=== PATIENT | female | born 1940 | race Caucasian/White ===

== ENCOUNTER 2018-07-29 03:11 | Inpatient (IN) | payer MEDICARE, OTHER ==
[2018-07-29] MEDS ORDERED: ONDANSETRON 4 MG/2 ML VIAL ONE ×4 (03:28→14:56)
--- NOTE | 2018-07-29 03:38 | PDOC ---
Attending Attestation - HPI HPI: 07/29/18 06:27 The patient is a 77 year old female with a significant past medical history of DM, HTN, HLD, CKD stage III, who presents to the ED with abdominal pain, and vomiting for 2 days. Patient reports acute onset of multiple episodes of non bilious, non bloody emesis beginning at 1100 yesterday. she reportes associated diffuse, crampy, abdominal pain, with no identifiable triggers or alleviators. Last BM x 4 days ago. Normal PO intake. Patient in normal state of health before symptom onset. the patient denies any other symptoms or complaints. Documentation prepared by Flavio Pereira, acting as biomedical engineering internship for Perla Willis MD. <Flavio Pereira - Last Filed: 07/29/18 06:27> - Resident Resident Name: Macho Marvin - Physicial Exam PE: 07/29/18 07:16 GENERAL: Awake, alert, and fully oriented, in no acute distress LUNGS: No distress, speaks full sentences, clear to auscultation bilaterally HEART: Regular rate and rhythm, normal S1 and S2, no murmurs, rubs or gallops, peripheral pulses normal and equal bilaterally. ABDOMEN: + Diffuse abdominal ttp. Soft, normoactive bowel sounds. No guarding, no rebound, no rigidity. EXTREMITIES : Normal inspection, Normal range of motion, no edema. SKIN: Warm, Dry, normal turgor, no rashes or lesions noted - Medical Decision Making 07/29/18 07:17 77 yo F presenting to the ER with a complaint of abdominal pain (+) vomiting 07/29/18 07:18 Laboratory Tests 07/29/18 07/29/18 07/29/18 05:00 05:00 05:00 WBC 19.4 H Hgb 13.8 Hct 45.5 H D Plt Count 335 D BUN 33 H Creatinine 1.1 Creatine Kinase Troponin I Lipase 48770 H 07/29/18 05:00 WBC Hgb Hct Plt Count BUN Creatinine Creatine Kinase 61 Troponin I 0.02 Lipase Acute pancreatitis Will admit Pending CT <Perla Willis - Last Filed: 07/29/18 07:18>
--- NOTE | 2018-07-29 03:45 | PDOC ---
History of Present Illness - General Chief Complaint: Nausea/Vomiting Stated Complaint: NAUSEA Time Seen by Provider: 07/29/18 03:35 - History of Present Illness Initial Comments: 07/29/18 03:43 77 yo F with h/o DM, HTN, HLD, necrotizing pancreatitis, splenic and portal vein thrombosis, CKD stage III, who p/w abdominal pain, and vomiting. Patient reports acute onset of multiple episodes of non bilious, non bloody emesis beginning at 1100 (07/28/18). Associated with diffuse, crampy, abdominal pain, with no identifiable triggers or alleviators. Last BM x 4 days ago. Normal PO intake. Patient in normal state of health before symptom onset. Patient denies N/V, F,C, CP, SOB, urinary complaints, abdominal pain, diarrhea, BPR, hematuria, lightheadedness, weakness, sensory changes. PMHx: as noted above ROS: as noted Allergies: NKDA Past History - Past Medical History Allergies/Adverse Reactions: Allergies Allergy/AdvReac Type Severity Reaction Status Date / Time No Known Allergies Allergy Verified 05/26/16 18:07 Home Medications: Ambulatory Orders Enalapril Maleate [Vasotec -] 10 mg PO DAILY 03/26/12 Aspirin [Aspirin EC] 81 mg PO DAILY 07/29/18 Docusate Sodium 100 mg PO TID PRN 07/29/18 Gemfibrozil 600 mg PO BID 07/29/18 Glipizide 5 mg PO DAILY 07/29/18 Insulin Glargine,Hum.rec.anlog [Basaglar Kwikpen U-100] 25 units SQ DAILY@0700 07/29/18 Metformin HCl [Glucophage] 1,000 mg PO BID 07/29/18 Metoprolol Succinate 50 mg PO DAILY 07/29/18 Omeprazole 20 mg PO DAILY 07/29/18 Sodium Bicarbonate 454 gm MC DAILY 07/29/18 Vit C/E/Zn/Coppr/Lutein/Zeaxan [Preservision Areds 2 Softgel] 1 cap PO DAILY Anemia: No Asthma: No Cancer: No Cardiac Disorders: Yes CVA: No COPD: No CHF: No Dementia: No Diabetes: Yes (NIDDM) GI Disorders: Yes (GASTRITIS, PANCREATITIS) Disorders: No HTN: Yes Hypercholesterolemia: Yes Liver Disease: No Seizures: No Thyroid Disease: No - Surgical History Abdominal Surgery: No Appendectomy: No Cardiac Surgery: No Cholecystectomy: Yes Lung Surgery: No Neurologic Surgery: No Orthopedic Surgery: No - Immunization History Immunization Up to Date: No - Suicide/Smoking/Psychosocial Hx Smoking History: Unknown if ever smoked Have you smoked in the past 12 months: No Hx Alcohol Use: No Drug/Substance Use Hx: No Substance Use Type: None Hx Substance Use Treatment: No Review of Systems - Review of Systems Comments:: 07/29/18 03:44 GENERAL/CONSTITUTIONAL: No fever or chills. No weakness. HEAD, EYES, EARS, NOSE AND THROAT: No change in vision. No ear pain or discharge. No sore throat. CARDIOVASCULAR: No chest pain or shortness of breath RESPIRATORY: No cough, wheezing, or hemoptysis. GASTROINTESTINAL:+ abdominal pain, nausea, vomiting, constipation. No diarrhea GENITOURINARY: No dysuria, frequency, or change in urination. MUSCULOSKELETAL: No joint or muscle swelling or pain. No neck or back pain. SKIN: No rash NEUROLOGIC: No headache, vertigo, loss of consciousness, or change in strength/ sensation. ENDOCRINE: No increased thirst. No abnormal weight change HEMATOLOGIC/LYMPHATIC: No anemia, easy bleeding, or history of blood clots. ALLERGIC/IMMUNOLOGIC: No hives or skin allergy. *Physical Exam - Vital Signs Last Vital Signs Temp Pulse Resp BP Pulse Ox 98.5 F 86 19 141/86 100 07/29/18 03:13 07/29/18 03:13 07/29/18 03:13 07/29/18 03:13 07/29/18 03:13 - Physical Exam Comments: 07/29/18 03:44 GENERAL: Awake, alert, and fully oriented, in no acute distress HEAD: No signs of trauma, normocephalic, atraumatic EYES: PERRLA, EOMI, sclera anicteric, conjunctiva clear ENT: Hearing grossly normal, nares patent, oropharynx clear without exudates. Moist mucosa NECK: Normal ROM, supple, no lymphadenopathy, JVD, or masses LUNGS: No distress, speaks full sentences, clear to auscultation bilaterally HEART: Regular rate and rhythm, normal S1 and S2, no murmurs, rubs or gallops, peripheral pulses normal and equal bilaterally. ABDOMEN: + Diffuse abdominal ttp. Soft, normoactive bowel sounds. No guarding, no rebound, no rigidity. No masses. Neg CVA ttp. EXTREMITIES : Normal inspection, Normal range of motion, no edema. No clubbing or cyanosis. SKIN: Warm, Dry, normal turgor, no rashes or lesions noted ED Treatment Course - LABORATORY CBC & Chemistry Diagram: 07/29/18 05:00 07/29/18 05:00 Medical Decision Making - Medical Decision Making 07/29/18 03:58 77 yo F with h/o DM, HTN, HLD, CKD stage III, who p/w abdominal pain, and vomiting. VSS, AF. + Diffuse abdominal ttp. R/o SBO vs. ileus. Will consider biliary pathology, gastritis, colitis, appendicitis, nephrolithiasis. Low suspicion pyelonephiritis, AAA, Ao dissection, mesenteric ischemia. 07/29/18 04:04 Ed Course: CBC, CMP, Cardiac, Lipase EKG Zofran, NS CT AP 07/29/18 05:53 WBC: 19.4 07/29/18 06:14 EKG: NSR with LVH . Q wave lead III, AvF. Absent NATALI, STD. 07/29/18 06:40 Lipase: [id number] ( [id number]) 07/29/18 06:42 Trop: Neg BUN: 33 07/29/18 06:43 Patient stable and signed out to day team. Pending CT AP. *DC/Admit/Observation/Transfer Diagnosis at time of Disposition: Pancreatitis Qualifiers: Chronicity: acute Pancreatitis type: unspecified pancreatitis type Acute pancreatitis complication: unspecified Qualified Code(s): K85.90 - Acute pancreatitis without necrosis or infection, unspecified - Discharge Dispostion Disposition: HOME Condition at time of disposition: Stable Decision to Admit order: Yes - Referrals - Patient Instructions - Post Discharge Activity - Attestations Physician Attestion: 07/29/18 03:45 I attest to the information provided in this note.
[2018-07-29] MEDS ORDERED: SODIUM CHLORIDE 0.9% 500 ML INFUS.BAG IV ONE (03:52)
[2018-07-29] MEDS ORDERED: ONDANSETRON 4 MG/2 ML VIAL IVPUSH ONE ×2 (03:52→07:41)
[2018-07-29] MEDS ORDERED: MAGNESIUM CITRATE 300 ML BOTTLE PO ONE (04:06)
[2018-07-29] MEDS ORDERED: MAGNESIUM CITRATE 300 ML BOTTLE ONE (05:19)
[2018-07-29 05:25] LABS: BASO % 0.4 % (0-2.0); EOS % 1.6 % (0-4.5); HEMATOCRIT 45.5 % (32.4-45.2); HEMOGLOBIN 13.8 GM/dL (10.7-15.3); LYMPH % 8.2 % (8-40); MCH 22.8 pg (25.7-33.7); MCHC 30.3 g/dl (32.0-36.0); MEAN CELL VOLUME 75.5 fl (80-96); MEAN PLT VOLUME 9.1 fl (7.5-11.1); MONO % 3.5 % (3.8-10.2); NEUT % 86.3 % (42.8-82.8); PLATELET COUNT 335 K/MM3 (134-434); RBC 6.02 M/mm3 (3.60-5.2); RDW 14.6 % (11.6-15.6); WHITE BLOOD COUNT 19.4 K/mm3 (4.0-10.0)
[2018-07-29 06:25] LABS: LIPASE 13996 U/L (73-393)
[2018-07-29 06:36] LABS: ALBUMIN 3.1 g/dl (3.4-5.0); ALK PHOS 138 U/L (45-117); ANION GAP 8 MMOL/L (8-16); BILIRUBIN,TOTAL 0.3 mg/dL (0.2-1); BLOOD UREA NITROGEN 33 mg/dL (7-18); CALCIUM 8.8 mg/dL (8.5-10.1); CHLORIDE 112 mmol/L (98-107); CO2 17 mmol/L (21-32); CREATININE 1.1 mg/dL (0.55-1.3); POTASSIUM 5.2 mmol/L (3.5-5.1); SGOT/AST 37 U/L (15-37); SGPT/ALT 28 U/L (13-61); SODIUM 138 mmol/L (136-145); TOT PROT 6.2 g/dl (6.4-8.2)
[2018-07-29 07:19] LABS: GLUCOSE,RANDOM 315 mg/dL (74-106)
[2018-07-29] MEDS ORDERED: SODIUM CHLORIDE 0.9% 1000 ML INFUS.BAG IV ONE ×2 (07:24)
[2018-07-29] MEDS ORDERED: morphine CARPU-JECT 4 MG/1 ML DISP.SYRIN IVPUSH ONE (07:24)
[2018-07-29] MEDS ORDERED: morphine SULFATE 4 MG/ML VIAL ONE ×2 (07:30→16:10)
--- NOTE | 2018-07-29 07:36 | HP ---
Addendum entered and electronically signed by Syd Fernandez, RESIDENT 07/29/18 11: 12: called pharmacy again Patient also on insulin 25 units QAM will give 12 units while NPO Patient on aspirin 81 daily will continue aspirin 81mg po daily Original Note: CHIEF COMPLAINT:abdominal pain PCP:[facility] HISTORY OF PRESENT ILLNESS: 77F PMHx of DM2, GERD, HTN, HLD, CAD s/p stent x2, presents to the hospital with 1 day history of sever 10/10 abdominal pain which started last night. Patient states this is similar ot her pain she had 2 years ago. She also had multiple episodes of NB/NB vomiting. She states she ate a diabetic cracker last night to keep her sugar up and when she was ready to go to bed she started to have what she describes as severe abdominal pain. The pain radiates to her back and she is having trouble moving because of the pain. She denies fever chills chest pain or shortness of breath. In the ER she was noted to have a lipade of about 14,000. The patient was hospitalized 2 years ago for acute pancreatitis and upon work up was found to have been on Repaglinide and DPP-4 ingibitor sitalgiptin and pancreatitis was suspected to have come from one of these meds since she does not drink alcohol and we did not find gall stone 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 She was also transferred to ICU since she was found to be acidotic on ABG we decided to repeat the CT scan which showed a small area of necrosis at the head of the pancreas (started on imipenem) and also showed a portal vein non- occlusive thrombosis at the junction of the splenic vein and she was started on anticoagulation and transferred to [facility] where she states she did not have any procedure done and eventually was discharged a few days after transfer. She states she was anticoagulated for a short while after as an outpatient and stopped. (she believes about 2 weeks after discharge.)She never followed up with GI. Patient presents with her daughter who helped give the HPI and speak or translate for the patient at times but the patient understood Mauritian and was able to answer my questions when she wanted to. I called the patient's pharmacy and they state she was given repaglinide for a few months this year. She had it in december and february of this year but is now inactive. Patient brought in her medications and Repaglinide was not there and she states she does not take it anymore. Pharmacy also states she was given Lipitor 20mg a few months ago and was never refilled however patient states she does not take it. She has not picked up with gemfibrozil since April but still has a full bottle because the patient states she only takes it once a day and not twice. ER course was notable for: (1)Labs IVF (2)CTAP (3)Pain control antiemetics Recent Travel:Denies PAST MEDICAL HISTORY:As above CKD CAD PAST SURGICAL HISTORY: Cholecystectomy Social History: Smoking:Denies Alcohol:Denies Drugs: Denies Family History: Allergies No Known Allergies Allergy (Verified 05/26/16 18:07) HOME MEDICATIONS: Medication Instructions Recorded Enalapril Maleate [Vasotec -] 10 mg PO DAILY 03/26/12 Docusate Sodium 100 mg PO TID PRN 07/29/18 Gemfibrozil 600 mg PO BID 07/29/18 Glipizide 5 mg PO DAILY 07/29/18 Insulin Glargine,Hum.rec.anlog 25 units SQ DAILY@0700 07/29/18 [Basaglar Kwikpen U-100] Metformin HCl [Glucophage] 1,000 mg PO BID 07/29/18 Metoprolol Succinate 50 mg PO DAILY 07/29/18 Omeprazole 20 mg PO DAILY 07/29/18 Sodium Bicarbonate 454 gm MC DAILY 07/29/18 Vit C/E/Zn/Coppr/Lutein/Zeaxan 1 cap PO DAILY 07/29/18 [Preservision Areds 2 Softgel] REVIEW OF SYSTEMS CONSTITUTIONAL: Absent: fever, chills, diaphoresis, generalized weakness, malaise, weight change Present: Loss of appetite HEENT: Absent: rhinorrhea, nasal congestion, throat pain, throat swelling, difficulty swallowing, mouth swelling, ear pain, eye pain, visual changes CARDIOVASCULAR: Absent: chest pain, syncope, palpitations, irregular heart rate, lightheadedness , peripheral edema RESPIRATORY: Absent: cough, shortness of breath, dyspnea with exertion, orthopnea, wheezing, stridor, hemoptysis GASTROINTESTINAL: Absent: diarrhea, melena, hematochezia Present: abdominal pain, abdominal distension, nausea, vomiting, constipation GENITOURINARY: Absent: dysuria, frequency, urgency, hesitancy, hematuria, flank pain, genital pain MUSCULOSKELETAL: Absent: myalgia, arthralgia, joint swelling, neck pain Present: back pain SKIN: Absent: rash, itching, pallor HEMATOLOGIC/IMMUNOLOGIC: Absent: easy bleeding, easy bruising, lymphadenopathy, frequent infections ENDOCRINE: Absent: unexplained weight gain, unexplained weight loss, heat intolerance, cold intolerance NEUROLOGIC: Absent: headache, focal weakness or paresthesias, dizziness, unsteady gait, seizure, mental status changes, bladder or bowel incontinence PSYCHIATRIC: Absent: anxiety, depression, suicidal or homicidal ideation, hallucinations. PHYSICAL EXAMINATION Vital Signs - 24 hr 07/29/18 03:13 Temperature 98.5 F Pulse Rate 86 Respiratory 19 Rate Blood Pressure 141/86 O2 Sat by Pulse 100 Oximetry (%) GENERAL: Awake, alert, and fully oriented, in mild distress. HEAD: Normal with no signs of trauma. EYES: Pupils equal, round and reactive to light, extraocular movements intact, sclera anicteric, conjunctiva clear. No lid lag. EARS, NOSE, THROAT: Dry mucous membranes. NECK: Normal range of motion, supple without JVD LUNGS: Breath sounds equal, clear to auscultation bilaterally. No wheezes, and no crackles. No accessory muscle use. HEART: Regular rate and rhythm, normal S1 and S2 without murmur, rub or gallop. ABDOMEN: Soft, diffusely tender to light palpation. Moderately distended ( Patient complains of being constipated), hypoactive bowel sounds. MUSCULOSKELETAL: Normal range of motion at all joints. No bony deformities or tenderness. UPPER EXTREMITIES: warm, well-perfused. No cyanosis. No clubbing. No peripheral edema. LOWER EXTREMITIES: 1+ DP pulses, warm, well-perfused. No calf tenderness. trace peripheral edema. NEUROLOGICAL: Cranial nerves II-XII intact. Normal speech. Normal gait. global muscles strength 5/5. sensation intact. no neurological deficits noted on exam. PSYCHIATRIC: Cooperative. Good eye contact. Appropriate mood and affect. SKIN: Warm, dry Laboratory Results - last 24 hr 07/29/18 07/29/18 07/29/18 05:00 05:00 05:00 WBC 19.4 H RBC 6.02 H Hgb 13.8 Hct 45.5 H D MCV 75.5 L MCH 22.8 L MCHC 30.3 L RDW 14.6 Plt Count 335 D MPV 9.1 Absolute Neuts (auto) 16.7 H Neutrophils % 86.3 H D Lymphocytes % 8.2 D Monocytes % 3.5 L Eosinophils % 1.6 Basophils % 0.4 Nucleated RBC % 0 Sodium 138 Potassium 5.2 H Chloride 112 H Carbon Dioxide 17 L Anion Gap 8 BUN 33 H Creatinine 1.1 Creat Clearance w eGFR 48.29 Random Glucose 315 H* Calcium 8.8 Total Bilirubin 0.3 AST 37 ALT 28 Alkaline Phosphatase 138 H Creatine Kinase Troponin I Total Protein 6.2 L Albumin 3.1 L Lipase 85639 H 07/29/18 05:00 WBC RBC Hgb Hct MCV MCH MCHC RDW Plt Count MPV Absolute Neuts (auto) Neutrophils % Lymphocytes % Monocytes % Eosinophils % Basophils % Nucleated RBC % Sodium Potassium Chloride Carbon Dioxide Anion Gap BUN Creatinine Creat Clearance w eGFR Random Glucose Calcium Total Bilirubin AST ALT Alkaline Phosphatase Creatine Kinase 61 Troponin I 0.02 Total Protein Albumin Lipase CTAP: Official read still pending but 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 Also shows a 3.8cm right adnexal cyst. ASSESSMENT/PLAN: 77F with multiple medical problems presents with Nausea, vomiting, ABD pain, with a history, physical exam, radiological findings, and laboratory assessment consistent with acute 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 Meets 3 of the ransons criteria. Acute 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 Unsure as to the cause of acute 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 Her Alk-phos is slightly elevated but no other LFT abormalities. Do not suspect gallstone 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 Patient is on omeprazole which has an adverse effect listed as causing 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 went through medications. patient also taking a multivitamin and mineral capsule. I researched this medication and side effects listed are very generic such as abdominal pain, vomiting, headache, but no causes listed. Would likely hold on discharge just to rule out as process of elimination. Stop omperazole-would not give this on discharge. would replavce with H2 yancy Admit to Med/Surg NPO IVF for resuscitation LR @ 150ml/hr. already got 2 liters bolus in ER Will check a stat triglyceride level now as this could be a cause of the pancreatitis if it is very high patient will need ICU and an insulin gtt. If WNL or not extremely high will get a RUQ US to assess for possibility of retained CBD stone causing a gall stone pancreatitis although with the LFTs and Tbili normal this is unlikely Pain control with morphine and tylenol Zofran PRN Trend Leukocytosis DM-patient presented with Hyperglycemia Stop PO DM meds. start Insulin sliding scale Fingersticks q6h Consitpation: patient is distended CTAp shows impacted stool on rectum will give dulcolax suppository and enema Restart colace when able to take PO GI consult CKD stage three patient seems Dr. Melanie Moreno for renal Cr 1.1 which is better than baseline of about 1.3 HTN Resume Home enalapril and metoprolol when able to tolerate PO CAD Will talk to patient and see if she is still on aspirin if she is not will find out why not given she has 2 stents if she is on it will continue HLD patient not on statin although was prescribed lipitor 20mg po HS. was not refilled after last prescription per pharmacist. 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 - New Patient This patient is new to me today: Yes Date on this admission: 07/29/18 - Critical Care Critical Care patient: No
[2018-07-29 07:49] LABS: CHOLESTEROL 163 mg/dL (50-200); HDL CHOLESTEROL 34 mg/dL (40-60); TRIGLYCERIDES 153 mg/dL (0-150)
--- NOTE | 2018-07-29 08:53 | PN ---
Teaching Attending Note Name of Resident: Syd Fernandez ATTENDING PHYSICIAN STATEMENT I saw and evaluated the patient. I reviewed the resident's note and discussed the case with the resident. I agree with the resident's findings and plan as documented. SUBJECTIVE: This is a 77 year old woman with a history of HTN, hyperlipidemia, type 2 DM, CAD, necrotizing pancreatitis with portal vein thrombosis, stage 3 CKD who comes to the ED complaining of abdominal pain and vomiting since last night. She has not had a BM in 4 days. OBJECTIVE: Vital Signs Period Temp Pulse Resp BP Sys/Bauman Pulse Ox Last 24 Hr 98.5 F 86 19 141/86 100 HEART: S1S2, RRR LUNGS: Clear ABDOMEN: Obese, soft, (+) diffuse tenderness, non-distended, hypoactive BS EXTREMITIES: No edema Laboratory Tests 07/29/18 07/29/18 07/29/18 05:00 05:00 05:00 WBC 19.4 H RBC 6.02 H Hgb 13.8 Hct 45.5 H D MCV 75.5 L MCH 22.8 L MCHC 30.3 L RDW 14.6 Plt Count 335 D MPV 9.1 Absolute Neuts (auto) 16.7 H Neutrophils % 86.3 H D Lymphocytes % 8.2 D Monocytes % 3.5 L Eosinophils % 1.6 Basophils % 0.4 Nucleated RBC % 0 Sodium 138 Potassium 5.2 H Chloride 112 H Carbon Dioxide 17 L Anion Gap 8 BUN 33 H Creatinine 1.1 Creat Clearance w eGFR 48.29 Random Glucose 315 H* Calcium 8.8 Total Bilirubin 0.3 AST 37 ALT 28 Alkaline Phosphatase 138 H Creatine Kinase Troponin I Total Protein 6.2 L Albumin 3.1 L Triglycerides 153 H Cholesterol 163 Total LDL Cholesterol 114 H HDL Cholesterol 34 L Lipase 08986 H 07/29/18 05:00 WBC RBC Hgb Hct MCV MCH MCHC RDW Plt Count MPV Absolute Neuts (auto) Neutrophils % Lymphocytes % Monocytes % Eosinophils % Basophils % Nucleated RBC % Sodium Potassium Chloride Carbon Dioxide Anion Gap BUN Creatinine Creat Clearance w eGFR Random Glucose Calcium Total Bilirubin AST ALT Alkaline Phosphatase Creatine Kinase 61 Troponin I 0.02 Total Protein Albumin Triglycerides Cholesterol Total LDL Cholesterol HDL Cholesterol Lipase Home Medications Medication Instructions Recorded Enalapril Maleate [Vasotec -] 10 mg PO DAILY 03/26/12 Docusate Sodium 100 mg PO BID 07/29/18 Gemfibrozil 600 mg PO BID 07/29/18 Glipizide 5 mg PO DAILY 07/29/18 Metformin HCl [Glucophage] 1,000 mg PO BID 07/29/18 Metoprolol Succinate 50 mg PO DAILY 07/29/18 Omeprazole 20 mg PO DAILY 07/29/18 Sodium Bicarbonate 454 gm PO DAILY 07/29/18 Vit C/E/Zn/Coppr/Lutein/Zeaxan 1 cap PO DAILY 07/29/18 [Preservision Areds 2 Softgel] ASSESSMENT AND PLAN: This is a 77 year old woman with a history of HTN, hyperlipidemia, type 2 DM, CAD, necrotizing pancreatitis with portal vein thrombosis, stage 3 CKD who presented to the ED with abdominal pain, nausea, vomiting, and constipation. 1. Acute pancreatitis - NPO - IV fluid - Triglycerides ok - LFTs ok except slight elevation in alk phos - Follow up US - Discontinue omeprazole - GI evaluation 2. Constipation with fecal impaction - Mag citrate given in ED - Fleet enema ordered 3. Type 2 DM - Hold glipizide, metformin - Continue Basaglar - reduce dose while NPO - Fingersticks with Novolog sliding scale 4. HTN - Continue Vasotec, Toprol XL 5. Hyperlipidemia - Continue gemfibrozil 6. CAD, history of stents - Continue aspirin, Toprol XL, gemfibrozil 7. Stage 3 CKD - Stable - Monitor creatinine
[2018-07-29] MEDS ORDERED: MORPHINE SULFATE 2 MG/ML VIAL IVPUSH PRN (08:56)
[2018-07-29] MEDS ORDERED: LACTATED RINGERS SOLUTION 1,000 ML IV SCH ×4 (09:00→11:34)
[2018-07-29 09:02] LABS: LDH 230 U/L (84-246)
[2018-07-29] MEDS ORDERED: BISACODYL 10 MG SUPP.RECT RC PRN (10:00)
[2018-07-29] MEDS ORDERED: SODIUM PHOSPHATE/NA BIPHOS 133 ML ENEMA PR ONE (10:00)
--- NOTE | 2018-07-29 10:25 | EKG ---
Test Reason : Blood Pressure : / mmHG Vent. Rate : 098 BPM Atrial Rate : 098 BPM P-R Int : 122 ms QRS Dur : 090 ms QT Int : 364 ms P-R-T Axes : 027 -02 040 degrees QTc Int : 464 ms NORMAL SINUS RHYTHM MINIMAL VOLTAGE CRITERIA FOR LVH, MAY BE NORMAL VARIANT NONSPECIFIC ST ABNORMALITY ABNORMAL ECG WHEN COMPARED WITH ECG OF 08-MAY-2016 23:31, NONSPECIFIC T WAVE ABNORMALITY NOW EVIDENT IN LATERAL LEADS Confirmed by FANI CASTRO, EUN ([id number]) on 07/29/2018 10:24:37 AM Referred By: Confirmed By:EUN MOHR MD
[2018-07-29] MEDS ORDERED: ACETAMINOPHEN INJECTION 100 ML IVPB ONE ×2 (10:45→17:23)
[2018-07-29] MEDS ORDERED: FAMOTIDINE 20 MG/50 ML IVPB 20 MG/50 ML MG IVPB ONE (10:45)
[2018-07-29] MEDS: INSULIN SLIDING SCALE (NOVOLOG) 1 VIAL SQ SCH ×3 (10:45→18:01)
[2018-07-29] MEDS: INSULIN (LEVEMIR) 100 UNITS/ML UNITS SQ SCH (10:45)
[2018-07-29] MEDS: FAMOTIDINE 20 MG/50 ML IVPB 20 MG/50 ML MG IVPB SCH ×2 (10:45→22:00)
[2018-07-29] MEDS ORDERED: INSULIN (LEVEMIR) 100 UNITS/ML UNITS SQ ONE (10:46)
[2018-07-29] MEDS ORDERED: INSULIN REGULAR HUMAN 100 UNITS/ML *VIAL ONE (10:48)
[2018-07-29] MEDS ORDERED: HEPARIN NA (PORCINE) 5,000 UNITS/ML 1ML VIAL SQ SCH (11:00)
[2018-07-29] MEDS: ACETAMINOPHEN 1000 MG/100 ML VIAL (NON FORMULARY) IVPB PRN ×2 (11:05→17:22)
[2018-07-29] MEDS ORDERED: HEPARIN NA (PORCINE) 5,000 UNITS/ML 1ML VIAL ONE (11:47)
[2018-07-29] MEDS ORDERED: ONDANSETRON 4 MG/2 ML VIAL IVPUSH PRN (12:00)
[2018-07-29] MEDS ORDERED: ASPIRIN COATED 81 MG TABLET.EC ONE (14:30)
[2018-07-29] MEDS: ASPIRIN COATED 81 MG TABLET.EC PO SCH (14:33)
[2018-07-29] MEDS: HEPARIN NA (PORCINE) 5,000 UNITS/ML 1ML VIAL SQ SCH ×2 (14:34→22:00)
--- NOTE | 2018-07-29 14:59 | PN ---
Teaching Attending Note Name of Resident: Jg Urban ATTENDING PHYSICIAN STATEMENT I saw and evaluated the patient. I reviewed the resident's note and discussed the case with the resident. I agree with the resident's findings and plan as documented. SUBJECTIVE: Pt seen and examined in the ER. Briefly, 77yo female with h/o HTN, DM, hyperlipidemia, CAD s/p stents, GERD, h/o pancreatitis 2 years ago who presents with abdominal pain, nausea and vomiting. Found to have a lipase of >32075 and pancreatitis seen on CT A/P. Symptoms feel similar to prior admission for 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 History obtained from daughter. OBJECTIVE: Vital Signs Period Temp Pulse Resp BP Sys/Bauman Pulse Ox Last 24 Hr 98.1 F-98.5 F 86-107 19-20 141-150/73-86 99-100 Intake & Output 07/26/18 07/27/18 07/28/18 07/29/18 23:59 23:59 23:59 23:59 Weight 74.389 kg Gen: listless Heart: RRR Lung: decreased breath sounds at the bases Abd: diffusely tender, +guarding Ext: no edema CBC, BMP 07/29/18 05:00 07/29/18 05:00 Laboratory Tests 07/29/18 05:00 Triglycerides 153 H Lipase 46430 H Active Medications Acetaminophen (Ofirmev Injection -) 1,000 mg IVPB Q6H PRN PRN Reason: Pain 1-5 or fever Last Admin: 07/29/18 11:05 Dose: 1,000 mg Aspirin (Ecotrin -) 81 mg PO DAILY [facility] Last Admin: 07/29/18 14:33 Dose: 81 mg Bisacodyl (Dulcolax Suppository -) 10 mg RC PRN PRN PRN Reason: CONSTIPATION Heparin Sodium (Porcine) (Heparin -) 5,000 unit SQ TID [facility] Last Admin: 07/29/18 14:34 Dose: Not Given Famotidine/Sodium Chloride (Pepcid 20 Mg Premixed Ivpb -) 20 mg in 50 mls @ 100 mls/hr IVPB BID [facility] Last Admin: 07/29/18 10:45 Dose: 100 mls/hr Lactated Ringer's (Lactated Ringers Solution) 1,000 ml in 1,000 mls @ 200 mls/ hr IV ASDIR SHASHANK Lactated Ringer's (Lactated Ringers Solution) 1,000 mls @ 250 mls/hr IV ASDIR [facility] Stop: 07/29/18 15:31 Last Admin: 07/29/18 14:34 Dose: 250 mls/hr Insulin Aspart (Novolog Vial Sliding Scale -) 1 vial SQ Q6HPO [facility]; Protocol Last Admin: 07/29/18 12:57 Dose: Not Given Insulin Detemir (Levemir Vial) 12 units SQ DAILY@0700 [facility] Last Admin: 07/29/18 10:45 Dose: 12 unit Morphine Sulfate (Morphine Sulfate) 4 mg IVPUSH Q4H PRN PRN Reason: PAIN LEVEL 6-10 Ondansetron HCl (Zofran Injection) 4 mg IVPUSH Q6H PRN PRN Reason: NAUSEA ASSESSMENT AND PLAN: Acute Pancreatitis CAD HTN DM Hyperlipidemia - aggressive IVF resuscitation - trend lipase - monitor urine output, creatinine - monitor lytes - glucose control - monitor off antibiotics as pt afebrile and no abscess seen on imaging - aspiration precautions - O2 to keep Spo2 >90% - DVT prophylaxis - ICU monitoring for now critical care time spent in reviewing chart, evaluating patient and formulating plan 35 min
[2018-07-29 15:29] LABS: URINE APPEARANCE CLEAR; URINE BILIRUBIN NEGATIVE (<2.0 mg/dL); URINE COLOR LTYELLOW; URINE GLUCOSE (UA) 3+ (NEGATIVE); URINE KETONE 1+ (NEGATIVE); URINE LEUK ESTERASE NEGATIVE (NEGATIVE); URINE NITRITE NEGATIVE (NEGATIVE); URINE PROTEIN 1+ (NEGATIVE); URINE UROBILINOGEN NEGATIVE mg/dL (0.2-1.0)
[2018-07-29] MEDS ORDERED: LACTATED RINGERS SOLUTION 1,000 ML/1,000 ML INFUS.BAG IV SCH (15:31)
[2018-07-29 15:46] LABS: EPI CELLS RARE /HPF (FEW); URINE MUCUS RARE
--- NOTE | 2018-07-29 16:03 | CONSULT ---
Consultation: REQUESTING PROVIDER: CONSULT REQUEST: We have been asked to medically evaluate this patient for ICU. HISTORY OF PRESENT ILLNESS:A 77 y.o. F w/ PMHx. of DM2, HTN, HLD, CAD(2 stent placements), Cholecystectomy, splenic vein thrombosis, pancreatitis 2/2 repaglinide, presents to ICU with abdominal pain 2/2 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 Pt. endorses 10/10 abdominal pain that started yesterday and is similar to the previous time she had pancreatitis 2 years ago 2/2 repaglinide use. Pt endorses non-bloody but bilious vomiting ~ 5 times. Pt. endorses feeling nauseuous however has not vomited since. Pt. tried to eat a small cracker so that her sugars would not drop too low but that made her nauseous. Pt. endorses constipation for 4 days. Pt. denies shortness of breath, chest pain, numbness or tingling of the extremities or having an appetite at this time. Pt. does not drink alcohol. REVIEW OF SYSTEMS: CONSTITUTIONAL: Present: loss of appetite Absent: fever, chills, diaphoresis, generalized weakness, malaise, weight change HEENT: Absent: rhinorrhea, nasal congestion, throat pain, throat swelling, difficulty swallowing, mouth swelling, ear pain, eye pain, visual changes CARDIOVASCULAR: Absent: chest pain, syncope, palpitations, irregular heart rate , lightheadedness, peripheral edema RESPIRATORY: Absent: cough, shortness of breath, dyspnea with exertion, orthopnea, wheezing, stridor, hemoptysis GASTROINTESTINAL: Present: Abdominal pain, constipation Absent: abdominal distension, nausea, vomiting, diarrhea, melena, hematochezia GENITOURINARY: Absent: dysuria, frequency, urgency, hesitancy, hematuria, flank pain, genital pain MUSCULOSKELETAL: Absent: myalgia, arthralgia, joint swelling, back pain, neck pain ENDOCRINE:Absent: unexplained weight gain, unexplained weight loss, heat intolerance, cold intolerance NEUROLOGIC: Absent: headache, focal weakness or paresthesias, dizziness, unsteady gait, seizure, mental status changes, bladder or bowel incontinence PSYCHIATRIC: Absent: anxiety, depression, suicidal or homicidal ideation, hallucinations. PHYSICAL EXAMINATION Vital Signs - 24 hr 07/29/18 07/29/18 07/29/18 03:13 12:07 15:58 Temperature 98.5 F 98.1 F Pulse Rate 86 Pulse Rate [ 107 H 117 H Apical] Respiratory 19 20 18 Rate Blood Pressure 141/86 Blood Pressure 150/73 175/11 H [Right Arm] O2 Sat by Pulse 100 99 98 Oximetry (%) 07/29/18 16:01 Temperature 99.8 F H Pulse Rate Pulse Rate [ Apical] Respiratory Rate Blood Pressure Blood Pressure [Right Arm] O2 Sat by Pulse Oximetry (%) GENERAL: Awake, alert, and fully oriented, in mild distress. HEAD: Normal with no signs of gross trauma. EYES: Pupils equal, round and reactive to light, sclera anicteric, conjunctiva clear. No lid lag. EARS, NOSE, THROAT: Ears normal, nares patent, oropharynx clear without exudates. Dry mucous membranes. LUNGS: Breath sounds equal, clear to auscultation bilaterally. No wheezes, and no crackles. No accessory muscle use. HEART: Tachycardic, regular rate and rhythm, normal S1 and S2 without murmur ABDOMEN: Soft, obese, diffusely tender to palpation with zenith of tenderness in the right lumbar region, not distended, normoactive bowel sounds, no guarding , no rebound. UPPER EXTREMITIES: warm, well-perfused. No cyanosis. No clubbing. Cap refill <2 seconds. No peripheral edema. LOWER EXTREMITIES: 2+ dorsal pedal pulses, warm, well-perfused. No calf tenderness. No peripheral edema. NEUROLOGICAL: Cranial nerves II-XII intact. Normal speech. Normal gait. PSYCHIATRIC: Cooperative. Good eye contact. Appropriate mood and affect. SKIN: Warm, dry, normal turgor Laboratory Results - last 24 hr 07/29/18 07/29/18 07/29/18 05:00 05:00 05:00 WBC 19.4 H RBC 6.02 H Hgb 13.8 Hct 45.5 H D MCV 75.5 L MCH 22.8 L MCHC 30.3 L RDW 14.6 Plt Count 335 D MPV 9.1 Absolute Neuts (auto) 16.7 H Neutrophils % 86.3 H D Lymphocytes % 8.2 D Monocytes % 3.5 L Eosinophils % 1.6 Basophils % 0.4 Nucleated RBC % 0 Sodium 138 Potassium 5.2 H Chloride 112 H Carbon Dioxide 17 L Anion Gap 8 BUN 33 H Creatinine 1.1 Creat Clearance w eGFR 48.29 POC Glucometer Random Glucose 315 H* Calcium 8.8 Total Bilirubin 0.3 AST 37 ALT 28 Alkaline Phosphatase 138 H LD Total 230 Creatine Kinase Troponin I Total Protein 6.2 L Albumin 3.1 L Triglycerides 153 H Cholesterol 163 Total LDL Cholesterol 114 H HDL Cholesterol 34 L Lipase 65241 H Urine Color Urine Appearance Urine pH Ur Specific [place] Urine Protein Urine Glucose (UA) Urine Ketones Urine Blood Urine Nitrite Urine Bilirubin Urine Urobilinogen Ur Leukocyte Esterase Urine WBC (Auto) Urine RBC (Auto) Ur Epithelial Cells Urine Mucus 07/29/18 07/29/18 07/29/18 05:00 10:15 15:00 WBC RBC Hgb Hct MCV MCH MCHC RDW Plt Count MPV Absolute Neuts (auto) Neutrophils % Lymphocytes % Monocytes % Eosinophils % Basophils % Nucleated RBC % Sodium Potassium Chloride Carbon Dioxide Anion Gap BUN Creatinine Creat Clearance w eGFR POC Glucometer [phone] Random Glucose Calcium Total Bilirubin AST ALT Alkaline Phosphatase LD Total Creatine Kinase 61 Troponin I 0.02 Total Protein Albumin Triglycerides Cholesterol Total LDL Cholesterol HDL Cholesterol Lipase Urine Color Ltyellow Urine Appearance Clear Urine pH 5.0 Ur Specific [place] 1.018 Urine Protein 1+ H Urine Glucose (UA) 3+ H Urine Ketones 1+ H Urine Blood Negative Urine Nitrite Negative Urine Bilirubin Negative Urine Urobilinogen Negative Ur Leukocyte Esterase Negative Urine WBC (Auto) 7 Urine RBC (Auto) 1 Ur Epithelial Cells Rare Urine Mucus Rare Active Medications Current Medications Acetaminophen (Ofirmev Injection -) 1,000 mg IVPB Q6H PRN PRN Reason: Pain 1-5 or fever Last Admin: 07/29/18 11:05 Dose: 1,000 mg Aspirin (Ecotrin -) 81 mg PO DAILY [facility] Last Admin: 07/29/18 14:33 Dose: 81 mg Bisacodyl (Dulcolax Suppository -) 10 mg RC PRN PRN PRN Reason: CONSTIPATION Chlorhexidine Gluconate (Hibiclens For Decolonization -) 1 applic TP HS [facility] Heparin Sodium (Porcine) (Heparin -) 5,000 unit SQ TID [facility] Last Admin: 07/29/18 14:34 Dose: Not Given Famotidine/Sodium Chloride (Pepcid 20 Mg Premixed Ivpb -) 20 mg in 50 mls @ 100 mls/hr IVPB BID [facility] Last Admin: 07/29/18 10:45 Dose: 100 mls/hr Lactated Ringer's (Lactated Ringers Solution) 1,000 ml in 1,000 mls @ 200 mls/ hr IV ASDIR [facility] Last Admin: 07/29/18 15:46 Dose: 200 mls/hr Insulin Aspart (Novolog Vial Sliding Scale -) 1 vial SQ Q6HPO [facility]; Protocol Last Admin: 07/29/18 12:57 Dose: Not Given Insulin Detemir (Levemir Vial) 12 units SQ DAILY@0700 [facility] Last Admin: 07/29/18 10:45 Dose: 12 unit Morphine Sulfate (Morphine Sulfate) 4 mg IVPUSH Q4H PRN PRN Reason: PAIN LEVEL 6-10 Mupirocin (Bactroban Ointment (For Decolonization) -) 1 applic NS BID [facility] Stop: 08/03/18 21:59 Ondansetron HCl (Zofran Injection) 4 mg IVPUSH Q6H PRN PRN Reason: NAUSEA Last Admin: 07/29/18 15:00 Dose: 4 mg ASSESSMENT/PLAN: A 77 y.o. F w/ PMHx. of DM2, HTN, HLD, CAD(2 stent placements), Cholecystectomy , splenic vein thrombosis, pancreatitis 2/2 repaglinide, presents to ICU with abdominal pain 2/2 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 #Gastroenterology -Pancreatitis 2/2 Omeprazole vs. Repaglinide vs. Idiopathic NPO c/w LR @200ml/hr Given 3 L total LR in ED Pulmonary assessment for ARDS or Volume overloading Q2H D/c PPIs, will start Zantac on Discharge Abdominal US: negative for gallstones Triglycerides: 153 Pt. Does not drink alcohol CT- AP showed residual stool in sigmoid colon, right adnexal mass and thickening of gastric antrum, descending and third portions of the duodenum d/t fatty changes 2/2 pancreatitis , small amount of fluid in right upper abdomen and paracolic gutter. GI Consult (Dr. Holland) appreciated. -DM2 Hyperglycemic D/c home medications ISS FS Q6H -GERD c/w IV Pepcid 4 gm -Constipation c/w Ducolax suppository consider manual disimpaction #Cardiology -CAD c/w ASA 81 mg for stents -HLD c/w Gemfibrozil when able to tolerate PO intake. #F/E/N -LR @ 200ml/hr -replete electrolytes as needed, monitor calcium levels, monitor triglyceride levels -NPO #PPx. -DVT Hep SQ -GI IV Pepcid 4 gm Dispo: We will continue to follow the patient. Thank you for this consultative opportunity. Visit type - Emergency Visit Emergency Visit: Yes ED Registration Date: 07/29/18 Care time: The patient presented to the Emergency Department on the above date and was hospitalized for further evaluation of their emergent condition. - New Patient This patient is new to me today: Yes Date on this admission: 07/29/18 - Critical Care Critical Care patient: Yes Total Critical Care Time (in minutes): 42 Critical Care Statement: The care of this patient involved high complexity decision making to prevent further life threatening deterioration of the patient 's condition and/or to evaluate & treat vital organ system(s) failure or risk of failure.
[2018-07-29] MEDS: MORPHINE SULFATE 2 MG/ML VIAL IVPUSH PRN (16:13)
--- NOTE | 2018-07-29 20:51 | CONS ---
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 She presented to the emergency room with abdominal pain, nausea and vomiting which began one day prior to admission. She is a poor historian. However, her daughter is at the bedside and provides more history. The patient has had no fever or chills, no melena, hematochezia or hematemesis. She has not taken any herbal supplements or new medications. She is on diabetes medicines. PAST MEDICAL AND SURGICAL HISTORY: As listed in the HPI. HOME MEDICATIONS: These were reviewed. ALLERGIES: No known drug allergies. SOCIAL HISTORY: She does not drink, smoke or use any drugs. FAMILY HISTORY: Noncontributory. REVIEW OF SYSTEMS: Negative except for pertinent positives listed in the HPI. PHYSICAL EXAMINATION: Vital signs: Temperature 99, pulse 117, respiratory rate 18, blood pressure 175/73, pulse oximetry 98% on room air. General: In no acute distress. HEENT: Anicteric sclerae. Cardiovascular: S1, S2. Regular rate and rhythm. Lungs: Bilaterally clear to auscultation. Abdomen: Tender diffusely without any rebound or guarding. Normal bowel sounds are present. Extremities: No edema. LABORATORIES: White blood cell count 19. Hemoglobin 13, hematocrit 45. Platelet count 335. Neutrophils 86. Sodium 138, potassium 5.2, BUN 38.3, creatinine 1.1, glucose 315, alkaline phosphatase 138, AST 37, ALT 28, triglycerides 153, cholesterol 163, lipase 13,996. She had a CT scan of the abdomen and pelvis without contrast which revealed acute pancreatitis, mainly involving the pancreatic head at its junction with the body, with significant surrounding edema extending to the anterior pararenal space. A small amount of fluid is seen in the right upper abdomen and paracolic gutter. No gross abscess is identified. She is status post cholecystectomy, non-obstructing right and left renal stone, suggestion of thickening of the gastric antrum wall and there is thickening of the descending and third portion of the duodenum, likely secondary to her 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 She has a moderate-size fat-containing supraumbilical hernia and a 3.6-cm right adnexal ovarian lesion, likely a cyst. A pelvic ultrasound is recommended. IMPRESSION: Acute pancreatitis of unclear etiology. It may be medication induced. I doubt this is secondary to choledocholithiasis, considering her liver tests are within normal limits. RECOMMENDATIONS: 1. Magnetic resonance cholangiopancreatography to further evaluate the pancreas and biliary tree, particularly the CT scan of her abdomen was a non-contrast study. 2. The patient will be n.p.o. 3. Aggressive fluid hydration. Increase lactated Ringer's to 200 to 240 mL/hour. Monitor her in and outs, volume status and daily weights. 4. Would recommend repeating her hemoglobin, hematocrit, BUN, creatinine and liver function tests q. 12 hours. 5. Purcell-culture. Low threshold to start antibiotics in this patient. 6. If she were to clinically deteriorate, an ICU evaluation should be obtained. Would also obtain a surgery evaluation. This patient will be followed closely by the GI Service. DO MIKAELA MENDIETA/[id number]
[2018-07-29] MEDS ORDERED: MUPIROCIN 2% TOPICAL OINTMENT FOR DECOLONIZATION NS SCH (22:00)
[2018-07-29] MEDS ORDERED: CHLORHEXIDINE GLUCONATE 4% CLEANSER FOR DECOLONIZATION TP SCH (22:00)
[2018-07-30] MEDS: INSULIN SLIDING SCALE (NOVOLOG) 1 VIAL SQ SCH ×5 (00:40→23:42)
[2018-07-30 05:44] LABS: BASO % 0.1 % (0-2.0); HEMATOCRIT 40.3 % (32.4-45.2); HEMOGLOBIN 12.3 GM/dL (10.7-15.3); LYMPH % 9.6 % (8-40); MCHC 30.4 g/dl (32.0-36.0); MEAN CELL VOLUME 75.4 fl (80-96); MEAN PLT VOLUME 8.8 fl (7.5-11.1); MONO % 5.3 % (3.8-10.2); PLATELET COUNT 273 K/MM3 (134-434); RBC 5.34 M/mm3 (3.60-5.2); WHITE BLOOD COUNT 16.1 K/mm3 (4.0-10.0)
[2018-07-30] MEDS ORDERED: BISACODYL 10 MG SUPP.RECT RC ONE (06:07)
[2018-07-30] MEDS ORDERED: HEPARIN NA (PORCINE) 5,000 UNITS/ML 1ML VIAL ONE (06:07)
[2018-07-30] MEDS ORDERED: INSULIN (NOVOLOG) ASPART 100 UNITS/ML 10ML VIAL ONE ×3 (06:08→23:40)
[2018-07-30] MEDS ORDERED: INSULIN (LEVEMIR) 100 UNITS/ML UNITS SQ ONE (06:08)
[2018-07-30 06:14] LABS: ALBUMIN 2.9 g/dl (3.4-5.0); ALK PHOS 118 U/L (45-117); ANION GAP 8 MMOL/L (8-16); BILIRUBIN,TOTAL 0.4 mg/dL (0.2-1); BLOOD UREA NITROGEN 29 mg/dL (7-18); CALCIUM 8.6 mg/dL (8.5-10.1); CHLORIDE 112 mmol/L (98-107); CO2 20 mmol/L (21-32); CREATININE 1.3 mg/dL (0.55-1.3); GLUCOSE,RANDOM 281 mg/dL (74-106); MAGNESIUM 2.1 mg/dL (1.8-2.4); PHOSPHOROUS 3.2 mg/dL (2.5-4.9); POTASSIUM 4.7 mmol/L (3.5-5.1); SGOT/AST 21 U/L (15-37); SGPT/ALT 19 U/L (13-61); SODIUM 141 mmol/L (136-145); TOT PROT 5.8 g/dl (6.4-8.2)
[2018-07-30] MEDS ORDERED: morphine SULFATE 4 MG/ML VIAL ONE (06:19)
[2018-07-30] MEDS: HEPARIN NA (PORCINE) 5,000 UNITS/ML 1ML VIAL SQ SCH ×3 (06:20→21:35)
[2018-07-30] MEDS: MORPHINE SULFATE 2 MG/ML VIAL IVPUSH PRN (06:20)
[2018-07-30] MEDS: INSULIN (LEVEMIR) 100 UNITS/ML UNITS SQ SCH (06:50)
[2018-07-30] MEDS ORDERED: LACTATED RINGERS SOLUTION 1,000 ML/1,000 ML INFUS.BAG IV SCH (07:46)
[2018-07-30] MEDS: ASPIRIN COATED 81 MG TABLET.EC PO SCH (10:30)
[2018-07-30] MEDS: FAMOTIDINE 20 MG/50 ML IVPB 20 MG/50 ML MG IVPB SCH ×2 (11:56→23:06)
[2018-07-30] MEDS ORDERED: FAMOTIDINE 20 MG/50 ML IVPB 20 MG/50 ML MG IVPB ONE (11:57)
--- NOTE | 2018-07-30 12:29 | PN ---
Physical Exam: SUBJECTIVE: Patient seen and examined. No acute events over night. Pt. received 8 units of insulin for BG of 316 and then an additional 6 units for a BG of 276 in addition to the home doses. Of note, the Pt. stopped receiving IVF at 3:30pm in the afternoon. Fluids were immediately restarted at 9:30 am when I was notified. I gave the Pt.'s ED nurse my personal number and explained Dr. Rosario 's instructions in detail. Number was provided if Pt. experienced any SOB or had signs of volume overload at any point in between my assessments of the Pt. Pt. at this time endorses decreased abdominal pain, chronic difficulty breathing with laying flat. Pt. denies any CP or increased SOB at this time. OBJECTIVE: Vital Signs Period Temp Pulse Resp BP Sys/Bauman Pulse Ox Last 24 Hr 98.3 F-99.8 F 75-123 16-20 124-175/11-97 96-99 GENERAL: The patient is awake, alert, and fully oriented, in no acute distress. HEAD: Normal with no signs of trauma. EYES: PERRL, extraocular movements intact, sclera anicteric, conjunctiva clear. No ptosis. ENT: Ears normal, nares patent, oropharynx clear without exudates, moist mucous membranes. NECK: JVD+ LUNGS: Breath sounds equal, clear to auscultation bilaterally, no wheezes, no crackles, no accessory muscle use. HEART: Regular rate and rhythm, S1, S2 without murmur, rub or gallop. ABDOMEN: soft, tender to palpation, right-sided well healed abdominal scar, BS+ EXTREMITIES: 2+ dorsal pedal pulses, warm, well-perfused, no calf tenderness, no edema. NEUROLOGICAL: Normal speech, gait not observed. PSYCH: Normal mood, normal affect. SKIN: Warm, dry, normal turgor Laboratory Results - last 24 hr 07/29/18 07/30/18 07/30/18 15:00 00:39 05:12 WBC 16.1 H RBC 5.34 H Hgb 12.3 Hct 40.3 MCV 75.4 L MCH 23.0 L MCHC 30.4 L RDW 15.0 Plt Count 273 MPV 8.8 Absolute Neuts (auto) 13.7 H Neutrophils % 85.0 H Lymphocytes % 9.6 Monocytes % 5.3 Eosinophils % 0.0 D Basophils % 0.1 Nucleated RBC % 0 Sodium Potassium Chloride Carbon Dioxide Anion Gap BUN Creatinine Creat Clearance w eGFR POC Glucometer [phone] Random Glucose Hemoglobin A1c % Calcium Phosphorus Magnesium Total Bilirubin AST ALT Alkaline Phosphatase C-Reactive Protein Total Protein Albumin Lipase Urine Color Ltyellow Urine Appearance Clear Urine pH 5.0 Ur Specific [place] 1.018 Urine Protein 1+ H Urine Glucose (UA) 3+ H Urine Ketones 1+ H Urine Blood Negative Urine Nitrite Negative Urine Bilirubin Negative Urine Urobilinogen Negative Ur Leukocyte Esterase Negative Urine WBC (Auto) 7 Urine RBC (Auto) 1 Ur Epithelial Cells Rare Urine Mucus Rare 07/30/18 07/30/18 07/30/18 05:12 05:12 05:12 WBC RBC Hgb Hct MCV MCH MCHC RDW Plt Count MPV Absolute Neuts (auto) Neutrophils % Lymphocytes % Monocytes % Eosinophils % Basophils % Nucleated RBC % Sodium 141 Potassium 4.7 Chloride 112 H Carbon Dioxide 20 L Anion Gap 8 BUN 29 H Creatinine 1.3 Creat Clearance w eGFR 39.82 POC Glucometer Random Glucose 281 H Hemoglobin A1c % 8.8 H Calcium 8.6 Phosphorus 3.2 Magnesium 2.1 Total Bilirubin 0.4 AST 21 ALT 19 Alkaline Phosphatase 118 H C-Reactive Protein Total Protein 5.8 L Albumin 2.9 L Lipase 2873 H Urine Color Urine Appearance Urine pH Ur Specific [place] Urine Protein Urine Glucose (UA) Urine Ketones Urine Blood Urine Nitrite Urine Bilirubin Urine Urobilinogen Ur Leukocyte Esterase Urine WBC (Auto) Urine RBC (Auto) Ur Epithelial Cells Urine Mucus 07/30/18 07/30/18 05:12 06:14 WBC RBC Hgb Hct MCV MCH MCHC RDW Plt Count MPV Absolute Neuts (auto) Neutrophils % Lymphocytes % Monocytes % Eosinophils % Basophils % Nucleated RBC % Sodium Potassium Chloride Carbon Dioxide Anion Gap BUN Creatinine Creat Clearance w eGFR POC Glucometer [phone] Random Glucose Hemoglobin A1c % Calcium Phosphorus Magnesium Total Bilirubin AST ALT Alkaline Phosphatase C-Reactive Protein 7.6 H Total Protein Albumin Lipase Urine Color Urine Appearance Urine pH Ur Specific [place] Urine Protein Urine Glucose (UA) Urine Ketones Urine Blood Urine Nitrite Urine Bilirubin Urine Urobilinogen Ur Leukocyte Esterase Urine WBC (Auto) Urine RBC (Auto) Ur Epithelial Cells Urine Mucus Active Medications Current Medications Acetaminophen (Ofirmev Injection -) 1,000 mg IVPB Q6H PRN PRN Reason: Pain 1-5 or fever Last Admin: 07/29/18 17:22 Dose: 1,000 mg Aspirin (Ecotrin -) 81 mg PO DAILY [facility] Last Admin: 07/30/18 10:30 Dose: 81 mg Bisacodyl (Dulcolax Suppository -) 10 mg RC PRN PRN PRN Reason: CONSTIPATION Last Admin: 07/30/18 06:20 Dose: 10 mg Chlorhexidine Gluconate (Hibiclens For Decolonization -) 1 applic TP HS [facility] Heparin Sodium (Porcine) (Heparin -) 5,000 unit SQ TID [facility] Last Admin: 07/30/18 06:20 Dose: 5,000 unit Famotidine/Sodium Chloride (Pepcid 20 Mg Premixed Ivpb -) 20 mg in 50 mls @ 100 mls/hr IVPB BID [facility] Last Admin: 07/30/18 11:56 Dose: 100 mls/hr Lactated Ringer's (Lactated Ringers Solution) 1,000 ml in 1,000 mls @ 240 mls/ hr IV ASDIR [facility] Last Admin: 07/30/18 09:30 Dose: 240 mls/hr Insulin Aspart (Novolog Vial Sliding Scale -) 1 vial SQ Q6HPO [facility]; Protocol Last Admin: 07/30/18 06:20 Dose: 8 unit Insulin Detemir (Levemir Vial) 12 units SQ DAILY@0700 [facility] Last Admin: 07/30/18 06:50 Dose: 12 unit Morphine Sulfate (Morphine Sulfate) 4 mg IVPUSH Q4H PRN PRN Reason: PAIN LEVEL 6-10 Last Admin: 07/30/18 06:20 Dose: 4 mg Mupirocin (Bactroban Ointment (For Decolonization) -) 1 applic NS BID [facility] Stop: 08/03/18 21:59 Ondansetron HCl (Zofran Injection) 4 mg IVPUSH Q6H PRN PRN Reason: NAUSEA Last Admin: 07/29/18 15:00 Dose: 4 mg ASSESSMENT/PLAN: A 77 y.o. F w/ PMHx. of DM2, HTN, HLD, CAD(2 stent placements), Cholecystectomy , splenic vein thrombosis, pancreatitis 2/2 repaglinide, presents to ICU with abdominal pain 2/2 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 #Gastroenterology -Pancreatitis 2/2 Omeprazole vs. Repaglinide vs. Idiopathic NPO c/w LR @240ml/hr Given Pulmonary assessment for ARDS or Volume overloading Q2H D/c PPIs, will start Zantac on Discharge Abdominal US: negative for gallstones Triglycerides: 153 Pt. Does not drink alcohol CT- AP showed residual stool in sigmoid colon, right adnexal mass and thickening of gastric antrum, descending and third portions of the duodenum d/t fatty changes 2/2 pancreatitis , small amount of fluid in right upper abdomen and paracolic gutter. F/u MRCP w/o contrast d/t rise in Creatinine overnight. CXR: Improvedas compared to yesterday with great visualization of CDA. GI Consult (Dr. Holland) appreciated. -DM2 Hyperglycemic D/c home medications ISS FS Q6H -GERD c/w IV Pepcid 4 gm -Constipation c/w Ducolax suppository consider manual disimpaction #Cardiology -CAD c/w ASA 81 mg for stents -HLD c/w Gemfibrozil when able to tolerate PO intake. #F/E/N -LR @ 200ml/hr -replete electrolytes as needed, monitor calcium levels, monitor triglyceride levels -CBC, CMP Q12H -NPO -Strict Is & Os #PPx. -DVT Hep SQ -GI IV Pepcid 4 gm
--- NOTE | 2018-07-30 12:35 | PN ---
Teaching Attending Note Name of Resident: Jg Urban ATTENDING PHYSICIAN STATEMENT I saw and evaluated the patient. I reviewed the resident's note and discussed the case with the resident. I agree with the resident's findings and plan as documented. SUBJECTIVE: Pt seen and examined in the ER. Still some abdominal pain and nausea but much improved from yesterday. OBJECTIVE: Vital Signs Period Temp Pulse Resp BP Sys/Bauman Pulse Ox Last 24 Hr 98.3 F-99.8 F 75-123 16-20 124-175/11-97 96-99 Intake & Output 07/27/18 07/28/18 07/29/18 07/30/18 23:59 23:59 23:59 23:59 Intake Total 1000 Balance 1000 Weight 74.389 kg Gen: more comfortable Heart: RRR Lung: decreased breath sounds at the bases Abd: soft, less tender, guarding Ext: no edema CBC, BMP 07/30/18 05:12 07/30/18 05:12 Active Medications Acetaminophen (Ofirmev Injection -) 1,000 mg IVPB Q6H PRN PRN Reason: Pain 1-5 or fever Last Admin: 07/29/18 17:22 Dose: 1,000 mg Aspirin (Ecotrin -) 81 mg PO DAILY [facility] Last Admin: 07/30/18 10:30 Dose: 81 mg Bisacodyl (Dulcolax Suppository -) 10 mg RC PRN PRN PRN Reason: CONSTIPATION Last Admin: 07/30/18 06:20 Dose: 10 mg Chlorhexidine Gluconate (Hibiclens For Decolonization -) 1 applic TP HS [facility] Heparin Sodium (Porcine) (Heparin -) 5,000 unit SQ TID [facility] Last Admin: 07/30/18 06:20 Dose: 5,000 unit Famotidine/Sodium Chloride (Pepcid 20 Mg Premixed Ivpb -) 20 mg in 50 mls @ 100 mls/hr IVPB BID [facility] Last Admin: 07/30/18 11:56 Dose: 100 mls/hr Lactated Ringer's (Lactated Ringers Solution) 1,000 ml in 1,000 mls @ 240 mls/ hr IV ASDIR [facility] Last Admin: 07/30/18 09:30 Dose: 240 mls/hr Insulin Aspart (Novolog Vial Sliding Scale -) 1 vial SQ Q6HPO [facility]; Protocol Last Admin: 07/30/18 06:20 Dose: 8 unit Insulin Detemir (Levemir Vial) 12 units SQ DAILY@0700 [facility] Last Admin: 07/30/18 06:50 Dose: 12 unit Morphine Sulfate (Morphine Sulfate) 4 mg IVPUSH Q4H PRN PRN Reason: PAIN LEVEL 6-10 Last Admin: 07/30/18 06:20 Dose: 4 mg Mupirocin (Bactroban Ointment (For Decolonization) -) 1 applic NS BID [facility] Stop: 08/03/18 21:59 Ondansetron HCl (Zofran Injection) 4 mg IVPUSH Q6H PRN PRN Reason: NAUSEA Last Admin: 07/29/18 15:00 Dose: 4 mg ASSESSMENT AND PLAN: Acute Pancreatitis CAD HTN DM Hyperlipidemia - continue IVF - trend lipase - monitor urine output, creatinine - monitor lytes - glucose control - monitor off antibiotics - aspiration precautions - O2 to keep Spo2 >90% - DVT prophylaxis - can monitor on floor, please call back if any change in clinical condition
--- NOTE | 2018-07-30 13:33 | PN ---
GI Progress Note Subjective: No acute events ICU internal consultant reports that fluids off from 3am-6am last night She states pain improved somewhat ;' - Objective Vital Signs: Vital Signs Temperature 99.1 F 07/30/18 1330 Pulse Rate 126 07/30/18 1330 Respiratory Rate 16 07/30/18 1330 Blood Pressure 170/76 07/30/18 1330 O2 Sat by Pulse Oximetry (%) 97% 07/30/18 1330 Constitutional: Calm Eyes: No: Sclera Icterus Cardiovascular: Yes: Tachycardia Respiratory: Yes: CTA Bilaterally Gastrointestinal Inspection: No: Scars ...Auscultate: Yes: Normoactive Bowel Sounds ...Palpate: Yes: Soft, Tenderness (Still with significant TTP mid abdomen) ...Percussion: No: Tympanitic Edema: No (No LE edema) Neurological: Yes: Alert Labs: CBC, BMP 07/30/18 05:12 07/30/18 05:12 Hepatic Panel Total Bilirubin 0.4 mg/dL (0.2-1) 07/30/18 05:12 AST 21 U/L (15-37) 07/30/18 05:12 ALT 19 U/L (13-61) 07/30/18 05:12 Alkaline Phosphatase 118 U/L (45-117) H 07/30/18 05:12 Albumin 2.9 g/dl (3.4-5.0) L 07/30/18 05:12 Problem List - Problems (1) Acute pancreatitis Assessment/Plan: ? Medication indiced Some improvement in abdominal pain however remains tachycardic. Continue aggressive IV Hydration, stric I's and OS's, NPO Monitor cardioppulmonary status Guarded condition Code(s): K85.9 - ACUTE PANCREATITIS, UNSPECIFIED * DO NOT USE * Qualifiers: Pancreatitis type: unspecified pancreatitis type
[2018-07-30] MEDS ORDERED: ACETAMINOPHEN 1000 MG/100 ML VIAL (NON FORMULARY) IVPB PRN (15:45)
[2018-07-30] MEDS ORDERED: ONDANSETRON 4 MG/2 ML VIAL IVPUSH PRN (15:45)
[2018-07-30] MEDS: LACTATED RINGERS SOLUTION 1,000 ML/1,000 ML INFUS.BAG IV SCH ×2 (16:47→19:01)
--- NOTE | 2018-07-30 17:33 | PN ---
Physical Exam: SUBJECTIVE: Patient seen and examined this AM. She says that she is feeling better today than yesterday. She states that she has not had any vomiting or nausea since coming to the hospital. She states that she has not had any bowel movements in a few days but is not sure exactly how many. OBJECTIVE: Vital Signs Period Temp Pulse Resp BP Sys/Bauman Pulse Ox Last 24 Hr 98.3 F-99.3 F 75-123 16-20 124-182/52-97 96-99 GENERAL: A&O, obese, no acute distress HEAD: Normocephalic, atraumatic. EYES: PERRL, no scleral icterus EARS, NOSE, THROAT: oropharynx clear without exudates. Dry mucous membranes. LUNGS: CTA b/l, no crackles or wheezes HEART: Regular rate and rhythm, normal S1 and S2 without murmur ABDOMEN: Soft, tender to palpation worst in the RLQ and LLQ, normoactive bowel sounds MUSCULOSKELETAL: No bony deformities or tenderness. EXTREMITIES: 2+ pulses, warm, well-perfused. No peripheral edema. NEUROLOGICAL: Cranial nerves II-XII grossly intact. Normal speech. Laboratory Results - last 24 hr 07/30/18 07/30/18 07/30/18 00:39 05:12 05:12 WBC 16.1 H RBC 5.34 H Hgb 12.3 Hct 40.3 MCV 75.4 L MCH 23.0 L MCHC 30.4 L RDW 15.0 Plt Count 273 MPV 8.8 Absolute Neuts (auto) 13.7 H Neutrophils % 85.0 H Lymphocytes % 9.6 Monocytes % 5.3 Eosinophils % 0.0 D Basophils % 0.1 Nucleated RBC % 0 Sodium 141 Potassium 4.7 Chloride 112 H Carbon Dioxide 20 L Anion Gap 8 BUN 29 H Creatinine 1.3 Creat Clearance w eGFR 39.82 POC Glucometer [phone] Random Glucose 281 H Hemoglobin A1c % Calcium 8.6 Phosphorus 3.2 Magnesium 2.1 Total Bilirubin 0.4 AST 21 ALT 19 Alkaline Phosphatase 118 H C-Reactive Protein Total Protein 5.8 L Albumin 2.9 L Lipase 07/30/18 07/30/18 07/30/18 05:12 05:12 05:12 WBC RBC Hgb Hct MCV MCH MCHC RDW Plt Count MPV Absolute Neuts (auto) Neutrophils % Lymphocytes % Monocytes % Eosinophils % Basophils % Nucleated RBC % Sodium Potassium Chloride Carbon Dioxide Anion Gap BUN Creatinine Creat Clearance w eGFR POC Glucometer Random Glucose Hemoglobin A1c % 8.8 H Calcium Phosphorus Magnesium Total Bilirubin AST ALT Alkaline Phosphatase C-Reactive Protein 7.6 H Total Protein Albumin Lipase 2873 H 07/30/18 07/30/18 06:14 13:29 WBC RBC Hgb Hct MCV MCH MCHC RDW Plt Count MPV Absolute Neuts (auto) Neutrophils % Lymphocytes % Monocytes % Eosinophils % Basophils % Nucleated RBC % Sodium Potassium Chloride Carbon Dioxide Anion Gap BUN Creatinine Creat Clearance w eGFR POC Glucometer [phone] Random Glucose Hemoglobin A1c % Calcium Phosphorus Magnesium Total Bilirubin AST ALT Alkaline Phosphatase C-Reactive Protein Total Protein Albumin Lipase Active Medications Generic Name Dose Route Start Last Admin Trade Name Freq PRN Reason Stop Dose Admin Acetaminophen 1,000 mg 07/30/18 15:45 Ofirmev Injection - IVPB Q6H PRN Pain 1-5 or fever Aspirin 81 mg 07/31/18 10:00 Ecotrin - PO DAILY [facility] Bisacodyl 10 mg 07/30/18 15:45 Dulcolax Suppository - RC PRN PRN CONSTIPATION Heparin Sodium (Porcine) 5,000 unit 07/30/18 22:00 Heparin - SQ TID [facility] Lactated Ringer's 1,000 ml in 1,000 mls @ 240 mls/hr 07/30/18 15:45 07/30/18 16:47 Lactated Ringers Solution IV 240 mls/hr ASDIR [facility] Administration Famotidine/Sodium Chloride 20 mg in 50 mls @ 100 mls/hr 07/30/18 22:00 Pepcid 20 Mg Premixed Ivpb - IVPB BID [facility] Insulin Aspart 1 vial 07/30/18 18:00 Novolog Vial Sliding Scale - SQ Q6HPO [facility] Protocol Insulin Detemir 12 units 07/31/18 07:00 Levemir Vial SQ DAILY@0700 [facility] Morphine Sulfate 4 mg 07/30/18 15:45 Morphine Sulfate IVPUSH Q4H PRN PAIN LEVEL 6-10 Ondansetron HCl 4 mg 07/30/18 15:45 Zofran Injection IVPUSH Q6H PRN NAUSEA ASSESSMENT/PLAN: A 77 yo Femle with PMH of DM2, HTN, HLD, CAD(2 stent placements), Cholecystectomy, splenic vein thrombosis, pancreatitis likely caused by repaglinide 2 years ago, admitted with abdominal pain and pancreatitis Pancreatitis -[place] [address]. -Etiology unclear, pt reportedly no longer on repaglinide, nondrinker, s/p cholecystectomy -RUQ US noted: s/p celina, no signs of choledocholithiasis -Abdomen/Pelvis CT noted: Pancreatitis of pancreatic head as well as the junction with the pancreatic body -GI consultation appreciated -LR @ 240 cc/hr -NPO -For MRCP -Lipase now 2873 Constipation -Given Dulcolax suppository -Will reassess and adjust bowel regimen as needed IDDM -Levemir 12 units Daily as pt is NPO -BGMs Q6 -Insulin Sliding scale for glycemic control HTN -Vasotec 10 mg PO Daily -Toprol XL 50 mg PO Daily -Monitor b.p CAD with stents -ASA 81 mg PO Daily DVT Prophylaxis -Heparin 5000 units SQ TID [facility] -Fluids: LR @ 240 cc/hr -Electrolytes: BMP in AM -Nutrition: NPO Disposition Visit type - Emergency Visit Emergency Visit: Yes ED Registration Date: 07/29/18 Care time: The patient presented to the Emergency Department on the above date and was hospitalized for further evaluation of their emergent condition. - New Patient This patient is new to me today: Yes Date on this admission: 07/30/18 - Critical Care Critical Care patient: No
[2018-07-30 17:34] LABS: HEMATOCRIT 35.7 % (32.4-45.2); HEMOGLOBIN 11.2 GM/dL (10.7-15.3); MCH 23.3 pg (25.7-33.7); MCHC 31.3 g/dl (32.0-36.0); MEAN CELL VOLUME 74.5 fl (80-96); MEAN PLT VOLUME 9.3 fl (7.5-11.1); PLATELET COUNT 255 K/MM3 (134-434); RBC 4.78 M/mm3 (3.60-5.2); RDW 14.9 % (11.6-15.6)
[2018-07-30] MEDS: morphine SULFATE 4 MG/ML VIAL IVPUSH PRN (17:38)
[2018-07-30 18:00] LABS: ALBUMIN 2.6 g/dl (3.4-5.0); ALK PHOS 103 U/L (45-117); ANION GAP 7 MMOL/L (8-16); BILIRUBIN,TOTAL 0.4 mg/dL (0.2-1); BLOOD UREA NITROGEN 24 mg/dL (7-18); CALCIUM 8.6 mg/dL (8.5-10.1); CHLORIDE 113 mmol/L (98-107); CO2 23 mmol/L (21-32); GLUCOSE,RANDOM 157 mg/dL (74-106); POTASSIUM 4.2 mmol/L (3.5-5.1); SGOT/AST 26 U/L (15-37); SGPT/ALT 16 U/L (13-61); SODIUM 144 mmol/L (136-145); TOT PROT 5.5 g/dl (6.4-8.2)
[2018-07-30] MEDS ORDERED: ENALAPRIL MALEATE 10 MG TABLET (FP) PO SCH (18:00)
[2018-07-30] MEDS ORDERED: ENALAPRIL MALEATE 5 MG TABLET (FP) PO SCH (18:00)
--- NOTE | 2018-07-30 19:05 | PN ---
Teaching Attending Note Name of Resident: Je Jimenes ATTENDING PHYSICIAN STATEMENT I saw and evaluated the patient. I reviewed the resident's note and discussed the case with the resident. I agree with the resident's findings and plan as documented. SUBJECTIVE:continues to have pain but improved from yesterday. denies Cp, SOB, fever, chills, N/V/C/D OBJECTIVE: Last Vital Signs Temp Pulse Resp BP Pulse Ox 99.5 F 130 H 20 162/75 97 07/30/18 18:23 07/30/18 18:23 07/30/18 18:23 07/30/18 18:23 07/30/18 16:00 General lethargic CV S1 S2 tachy Lungs CTA B/L no wheezing/rales/rhonchi abdomen diffuse abdominal tenderness +guarding ASSESSMENT AND PLAN: 77yo F wtih PMH GERD, HTN, CAD s/p stent, DM, CKD and 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 Acute pancreatitis-unclear etiology. continues to have significant diffuse pain. Cont LR at high rate, pain and nausea control. MRCP pending. GI on board. TG normal. 2. Hyperglycemia- uncontrolled DM. now improved. cont BGm and iSS. check A1c. hold oral agents 3. SIRS- due to acute 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 tachycardia with leukocytosis. improving. 4. DVT ppx- hep sq
[2018-07-30] MEDS: BISACODYL 10 MG SUPP.RECT RC PRN (23:16)
[2018-07-31] MEDS: LACTATED RINGERS SOLUTION 1,000 ML/1,000 ML INFUS.BAG IV SCH ×3 (01:10→15:32)
[2018-07-31] MEDS: morphine SULFATE 4 MG/ML VIAL IVPUSH PRN (02:15)
[2018-07-31] MEDS: INSULIN SLIDING SCALE (NOVOLOG) 1 VIAL SQ SCH ×4 (06:42→19:24)
[2018-07-31] MEDS: HEPARIN NA (PORCINE) 5,000 UNITS/ML 1ML VIAL SQ SCH ×3 (06:43→21:49)
[2018-07-31] MEDS: INSULIN (LEVEMIR) 100 UNITS/ML UNITS SQ SCH (06:45)
[2018-07-31] MEDS ORDERED: INSULIN (NOVOLOG) ASPART 100 UNITS/ML 10ML VIAL ONE ×2 (07:07→11:54)
[2018-07-31 08:07] LABS: HEMATOCRIT 32.2 % (32.4-45.2); HEMOGLOBIN 10.1 GM/dL (10.7-15.3); MCH 23.5 pg (25.7-33.7); MCHC 31.5 g/dl (32.0-36.0); MEAN CELL VOLUME 74.8 fl (80-96); MEAN PLT VOLUME 9.2 fl (7.5-11.1); PLATELET COUNT 206 K/MM3 (134-434); RDW 14.5 % (11.6-15.6); WHITE BLOOD COUNT 15.1 K/mm3 (4.0-10.0)
--- NOTE | 2018-07-31 08:42 | PN ---
Physical Exam: SUBJECTIVE: Patient seen and examined this AM. She states that she had a small bowel movement today. She currently says she feels "fine" but that she is still having abdominal pain. OBJECTIVE: Vital Signs Period Temp Pulse Resp BP Sys/Bauman Pulse Ox Last 24 Hr 98.4 F-99.8 F 90-130 16-20 145-182/75-92 96-98 GENERAL: A&O, obese, no acute distress HEAD: Normocephalic, atraumatic. EYES: PERRL, no scleral icterus EARS, NOSE, THROAT: oropharynx clear without exudates. Dry mucous membranes. LUNGS: CTA b/l, no crackles or wheezes HEART: Regular rate and rhythm, normal S1 and S2 without murmur ABDOMEN: Soft, tender to palpation, improved from yesterday, normoactive bowel sounds MUSCULOSKELETAL: No bony deformities or tenderness. EXTREMITIES: 2+ pulses, warm, well-perfused. No peripheral edema. NEUROLOGICAL: Cranial nerves II-XII grossly intact. Normal speech. Laboratory Results - last 24 hr 07/30/18 07/30/18 07/30/18 13:29 16:45 16:45 WBC 16.0 H RBC 4.78 Hgb 11.2 Hct 35.7 MCV 74.5 L MCH 23.3 L MCHC 31.3 L RDW 14.9 Plt Count 255 MPV 9.3 Sodium 144 Potassium 4.2 Chloride 113 H Carbon Dioxide 23 Anion Gap 7 L BUN 24 H Creatinine 1.0 Creat Clearance w eGFR 53.91 POC Glucometer [phone] Random Glucose 157 H Calcium 8.6 Total Bilirubin 0.4 AST 26 ALT 16 Alkaline Phosphatase 103 Total Protein 5.5 L Albumin 2.6 L 07/30/18 07/31/18 07/31/18 17:24 06:41 06:50 WBC 15.1 H RBC 4.30 Hgb 10.1 L Hct 32.2 L MCV 74.8 L MCH 23.5 L MCHC 31.5 L RDW 14.5 Plt Count 206 MPV 9.2 Sodium Potassium Chloride Carbon Dioxide Anion Gap BUN Creatinine Creat Clearance w eGFR POC Glucometer 126 164 Random Glucose Calcium Total Bilirubin AST ALT Alkaline Phosphatase Total Protein Albumin Active Medications Generic Name Dose Route Start Last Admin Trade Name Freq PRN Reason Stop Dose Admin Acetaminophen 1,000 mg 10/18/18 15:45 Ofirmev Injection - IVPB Q6H PRN Pain 1-5 or fever Aspirin 81 mg 07/31/18 10:00 Ecotrin - PO DAILY [facility] Bisacodyl 10 mg 07/30/18 15:45 07/30/18 23:16 Dulcolax Suppository - RC 10 mg PRN PRN Administration CONSTIPATION Enalapril Maleate 20 mg 07/31/18 08:30 Vasotec - PO DAILY [facility] Heparin Sodium (Porcine) 5,000 unit 07/30/18 22:00 07/31/18 06:43 Heparin - SQ 5,000 unit TID [facility] Administration Lactated Ringer's 1,000 ml in 1,000 mls @ 240 mls/hr 07/30/18 15:45 07/31/18 05:23 Lactated Ringers Solution IV 240 mls/hr ASDIR [facility] Administration Famotidine/Sodium Chloride 20 mg in 50 mls @ 100 mls/hr 07/30/18 22:30 23:06 Pepcid 20 Mg Premixed Ivpb - IVPB 100 mls/hr BID [facility] Administration Insulin Aspart 1 vial 07/30/18 18:00 07/31/18 06:42 Novolog Vial Sliding Scale - SQ 2 units Q6HPO [facility] Administration Protocol Insulin Detemir 12 units 07/31/18 07:00 07/31/18 06:45 Levemir Vial SQ Not Given DAILY@0700 [facility] Metoprolol Succinate 50 mg 07/30/18 18:00 07/30/18 17:59 Toprol Xl - PO 50 mg DAILY [facility] Administration Morphine Sulfate 4 mg 07/30/18 15:45 07/31/18 02:15 Morphine Sulfate IVPUSH 4 mg Q4H PRN Administration PAIN LEVEL 6-10 Ondansetron HCl 4 mg 07/30/18 15:45 Zofran Injection IVPUSH Q6H PRN NAUSEA ASSESSMENT/PLAN: A 77 yo Femle with PMH of DM2, HTN, HLD, CAD(2 stent placements), Cholecystectomy, splenic vein thrombosis, pancreatitis likely caused by repaglinide 2 years ago, admitted with abdominal pain and pancreatitis Pancreatitis -[place] [address]. -Etiology unclear, pt reportedly no longer on repaglinide, nondrinker, s/p cholecystectomy -RUQ US noted: s/p celina, no signs of choledocholithiasis -Abdomen/Pelvis CT noted: Pancreatitis of pancreatic head as well as the junction with the pancreatic body -GI consultation appreciated -LR @ 240 cc/hr -NPO, advance diet as tolerated -For MRCP, refused MRI due to anxiety, willing to attempt with anxiolytic, give 1 mg ativan PO 30 minutes prior to MRI -Abdominal pain improving Constipation -Given Dulcolax suppository with relief IDDM -Levemir 12 units Daily as pt is NPO -BGMs Q6 -Insulin Sliding scale for glycemic control HTN -Vasotec 10 mg PO Daily -Toprol XL 50 mg PO Daily -Monitor b.p CAD with stents -ASA 81 mg PO Daily DVT Prophylaxis -Heparin 5000 units SQ TID [facility] -Fluids: LR @ 200 cc/hr for 2L and then down to 150 cc/hr -Electrolytes: BMP in AM -Nutrition: NPO, advance as tolerated Disposition Med/Surg Visit type - Emergency Visit Emergency Visit: Yes ED Registration Date: 07/29/18 Care time: The patient presented to the Emergency Department on the above date and was hospitalized for further evaluation of their emergent condition. - New Patient This patient is new to me today: No - Critical Care Critical Care patient: No
[2018-07-31 09:12] LABS: ALBUMIN 2.3 g/dl (3.4-5.0); ALK PHOS 93 U/L (45-117); ANION GAP 10 MMOL/L (8-16); BILIRUBIN,TOTAL 0.5 mg/dL (0.2-1); BLOOD UREA NITROGEN 16 mg/dL (7-18); CALCIUM 8.1 mg/dL (8.5-10.1); CHLORIDE 109 mmol/L (98-107); CO2 21 mmol/L (21-32); CREATININE 0.7 mg/dL (0.55-1.3); GLUCOSE,RANDOM 157 mg/dL (74-106); LIPASE 831 U/L (73-393); MAGNESIUM 2.1 mg/dL (1.8-2.4); PHOSPHOROUS 2.3 mg/dL (2.5-4.9); POTASSIUM 4.1 mmol/L (3.5-5.1); SGOT/AST 24 U/L (15-37); SGPT/ALT 15 U/L (13-61); SODIUM 140 mmol/L (136-145); TOT PROT 4.9 g/dl (6.4-8.2)
[2018-07-31] MEDS ORDERED: PT OWN MED DRAWER 7, Y5N ONE (09:42)
[2018-07-31] MEDS: ENALAPRIL MALEATE 10 MG TABLET (FP) PO SCH ×2 (10:11)
[2018-07-31] MEDS: FAMOTIDINE 20 MG/50 ML IVPB 20 MG/50 ML MG IVPB SCH ×2 (10:11→21:49)
[2018-07-31] MEDS: ASPIRIN COATED 81 MG TABLET.EC PO SCH (10:11)
[2018-07-31] MEDS ORDERED: DEXTROSE 50%-WATER - 25 GM/50 ML VIAL ONE (15:07)
--- NOTE | 2018-07-31 15:21 | PN ---
GI Progress Note Subjective: No acute events Improved abdominal pain For MRI today however patient concerned she will not be able to, tolerate due to her anxiety - Objective Vital Signs: Vital Signs Temperature 100.5 F H 07/31/18 10:00 Pulse Rate 108 H 07/31/18 10:00 Respiratory Rate 20 07/31/18 10:00 Blood Pressure 160/80 07/31/18 10:00 O2 Sat by Pulse Oximetry (%) 96 07/31/18 09:00 Constitutional: Calm Eyes: No: Sclera Icterus Cardiovascular: Yes: Tachycardia. No: Murmur Respiratory: Yes: CTA Bilaterally Gastrointestinal Inspection: No: Distention ...Auscultate: Yes: Normoactive Bowel Sounds ...Palpate: Yes: Tenderness (Improved TTP mid / upper abdomen, improved from yesterday) Edema: No (No LE edema) Neurological: Yes: Alert Labs: CBC, BMP 07/31/18 06:50 07/31/18 06:50 Problem List - Problems (1) Acute pancreatitis Assessment/Plan: Clinically improved, still with a significant amount of upper abdominal pain NPO, decreased IV fluids to 200cc/hr. can decrease further to 150cc/hr in AM if continued improvement. Changed follow-up MRI to MRI w and w/o contrast with MRCP to eval pancreatic parenchymas as well as peripancreatic vessels and biliary tract. Will need anxiolytic prior to MRI. If she still cannot tolerate exam then she should undergo CT scan of the abdomen with and without IV contrast, triple phase. Code(s): K85.9 - ACUTE PANCREATITIS, UNSPECIFIED * DO NOT USE * Qualifiers: Pancreatitis type: other
[2018-07-31] MEDS ORDERED: LACTATED RINGERS SOLUTION 1,000 ML/1,000 ML INFUS.BAG IV SCH (15:22)
[2018-07-31] MEDS ORDERED: LORazepam 1 MG TABLET PO ONE (16:05)
--- NOTE | 2018-07-31 16:27 | PN ---
Teaching Attending Note Name of Resident: Je Jimenes ATTENDING PHYSICIAN STATEMENT I saw and evaluated the patient. I reviewed the resident's note and discussed the case with the resident. I agree with the resident's findings and plan as documented. SUBJECTIVE: states pain is improved. wants something to drink. 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 Acute pancreatitis-unclear etiology. pain resolved. will advance diet to clears. if tolerates will lower IVF. MRCP pending. pain and nausea control. GI on board. 2. Hyperglycemia- improved. A1c 8.8. cont BGm and iSS. check A1c. hold oral agents 3. HTN- elevated. pain appears to be controlled. will increase enalapril. 4. SIRS- due to acute 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 tachycardia with leukocytosis. improving. 5. DVT ppx- hep sq
[2018-07-31 23:32] VITALS: BMI 32.0
[2018-08-01] MEDS: INSULIN SLIDING SCALE (NOVOLOG) 1 VIAL SQ SCH ×4 (00:46→17:40)
[2018-08-01] MEDS: LACTATED RINGERS SOLUTION 1,000 ML/1,000 ML INFUS.BAG IV SCH ×2 (02:59→12:21)
[2018-08-01] MEDS: morphine SULFATE 4 MG/ML VIAL IVPUSH PRN ×3 (03:06→21:29)
[2018-08-01] MEDS: HEPARIN NA (PORCINE) 5,000 UNITS/ML 1ML VIAL SQ SCH ×3 (05:45→21:15)
[2018-08-01] MEDS: BISACODYL 10 MG SUPP.RECT RC PRN (05:46)
[2018-08-01] MEDS: INSULIN (LEVEMIR) 100 UNITS/ML UNITS SQ SCH (06:35)
[2018-08-01] MEDS ORDERED: INSULIN (NOVOLOG) ASPART 100 UNITS/ML 10ML VIAL ONE (06:42)
[2018-08-01 08:21] LABS: BASO % 0.3 % (0-2.0); EOS % 1.4 % (0-4.5); HEMATOCRIT 33.4 % (32.4-45.2); HEMOGLOBIN 10.5 GM/dL (10.7-15.3); LYMPH % 16.1 % (8-40); MCH 23.3 pg (25.7-33.7); MCHC 31.4 g/dl (32.0-36.0); MEAN CELL VOLUME 74.3 fl (80-96); MEAN PLT VOLUME 9.2 fl (7.5-11.1); MONO % 4.6 % (3.8-10.2); NEUT % 77.6 % (42.8-82.8); PLATELET COUNT 226 K/MM3 (134-434); RBC 4.49 M/mm3 (3.60-5.2); RDW 14.9 % (11.6-15.6); WHITE BLOOD COUNT 15.6 K/mm3 (4.0-10.0)
[2018-08-01 08:26] LABS: ALBUMIN 2.4 g/dl (3.4-5.0); ALK PHOS 110 U/L (45-117); ANION GAP 10 MMOL/L (8-16); BILIRUBIN,TOTAL 0.8 mg/dL (0.2-1); BLOOD UREA NITROGEN 10 mg/dL (7-18); CALCIUM 8.3 mg/dL (8.5-10.1); CHLORIDE 104 mmol/L (98-107); CO2 24 mmol/L (21-32); CREATININE 0.7 mg/dL (0.55-1.3); GLUCOSE,RANDOM 172 mg/dL (74-106); POTASSIUM 3.5 mmol/L (3.5-5.1); SGOT/AST 21 U/L (15-37); SGPT/ALT 15 U/L (13-61); SODIUM 138 mmol/L (136-145); TOT PROT 5.6 g/dl (6.4-8.2)
[2018-08-01] MEDS ORDERED: PT OWN MED DRAWER 7, Y5N ONE (09:53)
--- NOTE | 2018-08-01 09:53 | PN ---
GI Progress Note Subjective: No acute events Patient states abdominal pain improved S/P MRI. Awaiting results Complains of constipation. Admission CT scan revealed fecal impaction. Given dulcolax suppository without relief - Objective Vital Signs: Vital Signs Temperature 99.0 F 08/01/18 09:00 Pulse Rate 99 H 08/01/18 09:00 Respiratory Rate 18 08/01/18 09:00 Blood Pressure 147/78 08/01/18 09:00 O2 Sat by Pulse Oximetry (%) 97 07/31/18 21:00 Constitutional: Calm Eyes: No: Sclera Icterus Cardiovascular: Yes: Tachycardia Respiratory: Yes: CTA Bilaterally Gastrointestinal Inspection: No: Distention ...Auscultate: Yes: Normoactive Bowel Sounds ...Palpate: Yes: Tenderness (Improved TTP mid abdomen) ...Percussion: No: Tympanitic Edema: No (No LE edema) Neurological: Yes: Alert Labs: CBC, BMP 08/01/18 07:30 08/01/18 07:30 Problem List - Problems (1) Acute pancreatitis Assessment/Plan: Clinically improved Await MRI/MRCP result Clear liquids Fluids titrated down this morning Daily labs w/ CRP Code(s): K85.9 - ACUTE PANCREATITIS, UNSPECIFIED * DO NOT USE * Qualifiers: Pancreatitis type: other (2) Constipation Assessment/Plan: MiraLAX 17g once daily Will likely need assessment for fecal impaction. Advised medical coder physical integration practitioner Code(s): K59.00 - CONSTIPATION, UNSPECIFIED
--- NOTE | 2018-08-01 10:24 | PN ---
Progress Note (short form) - Note Progress Note: c/o abdominal distention. states no BM in several days. tolerating liquid diet. denies CP, SOB, fever, chills Current Medications Generic Name Dose Route Start Last Admin Trade Name Freq PRN Reason Stop Dose Admin Acetaminophen 1,000 mg 07/30/18 15:45 Ofirmev Injection - IVPB Q6H PRN Pain 1-5 or fever Aspirin 81 mg 07/31/18 10:00 07/31/18 10:11 Ecotrin - PO 81 mg DAILY [facility] Administration Enalapril Maleate 20 mg 07/31/18 08:30 07/31/18 10:11 Vasotec - PO 20 mg DAILY [facility] Administration Heparin Sodium (Porcine) 5,000 unit 07/30/18 22:00 08/01/18 05:45 Heparin - SQ 5,000 unit TID [facility] Administration Lactated Ringer's 1,000 ml in 1,000 mls @ 200 mls/hr 07/31/18 15:27 07/31/18 15:32 Lactated Ringers Solution IV 08/01/18 20:21 200 mls/hr ASDIR [facility] Administration Lactated Ringer's 1,000 ml in 1,000 mls @ 150 mls/hr 08/01/18 02:00 08/01/18 02:59 Lactated Ringers Solution IV 150 mls/hr ASDIR [facility] Administration Insulin Aspart 1 vial 07/30/18 18:00 08/01/18 06:35 Novolog Vial Sliding Scale - SQ 2 units Q6HPO [facility] Administration Protocol Insulin Detemir 12 units 07/31/18 07:00 08/01/18 06:35 Levemir Vial SQ 12 units DAILY@0700 [facility] Administration Metoprolol Succinate 50 mg 07/30/18 18:00 07/31/18 10:11 Toprol Xl - PO 50 mg DAILY [facility] Administration Morphine Sulfate 4 mg 07/30/18 15:45 08/01/18 03:06 Morphine Sulfate IVPUSH 4 mg Q4H PRN Administration PAIN LEVEL 6-10 Ondansetron HCl 4 mg 07/30/18 15:45 Zofran Injection IVPUSH Q6H PRN NAUSEA Polyethylene Glycol 17 gm 08/01/18 10:00 Miralax (For Daily Use) - PO DAILY [facility] Ranitidine HCl 150 mg 08/01/18 10:00 Zantac - PO DAILY [facility] Last Vital Signs Temp Pulse Resp BP Pulse Ox 99.0 F 99 H 18 147/78 97 08/01/18 09:00 08/01/18 09:00 08/01/18 09:00 08/01/18 09:00 07/31/18 21:00 General NAD CV S1 S2 RRR no murmur/rub/gallop Lungs CTA B/L no wheezing/rales/rhonchi abdomen soft tender RLQ/LLQ not distended CBCD WBC 15.6 K/mm3 (4.0-10.0) H 08/01/18 07:30 RBC 4.49 M/mm3 (3.60-5.2) 08/01/18 07:30 Hgb 10.5 GM/dL (10.7-15.3) L 08/01/18 07:30 Hct 33.4 % (32.4-45.2) 08/01/18 07:30 MCV 74.3 fl (80-96) L 08/01/18 07:30 MCHC 31.4 g/dl (32.0-36.0) L 08/01/18 07:30 RDW 14.9 % (11.6-15.6) 08/01/18 07:30 Plt Count 226 K/MM3 (134-434) 08/01/18 07:30 MPV 9.2 fl (7.5-11.1) 08/01/18 07:30 CMP Sodium 138 mmol/L (136-145) 08/01/18 07:30 Potassium 3.5 mmol/L (3.5-5.1) 08/01/18 07:30 Chloride 104 mmol/L (98-107) 08/01/18 07:30 Carbon Dioxide 24 mmol/L (21-32) 08/01/18 07:30 Anion Gap 10 MMOL/L (8-16) 08/01/18 07:30 BUN 10 mg/dL (7-18) 08/01/18 07:30 Creatinine 0.7 mg/dL (0.55-1.3) 08/01/18 07:30 Creat Clearance w eGFR > 60 (>60) 08/01/18 07:30 Calcium 8.3 mg/dL (8.5-10.1) L 08/01/18 07:30 Total Bilirubin 0.8 mg/dL (0.2-1) 08/01/18 07:30 AST 21 U/L (15-37) 08/01/18 07:30 ALT 15 U/L (13-61) 08/01/18 07:30 Alkaline Phosphatase 110 U/L (45-117) 08/01/18 07:30 Total Protein 5.6 g/dl (6.4-8.2) L 08/01/18 07:30 Albumin 2.4 g/dl (3.4-5.0) L 08/01/18 07:30 ASSESSMENT AND PLAN: 77yo F wtih PMH GERD, HTN, CAD s/p stent, DM, CKD and 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 Acute pancreatitis-unclear etiology. pain resolved. tolerating liquid diet. IVF reduced. MRCP performed in the evening. awaiting Read. pain and nausea control. GI on board. 2. constipation- refused manual disempaction in the ER. agreeable to it at this time. will call the resident. on miralax 3. Hyperglycemia- improved. A1c 8.8. cont BGm and iSS. hold oral agents 4. HTN- improved. titrate medications to optimize control 5. SIRS- due to acute 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 tachycardia with leukocytosis. improving. 6. DVT ppx- hep sq Visit type - Emergency Visit Emergency Visit: Yes ED Registration Date: 07/29/18 Care time: The patient presented to the Emergency Department on the above date and was hospitalized for further evaluation of their emergent condition. - New Patient This patient is new to me today: No - Critical Care Critical Care patient: No - Discharge Referral Referred to [facility] Med P.C.: No
[2018-08-01] MEDS: ASPIRIN COATED 81 MG TABLET.EC PO SCH (10:26)
[2018-08-01] MEDS: ENALAPRIL MALEATE 10 MG TABLET (FP) PO SCH (10:27)
[2018-08-01] MEDS: RANITIDINE HCL 150 MG TABLET (FP) PO SCH (10:36)
[2018-08-01] MEDS: POLYETHYLENE GLYCOL 3350 119 GM BTL PO SCH (10:36)
--- NOTE | 2018-08-01 11:29 | PN ---
Progress Note (short form) - Note Progress Note: Was asked by Dr. Yarbrough to evaluate patient for manual fecal disimpaction. Patient seen with senior resident Dr. 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 Subjective: Patient states she has not had solid bowel movement for past 4 days. Endorsed small volume liquid bowel movement this morning. She was agreeable for manual fecal disimpaction today. Physical Exam: General: Patient resting comfortably in bed, no acute distress. Pulmonary: Lungs clear to auscultation b/l. No wheezing or rhonchi auscultated. Cardiovascular: S1, and S2 auscultated. No murmurs, rubs, gallops. No S3, no S4. Abdominal: Obese. Soft, non distended. Mild epigastric tenderness to palpation. No rebound tenderness. Normoactive bowel sounds auscultated X4 quadrants. No hepatomegaly palpated or percussed. Extremities: 2+ radial and dorsalis pedis pulses b/l. No lower extremity edema appreciated. Rectal exam, manual fecal disimpaction: Patient was oriented in left lateral recumbent position, with knees flexed. With gloved, lubricated finger numerous external hemorrhoids circumferentially oriented, perianally. Firm, exquisitely tender to palpation. Good anal sphincter tone. No internal hemorrhoids appreciated. No hard stool palpated within rectal vault. Streak of liquid light-brown stool noted upon gloved finger. No sal blood. After exam, noted 5cc liquid, light brown stool passing spontaneously. Patient experienced pain during this procedure, and given 4mg morphine IV push afterwards.
[2018-08-02] MEDS: INSULIN SLIDING SCALE (NOVOLOG) 1 VIAL SQ SCH ×5 (00:31→23:47)
[2018-08-02] MEDS: LACTATED RINGERS SOLUTION 1,000 ML/1,000 ML INFUS.BAG IV SCH ×3 (02:40→21:21)
[2018-08-02] MEDS: HEPARIN NA (PORCINE) 5,000 UNITS/ML 1ML VIAL SQ SCH ×3 (06:19→21:21)
[2018-08-02] MEDS: INSULIN (LEVEMIR) 100 UNITS/ML UNITS SQ SCH (06:20)
[2018-08-02 07:15] LABS: BASO % 0.3 % (0-2.0); EOS % 0.1 % (0-4.5); HEMATOCRIT 28.6 % (32.4-45.2); HEMOGLOBIN 8.8 GM/dL (10.7-15.3); LYMPH % 4.7 % (8-40); MCHC 30.9 g/dl (32.0-36.0); MEAN CELL VOLUME 74.6 fl (80-96); MEAN PLT VOLUME 8.3 fl (7.5-11.1); MONO % 5.1 % (3.8-10.2); NEUT % 89.8 % (42.8-82.8); PLATELET COUNT 165 K/MM3 (134-434); RBC 3.84 M/mm3 (3.60-5.2); RDW 14.5 % (11.6-15.6); WHITE BLOOD COUNT 11.5 K/mm3 (4.0-10.0)
[2018-08-02 08:07] LABS: ALBUMIN 1.9 g/dl (3.4-5.0); ALK PHOS 108 U/L (45-117); ANION GAP 9 MMOL/L (8-16); BILIRUBIN,TOTAL 0.6 mg/dL (0.2-1); BLOOD UREA NITROGEN 10 mg/dL (7-18); CALCIUM 7.7 mg/dL (8.5-10.1); CHLORIDE 104 mmol/L (98-107); CO2 29 mmol/L (21-32); CREATININE 0.8 mg/dL (0.55-1.3); GLUCOSE,RANDOM 164 mg/dL (74-106); POTASSIUM 3.7 mmol/L (3.5-5.1); SGOT/AST 19 U/L (15-37); SGPT/ALT 13 U/L (13-61); SODIUM 142 mmol/L (136-145); TOT PROT 4.6 g/dl (6.4-8.2)
--- NOTE | 2018-08-02 09:34 | PN ---
Teaching Attending Note Name of Resident: Braeden Landry ATTENDING PHYSICIAN STATEMENT I saw and evaluated the patient. I reviewed the resident's note and discussed the case with the resident. I agree with the resident's findings and plan as documented. SUBJECTIVE:states she feels better today. very minimal pain eating clears. denies CP, SOB, fever, chills, N/V. very small BM with manual disempaction OBJECTIVE: Last Vital Signs Temp Pulse Resp BP Pulse Ox 100.5 F H 110 H 18 139/54 L 96 08/02/18 06:00 08/02/18 06:00 08/02/18 06:00 08/02/18 06:00 08/01/18 21:00 general NAD Abdomen soft NT/ND obese ASSESSMENT AND PLAN: 77yo F wtih PMH GERD, HTN, CAD s/p stent, DM, CKD and 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 Acute pancreatitis-unclear etiology. Tm100.5. however leukocytosis is improving. no signs of necrosis or cyst on MRI. pain resolved. tolerating liquid diet. IVF reduced. MRCP negative for any blockages. pain and nausea control. GI on board. 2. constipation- attempted manual disempaction by the internet sales manager yesterday with very small liquid stool return. started on stool softeners. if no BM by tomorrow will try suppository. unable to evaluate on MRI if pt remains impacted. 3. Microcytic anemia- may be dilutional component. no reports of bleeding. will check iron studies. no indication for transfusion. 4. Hyperglycemia- A1c 8.8. on reduced levemir due to liquid diet. requiring minimal coverage. will titrate as needed cont BGm and iSS. hold oral agents 5. HTN- controlled. cont current management 6. SIRS- due to acute 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 tachycardia with leukocytosis. improving. 7. DVT ppx- hep sq
--- NOTE | 2018-08-02 09:49 | PN ---
GI Progress Note Subjective: No acute events Had temp 100.5 this morning. given IV tylenol MRI revealed prominent head of pancreas with changes c/w pancreatitis, otherwise unrevealing - Objective Vital Signs: Vital Signs Temperature 98.6 08/02/18 09:45 Pulse Rate 90 08/02/18 09:45 Respiratory Rate 18 08/02/18 09:45 Blood Pressure 131/58 L 08/02/18 09:45 O2 Sat by Pulse Oximetry (%) 96 08/01/18 09:45 Constitutional: Calm Eyes: No: Sclera Icterus Cardiovascular: Yes: Regular Rate and Rhythm Respiratory: Yes: CTA Bilaterally Gastrointestinal Inspection: No: Distention ...Auscultate: Yes: Normoactive Bowel Sounds ...Palpate: Yes: Soft, Tenderness (Minmal TTP in upper abdomen). No: Guarding, Tenderness, Rebound ...Percussion: No: Tympanitic Edema: No (No LE edema) Neurological: Yes: Alert, Oriented Labs: CBC, BMP 08/02/18 06:00 08/02/18 06:00 Laboratory Tests 07/30/18 08/02/18 05:12 06:00 C-Reactive Protein 7.6 H 17.2 H Problem List - Problems (1) Acute pancreatitis Assessment/Plan: Clinically improved with improved leukocytosis despite rise in CRP Continue clears for now then fulls in AM Decreased IV fluids AM Labs. Hgb dropped however without evidence of hemorrhagic pancreatitis conversion on MRI and without overt bleeding. Suspect dilutional. She will need outpatient evaluation of her microcytic anemia when acute issues are resolved Code(s): K85.9 - ACUTE PANCREATITIS, UNSPECIFIED * DO NOT USE * Qualifiers: Pancreatitis type: other (2) Constipation Assessment/Plan: MiraLAX 17g daily Code(s): K59.00 - CONSTIPATION, UNSPECIFIED
[2018-08-02] MEDS ORDERED: PT OWN MED DRAWER 7, Y5N ONE (09:50)
[2018-08-02] MEDS: ASPIRIN COATED 81 MG TABLET.EC PO SCH (09:53)
[2018-08-02] MEDS: POLYETHYLENE GLYCOL 3350 119 GM BTL PO SCH (09:53)
[2018-08-02] MEDS: ENALAPRIL MALEATE 10 MG TABLET (FP) PO SCH (09:54)
[2018-08-02] MEDS: RANITIDINE HCL 150 MG TABLET (FP) PO SCH (09:54)
--- NOTE | 2018-08-02 14:39 | PN ---
Physical Exam: SUBJECTIVE: No acute events overnight. Pt has been tolerating clear liquid diet without any nausea or abdominal pain. Pt reports pain being well controlled at this point. No complaints voiced at this time. OBJECTIVE: Vital Signs Period Temp Pulse Resp BP Sys/Bauman Pulse Ox Last 24 Hr 98.6 F-100.5 F 88-110 18-20 131-158/54-94 95-96 GENERAL: The patient is awake, alert, and fully oriented, in no acute distress. HEENT: BRIANNA, sclera anicteric, MMM NECK: No JVD LUNGS: CTA bilaterally, no wheezes, no crackles, no accessory muscle use. HEART: Tachycardic with regular rhythm, S1, S2 without murmur ABDOMEN: Soft, nondistended, slight epigastric discomfort with palpation, no guarding, no hepatomegaly via percussion. EXTREMITIES: 2+ DP pulses, warm, no edema. PSYCH: Normal mood, normal affect. SKIN: Warm, dry, no rashes or lesions noted Laboratory Results - last 24 hr 08/01/18 08/02/18 08/02/18 17:34 00:23 05:55 WBC RBC Hgb Hct MCV MCH MCHC RDW Plt Count MPV Absolute Neuts (auto) Neutrophils % Lymphocytes % Monocytes % Eosinophils % Basophils % Nucleated RBC % Sodium Potassium Chloride Carbon Dioxide Anion Gap BUN Creatinine Creat Clearance w eGFR POC Glucometer 151 107 156 Random Glucose Calcium Total Bilirubin AST ALT Alkaline Phosphatase C-Reactive Protein Total Protein Albumin 08/02/18 08/02/18 08/02/18 06:00 06:00 10:56 WBC 11.5 H RBC 3.84 Hgb 8.8 L Hct 28.6 L MCV 74.6 L MCH 23.0 L MCHC 30.9 L RDW 14.5 Plt Count 165 D MPV 8.3 Absolute Neuts (auto) 10.3 H Neutrophils % 89.8 H Lymphocytes % 4.7 L D Monocytes % 5.1 Eosinophils % 0.1 D Basophils % 0.3 Nucleated RBC % 0 Sodium 142 Potassium 3.7 Chloride 104 Carbon Dioxide 29 Anion Gap 9 BUN 10 Creatinine 0.8 Creat Clearance w eGFR > 60 POC Glucometer 213 Random Glucose 164 H Calcium 7.7 L Total Bilirubin 0.6 AST 19 ALT 13 Alkaline Phosphatase 108 C-Reactive Protein 17.2 H Total Protein 4.6 L Albumin 1.9 L Active Medications Generic Name Dose Route Start Last Admin Trade Name Freq PRN Reason Stop Dose Admin Acetaminophen 1,000 mg 07/30/18 15:45 08/02/18 07:05 Ofirmev Injection - IVPB 1,000 mg Q6H PRN Administration Pain 1-5 or fever Aspirin 81 mg 07/31/18 10:00 08/02/18 09:53 Ecotrin - PO 81 mg DAILY SHASHANK Administration Enalapril Maleate 20 mg 07/31/18 08:30 08/02/18 09:54 Vasotec - PO 20 mg DAILY SHASHANK Administration Heparin Sodium (Porcine) 5,000 unit 07/30/18 22:00 08/02/18 13:39 Heparin - SQ 5,000 unit TID [facility] Administration Lactated Ringer's 1,000 ml in 1,000 mls @ 100 mls/hr 08/02/18 10:19 Lactated Ringers Solution IV ASDIR [facility] Insulin Aspart 1 vial 07/30/18 18:00 08/02/18 11:21 Novolog Vial Sliding Scale - SQ 4 units Q6HPO [facility] Administration Protocol Insulin Detemir 12 units 07/31/18 07:00 08/02/18 06:20 Levemir Vial SQ 12 units DAILY@0700 [facility] Administration Metoprolol Succinate 50 mg 07/30/18 18:00 08/02/18 09:54 Toprol Xl - PO 50 mg DAILY [facility] Administration Morphine Sulfate 4 mg 07/30/18 15:45 08/01/18 21:29 Morphine Sulfate IVPUSH 4 mg Q4H PRN Administration PAIN LEVEL 6-10 Ondansetron HCl 4 mg 07/30/18 15:45 Zofran Injection IVPUSH Q6H PRN NAUSEA Polyethylene Glycol 17 gm 08/01/18 10:00 08/02/18 09:53 Miralax (For Daily Use) - PO 17 gm DAILY [facility] Administration Ranitidine HCl 150 mg 08/01/18 10:00 08/02/18 09:54 Zantac - PO 150 mg DAILY SHASHANK Administration ASSESSMENT/PLAN: 1) Acute pancreatitis --Unsure about etiology at this time; MRCP without any obstructions, denies alcohol use, no hx trauma, triglycerides WNL, no hx of scorpion bites --Tmax 100.5 over 24hrs --WBC improving to 11.5, however ? some dilutional effect and despite CRP elevations --GI on board and recommendations appreciated --Keep on clears for today and can advance to fulls tomorrow AM --LR@150cc/hr; possibility of decreasing fluids due to dilutional effect on labs and tolerating clear liquids --Morphine 4mg q4h for pain control --Zofran PRN for nausea 2) Constipation --Manual disempaction yesterday --> no rectal vault stool, minimal liquid stool return spontaneously thereafter --Miralax 17gm daily; avoid motility agents for now due to ? impaction --Trial suppository if necessary 3) HTN --Currently mildly elevated likley due to pain vs. increased fluid intake via IV --Continue Toprol XL 50mg qDaily --Continue Vasotec 20mg qdaily 4) Microcytic anemia --Slight dilutional anemia at play as well --Iron studies ordered with AM labs --no active signs of bleeding at this point 5) DM --A1c 8.8% --Levemir 12U Hs --ISS --BGM closely due to being on clear liquid diet FEN: Fluids: LR@125cc/hr currently; would decrease Electrolyte abnormalities: None currently Nutrition: Clear liquids; can advance to full liquid tomorrow AM PPX: DVT - Heparin SQ TID GI - Zantac BId Dispo: Continue M/S monitoring Case discussed with Dr. Compa Landry, DO - IM PGY-2 Visit type - Emergency Visit Emergency Visit: Yes ED Registration Date: 07/29/18 Care time: The patient presented to the Emergency Department on the above date and was hospitalized for further evaluation of their emergent condition. - New Patient This patient is new to me today: Yes Date on this admission: 08/02/18 - Critical Care Critical Care patient: No
[2018-08-02] MEDS: morphine SULFATE 4 MG/ML VIAL IVPUSH PRN (23:49)
[2018-08-03] MEDS: HEPARIN NA (PORCINE) 5,000 UNITS/ML 1ML VIAL SQ SCH ×3 (05:26→21:22)
[2018-08-03] MEDS: LACTATED RINGERS SOLUTION 1,000 ML/1,000 ML INFUS.BAG IV SCH (05:59)
[2018-08-03] MEDS: INSULIN SLIDING SCALE (NOVOLOG) 1 VIAL SQ SCH ×3 (06:11→16:51)
[2018-08-03] MEDS: INSULIN (LEVEMIR) 100 UNITS/ML UNITS SQ SCH (06:34)
[2018-08-03 08:00] LABS: BASO % 0.5 % (0-2.0); EOS % 3.7 % (0-4.5); HEMATOCRIT 27.6 % (32.4-45.2); LYMPH % 10.1 % (8-40); MCH 24.2 pg (25.7-33.7); MCHC 32.7 g/dl (32.0-36.0); MEAN CELL VOLUME 74.2 fl (80-96); MONO % 6.9 % (3.8-10.2); NEUT % 78.8 % (42.8-82.8); PLATELET COUNT 181 K/MM3 (134-434); RBC 3.72 M/mm3 (3.60-5.2); RDW 15.1 % (11.6-15.6); WHITE BLOOD COUNT 7.7 K/mm3 (4.0-10.0)
[2018-08-03 08:26] LABS: ANION GAP 7 MMOL/L (8-16); BLOOD UREA NITROGEN 10 mg/dL (7-18); CALCIUM 7.9 mg/dL (8.5-10.1); CHLORIDE 103 mmol/L (98-107); CO2 30 mmol/L (21-32); CREATININE 0.8 mg/dL (0.55-1.3); GLUCOSE,RANDOM 170 mg/dL (74-106); POTASSIUM 3.2 mmol/L (3.5-5.1); SODIUM 140 mmol/L (136-145)
[2018-08-03] MEDS ORDERED: PT OWN MED DRAWER 7, Y5N ONE (09:31)
[2018-08-03] MEDS: ENALAPRIL MALEATE 10 MG TABLET (FP) PO SCH (09:32)
[2018-08-03] MEDS: RANITIDINE HCL 150 MG TABLET (FP) PO SCH (09:33)
[2018-08-03] MEDS: ASPIRIN COATED 81 MG TABLET.EC PO SCH (09:33)
[2018-08-03] MEDS: POLYETHYLENE GLYCOL 3350 119 GM BTL PO SCH (09:33)
--- NOTE | 2018-08-03 09:55 | PN ---
Physical Exam: SUBJECTIVE: Patient seen and examined at bedside. No acute events overnight- patient states she is feeling much better. She has minimal pain and is able to tolerate clear liquids. She has been afebrile overnight. She feels better after the stool disimpaction, however, she still has not had any bowel movements. She denies any CP, SOB, N/V OBJECTIVE: Vital Signs Period Temp Pulse Resp BP Sys/Bauman Pulse Ox Last 24 Hr 98.3 F-99.3 F 83-92 18-18 136-154/61-63 96 GENERAL: The patient is awake, alert, and fully oriented, in no acute distress. HEENT: no scleral icterus NECK: no JVD appreciated. LUNGS: CTA B/l, no rales, rhonchi or wheezing. HEART: Regular rate and rhythm, S1, S2 without murmur, rub or gallop. ABDOMEN: Soft, nontender, nondistended, normoactive bowel sounds, no guarding, no rebound, no hepatosplenomegaly, no masses. EXTREMITIES: 2+ pulses, warm, well-perfused, no edema. PSYCH: Normal mood, normal affect. SKIN: Warm, dry, normal turgor, no rashes or lesions noted Laboratory Results - last 24 hr 08/02/18 08/02/18 08/02/18 10:56 16:15 23:18 WBC RBC Hgb Hct MCV MCH MCHC RDW Plt Count MPV Absolute Neuts (auto) Neutrophils % Lymphocytes % Monocytes % Eosinophils % Basophils % Nucleated RBC % Sodium Potassium Chloride Carbon Dioxide Anion Gap BUN Creatinine Creat Clearance w eGFR POC Glucometer 213 75 84 Random Glucose Calcium Ferritin C-Reactive Protein 08/03/18 08/03/18 08/03/18 05:08 07:15 07:15 WBC 7.7 RBC 3.72 Hgb 9.0 L Hct 27.6 L MCV 74.2 L MCH 24.2 L MCHC 32.7 RDW 15.1 Plt Count 181 MPV 9.0 Absolute Neuts (auto) 6.1 Neutrophils % 78.8 Lymphocytes % 10.1 D Monocytes % 6.9 Eosinophils % 3.7 D Basophils % 0.5 Nucleated RBC % 0 Sodium 140 Potassium 3.2 L Chloride 103 Carbon Dioxide 30 Anion Gap 7 L BUN 10 Creatinine 0.8 Creat Clearance w eGFR > 60 POC Glucometer 110 Random Glucose 170 H Calcium 7.9 L Ferritin 411.4 H C-Reactive Protein 24.2 H Active Medications Generic Name Dose Route Start Last Admin Trade Name Freq PRN Reason Stop Dose Admin Acetaminophen 1,000 mg 07/30/18 15:45 08/02/18 07:05 Ofirmev Injection - IVPB 1,000 mg Q6H PRN Administration Pain 1-5 or fever Aspirin 81 mg 07/31/18 10:00 08/03/18 09:33 Ecotrin - PO 81 mg DAILY SHASHANK Administration Enalapril Maleate 20 mg 07/31/18 08:30 08/03/18 09:32 Vasotec - PO 20 mg DAILY [facility] Administration Heparin Sodium (Porcine) 5,000 unit 07/30/18 22:00 08/03/18 05:26 Heparin - SQ 5,000 unit TID [facility] Administration Lactated Ringer's 1,000 ml in 1,000 mls @ 100 mls/hr 08/02/18 10:19 08/03/18 05:59 Lactated Ringers Solution IV 100 mls/hr ASDIR [facility] Administration Insulin Aspart 1 vial 07/30/18 18:00 08/03/18 06:11 Novolog Vial Sliding Scale - SQ Not Given Q6HPO [facility] Protocol Insulin Detemir 12 units 07/31/18 07:00 08/03/18 06:34 Levemir Vial SQ 12 units DAILY@0700 [facility] Administration Metoprolol Succinate 50 mg 07/30/18 18:00 08/03/18 09:32 Toprol Xl - PO 50 mg DAILY SHASHANK Administration Morphine Sulfate 4 mg 07/30/18 15:45 08/02/18 23:49 Morphine Sulfate IVPUSH 4 mg Q4H PRN Administration PAIN LEVEL 6-10 Ondansetron HCl 4 mg 07/30/18 15:45 Zofran Injection IVPUSH Q6H PRN NAUSEA Polyethylene Glycol 17 gm 08/01/18 10:00 08/03/18 09:33 Miralax (For Daily Use) - PO 17 gm DAILY [facility] Administration Ranitidine HCl 150 mg 08/01/18 10:00 08/03/18 09:33 Zantac - PO 150 mg DAILY SHASHANK Administration ASSESSMENT/PLAN: Acute pancreatitis --etiology unclear --WBC improving to 7.7, --GI on board and recommendations appreciated- advance to full liquiq diet in AM --LR@100cc/hr --Morphine 4mg q4h for pain control --Zofran PRN for nausea 2) Constipation --Manual disempaction on friday- however, patient has still not had any bowel movements thus far --Miralax 17gm daily --Trial suppository if necessary 3) HTN --Continue Toprol XL 50mg qDaily --Continue Vasotec 20mg qdaily 4) Microcytic anemia --iron studies done this am --no active signs of bleeding --will continue to monitor 5) DM --Levemir 12U Hs --ISS --BGM FEN: Fluids: LR@100cc/hr Electrolyte abnormalities: None currently Nutrition: Clear liquids; can advance to full liquid tomorrow AM PPX: DVT - Heparin SQ TID GI - Zantac BId Problem List - Problems (1) Pancreatitis Code(s): K85.90 - ACUTE PANCREATITIS WITHOUT NECROSIS OR INFECTION, UNSP Qualifiers: Chronicity: acute Pancreatitis type: unspecified pancreatitis type Acute pancreatitis complication: unspecified Qualified Code(s): K85.90 - Acute pancreatitis without necrosis or infection, unspecified (2) Constipation Code(s): K59.00 - CONSTIPATION, UNSPECIFIED Qualifiers: Constipation type: unspecified constipation type Qualified Code(s): K59.00 - Constipation, unspecified Visit type - Emergency Visit Emergency Visit: Yes ED Registration Date: 07/29/18 Care time: The patient presented to the Emergency Department on the above date and was hospitalized for further evaluation of their emergent condition. - New Patient This patient is new to me today: Yes Date on this admission: 08/03/18 - Critical Care Critical Care patient: No
--- NOTE | 2018-08-03 10:18 | PN ---
GI Progress Note Subjective: No acute events Describes slight abdominal pain last night. None now No BM Overall states feeling better - Objective Vital Signs: Vital Signs Temperature 99.3 F 08/03/18 06:00 Pulse Rate 92 H 08/03/18 06:00 Respiratory Rate 18 08/02/18 18:30 Blood Pressure 138/62 08/03/18 06:00 O2 Sat by Pulse Oximetry (%) 96 08/02/18 20:11 Constitutional: Calm Eyes: No: Sclera Icterus Cardiovascular: Yes: Regular Rate and Rhythm Respiratory: Yes: CTA Bilaterally Gastrointestinal Inspection: No: Distention ...Auscultate: Yes: Normoactive Bowel Sounds ...Palpate: No: Hepatomegaly, Splenomegaly, Tenderness Edema: No (No LE edema) Neurological: Yes: Alert Labs: CBC, BMP 08/03/18 07:15 08/03/18 07:15 Hepatic Panel Total Bilirubin 0.6 mg/dL (0.2-1) 08/02/18 06:00 AST 19 U/L (15-37) 08/02/18 06:00 ALT 13 U/L (13-61) 08/02/18 06:00 Alkaline Phosphatase 108 U/L (45-117) 08/02/18 06:00 Albumin 1.9 g/dl (3.4-5.0) L 08/02/18 06:00 Problem List - Problems (1) Acute pancreatitis Assessment/Plan: Overall Looks clinically improved CRP has risen howeve fevers/tachycardia and leukocytosis improved as has abdominal pain: If continued to rise, Should have contrast CT scan Abd/Pelvis this week to evaluate for any post pancreatitis collections distal to the pancreas. Advance to full liquids AM labs If continued clinical improvement D/C fluids in AM and advance diet Code(s): K85.9 - ACUTE PANCREATITIS, UNSPECIFIED * DO NOT USE * Qualifiers: Pancreatitis type: other (2) Constipation Assessment/Plan: Likely secondary to ileus from acute pancreatitis On MiraLAX Ordered FUA Code(s): K59.00 - CONSTIPATION, UNSPECIFIED
--- NOTE | 2018-08-03 17:24 | PN ---
Teaching Attending Note Name of Resident: Alida Torres ATTENDING PHYSICIAN STATEMENT I saw and evaluated the patient. I reviewed the resident's note and discussed the case with the resident. I agree with the resident's findings and plan as documented. SUBJECTIVE:some discomfort when drinking heavier liquids but no pain. denies CP , SOB, fever, chills, N/V/D. no BM since Friday OBJECTIVE: Last Vital Signs Temp Pulse Resp BP Pulse Ox 98.8 F 86 16 115/79 96 08/03/18 13:05 08/03/18 13:05 08/03/18 13:05 08/03/18 13:05 08/02/18 20:11 general NAD Abdomen soft NT/ND obese ASSESSMENT AND PLAN: 77yo F wtih PMH GERD, HTN, CAD s/p stent, DM, CKD and 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 Acute pancreatitis-unclear etiology. afebrile. leukocytosis resolved. clinically looks improved howevere CRP is continuing to trend up. no signs of necrosis or cyst on MRI 2 days ago. will cont to monitor. diet advanced to fulls. if CRP continues to trend up will need CT with contrast to further assess. GI on board. 2. constipation- no BM. looked impacted on presentation and now improved. AXR ordered to evaluate for impaction. encouraged OOB and ambulating to stimluate bowels. suppository today. cont stool softeners. 3. Microcytic anemia- may be dilutional component. no reports of bleeding.Hgb improved. iron studies pending. no indication for transfusion. 4. Hyperglycemia- A1c 8.8. on reduced levemir due to liquid diet. requiring minimal coverage. will titrate as needed cont BGm and iSS. hold oral agents 5. HTN- controlled. cont current management 6. SIRS- due to acute 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 tachycardia with leukocytosis. improving. 7. DVT ppx- hep sq 8. spoke with family present at bedside. all questions answered.
[2018-08-03] MEDS ORDERED: MAGNESIUM SULF 50% (8.12 MEQ/2 ML-1 GM VIAL) IVPB ONE ×2 (18:36→22:30)
[2018-08-03 21:49] LABS: MAGNESIUM 1.7 mg/dL (1.8-2.4)
[2018-08-04] MEDS: INSULIN SLIDING SCALE (NOVOLOG) 1 VIAL SQ SCH ×4 (00:30→16:42)
[2018-08-04 06:09] LABS: SERUM IRON SATURATION 7 % (15-55); TOTAL IRON BINDING CAPACITY 164 ug/dL (250-450); UIBC 153 ug/dL (118-369)
[2018-08-04] MEDS: INSULIN (LEVEMIR) 100 UNITS/ML UNITS SQ SCH (06:24)
[2018-08-04] MEDS: HEPARIN NA (PORCINE) 5,000 UNITS/ML 1ML VIAL SQ SCH ×3 (06:25→21:33)
[2018-08-04 08:18] LABS: BASO % 0.6 % (0-2.0); EOS % 3.4 % (0-4.5); HEMATOCRIT 28.1 % (32.4-45.2); HEMOGLOBIN 8.8 GM/dL (10.7-15.3); LYMPH % 15.5 % (8-40); MCH 23.1 pg (25.7-33.7); MCHC 31.2 g/dl (32.0-36.0); MEAN CELL VOLUME 73.8 fl (80-96); MEAN PLT VOLUME 8.6 fl (7.5-11.1); MONO % 8.9 % (3.8-10.2); NEUT % 71.6 % (42.8-82.8); PLATELET COUNT 178 K/MM3 (134-434); RBC 3.81 M/mm3 (3.60-5.2); RDW 14.7 % (11.6-15.6); WHITE BLOOD COUNT 5.8 K/mm3 (4.0-10.0)
[2018-08-04 09:16] LABS: ANION GAP 8 MMOL/L (8-16); BLOOD UREA NITROGEN 8 mg/dL (7-18); CALCIUM 7.9 mg/dL (8.5-10.1); CHLORIDE 103 mmol/L (98-107); CO2 29 mmol/L (21-32); CREATININE 0.7 mg/dL (0.55-1.3); GLUCOSE,RANDOM 193 mg/dL (74-106); POTASSIUM 3.5 mmol/L (3.5-5.1); SODIUM 140 mmol/L (136-145)
[2018-08-04] MEDS ORDERED: PT OWN MED DRAWER 7, Y5N ONE (09:45)
[2018-08-04] MEDS: RANITIDINE HCL 150 MG TABLET (FP) PO SCH (09:49)
[2018-08-04] MEDS: ENALAPRIL MALEATE 10 MG TABLET (FP) PO SCH (09:49)
[2018-08-04] MEDS: LACTATED RINGERS SOLUTION 1,000 ML/1,000 ML INFUS.BAG IV SCH (09:49)
[2018-08-04] MEDS: ASPIRIN COATED 81 MG TABLET.EC PO SCH (09:49)
[2018-08-04] MEDS: POLYETHYLENE GLYCOL 3350 119 GM BTL PO SCH (09:50)
[2018-08-04] MEDS: IRON SUCROSE INJECTION 200 MG in SODIUM CHLORIDE 90 ML IVPB SCH (10:51)
[2018-08-04] MEDS ORDERED: INSULIN (NOVOLOG) ASPART 100 UNITS/ML 10ML VIAL ONE ×2 (11:38→21:28)
--- NOTE | 2018-08-04 12:08 | PN ---
Physical Exam: SUBJECTIVE: Patient seen and examined at bedside. No acute events overnight- patient states she is feeling much better and is no longer having any abdominal pain. She had a bowel movement last night. She denies any CP/SObB/N/V fevers or chills. CRP is downtrending. OBJECTIVE: Vital Signs Period Temp Pulse Resp BP Sys/Bauman Pulse Ox Last 24 Hr 98.2 F-98.8 F 86-91 16-19 115-182/74-79 96 GENERAL: The patient is awake, alert, and fully oriented, in no acute distress. EYES: no scleral icterus . NECK: no JVD appreciated. LUNGS: CTA B/L; no rales, rhonchi or wheezing HEART: Regular rate and rhythm, S1, S2 without murmur, rub or gallop. ABDOMEN: Soft, nontender, nondistended, normoactive bowel sounds, no guarding, no rebound, no hepatosplenomegaly, no masses. EXTREMITIES: 2+ pulses, warm, well-perfused, no edema. . PSYCH: Normal mood, normal affect. SKIN: Warm, dry, normal turgor, no rashes or lesions noted Laboratory Results - last 24 hr 08/03/18 08/03/18 08/03/18 07:15 07:15 16:48 WBC RBC Hgb Hct MCV MCH MCHC RDW Plt Count MPV Absolute Neuts (auto) Neutrophils % Lymphocytes % Monocytes % Eosinophils % Basophils % Nucleated RBC % Sodium 140 Potassium 3.2 L Chloride 103 Carbon Dioxide 30 Anion Gap 7 L BUN 10 Creatinine 0.8 Creat Clearance w eGFR > 60 POC Glucometer 140 Random Glucose 170 H Calcium 7.9 L Magnesium 1.7 L Iron 11 L TIBC 164 L Iron Saturation 7 L Ferritin 411.4 H C-Reactive Protein 24.2 H 08/04/18 08/04/18 08/04/18 02:38 05:32 06:30 WBC 5.8 RBC 3.81 Hgb 8.8 L Hct 28.1 L MCV 73.8 L MCH 23.1 L MCHC 31.2 L RDW 14.7 Plt Count 178 MPV 8.6 Absolute Neuts (auto) 4.2 Neutrophils % 71.6 Lymphocytes % 15.5 D Monocytes % 8.9 Eosinophils % 3.4 Basophils % 0.6 Nucleated RBC % 0 Sodium Potassium Chloride Carbon Dioxide Anion Gap BUN Creatinine Creat Clearance w eGFR POC Glucometer 184 203 Random Glucose Calcium Magnesium Iron TIBC Iron Saturation Ferritin C-Reactive Protein 08/04/18 08/04/18 07:00 11:25 WBC RBC Hgb Hct MCV MCH MCHC RDW Plt Count MPV Absolute Neuts (auto) Neutrophils % Lymphocytes % Monocytes % Eosinophils % Basophils % Nucleated RBC % Sodium 140 Potassium 3.5 Chloride 103 Carbon Dioxide 29 Anion Gap 8 BUN 8 Creatinine 0.7 Creat Clearance w eGFR > 60 POC Glucometer 193 Random Glucose 193 H Calcium 7.9 L Magnesium Iron TIBC Iron Saturation Ferritin C-Reactive Protein 16.3 H Active Medications Generic Name Dose Route Start Last Admin Trade Name Freq PRN Reason Stop Dose Admin Acetaminophen 1,000 mg 07/30/18 15:45 08/02/18 07:05 Ofirmev Injection - IVPB 1,000 mg Q6H PRN Administration Pain 1-5 or fever Aspirin 81 mg 07/31/18 10:00 08/04/18 09:49 Ecotrin - PO 81 mg DAILY SHASHANK Administration Enalapril Maleate 20 mg 07/31/18 08:30 08/04/18 09:49 Vasotec - PO 20 mg DAILY SHASHANK Administration Heparin Sodium (Porcine) 5,000 unit 07/30/18 22:00 08/04/18 06:25 Heparin - SQ 5,000 unit TID SHASHANK Administration Lactated Ringer's 1,000 ml in 1,000 mls @ 100 mls/hr 08/02/18 10:19 08/04/18 09:49 Lactated Ringers Solution IV 100 mls/hr ASDIR SHASHANK Administration Iron Sucrose 200 mg/ Sodium 100 mls @ 100 mls/hr 08/04/18 09:00 08/04/18 10: 51 Chloride IVPB 08/09/18 08:59 100 mls/hr DAILY@0800 SHASHANK Administration Insulin Aspart 1 vial 07/30/18 18:00 08/04/18 11:44 Novolog Vial Sliding Scale - SQ 2 units Q6HPO SHASHANK Administration Protocol Insulin Detemir 12 units 07/31/18 07:00 08/04/18 06:24 Levemir Vial SQ 12 units DAILY@0700 SHASHANK Administration Metoprolol Succinate 50 mg 07/30/18 18:00 08/04/18 09:49 Toprol Xl - PO 50 mg DAILY SHASHANK Administration Ondansetron HCl 4 mg 07/30/18 15:45 Zofran Injection IVPUSH Q6H PRN NAUSEA Polyethylene Glycol 17 gm 08/01/18 10:00 08/04/18 09:50 Miralax (For Daily Use) - PO 17 gm DAILY SHASHANK Administration Ranitidine HCl 150 mg 08/01/18 10:00 08/04/18 09:49 Zantac - PO 150 mg DAILY SHASHANK Administration ASSESSMENT/PLAN: 77 y/o female with PMH of HTN, DM, presents to the ED with severe abdominal pain with radiation to the back accompanied by multiple episodes of vomiting found to have acute 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 Acute pancreatitis leukocytosis improving CRP downtrending GI on board and recommendations appreciated- LR@100cc/hr Morphine 4mg q4h for pain control Zofran PRN for nausea HTN Continue Toprol XL 50mg qDaily Continue Vasotec 20mg qdaily Microcytic anemia iron studies done this am no active signs of bleeding will continue to monitor started patient on IV iron DM Levemir 12U Hs ISS BGM FEN: Fluids: LR@100cc/hr Electrolyte abnormalities: None currently Nutrition: diabetic/sodium controlled diet PPX: DVT - Heparin SQ TID GI - Zantac BId Problem List - Problems (1) Pancreatitis Code(s): K85.90 - ACUTE PANCREATITIS WITHOUT NECROSIS OR INFECTION, UNSP Qualifiers: Chronicity: acute Pancreatitis type: unspecified pancreatitis type Acute pancreatitis complication: unspecified Qualified Code(s): K85.90 - Acute pancreatitis without necrosis or infection, unspecified (2) Constipation Code(s): K59.00 - CONSTIPATION, UNSPECIFIED Qualifiers: Constipation type: unspecified constipation type Qualified Code(s): K59.00 - Constipation, unspecified Visit type - Emergency Visit Emergency Visit: Yes ED Registration Date: 07/29/18 Care time: The patient presented to the Emergency Department on the above date and was hospitalized for further evaluation of their emergent condition. - New Patient This patient is new to me today: No - Critical Care Critical Care patient: No
--- NOTE | 2018-08-04 12:46 | PN ---
Teaching Attending Note Name of Resident: Alida Torres ATTENDING PHYSICIAN STATEMENT I saw and evaluated the patient. I reviewed the resident's note and discussed the case with the resident. I agree with the resident's findings and plan as documented. SUBJECTIVE:asymptomatic. states no pain eating regular food. +1BM yesterday. denies CP, SOB, fever, chills, N/V/C/D OBJECTIVE: Last Vital Signs Temp Pulse Resp BP Pulse Ox 98.4 F 91 H 18 153/74 96 08/04/18 05:51 08/04/18 05:51 08/04/18 05:51 08/04/18 05:51 08/03/18 20:23 general NAD Abdomen soft NT/ND obese ASSESSMENT AND PLAN: 77yo F wtih PMH GERD, HTN, CAD s/p stent, DM, CKD and 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 Acute pancreatitis-unclear etiology. afebrile. leukocytosis resolved. CRP slowly trending down. tolerating regular diet. d/c IVF. will cont to trend CRP. will hold CT at this time. GI on board. 2. constipation- + BM. AXR not showing fecal impaction. will cont with stool softners. 3. Iron def anemia- may be dilutional component. Hgb stable. will start IV iron while hospitalized as to not worsen constipation that patient was having. will d /c on oral iron with stool softeners. Educated on risks of constipation and black stools. will need iron studies repeated in 3 months. 4. Hyperglycemia- A1c 8.8. on reduced levemir. requiring minimal coverage. will titrate as needed cont BGm and iSS. hold oral agents 5. HTN- controlled. cont current management 6. SIRS- due to acute 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 tachycardia with leukocytosis. improving. 7. DVT ppx- hep sq 8. Anticipate discharge in next 24-48H
--- NOTE | 2018-08-04 14:17 | PN ---
GI Progress Note Subjective: No acute events Found sitting up in chair and states feeling well Tolerating PO - Objective Vital Signs: Vital Signs Temperature 98.4 F 08/04/18 05:51 Pulse Rate 91 H 08/04/18 05:51 Respiratory Rate 18 08/04/18 05:51 Blood Pressure 153/74 08/04/18 05:51 O2 Sat by Pulse Oximetry (%) 96 08/03/18 20:23 Constitutional: Calm Eyes: No: Sclera Icterus Cardiovascular: Yes: Regular Rate and Rhythm Respiratory: Yes: CTA Bilaterally Gastrointestinal Inspection: No: Distention ...Auscultate: Yes: Normoactive Bowel Sounds ...Palpate: No: Tenderness Extremities: Yes: Other (erythema at previous IV site on left forearm with peripheral traching of erythema and some purulence at the IV puncture site. Tender to palpation) Edema: No (No LE edema) Neurological: Yes: Alert Labs: CBC, BMP 08/04/18 06:30 08/04/18 07:00 Laboratory Tests 08/04/18 07:00 C-Reactive Protein 16.3 H - ....Imaging X-ray: Report Reviewed (Some air deistended loops of small bowel) Problem List - Problems (1) Acute pancreatitis Assessment/Plan: Much improved clinically, CRP trending down. ? if left forearm IV site infection contributing to elevated CRP D/C IV fluids On diabetic / sodium controlled diet Continue to monitor Code(s): K85.9 - ACUTE PANCREATITIS, UNSPECIFIED * DO NOT USE * Qualifiers: Pancreatitis type: other (2) Constipation Assessment/Plan: MiraLAX, encourage ambulation Code(s): K59.00 - CONSTIPATION, UNSPECIFIED (3) Arm wound Assessment/Plan: Erythema and induration at previous IV site on left forearm. Advised registered medical assistant and Ms. Cody's nurse rolando that this will need follow-up. Code(s): S41.109A - UNSPECIFIED OPEN WOUND OF UNSPECIFIED UPPER ARM, INIT ENCNTR
[2018-08-04] MEDS ORDERED: ACETAMINOPHEN 325 MG TABLET (FP) PO PRN (14:57)
[2018-08-05] MEDS: INSULIN SLIDING SCALE (NOVOLOG) 1 VIAL SQ SCH ×3 (00:05→12:10)
[2018-08-05] MEDS: HEPARIN NA (PORCINE) 5,000 UNITS/ML 1ML VIAL SQ SCH (06:47)
[2018-08-05] MEDS: INSULIN (LEVEMIR) 100 UNITS/ML UNITS SQ SCH (06:47)
[2018-08-05 07:36] LABS: HEMATOCRIT 27.2 % (32.4-45.2); HEMOGLOBIN 8.5 GM/dL (10.7-15.3); MCH 23.2 pg (25.7-33.7); MCHC 31.2 g/dl (32.0-36.0); MEAN CELL VOLUME 74.4 fl (80-96); MEAN PLT VOLUME 8.5 fl (7.5-11.1); PLATELET COUNT 225 K/MM3 (134-434); RBC 3.65 M/mm3 (3.60-5.2); RDW 14.8 % (11.6-15.6); WHITE BLOOD COUNT 6.3 K/mm3 (4.0-10.0)
[2018-08-05 07:57] LABS: ANION GAP 4 MMOL/L (8-16); BLOOD UREA NITROGEN 10 mg/dL (7-18); CALCIUM 8.1 mg/dL (8.5-10.1); CHLORIDE 104 mmol/L (98-107); CO2 34 mmol/L (21-32); CREATININE 0.8 mg/dL (0.55-1.3); GLUCOSE,RANDOM 220 mg/dL (74-106); POTASSIUM 3.8 mmol/L (3.5-5.1); SODIUM 142 mmol/L (136-145)
[2018-08-05 09:32] VITALS: BP 164/78; PULSE 97; TEMP 98.8
[2018-08-05] MEDS ORDERED: PT OWN MED DRAWER 7, Y5N ONE (09:51)
[2018-08-05] MEDS: IRON SUCROSE INJECTION 200 MG in SODIUM CHLORIDE 90 ML IVPB SCH (10:30)
[2018-08-05] MEDS: ASPIRIN COATED 81 MG TABLET.EC PO SCH (10:31)
[2018-08-05] MEDS: ENALAPRIL MALEATE 10 MG TABLET (FP) PO SCH (10:32)
[2018-08-05] MEDS: RANITIDINE HCL 150 MG TABLET (FP) PO SCH (10:32)
[2018-08-05] MEDS: POLYETHYLENE GLYCOL 3350 119 GM BTL PO SCH (10:33)
--- NOTE | 2018-08-05 14:28 | PN ---
Teaching Attending Note Name of Resident: Alida Trores ATTENDING PHYSICIAN STATEMENT I saw and evaluated the patient. I reviewed the resident's note and discussed the case with the resident. I agree with the resident's findings and plan as documented. SUBJECTIVE:asymptomatic. tolerating regular diet. +BM today. denies CP, SOB, fever, chills, N/V/C/D OBJECTIVE: Last Vital Signs Temp Pulse Resp BP Pulse Ox 98.8 F 97 H 16 164/78 96 08/05/18 09:32 08/05/18 09:32 08/05/18 09:32 08/05/18 09:32 08/03/18 20:23 general NAD Abdomen soft NT/ND obese ASSESSMENT AND PLAN: 77yo F wtih PMH GERD, HTN, CAD s/p stent, DM, CKD and 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 Acute pancreatitis-unclear etiology. afebrile. leukocytosis resolved. CRP trending down. tolerating regular diet.GI on board. 2. constipation- + BM. AXR not showing fecal impaction. will cont with stool softners. 3. Iron def anemia- may be dilutional component. Hgb stable. venofer dose #2. will d/c on iron supplements. told to start once having regular BM to prevent consitpation. will need iron studies repeated in 3 months. 4. Hyperglycemia- A1c 8.8. incrase levemir to 20 units. instructed to monitor sugars and can increase to 24 units (home dose) in 2 days once pt is monitored for signs of hypoglycemia. re-start oral meds on discharge 5. HTN- controlled. cont current management 6. SIRS- due to acute 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 tachycardia with leukocytosis. improving. 7. DVT ppx- hep sq 8. discussed in detail about insulin dosing and further follow up. d/c home
--- NOTE | 2018-08-05 14:44 | DS ---
Physical Exam: SUBJECTIVE: Patient seen and examined at bedside. States that she is feeling much better- she had 1 bowel movement overnight. She is so longer experiencing any abdominal pain/nausea or vomiting. She denies any CP/SOB/V/V fevers or chills OBJECTIVE: Vital Signs Period Temp Pulse Resp BP Sys/Bauman Pulse Ox Last 24 Hr 98.4 F-99.1 F 87-97 16-18 158-166/65-78 PHYSICAL EXAM GENERAL: The patient is awake, alert, and fully oriented, in no acute distress. EYES: no scleral icterus. NECK: no JVD appreciated LUNGS: CTA B/L; no rales, rhonchi or wheezing HEART: Regular rate and rhythm, S1, S2 without murmur, rub or gallop. ABDOMEN: Soft, nontender, nondistended, normoactive bowel sounds, no guarding, no rebound, no hepatosplenomegaly, no masses. EXTREMITIES: 2+ pulses, warm, well-perfused, no edema. PSYCH: Normal mood, normal affect. SKIN: Warm, dry, normal turgor, no rashes or lesions noted. LABS Laboratory Results - last 24 hr 08/04/18 08/04/18 08/05/18 16:38 23:08 06:45 WBC RBC Hgb Hct MCV MCH MCHC RDW Plt Count MPV Sodium Potassium Chloride Carbon Dioxide Anion Gap BUN Creatinine Creat Clearance w eGFR POC Glucometer 258 222 218 Random Glucose Calcium C-Reactive Protein 08/05/18 08/05/18 08/05/18 07:00 07:00 11:59 WBC 6.3 RBC 3.65 Hgb 8.5 L Hct 27.2 L MCV 74.4 L MCH 23.2 L MCHC 31.2 L RDW 14.8 Plt Count 225 D MPV 8.5 Sodium 142 Potassium 3.8 Chloride 104 Carbon Dioxide 34 H Anion Gap 4 L BUN 10 Creatinine 0.8 Creat Clearance w eGFR > 60 POC Glucometer 238 Random Glucose 220 H Calcium 8.1 L C-Reactive Protein 10.9 H HOSPITAL COURSE: Patient came to the hospital on 07/29 with complaints of nausea/vomiting/ abdominal pain that radiated to the back. She was exeperiencing this pain for about 4 days before coming to the hospital. Of note, she has a history of pancreatitis in the past and was hospitalized because of this two years ago. On admission, she was found to have an elevated lipase and leukocytosis. She was started on IV fluids and medication for pain control. On imaging, there was shown to be an enlarged head of the pancreas, with slight concern for necrosis, combined with her past history and patient also had elevated CRP. If her CRP hhad began to trend down there would've been additional imaging done to further rule out nectrotizing pancreatitis, pseudocysts etc. She was monitored, given strict fluids and pain meds and her CRP was trended. She clinically improved in a week with her leukocytosis normalized, her abdominal pain cleared, and her CRP trending down. The etiology of her pancreatitis was unclear. Date of Admission:07/29/18 Date of Discharge: 08/05/18 Minutes to complete discharge: 30 Discharge Summary Reason For Visit: ACUTE PANCREATITIS Current Active Problems Arm wound (Acute) Constipation (Acute) Pancreatitis (Acute) Condition: Stable - Instructions Diet, Activity, Other Instructions: You came to the hospital with complaints of severe abdominal pain which radiated to the back in addition to multiple episodes of vomiting. You were found to have pancreatitis which was shown on MRI. We treated you with IV fluids and medication to control your pain. You were seen daily by a distribution coordinator who monitored your symptoms very closely. You were also found to be iron deficient. . We want you to continue with the iron supplements at home and have these levels checked again by your primary care physician in 3 months. The following changes should be made to your medications: Your insulin levemir, please take 20 units at home instead of your normal 24. Check your sugars as usual, if they remain stable and you do not experience any low sugars or symptoms of low sugars You can increase your insulin to 24 units at bedtime. You should likely be able to do this in the next 2 days. Follow with your primary care physician within 1 week. Please resume the rest of your home medications as prescribed Referrals: -we advise that you follow up with your primary care physician within one week -we advise that you follow up with Dr. Yarbrough, the distribution coordinator in two- three weeks * if you begin to experience any nausea, vomiting, abdominal, diarrhea, chest pain or shortness of breath please return to the emergency department immediately Referrals: Ha Yarbrough DO [Staff Physician] - Disposition: HOME - Home Medications Comprehensive Discharge Medication List: Ambulatory Orders Enalapril Maleate [Vasotec -] 10 mg PO DAILY 03/26/12 Aspirin [Aspirin EC] 81 mg PO DAILY 07/29/18 Docusate Sodium 100 mg PO TID PRN 07/29/18 Gemfibrozil 600 mg PO BID 07/29/18 Glipizide 5 mg PO DAILY 07/29/18 Insulin Glargine,Hum.rec.anlog [Basaglar Kwikpen U-100] 25 units SQ DAILY@0700 07/29/18 Metformin HCl [Glucophage] 1,000 mg PO BID 07/29/18 Metoprolol Succinate 50 mg PO DAILY 07/29/18 Omeprazole 20 mg PO DAILY 07/29/18 Sodium Bicarbonate 454 gm MC DAILY 07/29/18 Vit C/E/Zn/Coppr/Lutein/Zeaxan [Preservision Areds 2 Softgel] 1 cap PO DAILY Atorvastatin Calcium 40 mg PO DAILY 07/30/18 Canagliflozin [Invokana] 100 mg PO DAILY 07/30/18 Insulin (Levemir) [Levemir Vial] 20 units SQ DAILY@0700 30 Days #6 vial Problem List - Problems (1) Pancreatitis Code(s): K85.90 - ACUTE PANCREATITIS WITHOUT NECROSIS OR INFECTION, UNSP Qualifiers: Chronicity: acute Pancreatitis type: unspecified pancreatitis type Acute pancreatitis complication: unspecified Qualified Code(s): K85.90 - Acute pancreatitis without necrosis or infection, unspecified (2) Constipation Code(s): K59.00 - CONSTIPATION, UNSPECIFIED Qualifiers: Constipation type: unspecified constipation type Qualified Code(s): K59.00 - Constipation, unspecified This patient is new to me today: No Emergency Visit: Yes ED Registration Date: 07/29/18 Care time: The patient presented to the Emergency Department on the above date and was hospitalized for further evaluation of their emergent condition. Critical Care patient: No - Discharge Referral Referred to [facility] Med [facility] No
== END 2018-08-05 17:50 | disposition home or self-care (01) | DRG 439 ==
LOC: JER 03:11 → JERBED 07:02 → J6S 07-30 15:10
PROVIDERS: ADMIT Internal Medicine; ATTEND Internal Medicine
DX: K85.90 Acute pancreatitis without necrosis or infection, unspecified (principal); K56.7 Ileus, unspecified; R65.10 Systemic inflammatory response syndrome (SIRS) of non-infectious origin without acute organ dysfunction; E11.65 Type 2 diabetes mellitus with hyperglycemia; N18.3 Chronic kidney disease, stage 3 (moderate); I12.9 Hypertensive chronic kidney disease with stage 1 through stage 4 chronic kidney disease, or unspecified chronic kidney disease; K56.41 Fecal impaction; I25.10 Atherosclerotic heart disease of native coronary artery without angina pectoris; Z98.61 Coronary angioplasty status; R00.0 Tachycardia, unspecified; D72.829 Elevated white blood cell count, unspecified; D50.9 Iron deficiency anemia, unspecified; E78.5 Hyperlipidemia, unspecified; K21.9 Gastro-esophageal reflux disease without esophagitis
CPT/HCPCS: 36415; 71045-TC-FY; 74019-TC-FY; 74176-TC; 74183-TC; 76705-TC; 80048; 80053; 80061; 81003; 81015; 82550; 82728; 82962; 83036; 83540; 83550; 83615; 83690; 83721; 83735; 84100; 84484; 85025; 85027; 86140; 87040; 87086; 93005; 93010; 97116-GP; 97161-GP; 99285-25; J0131; J1644; J1756; J7030

== ENCOUNTER 2019-01-04 18:51 | Inpatient (IN) | payer MEDICARE, OTHER ==
--- NOTE | 2019-01-04 20:02 | PDOC ---
History of Present Illness - General Chief Complaint: Revisit, Lab Variance Stated Complaint: DOCTOR CALLED HER IN Time Seen by Provider: 01/04/19 20:02 History Source: Patient - History of Present Illness Initial Comments: 01/04/19 20:58 78-year-old female sent in by PCP for elevated potassium during routine lab work 1 week ago. Patient reports that she has slight chest discomfort midsternal area for 1 day. Denies palpitations, dizziness, nausea, vomiting, abdominal pain, headache, denies fevers/chills. Past medical history of hypertension, cardiac stents, diabetes. Patient reports that she is currently not taking any water pills. 01/04/19 22:38 PCP 2 marsha turner. previous cardiology : . Past History - Past Medical History Allergies/Adverse Reactions: Allergies Allergy/AdvReac Type Severity Reaction Status Date / Time No Known Allergies Allergy Verified 01/04/19 19:05 Home Medications: Ambulatory Orders Enalapril Maleate [Vasotec -] 10 mg PO DAILY 03/26/12 Aspirin [Aspirin EC] 81 mg PO DAILY 07/29/18 Docusate Sodium 100 mg PO TID PRN 07/29/18 Gemfibrozil 600 mg PO BID 07/29/18 Glipizide 5 mg PO BID 07/29/18 Metformin HCl [Glucophage] 1,000 mg PO BID 07/29/18 Metoprolol Succinate 50 mg PO DAILY 07/29/18 Insulin (Levemir) [Levemir Vial] 20 units SQ DAILY@0700 30 Days #6 vial Acetaminophen [8Hr Arthritis Pain Relief] 650 mg PO QID PRN 01/04/19 Atorvastatin Ca [Lipitor] 40 mg PO HS 01/04/19 Cholecalciferol (Vitamin D3) [Vitamin D3] 1,000 unit PO DAILY 01/04/19 Cyanocobalamin (Vitamin B-12) [Vitamin B-12] 1,000 mcg PO DAILY 01/04/19 Diclofenac Sodium [Diclo Gel] 1 each TP TID 01/04/19 Ranitidine [Zantac -] 150 mg PO DAILY 01/04/19 Anemia: No Asthma: No Cancer: No Cardiac Disorders: Yes CVA: No COPD: No CHF: No Dementia: No Diabetes: Yes (NIDDM) GI Disorders: Yes (GASTRITIS, PANCREATITIS) Disorders: Yes (CKD stg 3) HTN: Yes Hypercholesterolemia: Yes Liver Disease: No Seizures: No Thyroid Disease: No - Surgical History Abdominal Surgery: No Appendectomy: No Cardiac Surgery: No Cholecystectomy: Yes Lung Surgery: No Neurologic Surgery: No Orthopedic Surgery: No - Immunization History Immunization Up to Date: No - Suicide/Smoking/Psychosocial Hx Smoking History: Never smoked Have you smoked in the past 12 months: No Hx Alcohol Use: No Drug/Substance Use Hx: No Substance Use Type: None Hx Substance Use Treatment: No Review of Systems - Review of Systems Able to Perform ROS?: Yes Is the patient limited Lao proficient: No Constitutional: No: Symptoms Reported, See HPI, Chills, Diaphoresis, Fever, Loss of Appetite, Malaise, Night Sweats, Weakness, Weight Stable, Unintentional Wgt. Loss, Unexplained wgt Loss, Other Respiratory: No: Symptoms reported, See HPI, Cough, Orthopnea, Shortness of Breath, SOB with Exertion, SOB at Rest, Stridor, Wheezing, Productive cough, Hemoptysis, Other Cardiac (ROS): Yes: Chest Pain. No: Symptoms Reported, See HPI, Edema, Irregular Heart Rate, Lightheadedness, Palpitations, Syncope, Chest Tightness, Other ABD/GI: No: Symptoms Reported, See HPI, Abdominal Distended, Abd. Pain w/ defecation, Blood Streaked Bowels, Constipated, Diarrhea, Difficulty Swallowing , Nausea, Poor Appetite, Poor Fluid Intake, Rectal Bleeding, Vomiting, Indigestion, Abdominal cramping, Tarry Stools, Other : No: Symptoms Reported, See HPI, Burning, Dysuria, Discharge, Frequency, Flank Pain, Hematuria, Incontinence, Pain, Urgency, Testicular Mass, Testicular Swelling, Lesions, Testicular Pain, Other *Physical Exam - Vital Signs Last Vital Signs Temp Pulse Resp BP Pulse Ox 97.8 F 97 H 16 163/68 97 01/04/19 19:02 01/04/19 19:02 01/04/19 19:02 01/04/19 19:02 01/04/19 19:02 - Physical Exam General Appearance: Yes: Appropriately Dressed Respiratory/Chest: positive: Lungs Clear, Normal Breath Sounds. negative: Chest Tender Cardiovascular: positive: Regular Rate, Tachycardia Gastrointestinal/Abdominal: positive: Normal Bowel Sounds, Soft Extremity: positive: Normal Capillary Refill, Normal Inspection, Normal Range of Motion Integumentary: positive: Normal Color, Dry, Warm Neurologic: positive: Fully Oriented, Alert, Normal Mood/Affect Heart Score/ECG Review - ECG Intrepretation Rhythm: Regular Rhythm Comment:: 01/04/19 21:06 NSR: nonsp[ecific ST and Twave abnormality: 95 bpm ED Treatment Course - LABORATORY CBC & Chemistry Diagram: 01/05/19 05:30 01/05/19 05:30 Medical Decision Making - Medical Decision Making 01/04/19 21:02 A: elevated potassium; chest pain ; elevated troponin P: labs EKG: Chest xray 01/05/19 06:50 2nd troponin grossly elevated. patient is without chest pain at this time. slight EKG changes notes. admitting team made aware *DC/Admit/Observation/Transfer Diagnosis at time of Disposition: Serum potassium elevated, Elevated troponin I level Chest pain Qualifiers: Chest pain type: unspecified Qualified Code(s): R07.9 - Chest pain, unspecified - Referrals - Patient Instructions - Post Discharge Activity
--- NOTE | 2019-01-04 21:06 | PDOC ---
*Physical Exam - Vital Signs Last Vital Signs Temp Pulse Resp BP Pulse Ox 97.8 F 97 H 16 163/68 97 01/04/19 19:02 01/04/19 19:02 01/04/19 19:02 01/04/19 19:02 01/04/19 19:02 ED Treatment Course - LABORATORY CBC & Chemistry Diagram: 01/04/19 20:04 01/04/19 20:04 Medical Decision Making - Medical Decision Making 01/04/19 21:06 Patient seen by the advanced practice provider under my direct supervision. Ancillary testing reviewed as necessary. I agree with plan as outlined by the advanced practice provider. *DC/Admit/Observation/Transfer Diagnosis at time of Disposition: Serum potassium elevated Chest pain Qualifiers: Chest pain type: unspecified Qualified Code(s): R07.9 - Chest pain, unspecified - Referrals Referrals: Ha Holland DO [Primary Care Provider] - - Patient Instructions - Post Discharge Activity
[2019-01-04 21:18] LABS: BASO % 1.3 % (0-2.0); EOS % 6.8 % (0-4.5); HEMATOCRIT 35.5 % (32.4-45.2); HEMOGLOBIN 11.9 GM/dL (10.7-15.3); LYMPH % 31.3 % (8-40); MCH 25.7 pg (25.7-33.7); MCHC 33.4 g/dl (32.0-36.0); MEAN CELL VOLUME 76.9 fl (80-96); MONO % 5.4 % (3.8-10.2); NEUT % 55.2 % (42.8-82.8); RBC 4.62 M/mm3 (3.60-5.2); RDW 13.7 % (11.6-15.6); WHITE BLOOD COUNT 8.7 K/mm3 (4.0-10.0)
[2019-01-04 21:37] LABS: EPI CELLS 0.4 /HPF (0-5); HYALINE CASTS 1 /hpf (0-8); PH,URINE 6.5 (5.0-8.0); URINE APPEARANCE CLEAR; URINE BACTERIA 8.964 /hpf (NEGATIVE); URINE BILIRUBIN NEGATIVE (NEGATIVE); URINE COLOR YELLOW; URINE GLUCOSE (UA) 1+ (NEGATIVE); URINE KETONE NEGATIVE (NEGATIVE); URINE LEUK ESTERASE 1+ (NEGATIVE); URINE NITRITE NEGATIVE (NEGATIVE); URINE PROTEIN NEGATIVE (NEGATIVE); URINE RBC 2 /hpf (0-4); URINE UROBILINOGEN 0.2 mg/dL (0.2-1.0); URINE WBC 7 /hpf (0-5)
[2019-01-04 21:52] LABS: ALBUMIN 3.7 g/dl (3.4-5.0); ALK PHOS 104 U/L (45-117); ANION GAP 8 MMOL/L (8-16); BILIRUBIN,TOTAL 0.1 mg/dL (0.2-1); BLOOD UREA NITROGEN 34 mg/dL (7-18); CALCIUM 8.6 mg/dL (8.5-10.1); CHLORIDE 109 mmol/L (98-107); CO2 25 mmol/L (21-32); CREATININE 1.4 mg/dL (0.55-1.3); GLUCOSE,RANDOM 236 mg/dL (74-106); LIPASE 271 U/L (73-393); N-TERMINAL BNP 371.8 pg/ml (5-450); POTASSIUM 5.2 mmol/L (3.5-5.1); SGOT/AST 21 U/L (15-37); SGPT/ALT 20 U/L (13-61); SODIUM 142 mmol/L (136-145); TOT PROT 6.8 g/dl (6.4-8.2)
[2019-01-04 21:56] LABS: PLATELET ESTIMATE ADEQUATE
--- NOTE | 2019-01-04 22:47 | HP ---
<Noe Arreola - Last Filed: 01/05/19 06:14> CHIEF COMPLAINT:sent by her PCP due to elevated K PCP: [facility] HISTORY OF PRESENT ILLNESS: 78 an[place] old female with pmhx of HTN , DM , HLD, CAD S/P stent 2008 , h.o pancreatitis , GERD , send to ED by her PCP due to K elevation on lab that was done \last week was found to have elevated trop and admitted to tele for monitoring . pt mentioned some pressure dicomfort after climbing 3 flight, but denies any cough, phlegm , any fever any chills, denies any orthopnea or swelling in her legs. denies any abdominal pain N/V/D but reports acid reflux and constipation. denies any burining sensation with urine or change in urine color. 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 ER course was notable for: (1)cxr no acute pathology (2)trop 0.13 (3)K: 5.2 Recent Travel:denies PAST MEDICAL HISTORY: HTN , DM , HLD, CAD S/P stent 2008 , h.o pancreatitis , GERD , PAST SURGICAL HISTORY: Cholecystectomy, Tubal ligation , B/L Cataract Social History: Smoking:denies Alcohol:denies Drugs: denies Family History:Liver disease , heart attach Allergies No Known Allergies Allergy (Verified 01/04/19 19:05) HOME MEDICATIONS: Home Medications Medication Instructions Recorded Enalapril Maleate [Vasotec -] 10 mg PO DAILY 03/26/12 Aspirin [Aspirin EC] 81 mg PO DAILY 07/29/18 Docusate Sodium 100 mg PO TID PRN 07/29/18 Gemfibrozil 600 mg PO BID 07/29/18 Glipizide 5 mg PO BID 07/29/18 Metformin HCl [Glucophage] 1,000 mg PO BID 07/29/18 Metoprolol Succinate 50 mg PO DAILY 07/29/18 Insulin (Levemir) [Levemir Vial] 20 units SQ DAILY@0700 30 Days #6 08/05/18 vial Acetaminophen [8Hr Arthritis Pain 650 mg PO QID PRN 01/04/19 Relief] Atorvastatin Ca [Lipitor] 40 mg PO HS 01/04/19 Cholecalciferol (Vitamin D3) 1,000 unit PO DAILY 01/04/19 [Vitamin D3] Cyanocobalamin (Vitamin B-12) 1,000 mcg PO DAILY 01/04/19 [Vitamin B-12] Diclofenac Sodium [Diclo Gel] 1 each TP TID 01/04/19 Ranitidine [Zantac -] 150 mg PO DAILY 01/04/19 REVIEW OF SYSTEMS CONSTITUTIONAL: Absent: fever, chills, diaphoresis, generalized weakness, malaise, loss of appetite, weight change HEENT: Absent: rhinorrhea, nasal congestion, throat pain, throat swelling, difficulty swallowing, mouth swelling, ear pain, eye pain, visual changes CARDIOVASCULAR: Absent: chest pain, syncope, palpitations, irregular heart rate, lightheadedness , peripheral edema RESPIRATORY: Absent: cough, shortness of breath, dyspnea with exertion, orthopnea, wheezing, stridor, hemoptysis GASTROINTESTINAL: Absent: abdominal pain, abdominal distension, nausea, vomiting, diarrhea, constipation, melena, hematochezia GENITOURINARY: Absent: dysuria, frequency, urgency, hesitancy, hematuria, flank pain, genital pain MUSCULOSKELETAL: Absent: myalgia, arthralgia, joint swelling, back pain, neck pain SKIN: Absent: rash, itching, pallor HEMATOLOGIC/IMMUNOLOGIC: Absent: easy bleeding, easy bruising, lymphadenopathy, frequent infections ENDOCRINE: Absent: unexplained weight gain, unexplained weight loss, heat intolerance, cold intolerance NEUROLOGIC: Absent: headache, focal weakness or paresthesias, dizziness, unsteady gait, seizure, mental status changes, bladder or bowel incontinence PSYCHIATRIC: Absent: anxiety, depression, suicidal or homicidal ideation, hallucinations. PHYSICAL EXAMINATION Vital Signs - 24 hr 01/04/19 19:02 Temperature 97.8 F Pulse Rate 97 H Respiratory 16 Rate Blood Pressure 163/68 O2 Sat by Pulse 97 Oximetry (%) GENERAL: AAO3 in AND HEAD: NC/AT EYES: Lexis, EOMI , conjunctive clear ENT: dry mucous membranes. NECK:supple LUNGS: CTA B/L . No wheezes, and no crackles. No accessory muscle use. HEART: Sinus tachy , normal S1 and S2 without murmur, rub or gallop. ABDOMEN: Soft, nontender, not distended, normoactive bowel sounds, no guarding, surgical scar longitudinal 25 cm MUSCULOSKELETAL: Normal range of motion at all joints. No bony deformities or tenderness. No CVA tenderness. UPPER EXTREMITIES: 2+ pulses, warm, well-perfused. No cyanosis. No clubbing. No peripheral edema. LOWER EXTREMITIES: 2+ pulses, warm, well-perfused. No calf tenderness. No peripheral edema. NEUROLOGICAL: Cranial nerves II-XII intact. Normal speech. PSYCHIATRIC: Cooperative. Good eye contact. SKIN: Warm, dry, normal turgor, Laboratory Results - last 24 hr 01/04/19 01/04/19 01/04/19 20:04 20:04 20:04 WBC 8.7 RBC 4.62 Hgb 11.9 Hct 35.5 MCV 76.9 L MCH 25.7 MCHC 33.4 RDW 13.7 Plt Count No Result Required. MPV 10.0 Absolute Neuts (auto) 4.8 Neutrophils % 55.2 D Lymphocytes % 31.3 D Monocytes % 5.4 Eosinophils % 6.8 H Basophils % 1.3 Nucleated RBC % 0 Platelet Estimate Adequate Platelet Comment Slt plt clumping Sodium 142 Potassium 5.2 H Chloride 109 H Carbon Dioxide 25 Anion Gap 8 BUN 34 H Creatinine 1.4 H Creat Clearance w eGFR 36.46 Random Glucose 236 H Calcium 8.6 Total Bilirubin 0.1 L AST 21 ALT 20 Alkaline Phosphatase 104 Troponin I 0.13 H B-Natriuretic Peptide 371.8 Total Protein 6.8 Albumin 3.7 Lipase 271 Urine Color Yellow Urine Appearance Clear Urine pH 6.5 D Ur Specific [place] 1.013 Urine Protein Negative Urine Glucose (UA) 1+ H Urine Ketones Negative Urine Blood Negative Urine Nitrite Negative Urine Bilirubin Negative Urine Urobilinogen 0.2 Ur Leukocyte Esterase 1+ H Urine WBC (Auto) 7 Urine RBC (Auto) 2 Urine Casts (Auto) 1 U Epithel Cells (Auto) 0.4 Urine Bacteria (Auto) 8.964 CBC, BMP 01/04/19 20:04 01/04/19 20:04 ASSESSMENT/PLAN: 78 year old female with pmhx of HTN , DM , HLD, CAD S/P stent 2008 , h.o pancreatitis , GERD , send to ED by her PCP due to K elevation on lab that was done last week was found to have elevated trop and admitted to tele for monitoring and to r.o acs # Elevated trop r.o ACS * trend trop 0.13,,,,,0.7 * No EKG changes , repeat with trop * Cardiac , BP monitor * ASA 162 once then 81 daily * consider stress test out pt * TSH , lipid panel * echo in AM # Hyperkalemia mild * K 5.2 , no EKG changes * treat medically insulin , kayexyalate * repeat lab * repeat EKG # UA with +1 LE , 7 wbc , no symptoms , monitor off abx #DM-patient presented with Hyperglycemia * Stop PO DM meds. * start Insulin sliding scale * Levemir 20 SQ daily * BGM ACHS # Constipation * cont colace * kayexalat 15 mg once #MERLIN on CKD * patient sees Dr. 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 - New Patient This patient is new to me today: Yes Date on this admission: 01/05/19 - Critical Care Critical Care patient: No <Lei Mcfadden - Last Filed: 02/01/19 22:01> Seen and examined; agree with above aside from what is supplemented in my own documentation. Repeated all welch parts of exam, supervised all vital parts of patient care.
[2019-01-04] MEDS ORDERED: DOCUSATE SODIUM 100 MG CAPSULE (FP) PO PRN (23:42)
[2019-01-04] MEDS ORDERED: amLODIPine BESYLATE 2.5 MG TABLET (FP) PO ONE (23:44)
[2019-01-04] MEDS ORDERED: SODIUM POLYSTYRENE SULFONATE 15 GM/60 ML BOTTLE PO ONE (23:53)
--- NOTE | 2019-01-04 23:53 | PN ---
Teaching Attending Note Name of Resident: Noe Arreola ATTENDING PHYSICIAN STATEMENT I saw and evaluated the patient. I reviewed the resident's note and discussed the case with the resident. I agree with the resident's findings and plan as documented. SUBJECTIVE: Seen and examined; please refer to resident note for further historical information. Briefly, patient was phoned by her PCP today that her potassium was elevated (was drawn 1 week ago) and found to have slightly elevated troponin to 0.13 on presentation to ER. This is the first time this has happened to her. She has no complaints. She is from [place]. She was last here 07/2018. PMH of T2DM, CAD w/ history of stenting, necrotizing pancreatitis with portal vein thrombosis, CKD-III, HTN. Documented as being on ASA, toprol xl, gemfibrozil, atorva 40, and vasotec. No prior echo/stress/cath reports in our system. 10 sys ROS done and negative aside from HPI PMH (CAD s/p PCI 2008, HTN, HLD, DM, Pancreatitis, GERD), PSH, Family hx, Social hx reviewed Medication list reviewed; pending reconciliation Home Medications Medication Instructions Recorded Enalapril Maleate [Vasotec -] 10 mg PO DAILY 03/26/12 Aspirin [Aspirin EC] 81 mg PO DAILY 07/29/18 Docusate Sodium 100 mg PO TID PRN 07/29/18 Gemfibrozil 600 mg PO BID 07/29/18 Glipizide 5 mg PO BID 07/29/18 Metformin HCl [Glucophage] 1,000 mg PO BID 07/29/18 Metoprolol Succinate 50 mg PO DAILY 07/29/18 Insulin (Levemir) [Levemir Vial] 20 units SQ DAILY@0700 30 Days #6 08/05/18 vial Acetaminophen [8Hr Arthritis Pain 650 mg PO QID PRN 01/04/19 Relief] Atorvastatin Ca [Lipitor] 40 mg PO HS 01/04/19 Cholecalciferol (Vitamin D3) 1,000 unit PO DAILY 01/04/19 [Vitamin D3] Cyanocobalamin (Vitamin B-12) 1,000 mcg PO DAILY 01/04/19 [Vitamin B-12] Diclofenac Sodium [Diclo Gel] 1 each TP TID 01/04/19 Ranitidine [Zantac -] 150 mg PO DAILY 01/04/19 OBJECTIVE: VS, labs, imaging reviewed NAD, AAO, resting comfortably in bed NC AT EOMI PERRLA RRR s1/2 no mgr Lungs CTAB, w/ sym exp CN2-12 wnl, no fnd Normal mood, appropriate behavior EKG reviewed ASSESSMENT AND PLAN: Patient presents with hyperkalemia and found to have elevated troponins in the absence of symptoms. 1) Elevated troponin -Unsure of significance in absence of chest pain or any symptoms with no sal EKG changes. Will monitor on telemetry, trend them, and consider repeating EKG. Check echo for wma's. 2) HyperK -Giving 1x dose kayaxalate. Very mild and no EKG changes. Followup repeat. Was hydrated. 3) Hx CAD -Continue ASA, Statin, BB, gemfibrozil 4) Hx CKD-III -No issues; Cr slightly elevated could play roll in retaining troponin/K. -Monitor UOP and BMP 5) Hx HTN -Continue home meds aside from holding AM dose of enalapril to not precipitate any further K derangements. 6) DM -SSI when inpatient; A1c 8.8 last stay. Continue her home basal. 7) Iron Deficiency Anemia -Got venofer her last stay; I do not see iron on her home med list. Should confirm with her pharmacy and restart with bowel regimine if needed (she does have documented hx constipation) Full Code
[2019-01-04] MEDS ORDERED: amLODIPine BESYLATE 5 MG TABLET (FP) ONE (23:59)
[2019-01-05] MEDS ORDERED: SODIUM POLYSTYRENE SULFONATE 15 GM/60 ML BOTTLE ONE (00:10)
[2019-01-05] MEDS: SODIUM CHLORIDE 1,000 ML IV SCH ×2 (00:22→21:00)
[2019-01-05] MEDS ORDERED: HEPARIN NA (PORCINE) 5,000 UNITS/ML 1ML VIAL ONE ×2 (04:55→07:50)
[2019-01-05] MEDS ORDERED: HEPARIN NA (PORCINE) 5,000 UNITS/ML 1ML VIAL SQ SCH (06:00)
[2019-01-05] MEDS: INSULIN (LEVEMIR) 100 UNITS/ML UNITS SQ SCH (06:35)
[2019-01-05] MEDS ORDERED: INSULIN (LEVEMIR) 100 UNITS/ML UNITS SQ ONE (06:36)
[2019-01-05 06:39] LABS: INR 0.97 (0.83-1.09); PROTHROMBIN TIME (PATIENT) 11.5 SEC (9.7-13.0)
[2019-01-05] MEDS: INSULIN SLIDING SCALE (NOVOLOG) 1 VIAL SQ SCH ×4 (06:39→22:22)
[2019-01-05 06:42] LABS: ACTIVATED PTT 33.7 SECONDS (25.2-36.5)
[2019-01-05] MEDS ORDERED: HEPARIN NA (PORCINE) 5,000 UNITS/ML 1ML VIAL IVPUSH PRN ×2 (06:46)
[2019-01-05 06:51] LABS: BASO % 1.3 % (0-2.0); HEMATOCRIT 32.9 % (32.4-45.2); HEMOGLOBIN 10.7 GM/dL (10.7-15.3); LYMPH % 39.7 % (8-40); MCH 24.9 pg (25.7-33.7); MCHC 32.5 g/dl (32.0-36.0); MEAN CELL VOLUME 76.9 fl (80-96); MEAN PLT VOLUME 9.2 fl (7.5-11.1); MONO % 6.1 % (3.8-10.2); NEUT % 46.9 % (42.8-82.8); PLATELET COUNT 253 K/MM3 (134-434); RBC 4.27 M/mm3 (3.60-5.2); RDW 13.8 % (11.6-15.6); WHITE BLOOD COUNT 6.4 K/mm3 (4.0-10.0)
[2019-01-05] MEDS ORDERED: HEPARIN SOD,PORK IN 0.45% NACL 25,000 UNIT/500 ML INFUS.BAG IVPB SCH (07:00)
[2019-01-05 07:02] LABS: ALBUMIN 3.3 g/dl (3.4-5.0); ALK PHOS 83 U/L (45-117); ANION GAP 4 MMOL/L (8-16); BILIRUBIN,TOTAL 0.2 mg/dL (0.2-1); BLOOD UREA NITROGEN 32 mg/dL (7-18); CALCIUM 8.4 mg/dL (8.5-10.1); CHLORIDE 114 mmol/L (98-107); CHOLESTEROL 184 mg/dL (50-200); CO2 25 mmol/L (21-32); CREATININE 1.1 mg/dL (0.55-1.3); GLUCOSE,RANDOM 90 mg/dL (74-106); HDL CHOLESTEROL 38 mg/dL (40-60); MAGNESIUM 2.1 mg/dL (1.8-2.4); N-TERMINAL BNP 1088.3 pg/ml (5-450); PHOSPHOROUS 3.5 mg/dL (2.5-4.9); POTASSIUM 4.5 mmol/L (3.5-5.1); SGOT/AST 19 U/L (15-37); SGPT/ALT 16 U/L (13-61); SODIUM 142 mmol/L (136-145); TOT PROT 6.2 g/dl (6.4-8.2); TRIGLYCERIDES 181 mg/dL (0-150)
--- NOTE | 2019-01-05 09:20 | EKG ---
Test Reason : Blood Pressure : / mmHG Vent. Rate : 095 BPM Atrial Rate : 095 BPM P-R Int : 122 ms QRS Dur : 074 ms QT Int : 346 ms P-R-T Axes : 038 042 092 degrees QTc Int : 434 ms NORMAL SINUS RHYTHM NONSPECIFIC ST AND T WAVE ABNORMALITY ABNORMAL ECG WHEN COMPARED WITH ECG OF 29-JUL-2018 06:02, T WAVE VARIATION Confirmed by CARO CRESPO MD ([id number]) on 01/05/2019 9:19:55 AM Referred By: Confirmed By:CARO CRESPO MD
[2019-01-05] MEDS ORDERED: ASPIRIN COATED 81 MG TABLET.EC PO SCH (10:00)
[2019-01-05] MEDS ORDERED: ENALAPRIL MALEATE 10 MG TABLET (FP) PO SCH (10:00)
[2019-01-05] MEDS ORDERED: RANITIDINE HCL 150 MG TABLET (FP) PO SCH (10:00)
--- NOTE | 2019-01-05 10:30 | CON.CARD ---
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 She denies chest pain, SOB or palpitations. She denies paroxysmal nocturnal dyspnea or orthopnea. She denies fever or chills. She denies nausea, vomiting, diarrhea or abdominal pain. She denies headache or lightheadedness. Troponin was elevated at 0.13 and then increased to 0.7 and cardiology consultation was called. - History Source History Provided By: Patient, Medical Record Limitations to Obtaining History: No Limitations - Past Medical History Cardio/Vascular: Yes: CAD, HTN, Hyperlipdemia Gastrointestinal: Yes: GERD Endocrine: Yes: Diabetes Mellitus - Past Surgical History Past Surgical History: Yes: Cholecystectomy, Stent, Tubal Ligation - Alcohol/Substance Use Hx Alcohol Use: No - Smoking History Smoking history: Never smoked Have you smoked in the past 12 months: No Home Medications - Allergies Allergies/Adverse Reactions: Allergies Allergy/AdvReac Type Severity Reaction Status Date / Time No Known Allergies Allergy Verified 01/04/19 19:05 - Home Medications Home Medications: Ambulatory Orders Enalapril Maleate [Vasotec -] 10 mg PO DAILY 03/26/12 Aspirin [Aspirin EC] 81 mg PO DAILY 07/29/18 Docusate Sodium 100 mg PO TID PRN 07/29/18 Gemfibrozil 600 mg PO BID 07/29/18 Glipizide 5 mg PO BID 07/29/18 Metformin HCl [Glucophage] 1,000 mg PO BID 07/29/18 Metoprolol Succinate 50 mg PO DAILY 07/29/18 Insulin (Levemir) [Levemir Vial] 20 units SQ DAILY@0700 30 Days #6 vial Acetaminophen [8Hr Arthritis Pain Relief] 650 mg PO QID PRN 01/04/19 Atorvastatin Ca [Lipitor] 40 mg PO HS 01/04/19 Cholecalciferol (Vitamin D3) [Vitamin D3] 1,000 unit PO DAILY 01/04/19 Cyanocobalamin (Vitamin B-12) [Vitamin B-12] 1,000 mcg PO DAILY 01/04/19 Diclofenac Sodium [Diclo Gel] 1 each TP TID 01/04/19 Ranitidine [Zantac -] 150 mg PO DAILY 01/04/19 Family Disease History - Family Disease History Other Family History: Heart disease (CAD) Review of Systems - Review of Systems Constitutional: denies: Chills, Fever Cardiovascular: denies: Chest Pain, Palpitations, Shortness of Breath Respiratory: denies: Cough, Hemoptysis, Orthopnea, PND, SOB, SOB on Exertion Gastrointestinal: denies: Abdominal Pain, Constipation, Diarrhea, Melena, Nausea , Rectal Bleeding, Vomiting Musculoskeletal: denies: Joint Pain Neurological: denies: Dizziness, Headache, Seizure, Syncope Vital Signs: Vital Signs Temperature 98.9 F 01/05/19 06:00 Pulse Rate 88 01/05/19 06:00 Respiratory Rate 18 01/05/19 06:00 Blood Pressure 146/70 01/05/19 06:00 O2 Sat by Pulse Oximetry (%) 97 01/05/19 06:00 Eyes: Yes: PERRL HENT: Yes: Atraumatic Neck: Yes: Supple Respiratory: Yes: CTA Bilaterally Gastrointestinal: Yes: Normal Bowel Sounds, Soft. No: Tenderness Cardiovascular: Yes: Regular Rate and Rhythm JVD: No PMI: Non-Displaced Heart Sounds: Yes: S1, S2. No: Gallop Edema: No - Other Data Labs, Other Data: CBC, BMP 01/05/19 05:30 01/05/19 05:30 INR, PTT INR 0.97 (0.83-1.09) 01/05/19 05:30 Troponin, BNP 01/04/19 01/05/19 01/05/19 20:04 04:55 05:30 Troponin I 0.13 H 0.70 H* B-Natriuretic Peptide 371.8 1088.3 H Troponin, BNP Laboratory Results - last 24 hr 01/04/19 01/04/19 01/04/19 20:04 20:04 20:04 WBC 8.7 RBC 4.62 Hgb 11.9 Hct 35.5 MCV 76.9 L MCH 25.7 MCHC 33.4 RDW 13.7 Plt Count No Result Required. MPV 10.0 Absolute Neuts (auto) 4.8 Neutrophils % 55.2 D Lymphocytes % 31.3 D Monocytes % 5.4 Eosinophils % 6.8 H Basophils % 1.3 Nucleated RBC % 0 Platelet Estimate Adequate Platelet Comment Slt plt clumping PT with INR INR PTT (Actin FS) Sodium 142 Potassium 5.2 H Chloride 109 H Carbon Dioxide 25 Anion Gap 8 BUN 34 H Creatinine 1.4 H Creat Clearance w eGFR 36.46 POC Glucometer Random Glucose 236 H Hemoglobin A1c % Calcium 8.6 Phosphorus Magnesium Total Bilirubin 0.1 L AST 21 ALT 20 Alkaline Phosphatase 104 Creatine Kinase 131 Troponin I 0.13 H B-Natriuretic Peptide 371.8 Total Protein 6.8 Albumin 3.7 Triglycerides Cholesterol Total LDL Cholesterol HDL Cholesterol Lipase 271 TSH Urine Color Yellow Urine Appearance Clear Urine pH 6.5 D Ur Specific [place] 1.013 Urine Protein Negative Urine Glucose (UA) 1+ H Urine Ketones Negative Urine Blood Negative Urine Nitrite Negative Urine Bilirubin Negative Urine Urobilinogen 0.2 Ur Leukocyte Esterase 1+ H Urine WBC (Auto) 7 Urine RBC (Auto) 2 Urine Casts (Auto) 1 U Epithel Cells (Auto) 0.4 Urine Bacteria (Auto) 8.964 01/05/19 01/05/19 01/05/19 00:13 04:55 05:30 WBC 6.4 RBC 4.27 Hgb 10.7 Hct 32.9 MCV 76.9 L MCH 24.9 L MCHC 32.5 RDW 13.8 Plt Count 253 MPV 9.2 Absolute Neuts (auto) 3.0 Neutrophils % 46.9 Lymphocytes % 39.7 D Monocytes % 6.1 Eosinophils % 6.0 H Basophils % 1.3 Nucleated RBC % 0 Platelet Estimate Platelet Comment PT with INR INR PTT (Actin FS) Sodium Potassium Chloride Carbon Dioxide Anion Gap BUN Creatinine Creat Clearance w eGFR POC Glucometer 251 Random Glucose Hemoglobin A1c % Calcium Phosphorus Magnesium Total Bilirubin AST ALT Alkaline Phosphatase Creatine Kinase 100 Troponin I 0.70 H* B-Natriuretic Peptide Total Protein Albumin Triglycerides Cholesterol Total LDL Cholesterol HDL Cholesterol Lipase TSH Urine Color Urine Appearance Urine pH Ur Specific [place] Urine Protein Urine Glucose (UA) Urine Ketones Urine Blood Urine Nitrite Urine Bilirubin Urine Urobilinogen Ur Leukocyte Esterase Urine WBC (Auto) Urine RBC (Auto) Urine Casts (Auto) U Epithel Cells (Auto) Urine Bacteria (Auto) 01/05/19 01/05/19 01/05/19 05:30 05:30 05:30 WBC RBC Hgb Hct MCV MCH MCHC RDW Plt Count MPV Absolute Neuts (auto) Neutrophils % Lymphocytes % Monocytes % Eosinophils % Basophils % Nucleated RBC % Platelet Estimate Platelet Comment PT with INR 11.50 INR 0.97 PTT (Actin FS) 33.7 Sodium 142 Potassium 4.5 Chloride 114 H Carbon Dioxide 25 Anion Gap 4 L BUN 32 H Creatinine 1.1 Creat Clearance w eGFR 48.16 POC Glucometer Random Glucose 90 Hemoglobin A1c % 8.8 H Calcium 8.4 L Phosphorus 3.5 Magnesium 2.1 Total Bilirubin 0.2 AST 19 ALT 16 Alkaline Phosphatase 83 Creatine Kinase Troponin I B-Natriuretic Peptide 1088.3 H Total Protein 6.2 L Albumin 3.3 L Triglycerides 181 H Cholesterol 184 Total LDL Cholesterol 122 H HDL Cholesterol 38 L Lipase TSH Urine Color Urine Appearance Urine pH Ur Specific [place] Urine Protein Urine Glucose (UA) Urine Ketones Urine Blood Urine Nitrite Urine Bilirubin Urine Urobilinogen Ur Leukocyte Esterase Urine WBC (Auto) Urine RBC (Auto) Urine Casts (Auto) U Epithel Cells (Auto) Urine Bacteria (Auto) Sinus rhythm with nonspecific ST-T abnormality Echo: Pending Imaging - Results Chest X-ray: Report Reviewed (Unremarkable) EKG: Report Reviewed Problem List - Problems (1) Diabetes mellitus Code(s): E11.9 - TYPE 2 DIABETES MELLITUS WITHOUT COMPLICATIONS (2) Hypercholesterolemia Code(s): E78.00 - PURE HYPERCHOLESTEROLEMIA, UNSPECIFIED (3) CAD (coronary artery disease) Code(s): I25.10 - ATHSCL HEART DISEASE OF [place] CORONARY ARTERY W/O ANG PCTRS Qualifiers: Coronary Disease-Associated Artery/Lesion type: [place] artery [place] vs. transplanted heart: [place] heart Associated angina: without angina Qualified Code(s): I25.10 - Atherosclerotic heart disease of [place] coronary artery without angina pectoris (4) History of percutaneous coronary intervention Code(s): Z98.61 - CORONARY ANGIOPLASTY STATUS (5) NSTEMI (non-ST elevated myocardial infarction) Code(s): I21.4 - NON-ST ELEVATION (NSTEMI) MYOCARDIAL INFARCTION (6) GERD (gastroesophageal reflux disease) Code(s): K21.9 - GASTRO-ESOPHAGEAL REFLUX DISEASE WITHOUT ESOPHAGITIS (7) Elevated troponin I level Code(s): R74.8 - ABNORMAL LEVELS OF OTHER SERUM ENZYMES (8) Serum potassium elevated Code(s): E87.5 - HYPERKALEMIA (9) HTN (hypertension) Code(s): I10 - ESSENTIAL (PRIMARY) HYPERTENSION Qualifiers: Hypertension type: essential hypertension Qualified Code(s): I10 - Essential (primary) hypertension Assessment/Plan 1. CAD post PCI/stent, NSTEMI with elevated troponin 2. HTN 3. DM 4. Hypercholesterolemia 5. GERD 6. Hyperkalemia PLAN: 1. Continue Metoprolol ER 50 mg QD. Add ACEI or ARB 2. Increase Atorvastatin to 80 mg QD 3. ASA +/- Plavix 4. Continue Heparin drip and trend troponin to document peak 5. Echocardiography to assess LV/RV and valvular function 6. Consider early cardiac catheterization/coronary angiography 7. Follow Hgb A1C and continue DM management Further plans are to follow Erick Banks MD
[2019-01-05] MEDS ORDERED: CLOPIDOGREL BISULFATE 75 MG TABLET (FP) PO SCH (10:45)
[2019-01-05] MEDS ORDERED: CLOPIDOGREL BISULFATE 75 MG TABLET (FP) ONE (12:52)
--- NOTE | 2019-01-05 13:33 | PN ---
Teaching Attending Note Name of Resident: Kenneth Curiel ATTENDING PHYSICIAN STATEMENT I saw and evaluated the patient. I reviewed the resident's note and discussed the case with the resident. I agree with the resident's findings and plan as documented. SUBJECTIVE: seen at 9 am This morning she had Chest pressure. she reports chest pressure yesterday in retrosternal area, which came at rest and lasted whole day, it was different than her GERD sx. she reports having pancreatitis with thrombosis and was placed on coumadin. this is no longer a currnt medication. she reports taking asa and plavix daily. at time of evaluation she was cp free OBJECTIVE: NAD CV: RRR. No MRG , mild bulge in neck veins Lungs: CTAB Ext : no edema or erythema. Abd: soft, NT, ND, NL BS . ASSESSMENT AND PLAN: 78 y/o lady with h/o CAD s/p stenting, acute narcotizing pancreatitis with portal vein thrombosis now off coumadin , HTN, GERD, HLP, DM , CKD 3 and other medical problems who was sent here for hyperkalemia on out pt blood work. She as found to have elevated troponin level 1- NSTEMI: with CP yesterday, and this am . now CP free. EKg with sinus rhythm, TWI in AVL, and qtc of 430 . last trop 0.7, last one pending now - cont heparin gtt - trend trop and will decide on next step after - per her, she is still on ASa and plavix , but somewhat poor historian. will confirm her out pt meds - cont asa and plavix for now for possible cath - cont BB and statin - although her BNP is elevated, and her jugular veins are slightly prominent, she does not look in acute heart failure - echo pending 2- hyperkalemia: still not able to confirm her home meds, but she might have been on benicar. - K level improved. No BM after Kayaksaylate though 3- DM:levemir and SSI 4- HLP: LDL above goal. will confirm her home dose, and cont 80 mg for now 5- CKD Dispo : HLOC . ? cath
--- NOTE | 2019-01-05 14:25 | PN ---
Physical Exam: SUBJECTIVE: Patient seen and examined at bedside in ED. Denies chest pain or shortness of breath. OBJECTIVE: Vital Signs Period Temp Pulse Resp BP Sys/Bauman Pulse Ox Last 24 Hr 97.8 F-98.9 F 88-97 16-18 138-163/68-79 97-97 GENERAL: Sinhala speaking. NAD HEAD: Atraumatic/Normocephalic EYES: EOMI Sclera Clear ENT: MMM NECK: Trachea midline, full range of motion, supple. LUNGS: CTAB HEART: RRR nl S1S2. Nontender to palpation chest ABDOMEN: Soft NDNT EXTREMITIES: 2+ pulses, warm, well-perfused, no edema. NEUROLOGICAL: Cranial nerves II through XII grossly intact. SKIN: Warm, dry, normal turgor, no rashes or lesions noted Laboratory Results - last 24 hr 01/04/19 01/04/19 01/04/19 20:04 20:04 20:04 WBC 8.7 RBC 4.62 Hgb 11.9 Hct 35.5 MCV 76.9 L MCH 25.7 MCHC 33.4 RDW 13.7 Plt Count No Result Required. MPV 10.0 Absolute Neuts (auto) 4.8 Neutrophils % 55.2 D Lymphocytes % 31.3 D Monocytes % 5.4 Eosinophils % 6.8 H Basophils % 1.3 Nucleated RBC % 0 Platelet Estimate Adequate Platelet Comment Slt plt clumping PT with INR INR PTT (Actin FS) Sodium 142 Potassium 5.2 H Chloride 109 H Carbon Dioxide 25 Anion Gap 8 BUN 34 H Creatinine 1.4 H Creat Clearance w eGFR 36.46 POC Glucometer Random Glucose 236 H Hemoglobin A1c % Calcium 8.6 Phosphorus Magnesium Total Bilirubin 0.1 L AST 21 ALT 20 Alkaline Phosphatase 104 Creatine Kinase 131 Troponin I 0.13 H B-Natriuretic Peptide 371.8 Total Protein 6.8 Albumin 3.7 Triglycerides Cholesterol Total LDL Cholesterol HDL Cholesterol Lipase 271 TSH Urine Color Yellow Urine Appearance Clear Urine pH 6.5 D Ur Specific [place] 1.013 Urine Protein Negative Urine Glucose (UA) 1+ H Urine Ketones Negative Urine Blood Negative Urine Nitrite Negative Urine Bilirubin Negative Urine Urobilinogen 0.2 Ur Leukocyte Esterase 1+ H Urine WBC (Auto) 7 Urine RBC (Auto) 2 Urine Casts (Auto) 1 U Epithel Cells (Auto) 0.4 Urine Bacteria (Auto) 8.964 01/05/19 01/05/19 01/05/19 00:13 04:55 05:30 WBC 6.4 RBC 4.27 Hgb 10.7 Hct 32.9 MCV 76.9 L MCH 24.9 L MCHC 32.5 RDW 13.8 Plt Count 253 MPV 9.2 Absolute Neuts (auto) 3.0 Neutrophils % 46.9 Lymphocytes % 39.7 D Monocytes % 6.1 Eosinophils % 6.0 H Basophils % 1.3 Nucleated RBC % 0 Platelet Estimate Platelet Comment PT with INR INR PTT (Actin FS) Sodium Potassium Chloride Carbon Dioxide Anion Gap BUN Creatinine Creat Clearance w eGFR POC Glucometer 251 Random Glucose Hemoglobin A1c % Calcium Phosphorus Magnesium Total Bilirubin AST ALT Alkaline Phosphatase Creatine Kinase 100 Troponin I 0.70 H* B-Natriuretic Peptide Total Protein Albumin Triglycerides Cholesterol Total LDL Cholesterol HDL Cholesterol Lipase TSH Urine Color Urine Appearance Urine pH Ur Specific [place] Urine Protein Urine Glucose (UA) Urine Ketones Urine Blood Urine Nitrite Urine Bilirubin Urine Urobilinogen Ur Leukocyte Esterase Urine WBC (Auto) Urine RBC (Auto) Urine Casts (Auto) U Epithel Cells (Auto) Urine Bacteria (Auto) 01/05/19 01/05/19 01/05/19 05:30 05:30 05:30 WBC RBC Hgb Hct MCV MCH MCHC RDW Plt Count MPV Absolute Neuts (auto) Neutrophils % Lymphocytes % Monocytes % Eosinophils % Basophils % Nucleated RBC % Platelet Estimate Platelet Comment PT with INR 11.50 INR 0.97 PTT (Actin FS) 33.7 Sodium 142 Potassium 4.5 Chloride 114 H Carbon Dioxide 25 Anion Gap 4 L BUN 32 H Creatinine 1.1 Creat Clearance w eGFR 48.16 POC Glucometer Random Glucose 90 Hemoglobin A1c % 8.8 H Calcium 8.4 L Phosphorus 3.5 Magnesium 2.1 Total Bilirubin 0.2 AST 19 ALT 16 Alkaline Phosphatase 83 Creatine Kinase Troponin I B-Natriuretic Peptide 1088.3 H Total Protein 6.2 L Albumin 3.3 L Triglycerides 181 H Cholesterol 184 Total LDL Cholesterol 122 H HDL Cholesterol 38 L Lipase TSH Urine Color Urine Appearance Urine pH Ur Specific [place] Urine Protein Urine Glucose (UA) Urine Ketones Urine Blood Urine Nitrite Urine Bilirubin Urine Urobilinogen Ur Leukocyte Esterase Urine WBC (Auto) Urine RBC (Auto) Urine Casts (Auto) U Epithel Cells (Auto) Urine Bacteria (Auto) 01/05/19 01/05/19 01/05/19 06:33 07:58 08:24 WBC RBC Hgb Hct MCV MCH MCHC RDW Plt Count MPV Absolute Neuts (auto) Neutrophils % Lymphocytes % Monocytes % Eosinophils % Basophils % Nucleated RBC % Platelet Estimate Platelet Comment PT with INR INR PTT (Actin FS) Sodium Potassium Chloride Carbon Dioxide Anion Gap BUN Creatinine Creat Clearance w eGFR POC Glucometer 90 75 Random Glucose Hemoglobin A1c % Calcium Phosphorus Magnesium Total Bilirubin AST ALT Alkaline Phosphatase Creatine Kinase Troponin I B-Natriuretic Peptide Total Protein Albumin Triglycerides Cholesterol Total LDL Cholesterol HDL Cholesterol Lipase TSH 3.44 Urine Color Urine Appearance Urine pH Ur Specific [place] Urine Protein Urine Glucose (UA) Urine Ketones Urine Blood Urine Nitrite Urine Bilirubin Urine Urobilinogen Ur Leukocyte Esterase Urine WBC (Auto) Urine RBC (Auto) Urine Casts (Auto) U Epithel Cells (Auto) Urine Bacteria (Auto) 01/05/19 01/05/19 12:10 12:44 WBC RBC Hgb Hct MCV MCH MCHC RDW Plt Count MPV Absolute Neuts (auto) Neutrophils % Lymphocytes % Monocytes % Eosinophils % Basophils % Nucleated RBC % Platelet Estimate Platelet Comment PT with INR INR PTT (Actin FS) Sodium Potassium Chloride Carbon Dioxide Anion Gap BUN Creatinine Creat Clearance w eGFR POC Glucometer 118 Random Glucose Hemoglobin A1c % Calcium Phosphorus Magnesium Total Bilirubin AST ALT Alkaline Phosphatase Creatine Kinase 118 Troponin I 1.43 H* B-Natriuretic Peptide Total Protein Albumin Triglycerides Cholesterol Total LDL Cholesterol HDL Cholesterol Lipase TSH Urine Color Urine Appearance Urine pH Ur Specific [place] Urine Protein Urine Glucose (UA) Urine Ketones Urine Blood Urine Nitrite Urine Bilirubin Urine Urobilinogen Ur Leukocyte Esterase Urine WBC (Auto) Urine RBC (Auto) Urine Casts (Auto) U Epithel Cells (Auto) Urine Bacteria (Auto) Active Medications Generic Name Dose Route Start Last Admin Trade Name Freq PRN Reason Stop Dose Admin Aspirin 81 mg 01/05/19 10:00 01/05/19 11:00 Ecotrin - PO 81 mg DAILY [facility] Administration Atorvastatin Calcium 80 mg 01/05/19 22:00 Lipitor - PO [facility] Clopidogrel Bisulfate 75 mg 01/05/19 10:45 01/05/19 12:52 Plavix - PO 75 mg DAILY [facility] Administration Docusate Sodium 100 mg 01/04/19 23:42 Colace - PO TID PRN CONSTIPATION Heparin Sodium (Porcine) 1,000 unit 01/05/19 06:46 Heparin - IVPUSH PRN PRN Heparin Heparin Sodium (Porcine) 5,000 unit 01/05/19 06:46 Heparin - IVPUSH PRN PRN Heparin Sodium Chloride 1,000 mls @ 75 mls/hr 01/04/19 23:45 01/05/19 00:22 Normal Saline - IV 75 mls/hr ASDIR SHASHANK Administration HEPARIN SOD,PORK IN 0.45% NACL 25,000 unit in 500 mls @ 16 mls/hr 01/05/19 07: 00 01/05/19 08:00 Heparin-1/2ns 25,000 Units/500 IVPB 800 units/hr TITR SHASHANK 16 mls/hr Administration Protocol 800 UNITS/HR Insulin Aspart 1 vial 01/05/19 07:00 01/05/19 12:49 Novolog Vial Sliding Scale - SQ Not Given ACHS [facility] Protocol Insulin Detemir 20 units 01/05/19 07:00 01/05/19 06:35 Levemir Vial SQ 20 unit DAILY@0700 [facility] Administration Metoprolol Succinate 50 mg 01/05/19 10:00 01/05/19 11:00 Toprol Xl - PO 50 mg DAILY [facility] Administration Ranitidine HCl 150 mg 01/05/19 10:00 01/05/19 11:00 Zantac - PO 150 mg DAILY [facility] Administration ASSESSMENT/PLAN: 78 year old lady with pmhx of HTN , DM , HLD, CAD S/P stent 2008 , pancreatitis , GERD , who was sent to ED by her PCP due to hyperkalemia on lab work that was done last week. # Elevated troponin * Denies chest pain or shortness of breath * Initial troponin .13--> 0.70---> 1.43. 4th trop at 6 PM tonight. * Dr Banks on board. Will discuss with Dr Saldivar and possible transfer to cath performing facility. #HyperK * Given 1x dose kayaxalate in ED * Continue to monitor # Hx CAD * Continue ASA * Statin increased to 80 Daily * BB #Hx CKD-III -No issues; Cr slightly elevated could play roll in retaining troponin/K. -Monitor UOP and BMP # HTN * Continue Metoprolol ER 50 mg QD. Add ACEI or ARB #DM -SSI when inpatient; A1c 8.8 . Continue Levemir 20 U SQ Daily #Iron Deficiency Anemia * Monitor H/H #FEN * NS@75cc/hr * Monitor Electrolytes * Sodium Controlled Diet DVT ppx * Heparin SQTID Dispo: * Tele Visit type - Emergency Visit Emergency Visit: Yes ED Registration Date: 01/04/19 Care time: The patient presented to the Emergency Department on the above date and was hospitalized for further evaluation of their emergent condition. - New Patient This patient is new to me today: Yes Date on this admission: 01/05/19 - Critical Care Critical Care patient: No - Discharge Referral Referred to [facility] Med P.C.: No
--- NOTE | 2019-01-05 14:56 | ECHO ---
Version: 1 Name: EDGAR COATS Exam: Adult Echocardiogram Study Date: 01/05/2019, 9:16 AM Age: 78 Years MMode/2D Measurements & Calculations IVSd: 0.75 cm LVIDs: 2.8 cm LVIDd: 4.2 cm LVPWd: 0.82 cm LVOT diam: 1.99 cm Ao root diam: 2.6 cm LA dimension: 3.9 cm Doppler Measurements & Calculations MV E max yunior: 75.3 cm/sec Med E/e': 15.8 MV A max yunior: 87.9 cm/sec Med Peak E' Yunior: 4.8 cm/sec MV E/A: 0.86 Lat E/e': 16.1 Lat Peak E' Yunior: 4.7 cm/sec Ao max P.2 mmHg MODESTA(I,D): 2.27 cm Ao mean P.0 mmHg LV V1 mean: 72.2 cm/sec Ao V2 max: 133.8 cm/sec LV V1 mean P.33 mmHg TR max yunior: 245.4 cm/sec TR max P.1 mmHg Procedure A complete two-dimensional transthoracic echocardiogram was performed (2D, M-mode, Doppler and color flow Doppler). Left Ventricle The left ventricular size, thickness and function are normal. Ejection Fraction = 65%. The transmitr al spectral Doppler flow pattern is suggestive of impaired LV relaxation. The left ventricular wall mot ion is normal. Right Ventricle The right ventricle is normal in size and function. Atria Normal left and right atrial size and function. Mitral Valve There is mild mitral annular calcification. There is trace to mild mitral regurgitation. Tricuspid Valve The tricuspid valve is normal. There is trace tricuspid regurgitation. Right ventricular systolic pr essure is 30 mmhg. Aortic Valve There is mild aortic valve thickening. Pulmonic Valve The pulmonic valve is not well visualized. Great Vessels The aortic root is normal size. Pericardium/Pleura There is no pericardial effusion. There is no pleural effusion. Summary Statements The left ventricular size, thickness and function are normal Ejection Fraction = 65%. The right ventricle is normal in size and function. There is mild mitral annular calcification. There is trace to mild mitral regurgitation. There is trace tricuspid regurgitation. Right ventricular systolic pressure is 30 mmhg. There is mild aortic valve thickening. MD Woo Mcclain 01/05/2019, 1:56 PM Ordering Physician: Noe Arreola Referring Physician: CANDE CHAVEZ Performed By: Randa Hurtado
[2019-01-05] MEDS ORDERED: INSULIN (NOVOLOG) ASPART 100 UNITS/ML 10ML VIAL ONE ×2 (18:05→21:21)
[2019-01-05] MEDS ORDERED: ATORVASTATIN CA 80 MG TABLET (FP) PO SCH (22:00)
[2019-01-05] MEDS ORDERED: ATORVASTATIN CA 40 MG TABLET (FP) PO SCH (22:00)
--- NOTE | 2019-01-05 22:02 | EKG ---
Test Reason : Blood Pressure : / mmHG Vent. Rate : 084 BPM Atrial Rate : 084 BPM P-R Int : 138 ms QRS Dur : 086 ms QT Int : 364 ms P-R-T Axes : 032 026 092 degrees QTc Int : 430 ms NORMAL SINUS RHYTHM ABNORMAL QRS-T ANGLE, CONSIDER PRIMARY T WAVE ABNORMALITY ABNORMAL ECG WHEN COMPARED WITH ECG OF 29-JUL-2018 06:02, NO SIGNIFICANT CHANGE WAS FOUND Confirmed by MD KEESHA, PABLO ([id number]) on 01/05/2019 10:02:21 PM Referred By: Confirmed By:PABLO THAO MD
[2019-01-06 01:17] VITALS: BMI 20.7
[2019-01-06 06:18] VITALS: BP 126/51; PULSE 76; TEMP 98.6
[2019-01-06] MEDS: INSULIN (LEVEMIR) 100 UNITS/ML UNITS SQ SCH (06:40)
[2019-01-06] MEDS: INSULIN SLIDING SCALE (NOVOLOG) 1 VIAL SQ SCH (06:40)
[2019-01-06 06:56] LABS: HEMATOCRIT 32.2 % (32.4-45.2); HEMOGLOBIN 10.7 GM/dL (10.7-15.3); MCH 25.5 pg (25.7-33.7); MCHC 33.1 g/dl (32.0-36.0); MEAN CELL VOLUME 76.9 fl (80-96); MEAN PLT VOLUME 9.5 fl (7.5-11.1); PLATELET COUNT 237 K/MM3 (134-434); RBC 4.19 M/mm3 (3.60-5.2); RDW 13.9 % (11.6-15.6); WHITE BLOOD COUNT 6.7 K/mm3 (4.0-10.0)
[2019-01-06 07:14] LABS: ANION GAP 5 MMOL/L (8-16); BLOOD UREA NITROGEN 30 mg/dL (7-18); CALCIUM 8.9 mg/dL (8.5-10.1); CHLORIDE 111 mmol/L (98-107); CO2 25 mmol/L (21-32); CREATININE 1.1 mg/dL (0.55-1.3); GLUCOSE,RANDOM 126 mg/dL (74-106); MAGNESIUM 2.4 mg/dL (1.8-2.4); POTASSIUM 4.3 mmol/L (3.5-5.1); SODIUM 141 mmol/L (136-145)
--- NOTE | 2019-01-06 07:55 | PN ---
Teaching Attending Note Name of Resident: Kenneth Curiel ATTENDING PHYSICIAN STATEMENT I saw and evaluated the patient. I reviewed the resident's note and discussed the case with the resident. I agree with the resident's findings and plan as documented. SUBJECTIVE: Patient was transferred to [facility] for Cath. 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 was transferred before I have seen the patient. OBJECTIVE: Vital Signs Temperature 98.6 F 01/06/19 05:00 Pulse Rate 76 01/06/19 05:00 Respiratory Rate 20 01/06/19 05:00 Blood Pressure 126/51 L 01/06/19 05:00 O2 Sat by Pulse Oximetry (%) 98 01/06/19 01:00 CBCD WBC 6.7 K/mm3 (4.0-10.0) 01/06/19 05:30 RBC 4.19 M/mm3 (3.60-5.2) 01/06/19 05:30 Hgb 10.7 GM/dL (10.7-15.3) 01/06/19 05:30 Hct 32.2 % (32.4-45.2) L 01/06/19 05:30 MCV 76.9 fl (80-96) L 01/06/19 05:30 MCHC 33.1 g/dl (32.0-36.0) 01/06/19 05:30 RDW 13.9 % (11.6-15.6) 01/06/19 05:30 Plt Count 237 K/MM3 (134-434) 01/06/19 05:30 MPV 9.5 fl (7.5-11.1) 01/06/19 05:30 CMP Sodium 141 mmol/L (136-145) 01/06/19 05:30 Potassium 4.3 mmol/L (3.5-5.1) 01/06/19 05:30 Chloride 111 mmol/L (98-107) H 01/06/19 05:30 Carbon Dioxide 25 mmol/L (21-32) 01/06/19 05:30 Anion Gap 5 MMOL/L (8-16) L 01/06/19 05:30 BUN 30 mg/dL (7-18) H 01/06/19 05:30 Creatinine 1.1 mg/dL (0.55-1.3) 01/06/19 05:30 Creat Clearance w eGFR 48.16 (>60) 01/06/19 05:30 Random Glucose 126 mg/dL (74-106) H 01/06/19 05:30 Calcium 8.9 mg/dL (8.5-10.1) 01/06/19 05:30 Total Bilirubin 0.2 mg/dL (0.2-1) 01/05/19 05:30 AST 19 U/L (15-37) 01/05/19 05:30 ALT 16 U/L (13-61) 01/05/19 05:30 Alkaline Phosphatase 83 U/L (45-117) 01/05/19 05:30 Total Protein 6.2 g/dl (6.4-8.2) L 01/05/19 05:30 Albumin 3.3 g/dl (3.4-5.0) L 01/05/19 05:30 CARDIAC ENZYMES Creatine Kinase 131 U/L (26-192) 01/05/19 17:00 Troponin I 1.59 ng/ml (0.00-0.05) H* 01/06/19 05:30 Current Medications Generic Name Dose Route Start Last Admin Trade Name Freq PRN Reason Stop Dose Admin Aspirin 81 mg 01/05/19 10:00 01/05/19 11:00 Ecotrin - PO 81 mg DAILY [facility] Administration Atorvastatin Calcium 80 mg 01/05/19 22:00 01/05/19 22:22 Lipitor - PO 80 mg HS [facility] Administration Clopidogrel Bisulfate 75 mg 01/05/19 10:45 01/05/19 12:52 Plavix - PO 75 mg DAILY [facility] Administration Docusate Sodium 100 mg 01/04/19 23:42 Colace - PO TID PRN CONSTIPATION Heparin Sodium (Porcine) 1,000 unit 01/05/19 06:46 Heparin - IVPUSH PRN PRN Heparin Heparin Sodium (Porcine) 5,000 unit 01/05/19 06:46 Heparin - IVPUSH PRN PRN Heparin Sodium Chloride 1,000 mls @ 75 mls/hr 01/04/19 23:45 01/05/19 21:00 Normal Saline - IV 75 mls/hr ASDIR SHASHANK Administration HEPARIN SOD,PORK IN 0.45% NACL 25,000 unit in 500 mls @ 16 mls/hr 01/05/19 07: 00 03/26/19 08:00 Heparin-1/2ns 25,000 Units/500 IVPB 800 units/hr TITR SHASH[facility] 16 mls/hr Administration Protocol 800 UNITS/HR Insulin Aspart 1 vial 01/05/19 07:00 01/06/19 06:40 Novolog Vial Sliding Scale - SQ Not Given ACHS [facility] Protocol Insulin Detemir 20 units 01/05/19 07:00 01/06/19 06:40 Levemir Vial SQ Not Given DAILY@0700 COUNTS INCLUDE 234 BEDS AT THE [facility] Metoprolol Succinate 50 mg 01/05/19 10:00 01/05/19 11:00 Toprol Xl - PO 50 mg DAILY COUNTS INCLUDE 234 BEDS AT THE [facility] Administration Ranitidine HCl 150 mg 01/05/19 10:00 01/05/19 11:00 Zantac - PO 150 mg DAILY COUNTS INCLUDE 234 BEDS AT THE [facility] Administration Home Medications Medication Instructions Recorded Enalapril Maleate [Vasotec -] 10 mg PO DAILY 03/26/12 Aspirin [Aspirin EC] 81 mg PO DAILY 07/29/18 Docusate Sodium 100 mg PO TID PRN 07/29/18 Gemfibrozil 600 mg PO BID 07/29/18 Glipizide 5 mg PO BID 07/29/18 Metformin HCl [Glucophage] 1,000 mg PO BID 07/29/18 Metoprolol Succinate 50 mg PO DAILY 07/29/18 Insulin (Levemir) [Levemir Vial] 20 units SQ DAILY@0700 30 Days #6 08/05/18 vial Acetaminophen [8Hr Arthritis Pain 650 mg PO QID PRN 01/04/19 Relief] Atorvastatin Ca [Lipitor] 40 mg PO HS 01/04/19 Cholecalciferol (Vitamin D3) 1,000 unit PO DAILY 01/04/19 [Vitamin D3] Cyanocobalamin (Vitamin B-12) 1,000 mcg PO DAILY 01/04/19 [Vitamin B-12] Diclofenac Sodium [Diclo Gel] 1 each TP TID 01/04/19 Ranitidine [Zantac -] 150 mg PO DAILY 01/04/19 A
--- NOTE | 2019-01-06 09:37 | DS ---
Physical Exam: SUBJECTIVE: Patient seen and examined at bedside. Denies chest pain or shortness of breath. OBJECTIVE: Vital Signs Period Temp Pulse Resp BP Sys/Bauman Pulse Ox Last 24 Hr 96.7 F-98.6 F 76-96 18-20 126-157/51-79 93-98 PHYSICAL EXAM GENERAL: Zambian speaking. NAD HEAD: NC/AT EYES: EOMI Sclera Clear ENT: MMM NECK: Trachea midline, full range of motion, supple. LUNGS: CTAB HEART: RRR nl S1S2. Nontender to palpation chest ABDOMEN: Soft NDNT EXTREMITIES: No CCE NEUROLOGICAL: Cranial nerves II through XII grossly intact. SKIN: Warm, dry, normal turgor, no rashes or lesions noted LABS Laboratory Results - last 24 hr 01/05/19 01/05/19 01/05/19 12:10 12:44 13:25 WBC RBC Hgb Hct MCV MCH MCHC RDW Plt Count MPV PTT (Actin FS) Sodium Potassium Chloride Carbon Dioxide Anion Gap BUN Creatinine Creat Clearance w eGFR POC Glucometer 118 Random Glucose Calcium Magnesium Creatine Kinase 118 Troponin I 1.43 H* Ur Random Sodium 100 Ur Random Potassium 37.6 Ur Random Chloride 124 Urine Creatinine 01/05/19 01/05/19 01/05/19 13:25 14:00 17:00 WBC RBC Hgb Hct MCV MCH MCHC RDW Plt Count MPV PTT (Actin FS) 196.5 H 75.3 H Sodium Potassium Chloride Carbon Dioxide Anion Gap BUN Creatinine Creat Clearance w eGFR POC Glucometer Random Glucose Calcium Magnesium Creatine Kinase Troponin I Ur Random Sodium Ur Random Potassium Ur Random Chloride Urine Creatinine 41.0 01/05/19 01/05/19 01/05/19 17:00 17:52 21:04 WBC RBC Hgb Hct MCV MCH MCHC RDW Plt Count MPV PTT (Actin FS) Sodium Potassium Chloride Carbon Dioxide Anion Gap BUN Creatinine Creat Clearance w eGFR POC Glucometer 155 193 Random Glucose Calcium Magnesium Creatine Kinase 131 Troponin I 1.92 H* Ur Random Sodium Ur Random Potassium Ur Random Chloride Urine Creatinine 01/05/19 01/06/19 01/06/19 22:25 01:35 05:30 WBC 6.7 RBC 4.19 Hgb 10.7 Hct 32.2 L MCV 76.9 L MCH 25.5 L MCHC 33.1 RDW 13.9 Plt Count 237 MPV 9.5 PTT (Actin FS) Sodium Potassium Chloride Carbon Dioxide Anion Gap BUN Creatinine Creat Clearance w eGFR POC Glucometer Random Glucose Calcium Magnesium Creatine Kinase Troponin I 1.89 H* 1.78 H* Ur Random Sodium Ur Random Potassium Ur Random Chloride Urine Creatinine 01/06/19 01/06/19 01/06/19 05:30 05:30 06:29 WBC RBC Hgb Hct MCV MCH MCHC RDW Plt Count MPV PTT (Actin FS) Sodium 141 Potassium 4.3 Chloride 111 H Carbon Dioxide 25 Anion Gap 5 L BUN 30 H Creatinine 1.1 Creat Clearance w eGFR 48.16 POC Glucometer 142 Random Glucose 126 H Calcium 8.9 Magnesium 2.4 Creatine Kinase Troponin I 1.59 H* Ur Random Sodium Ur Random Potassium Ur Random Chloride Urine Creatinine HOSPITAL COURSE: Date of Admission:01/04/19 78 year old lady with pmhx of HTN , DM , HLD, CAD S/P stent 2009 , pancreatitis , GERD , who was sent to ED by her PCP due to hyperkalemia on lab work that was done last week. Pt's initial troponin was 0.13 and peak to 1.92. EKG with sinus rhythm, TWI in AVL, and qtc of 430. Pt was started on a heparin gtt while in ED. Cardiology, Dr Erick Banks, was consulted who recommended pt be transferred to [facility] for catheterization. Date of Discharge: 01/06/19 Minutes to complete discharge: 35 Discharge Summary Reason For Visit: ELEVATED TROPONIN I LEVEL,CHEST PAIN,HYPERKLAEMIA Condition: Improved - Instructions Diet, Activity, Other Instructions: Pt transferred to [facility] for cardiac cath with Dr Elijah Saldivar. Transfer papers signed and completed. Disposition: TRANSFER ACUTE CARE/OTHER HOSP - Home Medications Comprehensive Discharge Medication List: Ambulatory Orders Enalapril Maleate [Vasotec -] 10 mg PO DAILY 03/26/12 Aspirin [Aspirin EC] 81 mg PO DAILY 07/29/18 Docusate Sodium 100 mg PO TID PRN 07/29/18 Gemfibrozil 600 mg PO BID 07/29/18 Glipizide 5 mg PO BID 07/29/18 Metformin HCl [Glucophage] 1,000 mg PO BID 07/29/18 Metoprolol Succinate 50 mg PO DAILY 07/29/18 Insulin (Levemir) [Levemir Vial] 20 units SQ DAILY@0700 30 Days #6 vial 10/24/ 18 Acetaminophen [8Hr Arthritis Pain Relief] 650 mg PO QID PRN 01/04/19 Atorvastatin Ca [Lipitor] 40 mg PO HS 01/04/19 Cholecalciferol (Vitamin D3) [Vitamin D3] 1,000 unit PO DAILY 01/04/19 Cyanocobalamin (Vitamin B-12) [Vitamin B-12] 1,000 mcg PO DAILY 01/04/19 Diclofenac Sodium [Diclo Gel] 1 each TP TID 01/04/19 Ranitidine [Zantac -] 150 mg PO DAILY 01/04/19 This patient is new to me today: No Emergency Visit: Yes ED Registration Date: 01/04/19 Care time: The patient presented to the Emergency Department on the above date and was hospitalized for further evaluation of their emergent condition. Critical Care patient: No - Discharge Referral Referred to [facility] Med P.C.: No
--- NOTE | 2019-01-07 17:26 | PN ---
Progress Note (short form) - Note Progress Note: P p
--- NOTE | 2019-01-11 17:07 | PN ---
Progress Note (short form) - Note Progress Note: On 01/06/2019 patient underwent LHC via right radial approach demonstrating patent mid LAD stent, 100% ISR LAD-D1 distal vessel fills via right->left collaterals, 90% LCx OM lesion and 80% ostial LCx lesion. She underwent implant Xience 3.5x12 mm ELI post-dilated with NC 4.0x8 at 12 NARESH to ostial LCx lesion, implant Xience 2.5 x 15 mm ELI to OM lesion @ 14 NARESH, preserved LV fxn LVEF 55% with mild anterolateral HK, TR band applied to right radial access site, no complications. Stable for routine post-PCI care and cardiac rehab referral.
== END 2019-01-06 08:53 | disposition short-term general hospital (02) | DRG 281 ==
LOC: JER 18:51 → JERBED 22:49 → J4W 01-06 00:32
PROVIDERS: ADMIT Internal Medicine; ATTEND Internal Medicine
DX: I21.4 Non-ST elevation (NSTEMI) myocardial infarction (principal); N17.9 Acute kidney failure, unspecified; Z79.84 Long term (current) use of oral hypoglycemic drugs; I25.10 Atherosclerotic heart disease of native coronary artery without angina pectoris; Z95.5 Presence of coronary angioplasty implant and graft; K21.9 Gastro-esophageal reflux disease without esophagitis; E87.5 Hyperkalemia; K59.00 Constipation, unspecified; E11.65 Type 2 diabetes mellitus with hyperglycemia; E11.22 Type 2 diabetes mellitus with diabetic chronic kidney disease; I12.9 Hypertensive chronic kidney disease with stage 1 through stage 4 chronic kidney disease, or unspecified chronic kidney disease; N18.9 Chronic kidney disease, unspecified; N18.3 Chronic kidney disease, stage 3 (moderate); D50.9 Iron deficiency anemia, unspecified
CPT/HCPCS: 36415; 71046-TC-FY; 80048; 80053; 80061; 81003; 82436; 82550; 82570; 82962; 83036; 83690; 83721; 83735; 83880; 84100; 84133; 84300; 84443; 84484; 85025; 85027; 85610; 85730; 93005; 93010; 93306-TC; 99285-25; J1644; J7030

== ENCOUNTER 2020-07-07 20:36 | Emergency (ER) | payer MEDICARE, OTHER ==
[2020-07-07 20:46] VITALS: TEMP 97.9; BMI 20.6
--- OUTSIDE RECORDS SUMMARY | 2020-07-07 21:08 | XMS ---
:1940 Author Organization [facility] Care Team Providers Name Role Phone [facility] MHAW9 Unavailable Unavailable ED STAFF PHYSICIANMARY Unavailable Unavailable Digiorno, Braeden Unavailable Unavailable Digiorno, Braeden Unavailable Unavailable Digiorno, Braeden Unavailable Unavailable ED STAFF PHYSICIAN, STAFF Unavailable Unavailable DiGiorno, Christopher Unavailable [phone] DiGiorno, Christopher Unavailable [phone] DiGiorno, Christopher Unavailable [phone] Re-disclosure Warning The records that you are about to access may contain information from federally- assisted alcohol or drug abuse programs. If such information is present, then the following federally mandated warning applies: This information has been disclosed to you from records protected by federal confidentiality rules (42 CFR part 2). The federal rules prohibit you from making any further disclosure of this information unless further disclosure is expressly permitted by the written consent of the person to whom it pertains or as otherwise permitted by 42 CFR part 2. A general authorization for the release of medical or other information is NOT sufficient for this purpose. The Federal rules restrict any use of the information to criminally investigate or prosecute any alcohol or drug abuse patient.The records that you are about to access may contain highly sensitive health information, the redisclosure of which is protected by Article 27-F of the [facility] Public Health law. If you continue you may haveaccess to information: Regarding HIV / AIDS; Provided by facilities licensed or operated by the [facility] Office of Mental Health; or Provided by the [facility] Office for People With Developmental Disabilities. If such information is present, then the following [facility] mandated warning applies: This information has been disclosed to you from confidential records which are protected by state law. State law prohibits you from making any further disclosure of this information without the specific written consent of the person to whom it pertains, or as otherwise permitted by law. Any unauthorized further disclosure in violation of state law may result in a fine or fpc sentence or both. A general authorization for the release of medical or other information is NOT sufficient authorization for further disclosure. Allergies and Adverse Reactions Type Description Substance Reaction Status Data Source(s ) Drug allergy Januvia sitagliptin Pancreatitis Active eCW3 ([facility]) No Information No Information No Information eC W2 ([facility]) Encounters Encounter Providers Location Date Indications Data Source(s ) Attender: Rob 06/28/2020 MED GEN ([facility] 12:[facility] AM Medical, ) EDT Office Attender: Rob 06/28/2020 12:00:00 AM ED T MEDGEN ([facility]) Office Attender: Braeden Yarbrough 05/23/2020 12:00:00 AM EDT MEDGEN ([facility]) Office Attender: Braeden Yarbrough 05/23/2020 12:00:00 AM EDT MEDGEN ([facility]) Office Attender: Braeden Yarbrough 05/23/2020 12:00:00 AM EDT MEDGEN ([facility]) Office Attender: Braeden Yarbrough 05/23/2020 12:00:00 AM EDT MEDGEN ([facility]) Office Emergency Attender: MARY ED STAFF H 01/11/2020 10:39:00 AM [facility] PHYSICIANAttender: STAFF ED EDT - [facility] STAFF PHYSICIANAdmitter: 04:57:00 PM EDT MARY ED STAFF PHYSICIAN Patient discharged. Outpatient Attender: [id number] [facility] 11/30/2019 12:16:19 PM [facility] ([facility]) Patient admitted. Outpatient [facility] 08/12/2019 12:00:00 eCW3 ([facility] AM EDT - [facility] 12[facility]00 AM EDT Care) Outpatient [facility] 05/10/2019 12:00:00 eCW3 ([facility] A28 AM EDT - 05/10/2019 [facility] 12:00:00 AM EDT Care) Outpatient [facility] Care 03/11/2019 12:00:00 eCW3 ([facility] A28 AM EDT - 03/11/2019 [facility] 12:00:00 AM EDT Care) Outpatient [facility] 02/11/2019 12:00:00 eCW3 ([facility] A28 AM EDT - 02/11/2019 [facility] 12:00:00 AM EDT Care) Outpatient [facility] Care 02/08/2019 12:00:00 eCW3 ([facility] A28 AM EDT - 02/08/2019 [facility] 12:00:00 AM EDT Care) Outpatient [facility] 2018 12:00:00 eCW3 ([facility] A28 AM EDT - 2018 [facility] 12:00:00 AM EDT Care) [facility] 12:00: 00 eCW2 ([facility] AM EDT [facility]) [facility] 12/01/2018 12:00: 00 eCW2 ([facility] AM EST [facility]) Outpatient [facility] 12/01/2018 12:00:00 eCW3 ([facility] A28 AM EST - 12/01/2018 [facility] 12:00:00 AM EST Care) [facility] 10/08/2018 12:00:0 0 eCW2 ([facility] AM EST [facility]) [facility] 09/[facility]2018 12:00: 00 eCW2 ([facility] AM EST [facility]) [facility] 08/31/2018 12:00: 00 eCW2 ([facility] AM EST [facility]) [facility] 08/19/2018 12:00: 00 eCW2 ([facility] AM EST [facility]) [facility] Sandyefrain Chambers 08/14/2018 12:00: 00 eCW2 ([facility] AM EDT [facility]) [facility] 07/10/2018 12:00: 00 eCW2 ([facility] AM EDT [facility]) [facility] Deans[facility]rell Chambers 07/09/2018 12:00: 00 eCW2 ([facility] AM EDT [facility]) [facility] Deans[facility]rell Chambers 07/04/2018 12:00: 00 eCW2 ([facility] AM EDT [facility]) [facility] Deans[facility]rell Chambers 07/02/2018 12:00: 00 eCW2 ([facility] AM EDT [facility]) In[facility] Deansherrell Chambers 06/23/2018 12:00: 00 eCW2 ([facility] AM EDT [facility]) [facility] Deansherrell Chambers 04/30/2018 12:00: 00 eCW2 ([facility] AM EDT [facility]) [facility] Deansherrell Chambers 03/24/2018 12:00: 00 eCW2 ([facility] AM EDT [facility]) [facility] Deansherrell Chambers 03/19/2018 12:00: 00 eCW2 ([facility] AM EDT [facility]) Ines Donaldnmartha Deansherrell Caleroabajuliette 12/23/2017 12:00: 00 eCW2 ([facility] AM EDT [facility]) [facility] Donaldnkers Maryann Caleroabajuliette 12/18/2017 12:00: 00 eCW2 ([facility] AM EST [facility]) [facility] Donaldnkers Maryann Chambers 12/15/2017 12:00: 00 eCW2 ([facility] AM EST [facility]) [facility] Chambers 12/12/2017 12:00: 00 eCW2 ([facility] AM EST [facility]) [facility] Sandyefrain Chambers 11/18/2017 12:00: 00 eCW2 ([facility] AM EST [facility]) [facility] Deansherrell Chambers 11/07/2017 12:00: 00 eCW2 ([facility] AM EST [facility]) [facility] Deansherrell Chambers 08/19/2017 12:00: 00 eCW2 ([facility] AM EST [facility]) [facility] Deansherrell Chambers 08/15/2017 12:00: 00 eCW2 ([facility] AM EDT [facility]) In[facility] Deansherrell Chambers 08/14/2017 12:00: 00 eCW2 ([facility] AM EDT [facility]) [place] Jennifer Deansherrell Chambers 07/22/2017 12:00: 00 eCW2 ([facility] AM EDT [facility]) [facility] Deansherrell Chambers 04/21/2017 12:00: 00 eCW2 ([facility] AM EDT [facility]) [facility] Deansherrell Chambers 04/04/2017 12:00: 00 eCW2 ([facility] AM EDT [facility]) [facility] Deansherrell Chambers 02/07/2017 12:00: 00 eCW2 ([facility] AM EDT [facility]) [facility] Donaldnkers Maryann Chambers 01/29/2017 12:00: 00 eCW2 ([facility] AM EDT [facility]) [facility] Donaldnkers Maryann Chambers 12/31/2016 12:00: 00 eCW2 ([facility] AM EDT [facility]) [place] Jennifer Donaldnkers Maryann Chambers 11/28/2016 12:00: 00 eCW2 ([facility] AM EST [facility]) [facility] Sandyefrain Chambers 11/28/2016 12:00: 00 eCW2 ([facility] AM EST [facility]) [facility] Chambers 11/20/2016 12:00: 00 eCW2 ([facility] AM EST [facility]) In[facility] Deansherrell Chambers 11/15/2016 12:00: 00 eCW2 ([facility] AM EST [facility]) [place] Jennifer Deansherrell Chambers 11/13/2016 12:00: 00 eCW2 ([facility] AM EST [facility]) [place] Jennifer Deansherrell Chambers 11/07/2016 12:00: 00 eCW2 ([facility] AM EST [facility]) [place] Jennifer Deansherrell Chambers 10/31/2016 12:00: 00 eCW2 ([facility] AM EST [facility]) [place] Jennifer Deansherrell Chambers 10/30/2016 12:00: 00 eCW2 ([facility] AM EST [facility]) [place] Jennifer Sandyefrain Chambers 10/18/2016 12:00: 00 eCW2 ([facility] AM EST [facility]) [place] Jennifer Deansherrell Chambers 10/10/2016 12:00: 00 eCW2 ([facility] AM EST [facility]) [place] Jennifer Deansherrell Chambers 10/10/2016 12:00: 00 eCW2 ([facility] AM EST [facility]) [place] Jennifer Deansherrell Chambers 10/04/2016 12:00: 00 eCW2 ([facility] AM EST [facility]) [place] Jennifer Deansherrell Chambers 10/01/2016 12:00: 00 eCW2 ([facility] AM EST [facility]) [place] Jennifer Deansherrell Chambers 10/01/2016 12:00: 00 eCW2 ([facility] AM EST [facility]) Ines Sandyn Ramirezjuliette 09/30/2016 12:00: 00 eCW2 ([facility] AM EST [facility]) In[facility] Sandyn Ramirezjuliette 09/26/2016 12:00: 00 eCW2 ([facility] AM EST [facility]) Ines Sandyn Ramirezjuliette 09/19/2016 12:00: 00 eCW2 ([facility] AM EST [facility]) Ines Sandyn Ramirezjuliette 09/18/2016 12:00: 00 eCW2 ([facility] AM EST [facility]) [facility] Sandyefrain Chambers 09/18/2016 12:00: 00 eCW2 ([facility] AM EST [facility]) [place] Jennifer Sandyefrain Chambers 09/16/2016 12:00: 00 eCW2 ([facility] AM EST [facility]) [place] Jennifer Sandyn Raimrezjuliette 09/11/2016 12:00: 00 eCW2 ([facility] AM EST [facility]) Ines Sandyn Ramirezjuliette 09/04/2016 12:00: 00 eCW2 ([facility] AM EST [facility]) [place] Jennifer Deansherrell Calerowesjuliette 08/29/2016 12:00: 00 eCW2 ([facility] AM EST [facility]) [place] Jennifer Sandyn Ramirezjuliette 08/29/2016 12:00: 00 eCW2 ([facility] AM EST [facility]) [place] Jennifer Deansherrell Calerowesjuliette 08/28/2016 12:00: 00 eCW2 ([facility] AM EST [facility]) [place] Jennifer Deansherrell Chambers 08/28/2016 12:00: 00 eCW2 ([facility] AM EST [facility]) Ines Sandyn Ramirezjuliette 08/21/2016 12:00: 00 eCW2 ([facility] AM EST [facility]) Ines Sandyn Ramirezjuliette 08/20/2016 12:00: 00 eCW2 ([facility] AM EST [facility]) Ines Sandyn Ramirezjuliette 08/20/2016 12:00: 00 eCW2 ([facility] AM EST [facility]) Ines Sandyn Ramirezjuliette 08/19/2016 12:00: 00 eCW2 ([facility] AM EST [facility]) Ines Sandyefrain Calerowesjuliette 08/16/2016 12:00: 00 eCW2 ([facility] AM EDT [facility]) Ines Sandyefrain Calerowesjuliette 08/14/2016 12:00: 00 eCW2 ([facility] AM EDT [facility]) Ines Sandyn Ramirezjuliette 08/12/2016 12:00: 00 eCW2 ([facility] AM EDT [facility]) Ines Sandyefrain Calerowesjuliette 08/08/2016 12:00: 00 eCW2 ([facility] AM EDT [facility]) Ines Sandyn Ramirezjuliette 08/07/2016 12:00: 00 eCW2 ([facility] AM EDT [facility]) Ines Sandyn Ramirezjuliette 08/01/2016 12:00: 00 eCW2 ([facility] AM EDT [facility]) [place] Jennifer Deansherrell Calerowesjuliette 07/31/2016 12:00: 00 eCW2 ([facility] AM EDT [facility]) Ines Deansherrell Calerowesjuliette 07/29/2016 12:00: 00 eCW2 ([facility] AM EDT [facility]) [place] Jennifer Deansherrell Chambers 07/23/2016 12:00: 00 eCW2 ([facility] AM EDT [facility]) Ines Sandyefrain Caleroabarcale 07/17/2016 12:00: 00 eCW2 ([facility] AM EDT [facility]) Ines Deansherrell Caleroabajuliette 07/16/2016 12:00: 00 eCW2 ([facility] AM EDT [facility]) Ines Deansherrell Chambers 07/15/2016 12:00: 00 eCW2 ([facility] AM EDT [facility]) Ines Deansherrell Caleroabajuliette 07/01/2016 12:00: 00 eCW2 ([facility] AM EDT [facility]) [place] Jennifer Deansherrell Caleroabajuliette 06/28/2016 12:00: 00 eCW2 ([facility] AM EDT [facility]) Ines Deansherrell Chambers 06/24/2016 12:00: 00 eCW2 ([facility] AM EDT [facility]) [place] Jennifer Sandyefrain Caleroabajuliette 06/16/2016 12:00: 00 eCW2 ([facility] AM EDT [facility]) [place] Jennifer Deansherrell Caleroabajuliette 06/14/2016 12:00: 00 eCW2 ([facility] AM EDT [facility]) [place] Jennifer Deansherrell Chambers 06/13/2016 12:00: 00 eCW2 ([facility] AM EDT [facility]) [place] Jennifer Deansherrell Caleroabajuliette 06/06/2016 12:00: 00 eCW2 ([facility] AM EDT [facility]) [place] Jennifer Denasherrell Caleroabajuliette 06/06/2016 12:00: 00 eCW2 ([facility] AM EDT [facility]) [place] Jennifer Deansherrell Caleroabajuliette 05/30/2016 12:00: 00 eCW2 ([facility] AM EDT [facility]) [place] Jennifer Verma Maryann Chambers 05/27/2016 12:00: 00 eCW2 ([facility] AM EDT [facility]) Ines Sandyn Galileaabajuliette 05/24/2016 12:00: 00 eCW2 ([facility] AM EDT [facility]) Ines Sandyefrain Caleroabajuliette 05/23/2016 12:00: 00 eCW2 ([facility] AM EDT [facility]) [place] Jennifer Sandyefrain Caleroabajuliette 05/22/2016 12:00: 00 eCW2 ([facility] AM EDT [facility]) [place] Jennifer Sandyefrain Caleroabajuliette 05/22/2016 12:00: 00 eCW2 ([facility] AM EDT [facility]) [place] Jennifer Deansherrell Caleroabajuliette 05/17/2016 12:00: 00 eCW2 ([facility] AM EDT [facility]) [place] Jennifer Deansherrell Caleroabajuliette 05/16/2016 12:00: 00 eCW2 ([facility] AM EDT [facility]) [place] Jennifer Sandyefrain Caleroabajuliette 05/16/2016 12:00: 00 eCW2 ([facility] AM EDT [facility]) [place] Jennifer Sandyefrain Caleroabajuliette 05/15/2016 12:00: 00 eCW2 ([facility] AM EDT [facility]) [facility] Maryann Shellabajuliette 05/13/2016 12:00:00 eCW2 ([facility] AM EDT [facility]) [place] Jennifer Deansherrell Caleroabajuliette 04/08/2016 12:00: 00 eCW2 ([facility] AM EDT [facility]) [place] Jennifer Deansherrell Caleroabarcale 04/05/2016 12:00: 00 eCW2 ([facility] AM EDT [facility]) [place] Jennifer Donaldnmartha Deansherrell Caleroabajuliette 03/14/2016 12:00: 00 eCW2 ([facility] AM EDT [facility]) Ines Deansherrell Caleroabajuliette 02/29/2016 12:00: 00 eCW2 ([facility] AM EDT [facility]) Ines Deansherrell Chambers 02/26/2016 12:00: 00 eCW2 ([facility] AM EDT [facility]) Ines Deansherrell Chambers 02/22/2016 12:00: 00 eCW2 ([facility] AM EDT [facility]) Ines Deansherrell Chambers 12/28/2015 12:00: 00 eCW2 ([facility] AM EDT [facility]) Ines Deansherrell Chambers 12/18/2015 12:00: 00 eCW2 ([facility] AM EST [facility]) Ines Deansherrell Chambers 11/29/2015 12:00: 00 eCW2 ([facility] AM EST [facility]) [place] Jennifer Deansherrell Chambers 08/29/2015 12:00: 00 eCW2 ([facility] AM EST [facility]) [place] Jennifer Deansherrell Chambers 08/22/2015 12:00: 00 eCW2 ([facility] AM EST [facility]) [place] Jennifer Deansherrell Chambers 08/07/2015 12:00: 00 eCW2 ([facility] AM EDT [facility]) [place] Jennifer Deansherrell Caleroabajuliette 08/02/2015 12:00: 00 eCW2 ([facility] AM EDT [facility]) Ines Deansherrell Caleroabajuliette 07/04/2015 12:00: 00 eCW2 ([facility] AM EDT [facility]) Ines Deansherrell Caleroabajuliette 05/31/2015 12:00: 00 eCW2 ([facility] AM EDT [facility]) Ines Deansherrell Chambers 05/26/2015 12:00: 00 eCW2 ([facility] AM EDT [facility]) Ines Deansherrell Chambers 05/16/2015 12:00: 00 eCW2 ([facility] AM EDT [facility]) Ines Deansherrell Chambers 05/08/2015 12:00: 00 eCW2 ([facility] AM EDT [facility]) Ines Deansherrell Chambers 03/28/2015 12:00: 00 eCW2 ([facility] AM EDT [facility]) Ines Deansherrell Chambers 02/27/2015 12:00: 00 eCW2 ([facility] AM EDT [facility]) [place] Jennifer Deansherrell Chambers 02/16/2015 12:00: 00 eCW2 ([facility] AM EDT [facility]) [place] Jennifer Deansherrell Chambers 01/23/2015 12:00: 00 eCW2 ([facility] AM EDT [facility]) [place] Jennifer Deansherrell Chambers 12/08/2014 12:00: 00 eCW2 ([facility] AM EST [facility]) [place] Jennifer Deansherrell Chambers 12/07/2014 12:00: 00 eCW2 ([facility] AM EST [facility]) [place] Jennifer Deansherrell Chambers 12/05/2014 12:00: 00 eCW2 ([facility] AM EST [facility]) [place] Jennifer Donaldnmartha Deansherrell Chambers 11/18/2014 12:00: 00 eCW2 ([facility] AM EST [facility]) [place] Jennifer Donaldnkers Maryann Chambers 10/24/2014 12:00: 00 eCW2 ([facility] AM EST [facility]) [place] Jennifer Donaldnkers Maryann Chambers 10/21/2014 12:00: 00 eCW2 ([facility] AM EST [facility]) Ines Sandyefrain Chambers 09/20/2014 12:00: 00 eCW2 ([facility] AM EST [facility]) Ines Sandyefrain Chambers 08/11/2014 12:00: 00 eCW2 ([facility] AM EDT [facility]) Ines Deansherrell Chambers 07/14/2014 12:00: 00 eCW2 ([facility] AM EDT [facility]) Ines Deansherrell Chambers 05/31/2014 12:00: 00 eCW2 ([facility] AM EDT [facility]) Ines Deansherrell Chambers 04/21/2014 12:00: 00 eCW2 ([facility] AM EDT [facility]) Ines Deansherrell Chambers 04/21/2014 12:00: 00 eCW2 ([facility] AM EDT [facility]) [place] Jennifer Deansherrell Chambers 04/08/2014 12:00: 00 eCW2 ([facility] AM EDT [facility]) [place] Jennifer Deansherrell Chambers 02/08/2014 12:00: 00 eCW2 ([facility] AM EDT [facility]) Ines Deansherrell Chambers 02/08/2014 12:00: 00 eCW2 ([facility] AM EDT [facility]) Ines Deansherrell Chambers 01/26/2014 12:00: 00 eCW2 ([facility] AM EDT [facility]) Ines Verma Maryann Chambers 01/26/2014 12:00: 00 eCW2 ([facility] AM EDT [facility]) Ines Verma Maryann Chambers 01/25/2014 12:00: 00 eCW2 ([facility] AM EDT [facility]) [place] Jennifer Verma Maryann Chambers 01/25/2014 12:00: 00 eCW2 ([facility] AM EDT [facility]) Ines Sandyefrain Calerowesjuliette 01/03/2014 12:00: 00 eCW2 ([facility] AM EDT [facility]) Ines Sandyefrain Calerowesjuliette 12/21/2013 12:00: 00 eCW2 ([facility] AM EDT [facility]) Ines Sandyefrain Calerowesjuliette 10/14/2013 12:00: 00 eCW2 ([facility] AM EST [facility]) Ines Deansherrell Chambers 09/01/2013 12:00: 00 eCW2 ([facility] AM EST [facility]) Ines Deansherrell Chambers 08/10/2013 12:00: 00 eCW2 ([facility] AM EDT [facility]) [place] Jennifer Deansherrell Chambers 08/10/2013 12:00: 00 eCW2 ([facility] AM EDT [facility]) [place] Jennifer Deansherrell Chambers 08/10/2013 12:00: 00 eCW2 ([facility] AM EDT [facility]) [place] Jennifer Deansherrell Chambers 08/04/2013 12:00: 00 eCW2 ([facility] AM EDT [facility]) [place] Jennifer Deansherrell Chambers 07/20/2013 12:00: 00 eCW2 ([facility] AM EDT [facility]) Ines Deansherrell Chambers 07/20/2013 12:00: 00 eCW2 ([facility] AM EDT [facility]) Ines Verma Maryann Chambers 06/29/2013 12:00: 00 eCW2 ([facility] AM EDT [facility]) [place] Jennifer Verma Maryann Chambers 06/12/2013 12:00: 00 eCW2 ([facility] AM EDT [facility]) Ines Guzmánjuliette 06/10/2013 12:00: 00 eCW2 ([facility] AM EDT [facility]) Ines Guzmánmariacale 05/25/2013 12:00: 00 eCW2 ([facility] AM EDT [facility]) Ines Guzmánjuliette 05/12/2013 12:00: 00 eCW2 ([facility] AM EDT [facility]) Ines Guzmánjuliette 04/06/2013 12:00: 00 eCW2 ([facility] AM EDT [facility]) Ines Guzmánjuliette 04/06/2013 12:00: 00 eCW2 ([facility] AM EDT [facility]) [place] Jennifer Guzmánjuliette 03/10/2013 12:00: 00 eCW2 ([facility] AM EDT [facility]) [place] Jennifer Guzmánjuliette 03/10/2013 12:00: 00 eCW2 ([facility] AM EDT [facility]) [place] Jennifer Guzmánjuliette 03/10/2013 12:00: 00 eCW2 ([facility] AM EDT [facility]) [place] Jennifer Sandyn Ramirezjuliette 03/09/2013 12:00: 00 eCW2 ([facility] AM EDT [facility]) [place] Jennifer Sandyn Ramirezjuliette 03/09/2013 12:00: 00 eCW2 ([facility] AM EDT [facility]) [place] Jennifer Sandyn Ramirezjuliette 02/09/2013 12:00: 00 eCW2 ([facility] AM EDT [facility]) [place] Jennifer Sandyn Ramirezjuliette 02/09/2013 12:00: 00 eCW2 ([facility] AM EDT [facility]) [place] Jennifer Sandyn Ramirezjuliette 02/04/2013 12:00: 00 eCW2 ([facility] AM EDT [facility]) Ines Guzmánjuliette 01/25/2013 12:00: 00 eCW2 ([facility] AM EDT [facility]) Ines Sandyn Ramirezjuliette 01/05/2013 12:00: 00 eCW2 ([facility] AM EDT [facility]) Ines Sandyn Ramirezjuliette 01/05/2013 12:00: 00 eCW2 ([facility] AM EDT [facility]) [place] Jennifer Sandyefrain Calerowesjuliette 12/08/2012 12:00: 00 eCW2 ([facility] AM EST [facility]) [place] Jennifer Sandyefrain Calerowesjuliette 12/08/2012 12:00: 00 eCW2 ([facility] AM EST [facility]) [place] Jennifer Deansherrell Calerowesjuliette 12/08/2012 12:00: 00 eCW2 ([facility] AM EST [facility]) [place] Jennifer Sandyefrain Calerowesjuliette 12/03/2012 12:00: 00 eCW2 ([facility] AM EST [facility]) [place] Jennifer Sandyefrain Calerowesjuliette 11/10/2012 12:00: 00 eCW2 ([facility] AM EST [facility]) Ines Deansherrell Calerowesjuliette 11/10/2012 12:00: 00 eCW2 ([facility] AM EST [facility]) [place] Jennifer Deansherrell Chambers 09/08/2012 12:00: 00 eCW2 ([facility] AM EST [facility]) [place] Jennifer Deansherrell Chambers 08/26/2012 12:00: 00 eCW2 ([facility] AM EST [facility]) [place] Jennifer Deansherrell Chambers 08/25/2012 12:00: 00 eCW2 ([facility] AM EST [facility]) [place] Jennifer Deansherrell Chambers 07/07/2012 12:00: 00 eCW2 ([facility] AM EDT [facility]) Ines Deansherrell Chambers 07/07/2012 12:00: 00 eCW2 ([facility] AM EDT [facility]) Ines Sandyefrain Chambers 05/30/2012 12:00: 00 eCW2 ([facility] AM EDT [facility]) Ines Deansherrell Chambers 05/29/2012 12:00: 00 eCW2 ([facility] AM EDT [facility]) Ines Sandyefrain Chambers 05/29/2012 12:00: 00 eCW2 ([facility] AM EDT [facility]) Ines Deansherrell Chambers 04/29/2012 12:00: 00 eCW2 ([facility] AM EDT [facility]) Ines Deansherrell Chambers 03/24/2012 12:00: 00 eCW2 ([facility] AM EDT [facility]) Ines Deansherrell Chambers 02/04/2012 12:00: 00 eCW2 ([facility] AM EDT [facility]) Ines Deansherrell Chambers 01/16/2012 12:00: 00 eCW2 ([facility] AM EDT [facility]) Ines Deansherrell Chambers 01/07/2012 12:00: 00 eCW2 ([facility] AM EDT [facility]) Ines Deansherrell Caleroabajuliette 01/07/2012 12:00: 00 eCW2 ([facility] AM EDT [facility]) Ines Verma Maryann Caleroabajuliette 12/19/2011 12:00: 00 eCW2 ([facility] AM EST [facility]) Ines Donaldnkers Maryann Chambers 12/19/2011 12:00: 00 eCW2 ([facility] AM EST [facility]) Ines Sandyefrain Calerowesjuliette 12/16/2011 12:00: 00 eCW2 ([facility] AM EST [facility]) Ines Sandyefrain Calerowesjuliette 12/10/2011 12:00: 00 eCW2 ([facility] AM EST [facility]) Ines Deansherrell Chambers 12/10/2011 12:00: 00 eCW2 ([facility] AM EST [facility]) [place] Jennifer Deansherrell Chambers 11/27/2011 12:00: 00 eCW2 ([facility] AM EST [facility]) [place] Jennifer eDansherrell Chambers 11/21/2011 12:00: 00 eCW2 ([facility] AM EST [facility]) [place] Jennifer Deansherrell Chambers 11/15/2011 12:00: 00 eCW2 ([facility] AM EST [facility]) [place] Jennifer Deansherrell Chambers 11/08/2011 12:00: 00 eCW2 ([facility] AM EST [facility]) [place] Jennifer Deansherrell Chambers 10/22/2011 12:00: 00 eCW2 ([facility] AM EST [facility]) [place] Jennifer Deansherrell Chambers 09/17/2011 12:00: 00 eCW2 ([facility] AM EST [facility]) [place] Jennifer Deansherrell Chambers 09/17/2011 12:00: 00 eCW2 ([facility] AM EST [facility]) [place] Jennifer Donaldnkers Maryann Chambers 08/30/2011 12:00: 00 eCW2 ([facility] AM EST [facility]) [place] Jennifer Donaldnkers Maryann Caleroabajuliette 08/06/2011 12:00: 00 eCW2 ([facility] AM EDT [facility]) [place] Jennifer Donaldnkers Maryann Chambers 08/06/2011 12:00: 00 eCW2 ([facility] AM EDT [facility]) Ines Deansherrell Chambers 06/11/2011 12:00: 00 eCW2 ([facility] AM EDT [facility]) Ines Deansherrell Chambers 06/11/2011 12:00: 00 eCW2 ([facility] AM EDT [facility]) Ines Deansherrell Chambers 06/06/2011 12:00: 00 eCW2 ([facility] AM EDT [facility]) [place] Jennifer Deansherrell Chambers 06/06/2011 12:00: 00 eCW2 ([facility] AM EDT [facility]) [place] Jennifer Deansherrell Chambers 05/23/2011 12:00: 00 eCW2 ([facility] AM EDT [facility]) [place] Jennifer Verma Maryann Chambers 01/23/2011 12:00: 00 eCW2 ([facility] AM EDT [facility]) [place] Jennifer Deansherrell Chambers 01/01/2011 12:00: 00 eCW2 ([facility] AM EDT [facility]) [place] Jennifer Verma Maryann Chambers 11/22/2010 12:00: 00 eCW2 ([facility] AM EST [facility]) [place] Jennifer Verma Maryann Chambers 11/13/2010 12:00: 00 eCW2 ([facility] AM EST [facility]) [place] Jennifer Verma Maryann Chambers 10/24/2010 12:00: 00 eCW2 ([facility] AM EST [facility]) [place] Jennifer Donaldnkers Maryann Chambers 10/22/2010 12:00: 00 eCW2 ([facility] AM EST [facility]) [place] Jennifer Delphos Maryann Chambers 10/02/2010 12:00: 00 eCW2 ([facility] AM EST [facility]) [place] Jennifer Verma Maryann Hollingsworthger 08/16/2010 12:00: 00 eCW2 ([facility] AM EDT [facility]) Ines Sandyefrain Chambers 08/08/2010 12:00: 00 eCW2 ([facility] AM EDT [facility]) Ines Sandyefrain Chambers 08/02/2010 12:00: 00 eCW2 ([facility] AM EDT [facility]) Ines Sandyefrain Chambers 06/12/2010 12:00: 00 eCW2 ([facility] AM EDT [facility]) Ines Sandyefrain Chambers 06/12/2010 12:00: 00 eCW2 ([facility] AM EDT [facility]) Ines Deansherrell Chambers 05/08/2010 12:00: 00 eCW2 ([facility] AM EDT [facility]) Ines Deansherrell Chambers 05/04/2010 12:00: 00 eCW2 ([facility] AM EDT [facility]) Ines Deansherrell Chambers 05/03/2010 12:00: 00 eCW2 ([facility] AM EDT [facility]) Ines Sandyefrain Chambers 04/06/2010 12:00: 00 eCW2 ([facility] AM EDT [facility]) Ines Deansherrell Chambers 03/05/2010 12:00: 00 eCW2 ([facility] AM EDT [facility]) Ines Deansherrell Chambers 01/30/2010 12:00: 00 eCW2 ([facility] AM EDT [facility]) Ines Deansherrell Caleroabajuliette 01/26/2010 12:00: 00 eCW2 ([facility] AM EDT [facility]) [place] Jennifer Verma Maryann Chambers 01/25/2010 12:00: 00 eCW2 ([facility] AM EDT [facility]) Ines Deansherrell Chambers 12/26/2009 12:00: 00 eCW2 ([facility] AM EDT [facility]) Ines Deansherrell Chambers 12/18/2009 12:00: 00 eCW2 ([facility] AM EST [facility]) Ines Donaldnmartha Deansherrell Chambers 11/07/2009 12:00: 00 eCW2 ([facility] AM EST [facility]) [place] Jennifer Deansherrell Chambers 11/07/2009 12:00: 00 eCW2 ([facility] AM EST [facility]) [place] Jennifer Deansherrell Chambers 11/01/2009 12:00: 00 eCW2 ([facility] AM EST [facility]) [place] Jennifer Donaldnkers Maryann Chambers 08/01/2009 12:00: 00 eCW2 ([facility] AM EDT [facility]) [place] Jennifer Verma Maryann Chambers 07/25/2009 12:00: 00 eCW2 ([facility] AM EDT [facility]) [place] Jennifer Verma Maryann Chambers 07/25/2009 12:00: 00 eCW2 ([facility] AM EDT [facility]) [place] Jennifer Donaldnkers Maryann Chambers 07/18/2009 12:00: 00 eCW2 ([facility] AM EDT [facility]) [place] Jennifer Verma Maryann Chambers 06/30/2009 12:00: 00 eCW2 ([facility] AM EDT [facility]) [place] Jennifer Donaldnkers Maryann Chambers 06/27/2009 12:00: 00 eCW2 ([facility] AM EDT [facility]) [place] Jennifer Donaldnkers Maryann Caleroabajuliette 05/30/2009 12:00: 00 eCW2 ([facility] AM EDT [facility]) [place] Jennifer Donaldnkers Maryann Chambers 05/29/2009 12:00: 00 eCW2 ([facility] AM EDT [facility]) [place] Jennifer Caleroabarcale 05/02/2009 12:00: 00 eCW2 ([facility] AM EDT [facility]) Ines Caleroabarcale 04/13/2009 12:00: 00 eCW2 ([facility] AM EDT [facility]) [place] Jennifer Caleroabarcale 04/11/2009 12:00: 00 eCW2 ([facility] AM EDT [facility]) [facility] Luci Caleroabarcale 03/23/2009 12:00: 00 eCW2 ([facility] AM EDT [facility]) [place] Jennifer Caleroabarcale 03/14/2009 12:00: 00 eCW2 ([facility] AM EDT [facility]) [place] Jennifer Caleroabarcale 02/28/2009 12:00: 00 eCW2 ([facility] AM EDT [facility]) [facility] Luci Caleroabarcale 02/13/2009 12:00: 00 eCW2 ([facility] AM EDT [facility]) [facility] Luci Caleroabarger 01/30/2009 12:00: 00 eCW2 ([facility] AM EDT [facility]) Immunizations Vaccine Date Status Description Data Source(s) New in 2011. IIV4 06/23/2018 completed eCW3 ([place] 02:16:00 PM [facility]) As of June 1999, a 01/29/2017 completed eCW3 ([place] 2-dose hepatitis B 01:28:00 PM [facility]) schedule for adolescents (11-15 year olds) was FDA approved for Merck's Recombivax HB adult formulation. Use code 43 for the 2-dose. This code should be used for any use of standard adult formulation of hepatitis B vaccine. As of June 1999, a 08/12/2016 completed eCW3 ([place] 2-dose hepatitis B 09:06:00 AM [facility]) schedule for adolescents (11-15 year olds) was FDA approved for Merck's Recombivax HB adult formulation. Use code 43 for the 2-dose. This code should be used for any use of standard adult formulation of hepatitis B vaccine. IIV3. This vaccine code is 08/12/2016 completed e CW3 ([place] one of two which replace 09:06:00 AM [facility]) CVX 15, influenza, split virus. As of June 1999, a 02/29/2016 completed eCW3 ([place] 2-dose hepatitis B 02:29:00 PM [facility]) schedule for adolescents (11-15 year olds) was FDA approved for Merck's Recombivax HB adult formulation. Use code 43 for the 2-dose. This code should be used for any use of standard adult formulation of hepatitis B vaccine. Pneumococcal conjugate PCV 11/29/2015 completed e CW3 ([place] 13 01:50:00 PM [facility]) New in 2011. IIV4 08/22/2015 completed eCW3 ([place] 10:22:00 AM [facility]) zoster 07/14/2014 completed eCW3 ([place] maximo 08:12:00 AM [facility]) New in 2011. IIV4 07/14/2014 completed eCW3 ([facility] [place] 08:10:00 AM [facility]) Tdap 04/21/2014 completed eCW3 ([place] maxim[place] 09:47:00 AM [facility]) IIV3. This is one of two 07/20/2013 completed eCW 3 ([place] codes replacing CVX 15, 10:21:10 AM EDT [facility]) which is being retired. pneumococcal 07/07/2012 completed eCW3 ([place] polysaccharide PPV23 09:15:11 AM EDT [facility]) IIV3. This vaccine code is 07/07/2012 completed e CW3 ([place] one of two which replace 09:15:05 AM [facility]) CVX 15, influenza, split virus. IIV3. This is one of two completed eCW 3 ([place] codes replacing CVX 15, [facility]) which is being retired. No Known Immunizations completed eCW2 ([facility]) Medications Medication Brand Start Product Dose Route Administrative Pharmacy [facility] Indications Reaction Description Data Name Date Form Instructions Instructions Source(s) Famotidine Famoti 1.0 active Famotidi ne eCW3 40 MG Oral dine 2019 {tabl 40 MG ([place] Tablet 40 MG 12:00: et_as [place] 00 AM _[facility] Health EDT ed} Care) empaglifloz JARDIA 11/16/ TABLET 30 complet JARD IANCE MEDGEN (St in 25 MG NCE:2019 ed [facility] Oral Tablet 14485 12:00: Medic al, [Jardiance] 00 AM PC) JARDIANCE:1 EST [id number] empaglifloz JARDIA 11/16/ TABLET 30 complet JARD IANCE MEDGEN (St in 25 MG NCE:2019 ed [facility] Oral Tablet 76943 12:00: Medic al, [Jardiance] 00 AM PC) JARDIANCE:1 EST [id number] empaglifloz JARDIA 11/16/ TABLET 30 complet JARD IANCE MEDGEN (St in 25 MG NCE:2019 ed [facility] Oral Tablet 22532 12:00: Medic al, [Jardiance] 00 AM PC) JARDIANCE:1 EST [id number] empaglifloz JARDIA 11/16/ TABLET 30 complet JARD IANCE MEDGEN (St in 25 MG NCE:2019 ed [facility] Oral Tablet 60516 12:00: Medic al, [Jardiance] 00 AM PC) JARDIANCE:1 EST [id number] repaglinide PRANDI 11/05/ TABLET 30 complet PRAN DIN MEDGEN (St 1 MG Oral N:2131 2019 ed [place] Tablet 19 12:00: Medical, [Prandin] 00 AM PC) PRANDIN:213 EST 219 BASAGLAR 11/05/ SOLUTION 30 complet BASAGLA R MEDGEN (St KWIKPEN:173 2019 ed KWIKPEN [facility] 6863 12:00: Medical, 00 AM PC) EST repaglinide PRANDI 11/05/ TABLET 30 complet PRAN DIN MEDGEN (St 1 MG Oral N:2131 2019 ed [place] Tablet 19 12:00: Medical, [Prandin] 00 AM PC) PRANDIN:213 EST 219 BASAGLAR 11/05/ SOLUTION 30 complet BASAGLA R MEDGEN (St KWIKPEN:173 2019 ed KWIKPEN [facility] 6863 12:00: Medical, 00 AM PC) EST repaglinide PRANDI 11/05/ TABLET 30 complet PRAN DIN MEDGEN (St 1 MG Oral N:2131 2019 ed [place] Tablet 19 12:00: Medical, [Prandin] 00 AM PC) PRANDIN:213 EST 219 BASAGLAR 11/05/ SOLUTION 30 complet BASAGLA R MEDGEN (St KWIKPEN:173 2019 ed KWIKPEN [facility] 6863 12:00: Medical, 00 AM PC) EST BASAGLAR 11/05/ SOLUTION 30 complet BASAGLA R MEDGEN (St KWIKPEN:173 2019 ed KWPEN [facility] 6863 12:00: Medical, 00 AM PC) EST repaglinide PRANDI 11/05/ TABLET 30 complet PRAN DIN MEDGEN (St 1 MG Oral N:2131 2019 ed [place] Tablet 19 12:00: Medical, [Prandin] 00 AM PC) PRANDIN:213 EST 219 pantoprazol PANTOP 07/19/ DELAYED 60 complet CARNEY TOPRAZOLE MEDGEN (St e 20 MG RAZOLE 2018 RELEASE ed [facility] Delayed :[id number] 12:00: TABLET Medica l, Release 2 00 AM PC) Oral Tablet EDT PANTOPRAZOL [id number] pantoprazol PANTOP 07/19/ DELAYED 60 complet CARNEY TOPRAZOLE MEDGEN (St e 20 MG RAZOLE 2018 RELEASE ed [facility] Delayed :47934 12:00: TABLET Medica l, Release 2 00 AM PC) Oral Tablet EDT PANTOPRAZOL E:[id number] pantoprazol PANTOP 07/19/ DELAYED 60 complet CARNEY TOPRAZOLE MEDGEN (St e 20 MG RAZOLE 2018 RELEASE ed [facility] Delayed :46927 12:00: TABLET Medica l, Release 2 00 AM PC) Oral Tablet EDT PANTOPRAZOL E:[id number] pantoprazol PANTOP 07/19/ DELAYED 60 complet CARNEY TOPRAZOLE MEDGEN (St e 20 MG RAZOLE 2019 RELEASE ed [facility] Delayed :[id number] 12:00: TABLET Medica l, Release 2 00 AM PC) Oral Tablet EDT PANTOPRAZOL E:[id number] Betamethaso Lotris 07/15/ 1.0 active Lotriso ne eCW3 ne 0.5 one 2018 {appl 1-0.05 % ([place] MG/ML / 1-0.05 12:00: [place] Clotrimazol % 00 AM on_to Health e 10 MG/ML EDT _[facility]) Topical cted_ Cream area} [Lotrisone] Lotrisone 1-0.05 % repaglinide Prandi 04/26/ active Prandin 1 mg eCW3 1 MG Oral n 1 mg 2018 ([place] Tablet 12:00: [place] [Prandin] 00 AM Health Prandin 1 EDT Care) mg Betamethaso Lotris 04/26/ 1.0 active Lotriso ne eCW3 ne 0.5 one 2018 {appl 1-0.05 % ([place] MG/ML / 1-0.05 12:00: [place] Clotrimazol % 00 AM on_to Health e 10 MG/ML EDT _[facility]) Topical cted_ Cream area} [Lotrisone] Lotrisone 1-0.05 % repaglinide Prandi 04/26/ active Prandin 1 mg eCW3 1 MG Oral n 1 mg 2018 ([place] Tablet 12:00: [place] [Prandin] 00 AM Health Prandin 1 EDT Care) mg repaglinide Prandi 15/ active Prandin 1 mg eCW3 1 MG Oral n 1 mg 2018 ([place] Tablet 12:00: [place] [Prandin] 00 AM Health Prandin 1 EDT Care) mg Betamethaso Lotris 04/26/ 1.0 active Lotriso ne eCW3 ne 0.5 one 2018 {appl 1-0.05 % ([place] MG/ML / 1-0.05 12:00: [place] Clotrimazol % 00 AM on_to Health e 10 MG/ML EDT _[facility]) Topical cted_ Cream area} [Lotrisone] Lotrisone 1-0.05 % repaglinide Prandi 15/ active Prandin 1 mg eCW3 1 MG Oral n 1 mg 2018 ([place] Tablet 12:00: [place] [Prandin] 00 AM Health Prandin 1 EDT Care) mg Betamethaso Lotris 15/ 1.0 active Lotriso ne eCW3 ne 0.5 one 2018 {appl 1-0.05 % ([place] MG/ML / 1-0.05 12:00: [place] Clotrimazol % 00 AM on_to Health e 10 MG/ML EDT _[facility]) Topical cted_ Cream area} [Lotrisone] Lotrisone 1-0.05 % repaglinide Prandi 15/ active Prandin 1 mg eCW3 1 MG Oral n 1 mg 2018 ([place] Tablet 12:00: [place] [Prandin] 00 AM Health Prandin 1 EDT Care) mg Betamethaso Lotris 15/ 1.0 active Lotriso ne eCW3 ne 0.5 one 2018 {appl 1-0.05 % ([place] MG/ML / 1-0.05 12:00: [place] Clotrimazol % 00 AM on_to Health e 10 MG/ML EDT _[facility]) Topical cted_ Cream area} [Lotrisone] Lotrisone 1-0.05 % repaglinide Prandi 15/ active Prandin 1 mg eCW3 1 MG Oral n 1 mg 2018 ([place] Tablet 12:00: [place] [Prandin] 00 AM Health Prandin 1 EDT Care) mg pantoprazol PANTOP 04/07/ DELAYED 30 complet CARNEY TOPRAZOLE MEDGEN (St e 20 MG RAZOLE 2018 RELEASE ed [facility] Delayed :[id number] 12:00: TABLET Medica l, Release 2 00 AM PC) Oral Tablet EDT PANTOPRAZOL E:[id number] pantoprazol PANTOP 04/07/ DELAYED 30 complet CARNEY TOPRAZOLE MEDGEN (St e 20 MG RAZOLE 2018 RELEASE ed [facility] Delayed :[id number] 12:00: TABLET Medica l, Release 2 00 AM PC) Oral Tablet EDT PANTOPRAZOL E:[id number] pantoprazol PANTOP 04/07/ DELAYED 30 complet CARNEY TOPRAZOLE MEDGEN (St e 20 MG RAZOLE 2018 RELEASE ed [facility] Delayed :37995 12:00: TABLET Medica l, Release 2 00 AM PC) Oral Tablet EDT PANTOPRAZOL E:[id number] pantoprazol PANTOP 04/07/ DELAYED 30 complet CARNEY TOPRAZOLE MEDGEN (St e 20 MG RAZOLE 2019 RELEASE ed [facility] Delayed :56337 12:00: TABLET Medica l, Release 2 00 AM PC) Oral Tablet EDT PANTOPRAZOL E:[id number] Amylases Creon 05/30/ active Creon 58026 eCW3 723957 UNT 95109 2019 UNIT ([place] / UNIT 12:00: [place] [facility] 00 AM [facility] [id number] EDT Care) UNT / Lipase 65748 UNT Delayed Release Oral Capsule [Creon] Creon 94587 UNIT Amylases Creon 05/30/ active Creon 36067 eCW3 405004 UNT 94327 2019 UNIT ([place] / UNIT 12:00: [place] [facility] 00 AM [facility] [id number] EDT Care) UNT / Lipase 87091 UNT Delayed Release Oral Capsule [Creon] Creon 20959 UNIT Amylases Creon 05/30/ active Creon 35844 eCW3 979420 UNT 56974 2019 UNIT ([place] / UNIT 12:00: [place] [facility] 00 AM [facility] 855257 EDT Care) UNT / Lipase 70527 UNT Delayed Release Oral Capsule [Creon] Creon 67519 UNIT Amylases Creon 05/30/ active Creon 27962 eCW3 693991 UNT 99979 2019 UNIT ([place] / UNIT 12:00: [place] [facility] 00 AM [facility] 537474 EDT Care) UNT / Lipase 35896 UNT Delayed Release Oral Capsule [Creon] Creon 09731 UNIT Amylases Creon 05/30/ active Creon 96173 eCW3 615279 UNT 21459 2019 UNIT ([place] / UNIT 12:00: [place] [facility] 00 AM [facility] 608321 EDT Care) UNT / Lipase 52375 UNT Delayed Release Oral Capsule [Creon] Creon 45363 UNIT Amylases Creon 05/30/ active Creon 76308 eCW3 570765 UNT 28936 2019 UNIT ([place] / UNIT 12:00: [place] [facility] 00 AM [facility] 274649 EDT Care) UNT / Lipase 36529 UNT Delayed Release Oral Capsule [Creon] Creon 12480 UNIT Amylases CREON: 03/10/ DELAYED 180 complet CREON MEDGEN (St 944932 UNT 194086 4270 RELEASE ed [facility] / 7 12:00: CAPSULE Medical, Endopeptida 00 AM PC) ses 709395 EDT UNT / Lipase 47933 UNT Delayed Release Oral Capsule [Creon] CREON:68426 27 clopidogrel CLOPID 29/ TABLET 30 complet CLOP IDOGREL MEDGEN (St 75 MG Oral OGREL: 2018 ed [facility] Tablet 770373 12:00: Medical, CLOPIDOGREL 00 AM PC) :101170 EDT clopidogrel CLOPID 29/ TABLET 30 complet CLOP IDOGREL MEDGEN (St 75 MG Oral OGREL: 2018 ed [facility] Tablet [id number] 12:00: Medical, CLOPIDOGREL 00 AM PC) :[id number] EDT Amylases CREON: 03/10/ DELAYED 180 complet CREON MEDGEN (St 719387 UNT [id number] 4493 RELEASE ed s 12:00: CAPSULE Medical, Endopeptida 00 AM PC) ses 492321 EDT UNT / Lipase 17910 UNT Delayed Release Oral Capsule [Creon] CREON:43175 27 clopidogrel CLOPID 29/ TABLET 30 complet CLOP IDOGREL MEDGEN (St 75 MG Oral OGREL: 2018 ed [facility] Tablet [id number] 12:00: Medical, CLOPIDOGREL 00 AM PC) :[id number] EDT clopidogrel CLOPID 29/ TABLET 30 complet CLOP IDOGREL MEDGEN (St 75 MG Oral OGREL: 2018 ed [facility] Tablet [id number] 12:00: Medical, CLOPIDOGREL 00 AM PC) :[id number] EDT Amylases CREON: 03/10/ DELAYED 180 complet CREON MEDGEN (St 891139 UNT [id number] 9049 RELEASE ed 12:00: CAPSULE Medical, Endopeptida 00 AM PC) ses 211859 EDT UNT / Lipase 41843 UNT Delayed Release Oral Capsule [Creon] CREON:66185 27 Amylases CREON: 03/10/ DELAYED 180 complet CREON MEDGEN (St 270594 UNT [id number] 0397 RELEASE ed 12:00: CAPSULE Medical, Endopeptida 00 AM PC) ses 224189 EDT UNT / Lipase 64911 UNT Delayed Release Oral Capsule [Creon] CREON:54291 27 Diazepam 2 Diazep 02/01/ active Diazepam 2 eCW3 MG Oral am 2 2019 MG ([place] Tablet MG 12:00: [place] 00 AM [facility] EDT Care) DICLOFENAC complet DICLOFENA C MEDGEN (St SODIUM 2019 ed SODIUM [facility] EXTERNAL 12:00: EXTERNAL Medic al, CREAM PRISON: 00 AM CREAM PRISON PC) EDT Acetaminoph ACETAM /20/ complet ACETAM INOPHE MEDGEN (St en 325 MG INOPHE 2019 ed N [facility] Oral Tablet N:3137 12:00: [facility] soledad, ACETAMINOPH 82 00 AM PC) EN:[id number] EDT Docusate DOCUSA 03/20/ TABLET 30 complet DOCUSAT E MEDGEN (St Sodium 100 TE 2019 ed SODIUM [facility] MG Oral SODIUM 12:00: Medical, Tablet :03530 00 AM PC) DOCUSATE 79 EDT SODIUM:1099 279 Gemfibrozil GEMFIB 03/20/ TABLET 30 complet GEMF IBROZIL MEDGEN (St 600 MG Oral ROZIL: 2019 ed [facility] Tablet [id number] 12:00: Medical, GEMFIBROZIL 00 AM PC) :[id number] EDT Enalapril ENALAP 03/20/ TABLET 30 complet ENALAP RIL MEDGEN (St Maleate 10 RIL 2018 ed MALEATE [facility] MG Oral MALEAT 12:00: Medical, Tablet E:8588 00 AM PC) ENALAPRIL 17 EDT MALEATE:858 817 3 ML LEVEMI 03/20/ SOLUTION 30 complet LEVEMIR Nat FERRER (St insulin R 2019 ed FLEXTOUCH [facility] detemir 100 FLEXTO 12:00: [facility] soledad, UNT/ML Pen UCH:84 00 AM PC) Injector 7241 EDT [Levemir] LEVEMIR FLEXTOUCH:8 01842 Gemfibrozil GEMFIB /20/ TABLET 30 complet GEMF IBROZIL MEDGEN (St 600 MG Oral ROZIL: 2019 ed [facility] Tablet 994483 12:00: Medical, GEMFIBROZIL 00 AM PC) :[id number] EDT DICLOFENAC /20/ 30 complet DICLOFENA C MEDGEN (St SODIUM 2019 ed SODIUM [facility] EXTERNAL 12:00: EXTERNAL Medic al, CREAM PRISON: 00 AM CREAM PRISON PC) EDT Enalapril ENALAP 03/20/ TABLET 30 complet ENALAP RIL MEDGEN (St Maleate 10 RIL 2018 ed MALEATE [facility] MG Oral MALEAT 12:00: Medical, Tablet E:8588 00 AM PC) ENALAPRIL 17 EDT MALEATE:858 817 Docusate DOCUSA /20/ TABLET 30 complet DOCUSAT E MEDGEN (St Sodium 100 TE 2019 ed SODIUM [facility] MG Oral SODIUM 12:00: Medical, Tablet :37331 00 AM PC) DOCUSATE 79 EDT SODIUM:1099 279 POLYETHYLEN // POWDER 1 complet POLYET HYLENE MEDGEN (St E GLYCOL 2019 FOR ed GLYCOL 3350 [facility] 3350:920988 12:00: RECONSTI Me dical, 00 AM TUTION PC) EDT Vitamin B VITAMI /20/ TABLET 30 complet VITAMI N B12 MEDGEN (St 12 1 MG N 2019 ed [facility] Oral Tablet B12:30 12:00: Medi soledad, VITAMIN 9593 00 AM PC) B12:654235 EDT atorvastati LIPITO /20/ TABLET 30 complet LIPI TOR MEDGEN (St n 40 MG R:6173 2018 ed [facility] Oral Tablet 20 12:00: Medica l, [Lipitor] 00 AM PC) LIPITOR:617 EDT 320 Metformin METFOR /20/ TABLET 30 complet METFOR MIN MEDGEN (St hydrochlori MIN 2019 ed HYDROCHLORID [facility] de 1000 MG HYDROC 12:00: E Medic al, Oral Tablet HLORID 00 AM PC) METFORMIN E:8610 EDT HYDROCHLORI 04 DE:[id number] 24 HR METOPR /20/ TABLET, 30 complet METOPROLO L MEDGEN (St metoprolol OLOL 2019 EXTENDED ed SUCCINATE ER [facility] succinate SUCCIN 12:00: RELEASE Med ical, 50 MG ATE 00 AM PC) Extended ER:866 EDT Release 436 Oral Tablet METOPROLOL SUCCINATE ER:[id number] atorvastati LIPITO /20/ TABLET 30 complet LIPI TOR MEDGEN (St n 40 MG R:6173 2019 ed [facility] Oral Tablet 20 12:00: Medica l, [Lipitor] 00 AM PC) LIPITOR:617 EDT 320 3 ML LEVEMI 12/30/ SOLUTION 30 complet LEVEMIR Nat FERRER (St insulin R 2019 ed FLEXTOUCH [facility] detemir 100 FLEXTO 12:00: Medi soledad, UNT/ML Pen UCH:84 00 AM PC) Injector 7241 EDT [Levemir] LEVEMIR FLEXTOUCH:8 [id number] 24 HR METOPR 03/20/ TABLET, 30 complet METOPROLO L MEDGEN ( metoprolol OLOL 2019 EXTENDED ed SUCCINATE ER [facility] succinate SUCCIN 12:00: RELEASE Med ical, 50 MG ATE 00 AM PC) Extended ER:866 EDT Release 436 Oral Tablet METOPROLOL SUCCINATE ER:[id number] Metformin METFOR 03/20/ TABLET 30 complet METFOR MIN MEDGEN ( hydrochlori MIN 2019 ed HYDROCHLORID [facility] de 1000 MG HYDROC 12:00: E Medic al, Oral Tablet HLORID 00 AM PC) METFORMIN E:8610 EDT HYDROCHLORI 04 DE:[id number] Vitamin B VITAMI /20/ TABLET 30 complet VITAMI N B12 MEDGEN (St 12 1 MG N 2019 ed [facility] Oral Tablet B12:30 12:00: Medi soledad, VITAMIN 9593 00 AM PC) B12:305144 EDT Cholecalcif VITAMI 03/20/ CAPSULE 30 complet VIT ZUNIGA D3 MEDGEN ( reymundo 81651 N 2018 ed [facility] UNT Oral D3:685 12:00: Medical , Capsule 054 00 AM PC) VITAMIN EDT D3:643409 POLYETHYLEN 12/30/ POWDER 1 complet POLYET HYLENE MEDGEN ( E GLYCOL 2019 FOR ed GLYCOL 3350 [facility] [id number] 12:00: RECONSTI dical, 00 AM TUTION PC) EDT Cholecalcif VITAMI /20/ CAPSULE 30 complet VIT ZUNIGA D3 MEDGEN (St reymundo 82773 N 2019 ed [facility] UNT Oral D3:685 12:00: Medical , Capsule 054 00 AM PC) VITAMIN EDT D3:123787 Acetaminoph ACETAM 12/30/ complet ACETAM INOPHE MEDGEN ( en 325 MG INOPHE 2019 ed N [facility] Oral Tablet N:3137 12:00: Medi soledad, ACETAMINOPH 82 00 AM PC) EN:[id number] EDT 3 ML LEVEMI 12/30/ SOLUTION 30 complet LEVEMIR Nat FERRER ( insulin R 2019 ed FLEXTOUCH [facility] detemir 100 FLEXTO 12:00: Medi soledad, UNT/ML Pen UCH:84 00 AM PC) Injector 7241 EDT [Levemir] LEVEMIR FLEXTOUCH:8 [id number] atorvastati LIPITO 03/20/ TABLET 30 complet LIPI TOR MEDGEN (St n 40 MG R:6173 2018 ed [facility] Oral Tablet 20 12:00: Medica l, [Lipitor] 00 AM PC) LIPITOR:617 EDT 320 Metformin METFOR 03/20/ TABLET 30 complet METFOR MIN MEDGEN (St hydrochlori MIN 2019 ed HYDROCHLORID Johns de 1000 MG HYDROC 12:00: E Medic al, Oral Tablet HLORID 00 AM PC) METFORMIN E:8610 EDT HYDROCHLORI 04 DE:[id number] 24 HR METOPR 03/20/ TABLET, 30 complet METOPROLO L MEDGEN (St metoprolol OLOL 2019 EXTENDED ed SUCCINATE ER [facility] succinate SUCCIN 12:00: RELEASE Med ical, 50 MG ATE 00 AM PC) Extended ER:866 EDT Release 436 Oral Tablet METOPROLOL SUCCINATE ER:[id number] Gemfibrozil GEMFIB 03/20/ TABLET 30 complet GEMF IBROZIL MEDGEN (St 600 MG Oral ROZIL: 2019 ed [facility] Tablet [id number] 12:00: Medical, GEMFIBROZIL 00 AM PC) :[id number] EDT Cholecalcif VITAMI 03/20/ CAPSULE 30 complet VIT ZUNIGA D3 MEDGEN (St reymundo 27790 N 2019 ed [facility] UNT Oral D3:685 12:00: Medical , Capsule 054 00 AM PC) VITAMIN EDT D3:712258 Vitamin B VITAMI 03/20/ TABLET 30 complet VITAMI N B12 MEDGEN (St 12 1 MG N 2019 ed [facility] Oral Tablet B12:30 12:00: Medi soledad, VITAMIN 9593 00 AM PC) B12:870682 EDT POLYETHYLEN 03/20/ POWDER 1 complet POLYET HYLENE MEDGEN (St E GLYCOL 2019 FOR ed GLYCOL 3350 [facility] [id number] 12:00: RECONSTI Me dical, 00 AM TUTION PC) EDT Vitamin B VITAMI 03/20/ TABLET 30 complet VITAMI N B12 MEDGEN (St 12 1 MG N 2019 ed [facility] Oral Tablet B12:30 12:00: Medi soledad, VITAMIN 9593 00 AM PC) B12:855436 EDT Cholecalcif VITAMI 03/20/ CAPSULE 30 complet VIT ZUNIGA D3 MEDGEN (St reymundo 81804 N 2019 ed [facility] UNT Oral D3:685 12:00: Medical , Capsule 054 00 AM PC) VITAMIN EDT D3:304009 24 HR METOPR 03/20/ TABLET, 30 complet METOPROLO L MEDGEN (St metoprolol OLOL 2019 EXTENDED ed SUCCINATE ER [facility] succinate SUCCIN 12:00: RELEASE Med ical, 50 MG ATE 00 AM PC) Extended ER:866 EDT Release 436 Oral Tablet METOPROLOL SUCCINATE ER:000811 POLYETHYLEN 03/20/ POWDER 1 complet POLYET HYLENE MEDGEN (St E GLYCOL 2019 FOR ed GLYCOL 3350 [facility] [id number] 12:00: RECONSTI Me dical, 00 AM TUTION PC) EDT Metformin METFOR 03/20/ TABLET 30 complet METFOR MIN MEDGEN (St hydrochlori MIN 2019 ed HYDROCHLORID [facility] de 1000 MG HYDROC 12:00: E Medic al, Oral Tablet HLORID 00 AM PC) METFORMIN E:8610 EDT HYDROCHLORI 04 DE:[id number] atorvastati LIPITO /20/ TABLET 30 complet LIPI TOR MEDGEN (St n 40 MG R:6173 2019 ed [facility] Oral Tablet 20 12:00: Medica l, [Lipitor] 00 AM PC) LIPITOR:617 EDT 320 3 ML LEVEMI 03/20/ SOLUTION 30 complet LEVEMIR M NABIL (St insulin R 2019 ed FLEXTOUCH [facility] detemir 100 FLEXTO 12:00: Medi soledad, UNT/ML Pen UCH:84 00 AM PC) Injector 7241 EDT [Levemir] LEVEMIR FLEXTOUCH:8 [id number] Gemfibrozil GEMFIB 03/20/ TABLET 30 complet GEMF IBROZIL MEDGEN (St 600 MG Oral ROZIL: 2019 ed [facility] Tablet [id number] 12:00: Medical, GEMFIBROZIL 00 AM PC) :[id number] EDT Enalapril ENALAP 03/20/ TABLET 30 complet ENALAP RIL MEDGEN (St Maleate 10 RIL 2019 ed MALEATE [facility] MG Oral MALEAT 12:00: Medical, Tablet E:8588 00 AM PC) ENALAPRIL 17 EDT MALEATE:858 817 Docusate DOCUSA 03/20/ TABLET 30 complet DOCUSAT E MEDGEN (St Sodium 100 TE 2019 ed SODIUM [facility] MG Oral SODIUM 12:00: Medical, Tablet :10684 00 AM PC) DOCUSATE 79 EDT SODIUM:1099 279 Acetaminoph ACETAM 12/30/ complet ACETAM INOPHE MEDGEN (St en 325 MG INOPHE 2018 ed N [facility] Oral Tablet N:3137 12:00: Medi soledad, ACETAMINOPH 82 00 AM PC) EN:760644 EDT Enalapril ENALAP 12/30/ TABLET 30 complet ENALAP RIL MEDGEN (St Maleate 10 RIL 2018 ed MALEATE [facility] MG Oral MALEAT 12:00: Medical, Tablet E:8588 00 AM PC) ENALAPRIL 17 EDT MALEATE:858 817 Docusate DOCUSA 12/30/ TABLET 30 complet DOCUSAT E MEDGEN (St Sodium 100 TE 2018 ed SODIUM [facility] MG Oral SODIUM 12:00: Medical, Tablet :44511 00 AM PC) DOCUSATE 79 EDT SODIUM:1099 279 DICLOFENAC complet DICLOFENA C MEDGEN (St SODIUM 2019 ed SODIUM [facility] EXTERNAL 12:00: EXTERNAL Medic al, CREAM PRISON: 00 AM CREAM PRISON PC) EDT Acetaminoph ACETAM 12/30/ complet ACETAM INOPHE MEDGEN (St en 325 MG INOPHE 2018 ed N [facility] Oral Tablet N:3137 12:00: Medi soledad, ACETAMINOPH 82 00 AM PC) EN:543661 EDT DICLOFENAC complet DICLOFENA C MEDGEN (St SODIUM 2019 ed SODIUM [facility] EXTERNAL 12:00: EXTERNAL Medic al, CREAM PRISON: 00 AM CREAM PRISON PC) EDT Clotrimazol Clotri 12/24/ 1.0 active Clotrim azole eCW3 e 10 MG/ML mazole 2018 {appl 1 % ([facility] Topical 1 % 12:00: icati [facility] Cream 00 AM on_to Health Clotrimazol EDT _affe Care) e 1 % cted_ area} Diclofenac Diclof 08/14/ active Diclofen ac eCW3 Sodium 0.01 2017 Sodium 1 % ([facility] MG/MG Sodium 12:00: [facility] Topical Gel 1 % 00 AM Health Diclofenac EDT Care) Sodium 1 % Diclofenac Diclof 08/14/ active Diclofen ac eCW3 Sodium 0.01 2017 Sodium 1 % ([facility] MG/MG Sodium 12:00: [facility] Topical Gel 1 % 00 AM Health Diclofenac EDT Care) Sodium 1 % Ranitidine Raniti 1.0 active Ranitidi ne eCW3 150 MG Oral dine 2018 {tabl HCl 150 MG ( [facility] Tablet HCl 12:00: et_at [facility] Ranitidine 150 MG 00 AM _bedt Healt h HCl 150 MG EDT [place]} Care) Ranitidine Raniti .0 active Ranitidi ne eCW3 150 MG Oral dine 2018 {tabl HCl 150 MG ( [facility] Tablet HCl 12:00: et_at [facility] Ranitidine 150 MG 00 AM _bedt Healt h HCl 150 MG EDT [place]} Care) Diclofenac Diclof 08/14/ active Diclofen ac eCW3 Sodium 0.01 2017 Sodium 1 % ([facility] MG/MG Sodium 12:00: [facility] Topical Gel 1 % 00 AM Health Diclofenac EDT Care) Sodium 1 % Diclofenac Diclof 08/14/ active Diclofen ac eCW3 Sodium 0.01 2017 Sodium 1 % ([facility] MG/MG Sodium 12:00: [facility] Topical Gel 1 % 00 AM Health Diclofenac EDT Care) Sodium 1 % Ranitidine Raniti .0 active Ranitidi ne eCW3 150 MG Oral dine 2018 {tabl HCl 150 MG ( [facility] Tablet HCl 12:00: et_at [facility] Ranitidine 150 MG 00 AM _bedt Healt h HCl 150 MG EDT [place]} Care) Ranitidine Raniti .0 active Ranitidi ne eCW3 150 MG Oral dine 2017 {tabl HCl 150 MG ( [facility] Tablet HCl 12:00: et_at [facility] Ranitidine 150 MG 00 AM _bedt Healt h HCl 150 MG EDT [place]} Care) Diclofenac Diclof 08/14/ active Diclofen ac eCW3 Sodium 0.01 2017 Sodium 1 % ([facility] MG/MG Sodium 12:00: [facility] Topical Gel 1 % 00 AM Health Diclofenac EDT Care) Sodium 1 % Ranitidine Raniti .0 active Ranitidi ne eCW3 150 MG Oral dine 2017 {tabl HCl 150 MG ( [facility] Tablet HCl 12:00: et_at [facility] Ranitidine 150 MG 00 AM _bedt Healt h HCl 150 MG EDT [place]} Care) Diclofenac Diclof 08/14/ active Diclofen ac eCW3 Sodium 0.01 2017 Sodium 1 % ([facility] MG/MG Sodium 12:00: [facility] Topical Gel 1 % 00 AM Health Diclofenac EDT Care) Sodium 1 % Diclofenac Diclof 08/14/ active Diclofen ac eCW3 Sodium 0.01 2017 Sodium 1 % ([facility] MG/MG Sodium 12:00: [facility] Topical Gel 1 % 00 AM Health Diclofenac EDT Care) Sodium 1 % Ranitidine Raniti 1.0 active Ranitidi ne eCW3 150 MG Oral dine 2018 {tabl HCl 150 MG ( [facility] Tablet HCl 12:00: et_at [facility] Ranitidine 150 MG 00 AM _bedt Healt h HCl 150 MG EDT [place]} Care) 24 HR Metopr 1.0 active Metoprolol eC W3 metoprolol olol 2017 {tabl Succinate ER ([facility] succinate Succin 12:00: et} 50 mg [facility] 50 MG ate ER 00 AM Health Extended 50 mg EDT Care) Release Oral Tablet Metoprolol Succinate ER 50 mg 24 HR Metopr 1.0 active Metoprolol eC W3 metoprolol olol 2018 {tabl Succinate ER ([facility] succinate Succin 12:00: et} 50 mg [facility] 50 MG ate ER 00 AM Health Extended 50 mg EDT Care) Release Oral Tablet Metoprolol Succinate ER 50 mg 24 HR Metopr 1.0 active Metoprolol eC W3 metoprolol olol 2017 {tabl Succinate ER ([facility] succinate Succin 12:00: et} 50 mg [facility] 50 MG ate ER 00 AM Health Extended 50 mg EDT Care) Release Oral Tablet Metoprolol Succinate ER 50 mg 24 HR Metopr 1.0 active Metoprolol eC W3 metoprolol olol 2018 {tabl Succinate ER ([facility] succinate Succin 12:00: et} 50 mg [facility] 50 MG ate ER 00 AM Health Extended 50 mg EDT Care) Release Oral Tablet Metoprolol Succinate ER 50 mg 24 HR Metopr 1.0 active Metoprolol eC W3 metoprolol olol 2017 {tabl Succinate ER ([facility] succinate Succin 12:00: et} 50 mg [facility] 50 MG ate ER 00 AM Health Extended 50 mg EDT Care) Release Oral Tablet Metoprolol Succinate ER 50 mg 24 HR Metopr 04/30/ active 1 tablet eCW2 metoprolol olol 2018 ([facility] succinate Succin 12:00: [facility] 50 MG ate ER 00 AM Health Extended 50 mg EDT Care) Release Oral Tablet Metoprolol Succinate ER 50 mg 24 HR Metopr 04/30/ 1.0 active Metoprolol eC W3 metoprolol olol 2018 {tabl Succinate ER ([facility] succinate Succin 12:00: et} 50 mg [facility] 50 MG ate ER 00 AM Health Extended 50 mg EDT Care) Release Oral Tablet Metoprolol Succinate ER 50 mg 24 HR Metopr .0 active Metoprolol eC W3 metoprolol olol 2018 {tabl Succinate ER ([facility] succinate Succin 12:00: et} 50 mg [facility] 50 MG ate ER 00 AM Health Extended 50 mg EDT Care) Release Oral Tablet Metoprolol Succinate ER 50 mg Alcohol Alcoho 12/23/ active as directed eCW2 Pads 70 % l Pads 2017 ([facility] 70 % 12:00: [facility] 00 AM Health EDT Care) Pen [place] Pen 12/23/ active Pen Needl es eCW3 16" 31G X Needle 12/26" 31G X ([facility] 5 MM s 12:00: 5 MM [facility] 12/26" 00 AM Health 31G X EDT Care) 5 MM Alcohol Alcoho 12/23/ active Alcohol Pad s eCW3 Pads 70 % l Pads 2018 70 % ([facility] 70 % 12:00: [facility] 00 AM Health EDT Care) Pen [place] Pen 12/23/ active Pen Needl es eCW3 16" 31G X Needle 12/26" 31G X ([facility] 5 MM s 12:00: 5 MM [facility] 12/26" 00 AM Health 31G X EDT Care) 5 MM BASAGLAR BASAGL 12/23/ active BASAGLAR e CW3 KWIKPEN 100 2017 KWIKPEN 100 ( [facility] unit/ml KWIKPE 12:00: unit/ml [facility] N 100 00 AM Health unit/m EDT Care) l BASAGLAR BASAGL 12/23/ active BASAGLAR e CW3 KWIKPEN 100 2017 KWIKPEN 100 ( [facility] unit/ml KWIKPE 12:00: unit/ml [facility] N 100 00 AM Health unit/m EDT Care) l Pen [place] Pen 12/23/ active Pen Needl es eCW3 316" 31G X Needle 2018 12/26" 31G X ([facility] 5 MM s 12:00: 5 MM [facility] 12/26" 00 AM Health 31G X EDT Care) 5 MM Alcohol Alcoho 12/23/ active Alcohol Pad s eCW3 Pads 70 % l Pads 2017 70 % ([facility] 70 % 12:00: [facility] 00 AM Health EDT Care) LIU HERNANDEZAGL 12/23/ active BASAGLAR e CW3 KWIKPEN 100 AR 2017 KWIKPEN 100 ( [facility] unit/ml KWIKPE 12:00: unit/ml [facility] N 100 00 AM Health unit/m EDT Care) l Pen [place] Pen 12/23/ active Pen Needl es eCW3 316" 31G X Needle 2018 12/26" 31G X ([facility] 5 MM s 12:00: 5 MM [facility] 12/26" 00 AM Health 31G X EDT Care) 5 MM Alcohol Alcoho 12/23/ active Alcohol Pad s eCW3 Pads 70 % l Pads 2017 70 % ([facility] 70 % 12:00: [facility] 00 AM Health EDT Care) liu hernandezagl 12/23/ active 25 units A s eCW2 kwikpen 100 ar 2018 directed ([facility] unit/ml kwikpe 12:00: [facility] n 100 00 AM Health unit/m EDT Care) l Alcohol Alcoho 12/23/ active Alcohol Pad s eCW3 Pads 70 % l Pads 2017 70 % ([facility] 70 % 12:00: [facility] 00 AM Health EDT Care) Alcohol Alcoho 12/23/ active Alcohol Pad s eCW3 Pads 70 % l Pads 2017 70 % ([facility] 70 % 12:00: [facility] 00 AM Health EDT Care) LIU HERNANDEZAGL 12/23/ active BASAGLAR e CW3 KWIKPEN 100 AR 2017 KWIKPEN 100 ( [facility] unit/ml KWIKPE 12:00: unit/ml [facility] N 100 00 AM Health unit/m EDT Care) l Alcohol Alcoho 12/23/ active Alcohol Pad s eCW3 Pads 70 % l Pads 2017 70 % ([facility] 70 % 12:00: [facility] 00 AM Health EDT Care) Pen [place] Pen 12/23/ active as direct ed eCW2 12/26" 31G X Needle 2017 ([facility] 5 MM s 12:00: [facility] 16" 00 AM Health 31G X EDT Care) 5 MM Pen [place] Pen 12/23/ active Pen Needl es eCW3 12/26" 31G X Needle 2018 12/26" 31G X ([facility] 5 MM s 12:00: 5 MM [facility] 12/26" 00 AM Health 31G X EDT Care) 5 MM Pen [place] Pen 12/23/ active Pen Needl es eCW3 12/26" 31G X Needle 2018 12/26" 31G X ([facility] 5 MM s 12:00: 5 MM [facility] 12/26" 00 AM Health 31G X EDT Care) 5 MM BASAGLAR BASAGL 12/23/ active BASAGLAR e CW3 KWIKPEN 100 AR 2017 KWIKPEN 100 ( [facility] unit/ml KWIKPE 12:00: unit/ml [facility] N 100 00 AM Health unit/m EDT Care) l BASAGLAR BASAGL 12/23/ suspend BASAGLAR eCW3 KWIKPEN 100 AR 2018 ed KWIKPEN 100 ( [facility] unit/ml KWIKPE 12:00: unit/ml [facility] N 100 00 AM Health unit/m EDT Care) l BASAGLAR BASAGL 12/23/ active BASAGLAR e CW3 KWIKPEN 100 AR 2017 KWIKPEN 100 ( [facility] unit/ml KWIKPE 12:00: unit/ml [facility] N 100 00 AM Health unit/m EDT Care) l Pen [place] Pen 12/23/ active Pen Needl es eCW3 12/26" 31G X Needle 12/26" 31G X ([facility] 5 MM s 12:00: 5 MM [facility] 16" 00 AM Health 31G X EDT Care) 5 MM Alcohol Alcoho 12/23/ active Alcohol Pad s eCW3 Pads 70 % l Pads 2017 70 % ([facility] 70 % 12:00: [facility] 00 AM Health EDT Care) Lancet Lancet 12/15/ active Lancet eCW3 Device - Device 2018 Device - ([facility] - 12:00: [facility] 00 AM Health EST Care) Lancet Lancet 12/15/ active Lancet eCW3 Device - Device 2018 Device - ([facility] - 12:00: [facility] 00 AM Health EST Care) Lancet Lancet 03/05/ active Lancet eCW3 Device - Device 2018 Device - ([facility] - 12:00: [facility] 00 AM Health EST Care) Lancet Lancet 03/05/ active as directed eCW2 Device - Device 2018 ([facility] - 12:00: [facility] 00 AM Health EST Care) Lancet Lancet 03/05/ active Lancet eCW3 Device - Device 2018 Device - ([facility] - 12:00: [facility] 00 AM Health EST Care) Lancet Lancet 03/05/ active Lancet eCW3 Device - Device 2018 Device - ([facility] - 12:00: [facility] 00 AM Health EST Care) Lancet Lancet 03/05/ active Lancet eCW3 Device - Device 2018 Device - ([facility] - 12:00: [facility] 00 AM Health EST Care) Lancet Lancet 03/05/ active Lancet eCW3 Device - Device 2018 Device - ([facility] - 12:00: [facility] 00 AM Health EST Care) FreeStyle FreeSt 11/18/ active FreeStyle eCW3 Lite Test - yle 2018 Lite Test - ( [place] Lite 12:00: [facility] Test - 00 AM Health EST Care) FreeStyle FreeSt 11/18/ active FreeStyle eCW3 Lite Test - yle 2018 Lite Test - ( [place] Lite 12:00: [facility] Test - 00 AM Health EST Care) FreeStyle FreeSt 11/18/ active FreeStyle eCW3 Lite Test - yle 2018 Lite Test - ( [place] Lite 12:00: [facility] Test - 00 AM Health EST Care) FreeStyle FreeSt 11/18/ active FreeStyle eCW3 Lite Test - yle 2018 Lite Test - ( [place] Lite 12:00: [facility] Test - 00 AM Health EST Care) FreeStyle FreeSt 11/18/ active FreeStyle eCW3 Lite Test - yle 2018 Lite Test - ( [facility] Lite 12:00: [facility] Test - 00 AM Health EST Care) FreeStyle FreeSt 11/18/ active FreeStyle eCW3 Lite Test - yle 2018 Lite Test - ( [place] Lite 12:00: [facility] Test - 00 AM Health EST Care) FreeStyle FreeSt 02/06/ active FreeStyle eCW3 Lite Test - yle 2018 Lite Test - ( [place] Lite 12:00: [facility] Test - 00 AM Health EST Care) FreeStyle FreeSt 11/18/ active as direct ed eCW2 Lite Test - yle 2017 ([facility] Lite 12:00: [facility] Test - 00 AM Health EST Care) Gemfibrozil Gemfib .0 active Gemfibr ozil eCW3 600 MG Oral rozil 2017 {tabl 600 MG ([facility] Tablet 600 MG 12:00: et} [facility] 00 AM Health EDT Care) Gemfibrozil Gemfib 04/21/ active 1 table t eCW2 600 MG Oral rozil 2016 ([facility] Tablet 600 MG 12:00: [facility] 00 AM Health EDT Care) Gemfibrozil Gemfib .0 active Gemfibr ozil eCW3 600 MG Oral rozil 2017 {tabl 600 MG ([facility] Tablet 600 MG 12:00: et} [facility] 00 AM Health EDT Care) Gemfibrozil Gemfib .0 active Gemfibr ozil eCW3 600 MG Oral rozil 2017 {tabl 600 MG ([facility] Tablet 600 MG 12:00: et} [facility] 00 AM Health EDT Care) Gemfibrozil Gemfib .0 active Gemfibr ozil eCW3 600 MG Oral rozil 2017 {tabl 600 MG ([facility] Tablet 600 MG 12:00: et} [facility] 00 AM Health EDT Care) Gemfibrozil Gemfib .0 active Gemfibr ozil eCW3 600 MG Oral rozil 2017 {tabl 600 MG ([facility] Tablet 600 MG 12:00: et} [facility] 00 AM Health EDT Care) Gemfibrozil Gemfib .0 active Gemfibr ozil eCW3 600 MG Oral rozil 2017 {tabl 600 MG ([facility] Tablet 600 MG 12:00: et} [facility] 00 AM Health EDT Care) Acetaminoph Acetam 10/30/ active 2 table ts as eCW2 en 325 MG inophe 2017 needed ([facility] Oral Tablet n 325 12:00: [facility] MG 00 AM Health EST Care) Acetaminoph Acetam 10/30/ 2.0 active Acetami nophe eCW3 en 325 MG inophe 2016 {tabl n 325 MG ([facility] d[facility] Oral Tablet n 325 12:00: ets_a [facility] r MG 00 AM s_nee Health EST ded} Care) 24 HR GlipiZ 05/31/ active 2 pills eCW2 Glipizide 5 LEVAR ER 2015 ([facility] MG Extended 5 MG 12:00: [facility] Release 00 AM Health Oral Tablet EDT Care) GlipiZIDE ER 5 MG 24 HR GlipiZ 1.0 active GlipiZIDE ER eCW3 Glipizide 5 LEVAR ER 2015 {tabl 5 MG ([facility] MG Extended 5 MG 12:00: et} [facility] Release 00 AM Health Oral Tablet EDT Care) GlipiZIDE ER 5 MG FreeStyle UNK 12/17/ active as directed eCW2 Lite 2015 ([facility] compatible 12:00: [facility] with 00 AM Health patient EST Care) insurance FreeStyle UNK 12/17/ active FreeStyle e CW3 Lite 2016 Lite ([facility] compatible 12:00: compatible R iver with 00 AM with patient Health patient EST insurance Care) insurance FreeStyle UNK 12/17/ active FreeStyle e CW3 Lite 2015 Lite ([facility] compatible 12:00: compatible R iver with 00 AM with patient Health patient EST insurance Care) insurance Alcohol Alcoho 12/17/ active Alcohol Pad s eCW3 Pads 70 % l Pads 2015 70 % ([facility] 70 % 12:00: [facility] 00 AM Health EST Care) Alcohol Alcoho 12/17/ active Alcohol Pad s eCW3 Pads 70 % l Pads 2015 70 % ([place] 70 % 12:00: [facility] 00 AM Health EST Care) FreeStyle UNK 12/17/ active FreeStyle e CW3 Lite 2015 Lite ([facility] compatible 12:00: compatible R iver with 00 AM with patient Health patient EST insurance Care) insurance Alcohol Alcoho 12/17/ active as directed eCW2 Pads 70 % l Pads 2015 ([place] 70 % 12:00: [facility] 00 AM Health EST Care) FreeStyle UNK 12/17/ active FreeStyle e CW3 Lite 2015 Lite ([facility] compatible 12:00: compatible R iver with 00 AM with patient Health patient EST insurance Care) insurance FreeStyle UNK 12/17/ active FreeStyle e CW3 Lite 2016 Lite ([place] compatible 12:00: compatible R iver with 00 AM with patient Health patient EST insurance Care) insurance FreeStyle UNK 12/17/ active FreeStyle e CW3 Lite 2016 Lite ([facility] compatible 12:00: compatible R iver with 00 AM with patient Health patient EST insurance Care) insurance Alcohol Alcoho 12/17/ active Alcohol Pad s eCW3 Pads 70 % l Pads 2016 70 % ([place] 70 % 12:00: [facility] 00 AM Health EST Care) Alcohol Alcoho 12/17/ active Alcohol Pad s eCW3 Pads 70 % l Pads 2015 70 % ([place] 70 % 12:00: [facility] 00 AM Health EST Care) Alcohol Alcoho 12/17/ active Alcohol Pad s eCW3 Pads 70 % l Pads 2015 70 % ([place] 70 % 12:00: [facility] 00 AM Health EST Care) Alcohol Alcoho 12/17/ active Alcohol Pad s eCW3 Pads 70 % l Pads 2016 70 % ([place] 70 % 12:00: [facility] 00 AM Health EST Care) FreeStyle UNK 12/17/ active FreeStyle e CW3 Lite 2016 Lite ([facility] compatible 12:00: compatible R iver with 00 AM with patient Health patient EST insurance Care) insurance Alcohol Alcoho 12/17/ active Alcohol Pad s eCW3 Pads 70 % l Pads 2016 70 % ([place] 70 % 12:00: [facility] 00 AM Health EST Care) Lancets 1 UNK 1117/ active Lancets 1 e CW3 Pack 2014 Pack ([facility] 12:00: [facility] 00 AM Health EST Care) Lancets 1 UNK 17/ active Lancets 1 e CW3 Pack 2014 Pack ([place] 12:00: [facility] 00 AM Health EST Care) Lancets 1 UNK 17/ active Lancets 1 e CW3 Pack 2014 Pack ([place] 12:00: [facility] 00 AM Health EST Care) Lancets 1 UNK 17/ active Lancets 1 e CW3 Pack 2014 Pack ([place] 12:00: [facility] 00 AM Health EST Care) Lancets 1 UNK 08/29/ active as directed eCW2 Pack 2014 ([facility] 12:00: [facility] 00 AM Health EST Care) Lancets 1 UNK 08/29/ active Lancets 1 e CW3 Pack 2015 Pack ([place] 12:00: [facility] 00 AM Health EST Care) Lancets 1 UNK 08/29/ active Lancets 1 e CW3 Pack 2015 Pack ([place] 12:00: [facility] 00 AM Health EST Care) Lancets 1 UNK 08/29/ active Lancets 1 e CW3 Pack 2015 Pack ([place] 12:00: [facility] 00 AM Health EST Care) atorvastati Lipito .0 active Lipitor 40 eCW3 n 40 MG r 40 2013 {tabl mg ([facility] Oral Tablet mg 12:00: et} [facility] [Lipitor] 00 AM Health Lipitor 40 EDT Care) mg atorvastati Lipito .0 active Lipitor 40 eCW3 n 40 MG r 40 2013 {tabl mg ([facility] Oral Tablet mg 12:00: et} [facility] [Lipitor] 00 AM Health Lipitor 40 EDT Care) mg atorvastati Lipito .0 active Lipitor 40 eCW3 n 40 MG r 40 2013 {tabl mg ([facility] Oral Tablet mg 12:00: et} [facility] [Lipitor] 00 AM Health Lipitor 40 EDT Care) mg atorvastati Lipito .0 active Lipitor 40 eCW3 n 40 MG r 40 2013 {tabl mg ([place] Oral Tablet mg 12:00: et} [facility] [Lipitor] 00 AM Health Lipitor 40 EDT Care) mg atorvastati Lipito 12/21/ active 1 table t eCW2 n 40 MG r 40 2013 ([facility] Oral Tablet mg 12:00: [facility] [Lipitor] 00 AM Health Lipitor 40 EDT Care) mg atorvastati Lipito .0 active Lipitor 40 eCW3 n 40 MG r 40 2013 {tabl mg ([place] Oral Tablet mg 12:00: et} [facility] [Lipitor] 00 AM Health Lipitor 40 EDT Care) mg atorvastati Lipito .0 active Lipitor 40 eCW3 n 40 MG r 40 2013 {tabl mg ([facility] Oral Tablet mg 12:00: et} [facility] [Lipitor] 00 AM Health Lipitor 40 EDT Care) mg atorvastati Lipito 12/21/ 1.0 active Lipitor 40 eCW3 n 40 MG r 40 2013 {tabl mg ([facility] Oral Tablet mg 12:00: et} [facility] [Lipitor] 00 AM Health Lipitor 40 EDT Care) mg Vitamin B Vitami 1.0 active Vitamin B-1 2 eCW3 12 1 MG n B-12 {tabl 1000 MCG ([facility] Oral Tablet 1000 et} [place] Vitamin [facility]12 1000 Care) MCG Shingrix UNK active Shingrix eCW3 ([facility]) Docusate Docusa 1.0 active Docusate eCW 3 Sodium 100 te {caps Sodium 100 ([facility] MG Oral Sodium ule_a mg [facility] Capsule [facility]} Care) Sodium 100 mg Blood Blood active SAME BRAND eCW2 Glucose Glucos PREVIOUS ([facility] Monitor e [facility] w/Device r Care) System w/Ro ce Enalapril Enalap 1.0 active Enalapril e CW3 Maleate 10 ril {tabl Maleate 10 ([facility] MG Oral Maleat et} mg [facility] Tablet e 10 Health Enalapril mg Care) Maleate 10 mg Vitamin B Vitami 1.0 active Vitamin B-1 2 eCW3 12 1 MG n B-12 {tabl 1000 MCG ([facility] Oral Tablet 1000 et} [place] Vitamin [facility]12 1000 Care) MCG clopidogrel Clopid active Clopidogr el eCW3 75 MG Oral ogrel Bisulfate 75 ([facility] Tablet Bisulf MG River Clopidogrel ate 75 Health Bisulfate MG Care) 75 MG Blood Blood active Blood eCW3 Glucose Glucos Glucose ([place] Monitor e Monitor [facility] System [facility] System Health w/Device r w/Device Care) System w/Ro ce Metformin Metfor 1.0 active Metformin e CW3 hydrochlori min {tabl HCl 1000 MG ([place] de 1000 MG HCl et_wi [place] Oral Tablet 1000 th_me Health Metformin MG als} Care) HCl 1000 MG Shingrix UNK active Shingrix eCW3 ([facility]) Enalapril Enalap active 1 tablet eC W2 Maleate 10 ril ([place] MG Oral Maleat [place] Tablet e 10 Health Enalapril mg Care) Maleate 10 mg Vitamin B Vitami 1.0 active Vitamin B-1 2 eCW3 12 1 MG n B-12 {tabl 1000 MCG ([place] on Oral Tablet 1000 et} [place] [id number] 1000 Care) MCG Shingrix UNK active Shingrix eCW3 ([facility]) Blood Blood active Blood eCW3 Glucose Glucos Glucose ([place] Monitor e Monitor [facility] System [facility] System Health w/Device r w/Device Care) System w/Ro ce Vitamin B Vitami 1.0 active Vitamin B-1 2 eCW3 12 1 MG n B-12 {tabl 1000 MCG ([place] Oral Tablet 1000 et} [place] [id number] 1000 Care) MCG Vitamin B Vitami 1.0 active Vitamin B-1 2 eCW3 12 1 MG n B-12 {tabl 1000 MCG ([place] Oral Tablet 1000 et} [place] [id number] 1000 Care) MCG Blood Blood active Blood eCW3 Glucose Glucos Glucose ([place] Monitor e Monitor [place] System [employer] System Health w/Device r w/Device Care) System w/Ro ce D3-1000 D3-100 active 1 capsule eCW 2 1000 UNIT 0 1000 ([facility]) Vitamin B Vitami 1.0 active Vitamin B-1 2 eCW3 12 1 MG n B-12 {tabl 1000 MCG ([place] Oral Tablet 1000 et} [place] [id number] 1000 Care) MCG Docusate Docusa 1.0 active Docusate eCW 3 Sodium 100 te {caps Sodium 100 (H udson MG Oral Sodium ule_a mg River Capsule 100 mg s_nee Health Docusate ded} Care) Sodium 100 mg Enalapril Enalap 1.0 active Enalapril e CW3 Maleate 10 ril {tabl Maleate 10 (H udson MG Oral Maleat et} mg [facility] Tablet e 10 Health Enalapril mg Care) Maleate 10 mg Enalapril Enalap 1.0 active Enalapril e CW3 Maleate 10 ril {tabl Maleate 10 (H udson MG Oral Maleat et} mg [facility] Tablet e 10 Health Enalapril mg Care) Maleate 10 mg Vitamin B Vitami active 1 tablet eC W2 12 1 MG n B-12 ([place] Oral Tablet 1000 River Vitamin MCG Health B-12 1000 Care) MCG D3-1000 UNK 1.0 active D3-1000 1000 eC W3 1000 UNIT {caps UNIT ([facility]) clopidogrel Clopid active Clopidogr el eCW3 75 MG Oral ogrel Bisulfate 75 ([place] Tablet Bisulf MG [place] Clopidogrel ate 75 Health Bisulfate MG Care) 75 MG Vitamin B Vitami 1.0 active Vitamin B-1 2 eCW3 12 1 MG n B-12 {tabl 1000 MCG ([place] on Oral Tablet 1000 et} [place] Vitamin MCG Health B-12 1000 Care) MCG Metformin Metfor 1.0 active Metformin e CW3 hydrochlori min {tabl HCl 1000 MG ([place] de 1000 MG HCl et_wi [place] Oral Tablet 1000 th_me Health Metformin MG als} Care) HCl 1000 MG Metformin Metfor active 1 tablet eC W2 hydrochlori min with meals (H udson de 1000 MG HCl [place] Oral Tablet 1000 Health Metformin MG Care) HCl 1000 MG D3-1000 D3-100 1.0 active D3-1000 1000 eCW3 1000 UNIT 0 1000 {caps UNIT ([place] UNIT [facility]) empaglifloz Jardia 1.0 active Jardiance 25 eCW3 in 25 MG nce 25 {tabl MG ([place] Oral Tablet MG et} [place] [Jardiance[facility] 25 MG D3-1000 UNK 1.0 active D3-1000 1000 eC W3 1000 UNIT {caps UNIT ([facility]) Blood Blood active Blood eCW3 Glucose Glucos Glucose ([place] Monitor e Monitor [place] System [place] System Health w/Device r w/Device Care) System w/Ro ce D3-1000 UNK 1.0 active D3-1000 1000 eC W3 1000 UNIT {caps UNIT ([facility]) Enalapril Enalap 1.0 active Enalapril e CW3 Maleate 10 ril {tabl Maleate 10 (H udson MG Oral Maleat et} mg [place] Tablet e 10 Health Enalapril mg Care) Maleate 10 mg empaglifloz Jardia 1.0 active Jardiance 25 eCW3 in 25 MG nce 25 {tabl MG ([place] Oral Tablet MG et} [place] [Jardiance] [facility] Jardiance [facility]) 25 MG Enalapril Enalap 1.0 active Enalapril e CW3 Maleate 10 ril {tabl Maleate 10 (H udson MG Oral Maleat et} mg [place] Tablet e 10 Health Enalapril mg Care) Maleate 10 mg D3-1000 UNK 1.0 active D3-1000 1000 eC W3 1000 UNIT {caps UNIT ([facility]) Docusate Docusa 1.0 active Docusate eCW 3 Sodium 100 te {caps Sodium 100 (H udson MG Oral Sodium ule_a mg [place] Capsule 100 mg s_ne Health Docusate ded} Care) Sodium 100 mg 3 ML Levemi active Levemir eCW3 insulin r FlexTouch ([place] detemir 100 FlexTo 100 UNIT/ML [facility] UNT/ML [facility] Health Injector 100 Care) [Levemir] UNIT/M Levemir L FlexTouch 100 UNIT/ML empaglifloz Jardia 1.0 active Jardiance 25 eCW3 in 25 MG nce 25 {tabl MG ([place] Oral Tablet MG et} [place] [Jardiance] Health Jardiance Care) 25 MG Metformin Metfor 1.0 active Metformin e CW3 hydrochlori min {tabl HCl 1000 MG ([place] de 1000 MG HCl et_wi [place] Oral Tablet 1000 th_me Health Metformin MG als} Care) HCl 1000 MG clopidogrel Clopid active Clopidogr el eCW3 75 MG Oral ogrel Bisulfate 75 ([place] Tablet Bisulf MG [place] Clopidogrel ate 75 Health Bisulfate MG Care) 75 MG Metformin Metfor 1.0 active Metformin e CW3 hydrochlori min {tabl HCl 1000 MG ([place] de 1000 MG HCl et_wi [place] Oral Tablet 1000 th_me Health Metformin MG als} Care) HCl 1000 MG D3-1000 UNK 1.0 active D3-1000 1000 eC W3 1000 UNIT {caps UNIT ([place]) Docusate Docusa 1.0 active Docusate eCW 3 Sodium 100 te {caps Sodium 100 (H udson MG Oral Sodium ule_a mg [facility] Capsule [facility] ded} Care) Sodium 100 mg empaglifloz Jardia 1.0 active Jardiance 25 eCW3 in 25 MG nce 25 {tabl MG ([place] Oral Tablet MG et} [place] [Jardiance] Health Jardiance Care) 25 MG empaglifloz Jardia 1.0 active Jardiance 25 eCW3 in 25 MG nce 25 {tabl MG ([place] Oral Tablet MG et} [facility] [Jardiance] Health Jardiance Care) 25 MG Shingrix UNK active Shingrix eCW3 ([facility]) Docusate Docusa 1.0 active Docusate eCW 3 Sodium 100 te {caps Sodium 100 (H udson MG Oral Sodium ule_a mg [place] Capsule 100 mg s_ne Health Docusate ded} Care) Sodium 100 mg Blood Blood active Blood eCW3 Glucose Glucos Glucose ([place] Monitor e Monitor [facility] System [facility] System Health w/Device r w/Device Care) System w/Ro ce Enalapril Enalap 1.0 active Enalapril e CW3 Maleate 10 ril {tabl Maleate 10 (H udson MG Oral Maleat et} mg [facility] Tablet e 10 Health Enalapril mg Care) Maleate 10 mg clopidogrel Clopid active Clopidogr el eCW3 75 MG Oral ogrel Bisulfate 75 ([place] Tablet Bisulf MG [facility] Clopidogrel ate 75 Health Bisulfate MG Care) 75 MG Blood Blood active Blood eCW3 Glucose Glucos Glucose ([place] Monitor e Monitor [facility] System [facility] System Health w/Device r w/Device Care) System w/Ro ce Enalapril Enalap 1.0 active Enalapril e CW3 Maleate 10 ril {tabl Maleate 10 (H ud[place] MG Oral Maleat et} mg [place] Tablet e 10 Health Enalapril mg Care) Maleate 10 mg D3-1000 UNK 1.0 active D3-1000 1000 eC W3 1000 UNIT {caps UNIT ([place] [facility]) clopidogrel Clopid active Clopidogr el eCW3 75 MG Oral ogrel Bisulfate 75 ([place] Tablet Bisulf MG [place] Clopidogrel ate 75 Health Bisulfate MG Care) 75 MG clopidogrel Clopid active Clopidogr el eCW3 75 MG Oral ogrel Bisulfate 75 ([place] Tablet Bisulf MG [place] Clopidogrel ate 75 Health Bisulfate MG Care) 75 MG Docusate Docusa 1.0 active Docusate eCW 3 Sodium 100 te {caps Sodium 100 (H udson MG Oral Sodium ule_a mg [place] Capsule 100 mg s_ne Health Docusate ded} Care) Sodium 100 mg Shingrix UNK active Shingrix eCW3 ([facility]) Docusate Docusa 1.0 active Docusate eCW 3 Sodium 100 te {caps Sodium 100 ([facility] ud[place] MG Oral Sodium ule_a mg [facility] Capsule 100 mg s_nee Health Docusate ded} Care) Sodium 100 mg Omeprazole Omepra active 1 capsule eCW2 20 MG zole ([place] Delayed 20 mg River Release Health Oral Care) Capsule Omeprazole 20 mg Shingrix UNK active Shingrix eCW3 ([facility]) Metformin Metfor 1.0 active Metformin e CW3 hydrochlori min {tabl HCl 1000 MG ([place] de 1000 MG HCl et_wi [place] Oral Tablet 1000 th_me Health Metformin MG als} Care) HCl 1000 MG empaglifloz Jardia 1.0 active Jardiance 25 eCW3 in 25 MG nce 25 {tabl MG ([place] Oral Tablet MG et} [facility] [Jardiance] Health Jardiance Care) 25 MG Metformin Metfor 1.0 active Metformin e CW3 hydrochlori min {tabl HCl 1000 MG ([place] de 1000 MG HCl et_wi [place] Oral Tablet 1000 th_me Health Metformin MG als} Care) HCl 1000 MG Blood Blood active Blood eCW3 Glucose Glucos Glucose ([place] Monitor e Monitor [facility] System [facility] System Health w/Device r w/Device Care) System w/Ro ce Metformin Metfor 1.0 active Metformin e CW3 hydrochlori min {tabl HCl 1000 MG ([place] de 1000 MG HCl et_wi [place] Oral Tablet 1000 th_me Health Metformin MG als} Care) HCl 1000 MG Docusate Docusa active 1 capsule as eCW2 Sodium 100 te needed ([place] MG Oral Sodium River Capsule 100 mg Health Docusate Care) Sodium 100 mg Insurance Providers Payer name Policy type Policy ID Covered Covered democrat's Policy P karlie / Coverage democrat ID relationship to [employer] ormation type [employer] MEDICAID [id number] SP [id number] [facility] [id number] SP [id number] MEDICARE ADV PLAN EMILY [id number] 1 [id number] MEDICARE ADVANTAGE W [id number] [id number] [id number] MEDICARE OP [facility] O [id number] [place] [id number] IME MEDICARE [id number] Problems, Conditions, and Diagnoses Code Display Name Description Problem Type Effective Data Dates Source(s) Z80.0 Family history of FAMILY HISTORY OF Problem 06/28/2020 MEDGEN (St malignant neoplasm of MALIGNANT NEOPLASM OF 12: 00:00 AM [facility] digestive organs DIGESTIVE ORGANS EDT [facility], ) K86.2 Cyst of pancreas CYST OF PANCREAS Problem 06/28/2020 [place] DGEN (St 12:00:00 AM [facility] EDT Medical, ) Z12.31 Other screening Other screening Problem 03/24/2020 eCW3 mammogram mammogram 12:00:00 AM ([facility]) K85.00 Idiopathic acute IDIOPATHIC ACUTE Problem 10/25/2019 [place] DGEN (St pancreatitis without PANCREATITIS WITHOUT 12:00 :00 AM [facility] necrosis or infection NECROSIS OR INFECTION EST Medical, ) K85.00 Idiopathic acute IDIOPATHIC ACUTE Problem 10/25/2019 [place] DGEN (St pancreatitis without PANCREATITIS WITHOUT 12:00 :00 AM [facility] necrosis or infection NECROSIS OR INFECTION EST Medical, ) K85.00 Idiopathic acute IDIOPATHIC ACUTE Problem 10/25/2019 [place] DGEN (St pancreatitis without PANCREATITIS WITHOUT 12:00 :00 AM [facility] necrosis or infection NECROSIS OR INFECTION EST Medical, ) K85.00 Idiopathic acute IDIOPATHIC ACUTE Problem 10/25/2019 [place] DGEN (St pancreatitis without PANCREATITIS WITHOUT 12:00 :00 AM [facility] necrosis or infection NECROSIS OR INFECTION EST Medical, ) I25.10 Coronary artery Coronary artery Problem 08/12/2019 eCW3 disease, angina disease, angina 12:00:00 AM ([facility] presence unspecified, presence unspecified, EDT [place] unspecified vessel or unspecified vessel or Health lesion type, lesion type, Care) unspecified whether unspecified whether saxman or transplanted saxman or heart transplanted heart I25.10 Coronary artery Coronary artery Problem 08/12/2019 eCW3 disease, angina disease, angina 12:00:00 AM ([facility] presence unspecified, presence unspecified, EDT [place] unspecified vessel or unspecified vessel or Health lesion type, lesion type, Care) unspecified whether unspecified whether saxman or transplanted saxman or heart transplanted heart E87.2 Acidosis ACIDOSIS Problem 07/16/2019 MEDGEN (St 12:00:00 AM [facility], ) E55.9 Vitamin D deficiency, VITAMIN D DEFICIENCY, Problem 01/2019 MEDGEN (St unspecified UNSPECIFIED 12:00:00 AM [facility], ) E11.22 Type 2 diabetes TYPE 2 DIABETES Problem 07/16/2019 MEDG EN (St mellitus with diabetic MELLITUS WITH 12:00:00 A M [facility] chronic kidney disease DIABETIC [facility], KIDNEY DISEASE ) E87.2 Acidosis ACIDOSIS Problem 07/16/2019 MEDGEN (St 12:00:00 AM [facility], ) E55.9 Vitamin D deficiency, VITAMIN D DEFICIENCY, Problem 01/2019 MEDGEN (St unspecified UNSPECIFIED 12:00:00 AM [facility], ) E11.22 Type 2 diabetes TYPE 2 DIABETES Problem 07/16/2019 MEDG EN (St mellitus with diabetic MELLITUS WITH 12:00:00 A M [facility] chronic kidney disease DIABETIC [facility], KIDNEY DISEASE ) E87.2 Acidosis ACIDOSIS Problem 07/16/2019 MEDGEN (St 12:00:00 AM [facility], ) E55.9 Vitamin D deficiency, VITAMIN D DEFICIENCY, Problem 01/2019 MEDGEN (St unspecified UNSPECIFIED 12:00:00 AM [facility], ) E11.22 Type 2 diabetes TYPE 2 DIABETES Problem 07/16/2019 MEDG EN (St mellitus with diabetic MELLITUS WITH 12:00:00 A M [facility] chronic kidney disease DIABETIC [facility], KIDNEY DISEASE ) E87.2 Acidosis ACIDOSIS Problem 07/16/2019 MEDGEN (St 12:00:00 AM [facility], ) E55.9 Vitamin D deficiency, VITAMIN D DEFICIENCY, Problem 01/2019 MEDGEN (St unspecified UNSPECIFIED 12:00:00 AM [facility], ) E11.22 Type 2 diabetes TYPE 2 DIABETES Problem 07/16/2019 MEDG EN (St mellitus with diabetic MELLITUS WITH 12:00:00 A M [facility] chronic kidney disease DIABETIC [facility], KIDNEY DISEASE ) N18.9 Chronic kidney disease, CHRONIC KIDNEY Problem 05/11/20 19 MEDGEN (St unspecified DISEASE, UNSPECIFIED 12:00:00 AM [facility], ) N18.9 Chronic kidney disease, CHRONIC KIDNEY Problem 05/11/20 19 MEDGEN (St unspecified DISEASE, UNSPECIFIED 12:00:00 AM [facility], ) N18.9 Chronic kidney disease, CHRONIC KIDNEY Problem 05/11/20 19 MEDGEN (St unspecified DISEASE, UNSPECIFIED 12:00:00 AM [facility], ) N18.9 Chronic kidney disease, CHRONIC KIDNEY Problem 05/11/20 19 MEDGEN (St unspecified DISEASE, UNSPECIFIED 12:00:00 AM [facility], ) H91.93 Decreased hearing of Decreased hearing of Problem 05/10 eCW3 both ears both ears 12:00:00 AM ([facility]) N18.3 Chronic kidney disease, Chronic kidney Problem 05/10/20 19 eCW3 stage III (moderate) disease, stage III 12:00:0 0 AM ([place] (moderate) [facility]) E11.22 Type 2 diabetes Type 2 diabetes Problem 05/10/2019 eCW3 mellitus with diabetic mellitus with 12:00:00 A M ([place] chronic kidney disease diabetic chronic [facility] kidney disease [facility]) H91.93 Decreased hearing of Decreased hearing of Problem 05/10 eCW3 both ears both ears 12:00:00 AM ([facility]) N18.3 Chronic kidney disease, Chronic kidney Problem 05/10/20 19 eCW3 stage III (moderate) disease, stage III 12:00:0 0 AM ([place] (moderate) [facility]) E11.22 Type 2 diabetes Type 2 diabetes Problem 05/10/2019 eCW3 mellitus with diabetic mellitus with 12:00:00 A M ([place] chronic kidney disease diabetic chronic [facility] kidney disease [facility]) Z12.11 Encounter for screening ENCOUNTER FOR Problem 9 MEDGEN (St for malignant neoplasm SCREENING FOR 12:00:00 A M [facility] of colon MALIGNANT NEOPLASM OF EDT Med ical, COLON PC) Z12.11 Encounter for screening ENCOUNTER FOR Problem 9 MEDGEN (St for malignant neoplasm SCREENING FOR 12:00:00 A M [facility] of colon MALIGNANT NEOPLASM OF EDT Med ical, COLON PC) Z12.11 Encounter for screening ENCOUNTER FOR Problem 9 MEDGEN (St for malignant neoplasm SCREENING FOR 12:00:00 A M [facility] of colon MALIGNANT NEOPLASM OF EDT Med ical, COLON PC) Z12.11 Encounter for screening ENCOUNTER FOR Problem 9 MEDGEN (St for malignant neoplasm SCREENING FOR 12:00:00 A M [facility] of colon MALIGNANT NEOPLASM OF EDT Med ical, COLON PC) N83.201 Unspecified ovarian UNSPECIFIED OVARIAN Problem 019 MEDGEN (St cyst, right side CYST, RIGHT SIDE 12:00:00 AM [facility], ) K21.9 Gastro-esophageal GASTRO-ESOPHAGEAL Problem 04/07/2019 MEDGEN (St reflux disease without REFLUX DISEASE 12:00:00 AM [facility] esophagitis WITHOUT ESOPHAGITIS [facility]) R10.9 Unspecified abdominal UNSPECIFIED ABDOMINAL Problem MEDGEN (St pain PAIN 12:00:00 AM [facility], ) N83.201 Unspecified ovarian UNSPECIFIED OVARIAN Problem 019 MEDGEN (St cyst, right side CYST, RIGHT SIDE 12:00:00 AM [facility]'s [facility]) K21.9 Gastro-esophageal GASTRO-ESOPHAGEAL Problem 04/07/2019 MEDGEN (St reflux disease without REFLUX DISEASE 12:00:00 AM [facility] esophagitis WITHOUT ESOPHAGITIS [facility]) R10.9 Unspecified abdominal UNSPECIFIED ABDOMINAL Problem MEDGEN (St pain PAIN 12:00:00 AM [facility]) N83.201 Unspecified ovarian UNSPECIFIED OVARIAN Problem 019 MEDGEN (St cyst, right side CYST, RIGHT SIDE 12:00:00 AM [facility], ) K21.9 Gastro-esophageal GASTRO-ESOPHAGEAL Problem 04/07/2019 MEDGEN (St reflux disease without REFLUX DISEASE 12:00:00 AM [facility] esophagitis WITHOUT ESOPHAGITIS [facility]) R10.9 Unspecified abdominal UNSPECIFIED ABDOMINAL Problem MEDGEN (St pain PAIN 12:00:00 AM [facility], ) N83.201 Unspecified ovarian UNSPECIFIED OVARIAN Problem 019 MEDGEN (St cyst, right side CYST, RIGHT SIDE 12:00:00 AM [facility], ) K21.9 Gastro-esophageal GASTRO-ESOPHAGEAL Problem 04/07/2019 MEDGEN (St reflux disease without REFLUX DISEASE 12:00:00 AM [facility] R10.9 Unspecified abdominal UNSPECIFIED ABDOMINAL Problem MEDGEN (St pain PAIN 12:00:00 AM [facility], ) K86.1 Chronic pancreatitis, Chronic pancreatitis, Problem eCW3 unspecified unspecified 12:00:00 AM ([place] pancreatitis type pancreatitis type [facility]) N83.291 Other ovarian cyst, OTHER OVARIAN CYST, Problem 019 MEDGEN (St right side RIGHT SIDE 12:00:00 AM [facility], ) K85.90 Acute pancreatitis ACUTE PANCREATITIS Problem 9 MEDGEN (St without necrosis or WITHOUT NECROSIS OR 12:00:0 0 AM [facility] infection, unspecified INFECTION, EDT Me dical, UNSPECIFIED PC) K22.8 Other specified OTHER SPECIFIED Problem 03/10/2019 MEDG EN (St diseases of esophagus DISEASES OF ESOPHAGUS 12: 00:00 AM [facility], ) N83.291 Other ovarian cyst, OTHER OVARIAN CYST, Problem 019 MEDGEN (St right side RIGHT SIDE 12:00:00 AM [facility], ) K85.90 Acute pancreatitis ACUTE PANCREATITIS Problem 9 MEDGEN (St without necrosis or WITHOUT NECROSIS OR 12:00:0 0 AM [facility] infection, unspecified INFECTION, EDT Me dical, UNSPECIFIED PC) K22.8 Other specified OTHER SPECIFIED Problem 03/10/2019 MEDG EN (St diseases of esophagus DISEASES OF ESOPHAGUS 12: 00:00 AM [facility], ) N83.291 Other ovarian cyst, OTHER OVARIAN CYST, Problem 019 MEDGEN (St right side RIGHT SIDE 12:00:00 AM [facility], ) K85.90 Acute pancreatitis ACUTE PANCREATITIS Problem 9 MEDGEN (St without necrosis or WITHOUT NECROSIS OR 12:00:0 0 AM [facility] infection, unspecified INFECTION, EDT Me dical, UNSPECIFIED PC) K22.8 Other specified OTHER SPECIFIED Problem 03/10/2019 MEDG EN (St diseases of esophagus DISEASES OF ESOPHAGUS 12: 00:00 AM [facility], ) N83.291 Other ovarian cyst, OTHER OVARIAN CYST, Problem 019 MEDGEN (St right side RIGHT SIDE 12:00:00 AM [facility], ) K85.90 Acute pancreatitis ACUTE PANCREATITIS Problem 9 MEDGEN (St without necrosis or WITHOUT NECROSIS OR 12:00:0 0 AM [facility] infection, unspecified INFECTION, EDT Me dical, UNSPECIFIED PC) K22.8 Other specified OTHER SPECIFIED Problem 03/10/2019 MEDG EN (St diseases of esophagus DISEASES OF ESOPHAGUS 12: 00:00 AM [facility], ) I21.4 NSTEMI (non-ST elevated NSTEMI (non-ST Problem 02/09/20 19 eCW3 myocardial infarction) elevated myocardial 12:0 0:00 AM ([place] infarction) [facility]) I21.4 NSTEMI (non-ST elevated NSTEMI (non-ST Problem 02/09/20 19 eCW3 myocardial infarction) elevated myocardial 12:0 0:00 AM ([place] infarction) [facility]) K85.80 Other acute OTHER ACUTE Problem 12/30/2018 MEDGEN (St pancreatitis without PANCREATITIS WITHOUT 12:00 :00 AM [facility] necrosis or infection NECROSIS OR INFECTION [facility] Medical, ) K59.00 Constipation, CONSTIPATION, Problem 12/30/2018 MEDGEN ( St unspecified UNSPECIFIED 12:00:00 AM [facility], ) 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 9 MEDGEN (St colon, unspecified COLON, UNSPECIFIED 12:00:00 AM [facility], ) K85.80 Other acute OTHER ACUTE Problem 12/30/2018 MEDGEN (St pancreatitis without PANCREATITIS WITHOUT 12:00 :00 AM [facility] necrosis or infection NECROSIS OR INFECTION ED Medical, ) K59.00 Constipation, CONSTIPATION, Problem 12/30/2018 MEDGEN ( St unspecified UNSPECIFIED 12:00:00 AM [facility], ) 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 9 MEDGEN (St colon, unspecified COLON, UNSPECIFIED 12:00:00 AM [facility], ) K85.80 Other acute OTHER ACUTE Problem 12/30/2018 MEDGEN (St pancreatitis without PANCREATITIS WITHOUT 12:00 :00 AM [facility] necrosis or infection NECROSIS OR INFECTION [facility], ) K59.00 Constipation, CONSTIPATION, Problem 12/30/2018 MEDGEN ( St unspecified UNSPECIFIED 12:00:00 AM [facility], ) 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 9 MEDGEN (St colon, unspecified COLON, UNSPECIFIED 12:00:00 AM [facility], ) K85.80 Other acute OTHER ACUTE Problem 12/30/2018 MEDGEN (St pancreatitis without PANCREATITIS WITHOUT 12:00 :00 AM [facility] necrosis or infection NECROSIS OR INFECTION [facility], ) K59.00 Constipation, CONSTIPATION, Problem 12/30/2018 MEDGEN ( St unspecified UNSPECIFIED 12:00:00 AM [facility], ) 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 9 MEDGEN (St colon, unspecified COLON, UNSPECIFIED 12:00:00 AM [facility], ) K21.9 Gastroesophageal reflux Gastroesophageal Problem 2018 eCW3 disease without reflux disease 12:00:00 AM ([facility] esophagitis without esophagitis [facility]) K21.9 Gastroesophageal reflux Gastroesophageal Problem 2018 eCW3 disease without reflux disease 12:00:00 AM ([facility] esophagitis without esophagitis [facility]) K21.9 Gastroesophageal reflux Gastroesophageal Problem 2018 eCW3 disease without reflux disease 12:00:00 AM ([facility] esophagitis without esophagitis [facility]) D50.9 Iron deficiency anemia, Iron deficiency Problem 018 eCW3 unspecified iron anemia, unspecified 12:00:00 A M ([place] deficiency anemia type iron deficiency [facility]) D50.9 Iron deficiency anemia, Iron deficiency Problem 018 eCW3 unspecified iron anemia, unspecified 12:00:00 A M ([place] deficiency anemia type iron deficiency [facility] anemia type Health Care) D50.9 Iron deficiency anemia, Iron deficiency Problem 018 eCW2 unspecified iron anemia, unspecified 12:00:00 A M ([place] deficiency anemia type iron deficiency [facility] anemia type Health Care) D50.9 Iron deficiency anemia, Iron deficiency Problem 018 eCW3 unspecified iron anemia, unspecified 12:00:00 A M ([place] deficiency anemia type iron deficiency [facility] anemia type Health Care) E11.65 Type II diabetes Diabetes type 2, Problem 06/23/2018 eC W3 mellitus uncontrolled uncontrolled 12:00:00 AM ([facility]) E11.65 Type II diabetes Diabetes type 2, Problem 06/23/2018 eC W3 mellitus uncontrolled uncontrolled 12:00:00 AM ([facility]) E11.65 Type II diabetes Diabetes type 2, Problem 06/23/2018 eC W2 mellitus uncontrolled uncontrolled 12:00:00 AM ([facility]) E11.65 Type II diabetes Diabetes type 2, Problem 06/23/2018 eC W3 mellitus uncontrolled uncontrolled 12:00:00 AM ([facility]) E78.5 Hyperlipidemia, Hyperlipidemia, Problem 12/15/2017 eCW3 unspecified unspecified 12:00:00 AM ([place] hyperlipidemia type hyperlipidemia [facility]) E78.5 Hyperlipidemia, Hyperlipidemia, Problem 12/15/2017 eCW3 unspecified unspecified 12:00:00 AM ([place] hyperlipidemia type hyperlipidemia [facility]) E78.5 Hyperlipidemia, Hyperlipidemia, Problem 12/15/2017 eCW2 unspecified unspecified 12:00:00 AM ([place] hyperlipidemia type hyperlipidemia [facility]) E11.65 Diabetes mellitus type Diabetes mellitus Problem 2017 eCW3 2 type 2, uncontrolled 12:00:00 AM ([facility]) E11.65 Diabetes mellitus type Diabetes mellitus Problem 2017 eCW3 2 type 2, uncontrolled 12:00:00 AM ([facility]) E11.65 Diabetes mellitus type Diabetes mellitus Problem 2017 eCW2 2 type 2, uncontrolled 12:00:00 AM ([facility]) E11.65 Diabetes mellitus type Diabetes mellitus Problem 2017 eCW3 2 type 2, uncontrolled 12:00:00 AM ([facility]) K59.00 Constipation Constipation Problem 04/04/2017 eCW3 12:00:00 AM ([facility]) K59.00 Constipation Constipation Problem 04/04/2017 eCW3 12:00:00 AM ([facility]) K59.00 Constipation Constipation Problem 04/04/2017 eCW2 12:00:00 AM ([facility]) K59.00 Constipation Constipation Problem 04/04/2017 eCW3 12:00:00 AM ([facility]) 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 12:00:00 AM ([facility]) K21.9 Gastroesophageal reflux Gastroesophageal Problem 2016 eCW3 disease, esophagitis reflux disease, 12:00:00 A M ([place] presence not specified esophagitis presence [facility] not specified Health Care) E55.9 Vitamin D deficiency Vitamin D deficiency Problem 01/29 eCW3 12:00:00 AM ([facility]) K21.9 Gastroesophageal reflux Gastroesophageal Problem 2016 eCW3 disease, esophagitis reflux disease, 12:00:00 A M ([place] presence not specified esophagitis presence [facility] not specified Health Care) E55.9 Vitamin D deficiency Vitamin D deficiency Problem 01/29 eCW3 12:00:00 AM ([facility]) 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 12:00:00 AM ([facility]) K21.9 Gastroesophageal reflux Gastroesophageal Problem 2016 eCW2 disease, esophagitis reflux disease, 12:00:00 A M ([place] presence not specified esophagitis presence [facility] not specified Health Care) E55.9 Vitamin D deficiency Vitamin D deficiency Problem 01/29 eCW2 12:00:00 AM ([facility]) 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/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 12:00:00 AM ([facility]) K21.9 Gastroesophageal reflux Gastroesophageal Problem 2016 eCW3 disease, esophagitis reflux disease, 12:00:00 A M ([place] presence not specified esophagitis presence [facility] not specified Health Care) E55.9 Vitamin D deficiency Vitamin D deficiency Problem 01/29 eCW3 12:00:00 AM ([facility]) K59.00 Constipation Constipation Problem 08/28/2016 eCW3 12:00:00 AM ([facility]) K59.00 Constipation Constipation Problem 08/28/2016 eCW3 12:00:00 AM ([facility]) K59.00 Constipation Constipation Problem 08/28/2016 eCW2 12:00:00 AM ([facility]) K59.00 Constipation Constipation Problem 08/28/2016 eCW3 12:00:00 AM ([facility]) E78.0 Pure Hypercholesteremia Problem 08/29/2015 eCW3 hypercholesterolemia 12:00:00 AM ([facility]) E66.3 Overweight Overweight Problem 08/29/2015 eCW3 12:00:00 AM ([facility]) I10 Hypertension Hypertension Problem 08/29/2015 eCW3 12:00:00 AM ([facility]) E11.9 Type II diabetes Type 2 diabetes Problem 08/29/2015 eCW 3 mellitus without mellitus without 12:00:00 AM ( [facility]) E66.3 Overweight Overweight Problem 08/29/2015 eCW3 12:00:00 AM ([facility]) E11.9 Type II diabetes Type 2 diabetes Problem 08/29/2015 eCW 3 mellitus without mellitus without 12:00:00 AM ( [facility] complications [facility]) E78.0 Pure Hypercholesteremia Problem 08/29/2015 eCW3 hypercholesterolemia 12:00:00 AM ([facility]) I10 Hypertension Hypertension Problem 08/29/2015 eCW3 12:00:00 AM ([facility]) E11.9 Type II diabetes Type 2 diabetes Problem 08/29/2015 eCW 2 mellitus without mellitus without 12:00:00 AM ( [facility] complications [facility]) I10 Hypertension Hypertension Problem 08/29/2015 eCW2 12:00:00 AM ([facility]) E78.0 Pure Hypercholesteremia Problem 08/29/2015 eCW2 hypercholesterolemia 12:00:00 AM ([facility]) E66.3 Overweight Overweight Problem 08/29/2015 eCW2 12:00:00 AM ([facility]) E11.9 Type II diabetes Type 2 diabetes Problem 08/29/2015 eCW 3 mellitus without mellitus without 12:00:00 AM ( [place] complication complications [facility]) E78.0 Pure Hypercholesteremia Problem 08/29/2015 eCW3 hypercholesterolemia 12:00:00 AM ([facility]) E66.3 Overweight Overweight Problem 08/29/2015 eCW3 12:00:00 AM ([facility]) I10 Essential (primary) ESSENTIAL (PRIMARY) Diagnosis 020 [place] hypertension HYPERTENSION 10:39:00 AM [facility] E11.9 Type 2 diabetes TYPE 2 DIABETES Diagnosis 01/11/2020 [place] t mellitus without MELLITUS WITHOUT 10:39:00 AM J [facility]seph[facility] complications COMPLICATIONS [facility] I25.10 Atherosclerotic heart ATHSCL HEART DISEASE Diagnosis 12/13 disease of [place] CORONARY 10:39:00 A Nat Mcfarland coronary artery without ARTERY W/O ANG PCTRS ED T Medical angina pectoris Center Z20.828 Contact with and CONTACT W AND Diagnosis 01/11/2020 (suspected) exposure to EXPOSURE TO OTH VIRAL 1 0:39:00 AM [place] other viral COMMUNICABLE DISEASES EDT [facility] dical communicable diseases Heidi ter R50.9 Fever, unspecified FEVER, UNSPECIFIED Diagnosis 0 [facility] 10:39:00 AM [facility] R05 Cough COUGH Diagnosis 01/11/2020 [facility] 10:39:00 AM [facility] J06.9 Acute upper respiratory ACUTE UPPER Diagnosis 01/11/2020 [facility] infection, unspecified RESPIRATORY 10:39:00 AM [facility] INFECTION, EDT Medical UNSPECIFIED Center Z04.89 ENCOUNTER FOR ENCOUNTER FOR Diagnosis 01/11/2020 EXAMINATION AND EXAMINATION AND 10:39:00 AM Nathaniel shafer OBSERVATION FOR OTH OBSERVATION FOR OTH EDT Medical REASONS REASONS Center Surgeries/Procedures Procedure Description Date Indications Data Source(s) OFFICE OUTPATIENT VISIT 06/28/2020 MEDG EN [facility]LECTION VENOUS BLOOD 06/28/2020 MEDG EN ([facility] VENIPUNCTURE 12:00:00 AM [facility], ) Documentation of current 05/23/2020 MED GEN [facility]PATIENT VISIT 05/23/2020 MEDG EN ([facility] 15 MINUTES 12:00:00 AM [facility], ) COLLECTION VENOUS BLOOD 05/23/2020 MEDG EN ([facility] VENIPUNCTURE 12:00:00 AM [facility], ) Documentation of current 05/23/2020 MED GEN ([facility] medications (procedure) 12:00:00 AM [facility], ) OFFICE OUTPATIENT VISIT 05/23/2020 MEDG EN ([facility] 15 MINUTES 12:00:00 AM [facility], ) COLLECTION VENOUS BLOOD 05/23/2020 MEDG EN ([facility] VENIPUNCTURE 12:00:00 AM [facility], ) Documentation of current 05/23/2020 MED GEN ([facility] medications (procedure) 12:00:00 AM [facility], ) OFFICE OUTPATIENT VISIT 05/23/2020 MEDG EN ([facility] 15 MINUTES 12:00:00 AM [facility], ) Documentation of current 05/23/2020 MED GEN ([facility] medications (procedure) 12:00:00 AM [facility], ) OFFICE OUTPATIENT VISIT 05/23/2020 MEDG EN ([facility] 15 MINUTES 12:00:00 AM [facility], ) Documentation of current 11/16/2019 MED GEN ([facility] medications (procedure) 12:00:00 AM EST [facility], ) Documentation of current 11/16/2019 MED GEN ([facility] medications (procedure) 12:00:00 AM EST [facility], ) Documentation of current 11/16/2019 MED GEN ([facility] medications (procedure) 12:00:00 AM EST [facility], ) OFFICE OUTPATIENT VISIT 11/16/2019 MEDG EN ([facility] 15 MINUTES 12:00:00 AM EST Medical, PC) Documentation of current 11/16/2019 MED GEN ([facility] medications (procedure) 12:00:00 AM EST Nat [facility], PC) Documentation of current 11/16/2019 MED GEN ([facility] medications (procedure) 12:00:00 AM EST Nat nicholeical, ) Documentation of current 11/16/2019 MED GEN ([facility] medications (procedure) 12:00:00 AM EST [facility]ole[facility], PC) OFFICE OUTPATIENT VISIT 11/16/2019 MEDG EN ([facility] 15 MINUTES 12:00:00 AM EST Medical, PC) Documentation of current 11/16/2019 MED GEN ([facility] medications (procedure) 12:00:00 AM EST [facility] n[facility]oleical, PC) Documentation of current 11/16/2019 MED GEN ([facility] (procedure) 12:00:00 AM EST Nat [facility]oleical, PC) Documentation of current 11/16/2019 MED GEN ([facility] (procedure) 12:00:00 AM EST Nat [facility], ) OFFICE OUTPATIENT VISIT 11/16/2019 MEDG EN ([facility] 15 MINUTES 12:00:00 AM EST Medical, PC) Documentation of current 11/16/2019 MED GEN ([facility] medications (procedure) 12:00:00 AM EST dionisioical, PC) Documentation of current 11/16/2019 MED GEN ([facility] (procedure) 12:00:00 AM EST dion[facility]ioical, PC) Documentation of current 11/16/2019 MED GEN ([facility] (procedure) 12:00:00 AM EST Nat nicholeical, ) OFFICE OUTPATIENT VISIT 11/16/2019 MEDG EN ([facility] 15 MINUTES 12:00:00 AM EST Medical, PC) OFFICE OUTPATIENT VISIT 10/25/2019 MEDG EN ([facility] 15 MINUTES 12:00:00 AM EST Medical, PC) OFFICE OUTPATIENT VISIT 10/25/2019 MEDG EN ([facility] 15 MINUTES 12:00:00 AM EST Medical, PC) OFFICE OUTPATIENT VISIT 10/25/2019 MEDG EN ([facility] 15 MINUTES 12:00:00 AM EST Medical, PC) OFFICE OUTPATIENT VISIT 10/25/2019 MEDG EN ([facility] 15 MINUTES 12:00:00 AM EST Medical, PC) OFFICE OUTPATIENT VISIT 07/19/2019 MEDG EN ([facility] 15 MINUTES 12:00:00 AM EDT Medical, PC) OFFICE OUTPATIENT VISIT 07/19/2019 MEDG EN ([facility] 15 MINUTES 12:00:00 AM EDT Medical, PC) OFFICE OUTPATIENT VISIT 07/19/2019 MEDG EN ([facility] 15 MINUTES 12:00:00 AM EDT Medical, PC) OFFICE OUTPATIENT VISIT 07/19/2019 MEDG EN ([facility] 15 MINUTES 12:00:00 AM EDT Medical, ) Documentation of current 07/16/2019 MED GEN ([facility] medications (procedure) 12:00:00 AM EDT dionisioical, ) Documentation of current 07/16/2019 MED GEN ([facility] (procedure) [facility] Documentation of current 07/16/2019 MED GEN ([facility] medications (procedure) 12:00:00 AM EDT edical, ) Documentation of current 07/16/2019 MED GEN ([facility] (procedure) 12:00:00 [facility] Documentation of current 07/16/2019 MED GEN ([facility] medications (procedure) 12:00:00 AM EDT edical, ) Documentation of current 07/16/2019 MED GEN ([facility] (procedure) 12:00:00 [facility] Documentation of current 07/16/2019 MED GEN ([facility] medications (procedure) 12:00:00 AM EDT edical, ) Documentation of current 07/16/2019 MED GEN ([facility] medications (procedure) 12:00:00 AM EDT dionisioical, PC) Documentation of current 07/16/2019 MED GEN ([facility] medications (procedure) 12:00:00 AM EDT edical, ) OFFICE OUTPATIENT VISIT 07/16/2019 MEDG EN ([facility] 15 MINUTES 12:00:00 AM EDT Medical, ) Documentation of current 07/16/2019 MED GEN ([facility] medications (procedure) 12:00:00 AM EDT d[facility]ioical, PC) Documentation of current 07/16/2019 MED GEN ([facility] medications (procedure) 12:00:00 AM EDT [facility], PC) Documentation of current 07/16/2019 MED GEN ([facility] (procedure) 12:00:00 AM EDT edical, PC) Documentation of current 07/16/2019 MED GEN ([facility] (procedure) 12:00:00 AM EDT edical, PC) Documentation of current 07/16/2019 MED GEN ([facility] (procedure) 12:00:00 AM EDT dionisioical, PC) Documentation of current 07/16/2019 MED GEN ([facility] (procedure) 12:00:00 AM EDT dionisioical, PC) Documentation of current 07/16/2019 MED GEN ([facility] (procedure) 12:00:00 AM EDT dionisioical, PC) Documentation of current 07/16/2019 MED GEN ([facility] (procedure) 12:00:00 AM EDT dionisioical, PC) Documentation of current 07/16/2019 MED GEN ([facility] (procedure) 12:00:00 AM EDT [facility], [facility]) OFFICE OUTPATIENT VISIT 07/16/2019 MEDG EN ([facility] 15 MINUTES 12:00:00 AM [facility], PC) Documentation of current 07/16/2019 MED GEN ([facility] medications (procedure) 12:00:00 AM EDT [facility], PC) Documentation of current 07/16/2019 MED GEN ([facility] (procedure) 12:00:00 AM EDT [facility], PC) Documentation of current 07/16/2019 MED GEN ([facility] (procedure) 12:00:00 AM EDT [facility], PC) Documentation of current 07/16/2019 MED GEN ([facility] (procedure) 12:00:00 AM EDT dionisioical, PC) Documentation of current 07/16/2019 MED GEN ([facility] (procedure) 12:00:00 AM EDT edical, PC) Documentation of current 07/16/2019 MED GEN ([facility] (procedure) 12:00:00 AM EDT dionisioical, PC) Documentation of current 07/16/2019 MED GEN ([facility] (procedure) 12:00:00 AM EDT edical, PC) Documentation of current 07/16/2019 MED GEN ([facility] (procedure) 12:00:00 AM EDT edical, PC) Documentation of current 07/16/2019 MED GEN ([facility] (procedure) 12:00:00 AM EDT edical, PC) OFFICE OUTPATIENT VISIT 07/16/2019 MEDG EN ([facility] 15 MINUTES 12:00:00 AM EDT Medical, PC) Documentation of current 07/16/2019 MED GEN ([facility] (procedure) 12:00:00 AM EDT edical, PC) Documentation of current 07/16/2019 MED GEN ([facility] (procedure) 12:00:00 AM EDT edical, PC) Documentation of current 07/16/2019 MED GEN ([facility] (procedure) 12:00:00 AM EDT edical, PC) Documentation of current 07/16/2019 MED GEN ([facility] (procedure) 12:00:00 AM EDT edical, PC) Documentation of current 07/16/2019 MED GEN ([facility] (procedure) 12:00:00 AM EDT edical, PC) Documentation of current 07/16/2019 MED GEN ([facility] (procedure) 12:00:00 AM EDT edical, PC) Documentation of current 07/16/2019 MED GEN ([facility] (procedure) 12:00:00 AM EDT edical, PC) Documentation of current 07/16/2019 MED GEN ([facility] (procedure) 12:00:00 AM EDT dionisioical, PC) Documentation of current 07/16/2019 MED GEN ([facility] (procedure) 12:00:00 AM EDT edical, PC) OFFICE OUTPATIENT VISIT 07/16/2019 MEDG EN ([facility] 15 MINUTES 12:00:00 AM EDT Medical, PC) Documentation of current 05/11/2019 MED GEN ([facility] medications (procedure) 12:00:00 AM EDT edical, PC) Documentation of current 05/11/2019 MED GEN ([facility] (procedure) 12:00:00 AM EDT dionisioical, PC) Documentation of current 05/11/2019 MED GEN ([facility] (procedure) 12:00:00 AM EDT [facility], [facility]) Documentation of current 05/11/2019 MED GEN ([facility] (procedure) 12:00:00 AM EDT M [facility], PC) Documentation of current 05/11/2019 MED GEN ([facility] (procedure) 12:00:00 AM EDT [facility], PC) Documentation of current 05/11/2019 MED GEN ([facility] (procedure) 12:00:00 AM EDT [facility], PC) Documentation of current 05/11/2019 MED GEN ([facility] (procedure) 12:00:00 AM EDT [facility], PC) Documentation of current 05/11/2019 MED GEN ([facility] (procedure) 12:00:00 AM EDT [facility], PC) Documentation of current 05/11/2019 MED GEN ([facility] (procedure) 12:00:00 AM EDT [facility], PC) Documentation of current 05/11/2019 MED GEN ([facility] (procedure) 12:00:00 AM EDT [facility], PC) Documentation of current 05/11/2019 MED GEN ([facility] (procedure) 12:00:00 AM EDT [facility], PC) Documentation of current 05/11/2019 MED GEN ([facility] (procedure) 12:00:00 AM EDT [facility], PC) Documentation of current 05/11/2019 MED GEN ([facility] (procedure) 12:00:00 AM EDT [facility], PC) Documentation of current 05/11/2019 MED GEN ([facility] (procedure) 12:00:00 AM EDT [facility], [facility]) Documentation of current 05/11/2019 MED GEN ([facility] (procedure) 12:00:00 AM EDT M [facility], PC) Documentation of current 05/11/2019 MED GEN ([facility] (procedure) 12:00:00 AM EDT M [facility], PC) Documentation of current 05/11/2019 MED GEN ([facility] (procedure) 12:00:00 AM EDT [facility], PC) Documentation of current 05/11/2019 MED GEN ([facility] (procedure) 12:00:00 AM EDT [facility], PC) Documentation of current 05/11/2019 MED GEN ([facility] (procedure) 12:00:00 AM EDT [facility], PC) Documentation of current 05/11/2019 MED GEN ([facility] medications (procedure) 12:00:00 AM EDT [facility], PC) Documentation of current 05/11/2019 MED GEN ([facility] (procedure) 12:00:00 AM EDT [facility], [facility]) Documentation of current 05/11/2019 MED GEN ([facility] (procedure) 12:00:00 AM EDT [facility], [facility]) Documentation of current 05/11/2019 MED GEN ([facility] (procedure) 12:00:00 AM EDT [facility], PC) Documentation of current 05/11/2019 MED GEN ([facility] (procedure) 12:00:00 AM EDT [facility], [facility]) Documentation of current 05/11/2019 MED GEN ([facility] (procedure) 12:00:00 AM EDT [facility], [facility]) Documentation of current 05/11/2019 MED GEN ([facility] (procedure) 12:00:00 AM EDT [facility], [facility]) Documentation of current 05/11/2019 MED GEN ([facility] (procedure) 12:00:00 AM EDT [facility], [facility]) Documentation of current 05/11/2019 MED GEN ([facility] (procedure) 12:00:00 AM EDT [facility], [facility]) Documentation of current 05/11/2019 MED GEN ([facility] (procedure) 12:00:00 AM EDT [facility], [facility]) Documentation of current 05/11/2019 MED GEN ([facility] (procedure) 12:00:00 AM EDT [facility], [facility]) Documentation of current 05/11/2019 MED GEN ([facility] (procedure) 12:00:00 AM EDT [facility], [facility]) Documentation of current 05/11/2019 MED GEN ([facility] (procedure) 12:00:00 AM EDT [facility], [facility]) Documentation of current 05/11/2019 MED GEN ([facility] (procedure) 12:00:00 AM EDT [facility], ) Documentation of current 05/11/2019 MED GEN ([facility] medications (procedure) 12:00:00 AM EDT [facility], ) Documentation of current 05/11/2019 MED GEN ([facility] medications (procedure) 12:00:00 AM EDT [facility], ) Documentation of current 05/11/2019 MED GEN ([facility] medications (procedure) 12:00:00 AM EDT [facility], ) OFFICE OUTPATIENT VISIT 04/21/2019 MEDG EN ([facility] 15 MINUTES 12:00:00 AM EDT Medical, ) OFFICE OUTPATIENT VISIT 04/21/2019 MEDG EN ([facility] 15 MINUTES 12:00:00 AM EDT Medical, ) OFFICE OUTPATIENT VISIT 04/21/2019 MEDG EN ([facility] 15 MINUTES 12:00:00 AM EDT Medical, ) OFFICE OUTPATIENT VISIT 04/21/2019 MEDG EN ([facility] 15 MINUTES 12:00:00 AM EDT Medical, ) OFFICE OUTPATIENT VISIT 04/07/2019 MEDG EN ([facility] 15 MINUTES 12:00:00 AM EDT Medical, ) COLLECTION VENOUS BLOOD 04/07/2019 MEDG EN ([facility] VENIPUNCTURE 12:00:00 AM EDT Medical, ) OFFICE OUTPATIENT VISIT 04/07/2019 MEDG EN ([facility] 15 MINUTES 12:00:00 AM EDT Medical, ) COLLECTION VENOUS BLOOD 04/07/2019 MEDG EN ([facility] VENIPUNCTURE 12:00:00 AM EDT Medical, ) OFFICE OUTPATIENT VISIT 04/07/2019 MEDG EN ([facility] 15 MINUTES 12:00:00 AM EDT Medical, ) COLLECTION VENOUS BLOOD 04/07/2019 MEDG EN ([facility] VENIPUNCTURE 12:00:00 AM EDT Medical, ) OFFICE OUTPATIENT VISIT 04/07/2019 MEDG EN ([facility] 15 MINUTES 12:00:00 AM EDT Medical, ) COLLECTION VENOUS BLOOD 04/07/2019 MEDG EN ([facility] VENIPUN[facility]URE 12:00:00 AM EDT Medical, ) OFFICE OUTPATIENT VISIT 03/10/2019 MEDG EN ([facility] 15 MINUTES 12:00:00 AM EDT Medical, PC) OFFICE OUTPATIENT VISIT 03/10/2019 MEDG EN ([facility] 15 MINUTES 12:00:00 AM EDT Medical, PC) OFFICE OUTPATIENT VISIT 03/10/2019 MEDG EN ([facility] 15 MINUTES 12:00:00 AM EDT Medical, PC) OFFICE OUTPATIENT VISIT 03/10/2019 MEDG EN ([facility] 15 MINUTES 12:00:00 AM EDT Medical, PC) Documentation of current 12/30/2018 MED GEN ([facility] (procedure) 12:00:00 AM EDT d[facility], PC) Documentation of current 12/30/2018 MED GEN ([facility] (procedure) 12:00:00 AM EDT [facility], PC) Documentation of current 12/30/2018 MED GEN ([facility] (procedure) 12:00:00 AM EDT [facility]ioical, PC) Documentation of current 12/30/2018 MED GEN ([facility] (procedure) 12:00:00 AM EDT [facility], [facility]) Documentation of current 12/30/2018 MED GEN ([facility] (procedure) 12:00:00 AM EDT [facility], [facility]) Documentation of current 12/30/2018 MED GEN ([facility] (procedure) 12:00:00 AM EDT [facility], PC) Documentation of current 12/30/2018 MED GEN ([facility] (procedure) 12:00:00 AM EDT [facility], [facility]) Documentation of current 12/30/2018 MED GEN ([facility] (procedure) 12:00:00 AM EDT [facility], PC) Documentation of current 12/30/2018 MED GEN ([facility] (procedure) 12:00:00 AM EDT [facility], PC) Documentation of current 12/30/2018 MED GEN ([facility] (procedure) 12:00:00 AM EDT [facility], PC) Documentation of current 12/30/2018 MED GEN ([facility] (procedure) 12:00:00 AM EDT [facility], PC) Documentation of current 12/30/2018 MED GEN ([facility] (procedure) 12:00:00 AM EDT [facility], PC) Documentation of current 12/30/2018 MED GEN ([facility] (procedure) 12:00:00 AM EDT edical, PC) Documentation of current 12/30/2018 MED GEN ([facility] (procedure) 12:00:00 AM EDT edical, PC) Documentation of current 12/30/2018 MED GEN ([facility] medications (procedure) 12:00:00 AM EDT edical, PC) Documentation of current 12/30/2018 MED GEN ([facility] (procedure) 12:00:00 AM EDT edical, PC) Documentation of current 12/30/2018 MED GEN ([facility] medications (procedure) 12:00:00 AM EDT edical, PC) Documentation of current 12/30/2018 MED GEN ([facility] (procedure) 12:00:00 AM EDT d[facility], PC) Documentation of current 12/30/2018 MED GEN ([facility] (procedure) 12:00:00 AM EDT dion[facility]ioical, PC) Documentation of current 12/30/2018 MED GEN ([facility] (procedure) 12:00:00 AM EDT dionisioical, PC) Documentation of current 12/30/2018 MED GEN ([facility] (procedure) 12:00:00 AM EDT dionisioical, PC) COLLECTION VENOUS BLOOD 12/30/2018 MEDG EN ([facility] VENIPUNCTURE 12:00:00 AM EDT Medical, PC) Documentation of current 12/30/2018 MED GEN ([facility] medications (procedure) 12:00:00 AM EDT dion[facility]ioical, PC) Documentation of current 12/30/2018 MED GEN ([facility] medications (procedure) 12:00:00 AM EDT dionisioical, PC) Documentation of current 12/30/2018 MED GEN ([facility] (procedure) 12:00:00 AM EDT edical, PC) Documentation of current 12/30/2018 MED GEN ([facility] (procedure) 12:00:00 AM EDT edical, PC) Documentation of current 12/30/2018 MED GEN ([facility] (procedure) 12:00:00 AM EDT edical, PC) Documentation of current 12/30/2018 MED GEN ([facility] medications (procedure) 12:00:00 AM EDT [facility], PC) Documentation of current 12/30/2018 MED GEN ([facility] medications (procedure) 12:00:00 AM EDT dion[facility]ioical, PC) Documentation of current 12/30/2018 MED GEN ([facility] (procedure) 12:00:00 AM EDT dion[facility]ioical, PC) Documentation of current 12/30/2018 MED GEN ([facility] (procedure) 12:00:00 AM EDT dion[facility]ioical, PC) Documentation of current 12/30/2018 MED GEN ([facility] (procedure) 12:00:00 AM EDT [facility], [facility]) Documentation of current 12/30/2018 MED GEN ([facility] (procedure) 12:00:00 AM EDT [facility], [facility]) Documentation of current 12/30/2018 MED GEN ([facility] (procedure) 12:00:00 AM EDT [facility], [facility]) Documentation of current 12/30/2018 MED GEN ([facility] (procedure) 12:00:00 AM EDT [facility], [facility]) Documentation of current 12/30/2018 MED GEN ([facility] medications (procedure) 12:00:00 AM EDT [facility], [facility]) Documentation of current 12/30/2018 MED GEN ([facility] (procedure) 12:00:00 AM EDT [facility], [facility]) Documentation of current 12/30/2018 MED GEN ([facility] (procedure) 12:00:00 AM EDT [facility], [facility]) Documentation of current 12/30/2018 MED GEN ([facility] (procedure) 12:00:00 AM EDT [facility], [facility]) Documentation of current 12/30/2018 MED GEN ([facility] medications (procedure) 12:00:00 AM EDT [facility], [facility]) Documentation of current 12/30/2018 MED GEN ([facility] (procedure) 12:00:00 AM EDT [facility], [facility]) Documentation of current 12/30/2018 MED GEN ([facility] (procedure) 12:00:00 AM EDT [facility], [facility]) Documentation of current 12/30/2018 MED GEN ([facility] medications (procedure) 12:00:00 AM EDT [facility], PC) COLLECTION VENOUS BLOOD 12/30/2018 MEDG EN ([facility] VENIPUNCTURE 12:00:00 AM [facility], ) Documentation of current 12/30/2018 MED GEN ([facility] medications (procedure) 12:00:00 AM EDT [facility], [facility]) Documentation of current 12/30/2018 MED GEN ([facility] medications (procedure) 12:00:00 AM EDT [facility], PC) Documentation of current 12/30/2018 MED GEN ([facility] medications (procedure) 12:00:00 AM EDT edical, PC) Documentation of current 12/30/2018 MED GEN ([facility] medications (procedure) 12:00:00 AM EDT edical, PC) Documentation of current 12/30/2018 MED GEN ([facility] medications (procedure) 12:00:00 AM EDT edical, PC) Documentation of current 12/30/2018 MED GEN ([facility] medications (procedure) 12:00:00 AM EDT edical, PC) Documentation of current 12/30/2018 MED GEN ([facility] medications (procedure) 12:00:00 AM EDT edical, PC) Documentation of current 12/30/2018 MED GEN ([facility] medications (procedure) 12:00:00 AM EDT [facility], PC) Documentation of current 12/30/2018 MED GEN ([facility] medications (procedure) 12:00:00 AM EDT [facility], PC) Documentation of current 12/30/2018 MED GEN ([facility] medications (procedure) 12:00:00 AM EDT [facility], PC) Documentation of current 12/30/2018 MED GEN ([facility] medications (procedure) 12:00:00 AM EDT edical, PC) Documentation of current 12/30/2018 MED GEN ([facility] medications (procedure) 12:00:00 AM EDT edical, PC) Documentation of current 12/30/2018 MED GEN ([facility] medications (procedure) 12:00:00 AM EDT edical, PC) Documentation of current 12/30/2018 MED GEN ([facility] medications (procedure) 12:00:00 AM EDT [facility], PC) Documentation of current 12/30/2018 MED GEN ([facility] medications (procedure) 12:00:00 AM EDT Nat [facility], PC) Documentation of current 12/30/2018 MED GEN ([facility] medications (procedure) 12:00:00 AM EDT [facility], PC) Documentation of current 12/30/2018 MED GEN ([facility] medications (procedure) 12:00:00 AM EDT [facility], PC) Documentation of current 12/30/2018 MED GEN ([facility] medications (procedure) 12:00:00 AM EDT [facility], PC) Documentation of current 12/30/2018 MED GEN ([facility] (procedure) 12:00:00 AM EDT [facility], PC) Documentation of current 12/30/2018 MED GEN ([facility] (procedure) 12:00:00 AM EDT [facility], PC) Documentation of current 12/30/2018 MED GEN ([facility] medications (procedure) 12:00:00 AM EDT [facility], PC) Documentation of current 12/30/2018 MED GEN ([facility] (procedure) 12:00:00 AM EDT [facility], PC) Documentation of current 12/30/2018 MED GEN ([facility] medications (procedure) 12:00:00 AM EDT [facility], PC) Documentation of current 12/30/2018 MED GEN ([facility] (procedure) 12:00:00 AM EDT [facility], PC) Documentation of current 12/30/2018 MED GEN ([facility] medications (procedure) 12:00:00 AM EDT [facility], PC) Documentation of current 12/30/2018 MED GEN ([facility] medications (procedure) 12:00:00 AM EDT [facility], PC) Documentation of current 12/30/2018 MED GEN ([facility] (procedure) 12:00:00 AM EDT angel, PC) Documentation of current 12/30/2018 MED GEN ([facility] (procedure) 12:00:00 AM EDT [facility], PC) Documentation of current 12/30/2018 MED GEN ([facility] (procedure) 12:00:00 AM EDT edical, PC) Documentation of current 12/30/2018 MED GEN ([facility] medications (procedure) 12:00:00 AM EDT edical, PC) Documentation of current 12/30/2018 MED GEN ([facility] medications (procedure) 12:00:00 AM EDT edical, PC) Documentation of current 12/30/2018 MED GEN ([facility] medications (procedure) 12:00:00 AM EDT edical, PC) Documentation of current 12/30/2018 MED GEN ([facility] medications (procedure) 12:00:00 AM EDT [facility], PC) Documentation of current 12/30/2018 MED GEN ([facility] medications (procedure) 12:00:00 AM EDT [facility], PC) Documentation of current 12/30/2018 MED GEN ([facility] medications (procedure) 12:00:00 AM EDT edical, PC) COLLECTION VENOUS BLOOD 12/30/2018 MEDG EN ([facility] VENIPUNCTURE 12:00:00 AM [facility], ) Documentation of current 12/30/2018 MED GEN ([facility] medications (procedure) 12:00:00 AM EDT [facility], PC) Documentation of current 12/30/2018 MED GEN ([facility] medications (procedure) 12:00:00 AM EDT [facility], PC) Documentation of current 12/30/2018 MED GEN ([facility] medications (procedure) 12:00:00 AM EDT edical, PC) Documentation of current 12/30/2018 MED GEN ([facility] medications (procedure) 12:00:00 AM EDT [facility], PC) Documentation of current 12/30/2018 MED GEN ([facility] medications (procedure) 12:00:00 AM EDT edical, PC) Documentation of current 12/30/2018 MED GEN ([facility] medications (procedure) 12:00:00 AM EDT edical, PC) Documentation of current 12/30/2018 MED GEN ([facility] medications (procedure) 12:00:00 AM EDT edical, PC) COLLECTION VENOUS BLOOD 12/30/2018 MEDG EN ([facility] VENIPUNCTURE 12:00:00 AM [facility], ) Federally qualified 07/02/2018 eCW2 ([facility] (critical access hospital) 12:00:00 AM EDT [facility]) visit, established patient; a medically-necessary, [id number] encounter (one-on-one) between an established patient and a critical access hospital practitioner during which time one or more critical access hospital services are rendered and includes a typical bundle of medicare-covered services that 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 receiving a critical access hospital visit COLLECTION CAPILLARY 07/02/2018 eCW2 ([facility] [place] [place] BLOOD SPECIMEN 12:00:00 AM EDT [facility] e) GLUC BLD GLUC MNTR DEV 07/02/2018 eCW2 ([place] CLEARED FDA SPEC [facility] Results ID Date Data Source [id number] 05/23/2020 12:00:00 AM EDT [facility] Name Value Range Interpretation Code Description Data Supporting Source(s) Document(s ) Creatinine 37.8 mg/dL Normal (applies to MEDGEN (S t , Urine non-numeric [facility] results) [facility], PC) Protein,To 11.7 mg/dL Normal (applies to MEDGEN (S t nicolas,Urine non-numeric [facility] results) Medical, PC) Protein/Cr 310 mg/g Above high normal MEDGEN (St eat Ratio creat [facility], [facility]) ID Date Data Source [id number] 05/23/2020 12:00:00 AM EDT [facility] ([facility]) Name Value Range Interpretation Description Data Sup porting Code Source(s) Document(s ) Iron 291 ug/dL Normal (applies to MEDGEN (St Bind.Cap.(TIBC non-numeric [facility] ) results) Medical, PC) UIBC 250 ug/dL Normal (applies to MEDGEN (St non-numeric [facility] results) [facility], PC) Iron 41 ug/dL Normal (applies to MEDGEN (St [Mass/volume] non-numeric [facility] in Serum or results) Medical, PC) Plasma Iron 14 % Below low normal MEDGEN (St saturation [facility] [[facility], [facility]) Fraction] in Serum or Plasma ID Date Data Source [id number] 05/23/2020 12:00:00 AM EDT [facility] ([facility]) Name Value Range Interpretation Description Data Sup porting Code Source(s) Document(s ) Specific gravity 1.024 Normal (applies MEDGEN (St of Pericardial to non-numeric [facility] fluid by results) Medical, Refractometry PC) pH of Lower 6.0 Normal (applies MEDGEN (St respiratory to non-numeric [facility] specimen results) Medical, PC) Urine-Color Yellow Normal (applies MEDGEN (St to non-numeric [facility] results) Medical, PC) Appearance of Clear Normal (applies MEDGEN (St Abdomen to non-numeric [facility] results) Medical, PC) Protein Negative Normal (applies MEDGEN (St [Mass/volume] in to non-numeric [facility] Lower results) Medical, respiratory PC) specimen WBC Esterase Abnormal MEDGEN (St (applies to [facility] non-numeric Medical, results) PC) Glucose Abnormal MEDGEN (St [Mass/volume] in (applies to [facility] Urine collected non-numeric Medical, for unspecified results) PC) duration Ketones Negative Normal (applies MEDGEN (St [Presence] in to non-numeric [facility] Blood by Tablet results) Medical, PC) Occult Blood Negative Normal (applies MEDGEN (St to non-numeric [facility] results) Medical, PC) Bilirubin Negative Normal (applies MEDGEN (St [Presence] in to non-numeric [facility] Peritoneal fluid results) Medical, PC) Urobilinogen,Reyes 0.2 mg/dL Normal (applies MEDGEN (St i-Qn to non-numeric [facility] results) Medical, PC) Nitrite, Urine Negative Normal (applies MEDGEN (S t to non-numeric [facility] results) Medical, PC) Microscopic See below: Normal (applies MEDGEN (St Examination to non-numeric [facility] results) Medical, PC) ID Date Data Source [id number] 05/23/2020 12:00:00 AM EDT [facility]GEN ([facility]) Name Value Range Interpretation Description Data Sup porting Code Source(s) Document(s ) WBC 6-10 Abnormal (applies MEDGEN (St to non-numeric [facility] results) Medical, PC) RBC 0-2 Normal (applies to MEDGEN (St non-numeric [facility] results) Medical, PC) Epithelial 0-10 Normal (applies to MEDGEN (St Cells (non non-numeric [facility] renal) results) Medical, PC) Bacteria None seen Normal (applies to MEDGEN (St [Presence] in non-numeric [facility] Prostatic results) Medical, ) fluid by Light microscopy ID Date Data Source [id number] 05/23/2020 12:00:00 AM EDT MEDGEN ([facility], ) Name Value Range Interpretation Description Data Sup porting Code Source(s) Document(s ) Glucose 254 Above high MEDGEN (St [Mass/volume] in mg/dL normal [facility] Urine collected for Medical, unspecified PC) duration Urea nitrogen 37 mg/dL Above high MEDGEN (St [Mass/volume] in normal [facility] Serum or Plasma Medical, ) Creatinine 1.24 Above high MEDGEN (St [Interpretation] in mg/dL normal [facility] Urine Medical, ) eGFR If NonAfricn 42 Below low normal MEDGE N (St Am mL/min/[address], ) eGFR If Africn Am 48 Below low normal MEDGE N (St mL/min/1 [facility], ) BUN/Creatinine 30 Above high MEDGEN (St Ratio normal [facility], ) Sodium 138 Normal (applies MEDGEN (St [Moles/volume] in mmol/L to non-numeric [facility] Serum or Plasma results) Medical, ) Potassium 5.0 Normal (applies MEDGEN (St [Mass/volume] in mmol/L to non-numeric [facility] Blood results) Medical, ) Carbon dioxide, 22 Normal (applies MEDGEN ( St total mmol/L to non-numeric [facility] [Moles/volume] in results) Medical, Serum or Plasma PC) Chloride 104 Normal (applies MEDGEN (St [Moles/volume] in mmol/L to non-numeric [facility] Serum or Plasma results) Medical, ) Calcium 9.4 Normal (applies MEDGEN (St [Moles/volume] in mg/dL to non-numeric [facility] Urine collected for results) Medical, unspecified PC) duration Protein 6.6 g/dL Normal (applies MEDGEN (St [Mass/volume] in to non-numeric [facility] Serum or Plasma results) Medical, ) Globulin, Total 2.3 g/dL Normal (applies MEDGEN ( St to non-numeric [facility] results) Medical, ) Microalbumin 4.3 g/dL Normal (applies MEDGEN (St [Mass/time] in to non-numeric [facility] Urine collected for results) [facility], unspecified PC) duration A/G Ratio 1.9 Normal (applies MEDGEN (St to non-numeric [facility] results) Medical, ) Alkaline 81 IU/L Normal (applies MEDGEN (St phosphatase to non-numeric [facility] [Enzymatic results) Medical, activity/volume] in PC) Serum, Plasma or Blood Bilirubin.total <0.2 Normal (applies MEDGEN ( St [Mass/volume] in to non-numeric [facility] Serum or Plasma results) Medical, ) Aspartate 16 IU/L Normal (applies MEDGEN (St aminotransferase to non-numeric [facility] [Enzymatic results) Medical, activity/volume] in PC) Serum or Plasma Alanine 11 IU/L Normal (applies MEDGEN (St aminotransferase to non-numeric [facility] [Enzymatic results) Medical, activity/volume] in PC) Serum or Plasma ID Date Data Source [id number] 05/23/2020 12:00:00 AM EDT [facility]GEN ([facility], ) Name Value Range Interpretation Description Data Sup porting Code Source(s) Document(s ) Leukocytes 6.9 Normal (applies MEDGEN (St [#/volume] in x10E3/uL to non-numeric [facility] Blood by results) Medical, ) Automated count Erythrocytes 5.09 Normal (applies MEDGEN (St [#/volume] in x10E6/uL to non-numeric [facility] Blood by results) [facility], ) Automated count Hematocrit 38.4 % Normal (applies MEDGEN (St [Volume to non-numeric [facility] Fraction] of results) [facility], ) Blood by Automated count Hemoglobin 11.8 Normal (applies MEDGEN (St [Mass/volume] in g/dL to non-numeric [facility] Blood results) [facility], ) MCV 75 fL Below low normal [facility]GEN ([facility], ) MCH 23.2 pg Below low normal [facility] ([facility], ) MCHC 30.7 Below low normal MEDGEN (St g/dL [facility], ) RDW 14.6 % Normal (applies MEDGEN (St to non-numeric [facility] results) [facility], ) Platelets 264 Normal (applies MEDGEN (St [#/area] in x10E3/uL to non-numeric [facility] Blood by results) [facility], ) Microscopy high power field Neutrophils [#] 52 % Normal (applies MEDGEN ( St in Body fluid by to non-numeric [facility] Manual count results) [facility], ) Lymphs 37 % Normal (applies MEDGEN (St to non-numeric [facility] results) [facility], ) Monocytes 5 % Normal (applies MEDGEN (St [#/volume] in to non-numeric [facility] Cord blood results) [facility], ) Eos 5 % Normal (applies MEDGEN (St to non-numeric [facility] results) [facility], ) Basos 1 % Normal (applies MEDGEN (St to non-numeric [facility] results) [facility], ) Neutrophils 3.5 Normal (applies MEDGEN (St (Absolute) x10E3/uL to non-numeric [facility] results) [facility], ) Lymphs 2.6 Normal (applies MEDGEN (St (Absolute) x10E3/uL to non-numeric [facility] results) [facility], ) Monocytes(Absolu 0.3 Normal (applies MEDGEN (St te) x10E3/uL to non-numeric [facility] results) [facility], ) Eos (Absolute) 0.4 Normal (applies MEDGEN (S t x10E3/uL to non-numeric [facility] results) [facility], ) Baso (Absolute) 0.1 Normal (applies MEDGEN ( St x10E3/uL to non-numeric [facility] results) [facility], ) Immature 0 % Normal (applies MEDGEN (St Granulocytes to non-numeric [facility] results) [facility], ) Immature Grans 0.0 Normal (applies MEDGEN (S t (Abs) x10E3/uL to non-numeric [facility] results) [facility], ) ID Date Data Source [id number] 05/23/2020 12:00:00 AM EDT [facility] ([facility], ) Name Value Range Interpretation Code Description Data Akilah rce(s) Supporting Document(s ) ID Date Data Source [id number] 05/23/2020 12:00:00 AM EDT [facility] ([facility], ) Name Value Range Interpretation Code Description Data Akilah rce(s) Supporting Document(s ) PDF . Normal (applies to MEDGEN (St non-numeric results) [facility], ) ID Date Data Source [id number] 05/23/2020 12:00:00 AM EDT [facility]GEN ([facility], ) Name Value Range Interpretation Code Description Data Supporting Source(s) Document(s ) PTH, Intact 13 pg/mL Below low normal [facility] ([facility], PC) ID Date Data Source [id number] 05/23/2020 12:00:00 AM EDT MEDGEN ([facility], ) Name Value Range Interpretation Code Description Data Akilah rce(s) Supporting Document(s ) Ferritin, 35 ng/mL Normal (applies to MEDGEN (St Serum non-numeric [facility] results) [facility], ) ID Date Data Source [id number] 05/23/2020 12:00:00 AM EDT MEDGEN ([facility], ) Name Value Range Interpretation Description Data Sup porting Code Source(s) Document(s ) Deprecated 2.8 mg/dL Below low normal MEDGEN (St Phosphorus [facility] [Mass/time] in Medical, ) 24 hour Urine ID Date Data Source [id number] 05/23/2020 12:00:00 AM EDT [facility]GEN ([facility], ) Name Value Range Interpretation Description Data Sup porting Code Source(s) Document(s ) Vitamin D, 32.4 Normal (applies to MEDGEN (St 25-Hydroxy ng/mL non-numeric [facility] results) Medical, ) ID Date Data Source [id number] 05/23/2020 12:00:00 AM EDT MEDGEN ([facility], ) Name Value Range Interpretation Code Description Data Supporting Source(s) Document(s ) Creatinine 37.8 mg/dL Normal (applies to MEDGEN (S t , Urine non-numeric [facility] results) Medical, ) Protein,To 11.7 mg/dL Normal (applies to MEDGEN (S t nicolas,Urine non-numeric [facility] results) Medical, ) Protein/Cr 310 mg/g Above high normal MEDGEN (St eat Ratio creat [facility], ) ID Date Data Source [id number] 05/23/2020 12:00:00 AM EDT [facility] ([facility], ) Name Value Range Interpretation Description Data Sup porting Code Source(s) Document(s ) Iron 291 ug/dL Normal (applies to MEDGEN (St Bind.Cap.(TIBC non-numeric [facility] ) results) Medical, PC) UIBC 250 ug/dL Normal (applies to MEDGEN (St non-numeric [facility] results) Medical, PC) Iron 14 % Below low normal MEDGEN (St saturation [facility] [[facility], [facility]) Fraction] in Serum or Plasma Iron 41 ug/dL Normal (applies to MEDGEN (St [Mass/volume] non-numeric [facility] in Serum or results) Medical, PC) Plasma ID Date Data Source [id number] 05/23/2020 12:00:00 AM EDT [facility] ([facility]) Name Value Range Interpretation Description Data Sup porting Code Source(s) Document(s ) Specific gravity 1.024 Normal (applies MEDGEN (St of Pericardial to non-numeric [facility] fluid by results) Medical, Refractometry PC) pH of Lower 6.0 Normal (applies MEDGEN (St respiratory to non-numeric [facility] specimen results) Medical, PC) Urine-Color Yellow Normal (applies MEDGEN (St to non-numeric [facility] results) Medical, PC) Appearance of Clear Normal (applies MEDGEN (St Abdomen to non-numeric [facility] results) Medical, PC) WBC Esterase Abnormal MEDGEN (St (applies to [facility] non-numeric Medical, results) PC) Protein Negative Normal (applies MEDGEN (St [Mass/volume] in to non-numeric [facility] Lower results) Medical, respiratory PC) specimen Glucose Abnormal MEDGEN (St [Mass/volume] in (applies to [facility] Urine collected non-numeric Medical, for unspecified results) PC) duration Ketones Negative Normal (applies MEDGEN (St [Presence] in to non-numeric [facility] Blood by Tablet results) Medical, PC) Occult Blood Negative Normal (applies MEDGEN (St to non-numeric [facility] results) Medical, PC) Urobilinogen,Reyes 0.2 mg/dL Normal (applies MEDGEN (St i-Qn to non-numeric [facility] results) Medical, PC) Bilirubin Negative Normal (applies MEDGEN (St [Presence] in to non-numeric [facility] Peritoneal fluid results) Medical, PC) Nitrite, Urine Negative Normal (applies MEDGEN (S t to non-numeric [facility] results) Medical, ) Microscopic See below: Normal (applies MEDGEN (St Examination to non-numeric [facility] results) Medical, ) ID Date Data Source [id number] 05/23/2020 12:00:00 AM EDT [facility]GEN ([facility], ) Name Value Range Interpretation Description Data Sup porting Code Source(s) Document(s ) WBC 6-10 Abnormal (applies MEDGEN (St to non-numeric [facility] results) Medical, ) RBC 0-2 Normal (applies to MEDGEN (St non-numeric [facility] results) Medical, ) Epithelial 0-10 Normal (applies to MEDGEN (St Cells (non non-numeric [facility] renal) results) Medical, ) Bacteria None seen Normal (applies to MEDGEN (St [Presence] in non-numeric [facility] Prostatic results) [facility], ) fluid by Light microscopy ID Date Data Source [id number] 05/23/2020 12:00:00 AM EDT MEDGEN ( [facility], ) Name Value Range Interpretation Description Data Sup porting Code Source(s) Document(s ) Glucose 254 Above high MEDGEN (St [Mass/volume] in mg/dL normal [facility] Urine collected for Medical, unspecified PC) duration Urea nitrogen 37 mg/dL Above high MEDGEN (St [Mass/volume] in normal [facility] Serum or Plasma [facility], ) Creatinine 1.24 Above high MEDGEN (St [Interpretation] in mg/dL normal [facility] Urine [facility], ) eGFR If NonAfricn 42 Below low normal MEDGE N (St Am mL/min/1 [facility] [address] [place] [address], ) BUN/Creatinine 30 Above high MEDGEN (St Ratio normal [facility], ) eGFR If Africn Am 48 Below low normal MEDGE N (St mL/min/1 [facility], ) Potassium 5.0 Normal (applies MEDGEN (St [Mass/volume] in mmol/L to non-numeric [facility] Blood results) [facility], ) Sodium 138 Normal (applies MEDGEN (St [Moles/volume] in mmol/L to non-numeric [facility] Serum or Plasma results) Medical, ) Chloride 104 Normal (applies MEDGEN (St [Moles/volume] in mmol/L to non-numeric [facility] Serum or Plasma results) Medical, PC) Carbon dioxide, 22 Normal (applies MEDGEN ( St total mmol/L to non-numeric [facility] [Moles/volume] in results) Medical, Serum or Plasma PC) Protein 6.6 g/dL Normal (applies MEDGEN (St [Mass/volume] in to non-numeric [facility] Serum or Plasma results) Medical, ) Calcium 9.4 Normal (applies MEDGEN (St [Moles/volume] in mg/dL to non-numeric [facility] Urine collected for results) Medical, unspecified PC) duration Microalbumin 4.3 g/dL Normal (applies MEDGEN (St [Mass/time] in to non-numeric [facility] Urine collected for results) Medical, unspecified PC) duration Globulin, Total 2.3 g/dL Normal (applies MEDGEN ( St to non-numeric [facility] results) Medical, PC) A/G Ratio 1.9 Normal (applies MEDGEN (St to non-numeric [facility] results) Medical, PC) Bilirubin.total <0.2 Normal (applies MEDGEN ( St [Mass/volume] in to non-numeric [facility] Serum or Plasma results) Medical, PC) Aspartate 16 IU/L Normal (applies [facility] (St aminotransferase to non-numeric [facility] [Enzymatic results) Medical, activity/volume] in PC) Serum or Plasma Alkaline 81 IU/L Normal (applies [facility] (St phosphatase to non-numeric [facility] [Enzymatic results) Medical, activity/volume] in PC) Serum, Plasma or Blood Alanine 11 IU/L Normal (applies [facility] (St aminotransferase to non-numeric [facility] [Enzymatic results) Medical, activity/volume] in PC) Serum or Plasma ID Date Data Source [id number] 05/23/2020 12:00:00 AM EDT [facility] (St [facility], ) Name Value Range Interpretation Description Data Sup porting Code Source(s) Document(s ) Leukocytes 6.9 Normal (applies [facility] (St [#/volume] in x10E3/uL to non-numeric [facility] Blood by results) Medical, ) Automated count Erythrocytes 5.09 Normal (applies [facility] (St [#/volume] in x10E6/uL to non-numeric [facility] Blood by results) Medical, PC) Automated count Hemoglobin 11.8 Normal (applies [facility] (St [Mass/volume] in g/dL to non-numeric [facility] Blood results) [facility], ) Hematocrit 38.4 % Normal (applies [facility]GEN (St [Volume to non-numeric [facility] Fraction] of results) [facility], ) Blood by Automated count MCV 75 fL Below low normal [facility] ([place] [facility], ) MCH 23.2 pg Below low normal [facility] ([place] [facility], ) MCHC 30.7 Below low normal [facility] (St g/dL [facility], ) RDW 14.6 % Normal (applies [facility] (St to non-numeric [facility] results) [facility], ) Platelets 264 Normal (applies [facility] (St [#/area] in x10E3/uL to non-numeric [facility] Blood by results) [facility], ) Microscopy high power field Neutrophils [#] 52 % Normal (applies [facility]GEN ( St in Body fluid by to non-numeric [facility] Manual count results) [facility], ) Lymphs 37 % Normal (applies [facility] (St to non-numeric [facility] results) [facility], ) Eos 5 % Normal (applies [facility] (St to non-numeric [facility] results) [facility], ) Monocytes 5 % Normal (applies [facility] (St [#/volume] in to non-numeric [facility] Cord blood results) [facility], ) Basos 1 % Normal (applies [facility] (St to non-numeric [facility] results) [facility], ) Neutrophils 3.5 Normal (applies [facility]GEN (St (Absolute) x10E3/uL to non-numeric [facility] results) [facility], ) Lymphs 2.6 Normal (applies [facility] (St (Absolute) x10E3/uL to non-numeric [facility] results) [facility], ) Monocytes(Absolu 0.3 Normal (applies MEDGEN (St te) x10E3/uL to non-numeric [facility] results) [facility], ) Eos (Absolute) 0.4 Normal (applies [facility]GEN (S t x10E3/uL to non-numeric [facility] results) [facility], ) Baso (Absolute) 0.1 Normal (applies MEDGEN ( St x10E3/uL to non-numeric [facility] results) [facility], ) Immature 0 % Normal (applies [facility] (St Granulocytes to non-numeric [facility] results) Medical, ) Immature Grans 0.0 Normal (applies [facility]GEN (S t (Abs) x10E3/uL to non-numeric [facility] results) [facility], ) ID Date Data Source [id number] 05/23/2020 12:00:00 AM EDT [facility] (St [facility], ) Name Value Range Interpretation Code Description Data Akilah rce(s) Supporting Document(s ) ID Date Data Source [id number] 05/23/2020 12:00:00 AM EDT [facility] (St [facility], ) Name Value Range Interpretation Code Description Data Akilah rce(s) Supporting Document(s ) PDF . Normal (applies to [facility]GEN (St non-numeric results) [facility], ) ID Date Data Source [id number] 05/23/2020 12:00:00 AM EDT [facility] (St [facility], ) Name Value Range Interpretation Code Description Data Supporting Source(s) Document(s ) PTH, Intact 13 pg/mL Below low normal [facility] ([place] [facility], ) ID Date Data Source [id number] 05/23/2020 12:00:00 AM EDT [facility] (St [facility], ) Name Value Range Interpretation Code Description Data Akilah rce(s) Supporting Document(s ) Ferritin, 35 ng/mL Normal (applies to [facility]GEN (St Serum non-numeric [facility] results) [facility], ) ID Date Data Source [id number] 05/23/2020 12:00:00 AM EDT [facility] (St [facility], ) Name Value Range Interpretation Description Data Sup porting Code Source(s) Document(s ) Deprecated 2.8 mg/dL Below low normal [facility] (St Phosphorus [facility] [Mass/time] in [facility], ) 24 hour Urine ID Date Data Source [id number] 05/23/2020 12:00:00 AM EDT [facility] (St [facility], ) Name Value Range Interpretation Description Data Sup porting Code Source(s) Document(s ) Vitamin D, 32.4 Normal (applies to [facility]GEN (St 25-Hydroxy ng/mL non-numeric [facility] results) [facility], ) ID Date Data Source [id number] 05/23/2020 12:00:00 AM EDT [facility] ( [facility], ) Name Value Range Interpretation Code Description Data Supporting Source(s) Document(s ) Creatinine 37.8 mg/dL Normal (applies to [facility]GEN (S t , Urine non-numeric [facility] results) Medical, PC) Protein,To 11.7 mg/dL Normal (applies to [facility]GEN (S t nicolas,Urine non-numeric [facility] results) Medical, PC) Protein/Cr 310 mg/g Above high normal MEDGEN (St eat Ratio creat [facility], ) ID Date Data Source [id number] 05/23/2020 12:00:00 AM EDT [facility], ) Name Value Range Interpretation Description Data Sup porting Code Source(s) Document(s ) Iron 291 ug/dL Normal (applies to MEDGEN (St Bind.Cap.(TIBC non-numeric [facility] ) results) Medical, PC) Iron 41 ug/dL Normal (applies to [facility] (St [Mass/volume] non-numeric [facility] in Serum or results) Medical, PC) Plasma UIBC 250 ug/dL Normal (applies to [facility] (St non-numeric [facility] results) Medical, PC) Iron 14 % Below low normal [facility] (St saturation [facility] [[facility], ) Fraction] in Serum or Plasma ID Date Data Source [id number] 05/23/2020 12:00:00 AM EDT [facility], ) Name Value Range Interpretation Description Data Sup porting Code Source(s) Document(s ) Specific gravity 1.024 Normal (applies [facility] (St of Pericardial to non-numeric [facility] fluid by results) Medical, Refractometry ) pH of Lower 6.0 Normal (applies [facility] (St respiratory to non-numeric [facility] specimen results) Medical, PC) Urine-Color Yellow Normal (applies [facility] (St to non-numeric [facility] results) Medical, PC) Appearance of Clear Normal (applies [facility] (St Abdomen to non-numeric [facility] results) Medical, PC) WBC Esterase Abnormal [facility] (St (applies to [facility] non-numeric Medical, results) PC) Glucose Abnormal MED[facility] (St [Mass/volume] in (applies to [facility] Urine collected non-numeric Medical, for unspecified results) ) duration Protein Negative Normal (applies [facility] (St [Mass/volume] in to non-numeric [facility] Lower results) Medical, respiratory PC) specimen Occult Blood Negative Normal (applies [facility] (St to non-numeric [facility] results) Medical, ) Ketones Negative Normal (applies [facility] (St [Presence] in to non-numeric [facility] Blood by Tablet results) Medical, ) Bilirubin Negative Normal (applies [facility] (St [Presence] in to non-numeric [facility] Peritoneal fluid results) Medical, ) Urobilinogen,Reyes 0.2 mg/dL Normal (applies [facility] (St i-Qn to non-numeric [facility] results) Medical, ) Nitrite, Urine Negative Normal (applies [facility]GEN (S t to non-numeric [facility] results) Medical, ) Microscopic See below: Normal (applies [facility] (St Examination to non-numeric [facility] results) Medical, ) ID Date Data Source [id number] 05/23/2020 12:00:00 AM EDT [facility] (St [facility] [place] [facility], ) Name Value Range Interpretation Description Data Sup porting Code Source(s) Document(s ) WBC 6-10 Abnormal (applies [facility] (St to non-numeric [facility] results) Medical, ) RBC 0-2 Normal (applies to [facility] (St non-numeric [facility] results) Medical, ) Epithelial 0-10 Normal (applies to [facility] (St Cells (non non-numeric [facility] renal) results) Medical, ) Bacteria None seen Normal (applies to [facility] (St [Presence] in non-numeric [facility] Prostatic results) Medical, ) fluid by Light microscopy ID Date Data Source [id number] 05/23/2020 12:00:00 AM EDT [facility] (St [employer] [facility], ) Name Value Range Interpretation Description Data Sup porting Code Source(s) Document(s ) Glucose 254 Above high [facility] (St [Mass/volume] in mg/dL normal [facility] Urine collected for Medical, unspecified PC) duration Urea nitrogen 37 mg/dL Above high [facility] (St [Mass/volume] in normal [facility] Serum or Plasma Medical, ) Creatinine 1.24 Above high [facility] (St [Interpretation] in mg/dL normal [facility] Urine Medical, ) eGFR If Africn Am 48 Below low normal MEDGE N (St mL/min/1 [facility], ) eGFR If NonAfricn 42 Below low normal MEDGE N (St Am mL/min/1 [facility], ) Sodium 138 Normal (applies [facility]GEN (St [Moles/volume] in mmol/L to non-numeric [facility] Serum or Plasma results) Medical, ) BUN/Creatinine 30 Above high MEDGEN (St Ratio normal [facility], ) Potassium 5.0 Normal (applies [facility]GEN (St [Mass/volume] in mmol/L to non-numeric [facility] Blood results) Medical, ) Chloride 104 Normal (applies [facility]GEN (St [Moles/volume] in mmol/L to non-numeric [facility] Serum or Plasma results) Medical, ) Carbon dioxide, 22 Normal (applies [facility]GEN ( St total mmol/L to non-numeric [facility] [Moles/volume] in results) Medical, Serum or Plasma PC) Calcium 9.4 Normal (applies [facility] (St [Moles/volume] in mg/dL to non-numeric [facility] Urine collected for results) Medical, unspecified PC) duration Protein 6.6 g/dL Normal (applies [facility] (St [Mass/volume] in to non-numeric [facility] Serum or Plasma results) Medical, ) Microalbumin 4.3 g/dL Normal (applies [facility]GEN (St [Mass/time] in to non-numeric [facility] Urine collected for results) Medical, unspecified PC) duration Globulin, Total 2.3 g/dL Normal (applies [facility]GEN ( St to non-numeric [facility] results) Medical, ) Bilirubin.total <0.2 Normal (applies [facility]GEN ( St [Mass/volume] in to non-numeric [facility] Serum or Plasma results) Medical, ) A/G Ratio 1.9 Normal (applies [facility] (St to non-numeric [facility] results) Medical, ) Alkaline 81 IU/L Normal (applies [facility]GEN (St phosphatase to non-numeric [facility] [Enzymatic results) Medical, activity/volume] in PC) Serum, Plasma or Blood Alanine 11 IU/L Normal (applies [facility]GEN (St aminotransferase to non-numeric [facility] [Enzymatic results) Medical, activity/volume] in PC) Serum or Plasma Aspartate 16 IU/L Normal (applies [facility]GEN (St aminotransferase to non-numeric [facility] [Enzymatic results) Medical, activity/volume] in ) Serum or Plasma ID Date Data Source [id number] 05/23/2020 12:00:00 AM EDT [facility] (St [facility], ) Name Value Range Interpretation Description Data Sup porting Code Source(s) Document(s ) Leukocytes 6.9 Normal (applies [facility]GEN (St [#/volume] in x10E3/uL to non-numeric [facility] Blood by results) [facility], ) Automated count Erythrocytes 5.09 Normal (applies [facility]GEN (St [#/volume] in x10E6/uL to non-numeric [facility] Blood by results) [facility], ) Automated count Hemoglobin 11.8 Normal (applies [facility]GEN (St [Mass/volume] in g/dL to non-numeric [facility] Blood results) [facility], ) Hematocrit 38.4 % Normal (applies [facility]GEN (St [Volume to non-numeric [facility] Fraction] of results) [facility], ) Blood by Automated count MCV 75 fL Below low normal [facility] ([facility], ) MCH 23.2 pg Below low normal [facility] ([facility], ) MCHC 30.7 Below low normal [facility] (St g/dL [facility], ) Platelets 264 Normal (applies MEDGEN (St [#/area] in x10E3/uL to non-numeric [facility] Blood by results) [facility], ) Microscopy high power field RDW 14.6 % Normal (applies [facility]GEN (St to non-numeric [facility] results) [facility], ) Neutrophils [#] 52 % Normal (applies MEDGEN ( St in Body fluid by to non-numeric [facility] Manual count results) [facility], ) Monocytes 5 % Normal (applies [facility]GEN (St [#/volume] in to non-numeric [facility] Cord blood results) [facility], ) Lymphs 37 % Normal (applies [facility] (St to non-numeric [facility] results) [facility], ) Basos 1 % Normal (applies [facility]GEN (St to non-numeric [facility] results) [facility], ) Eos 5 % Normal (applies [facility] (St to non-numeric [facility] results) [facility], ) Neutrophils 3.5 Normal (applies [facility]GEN (St (Absolute) x10E3/uL to non-numeric [facility] results) Medical, ) Lymphs 2.6 Normal (applies [facility]GEN (St (Absolute) x10E3/uL to non-numeric [facility] results) Medical, ) Monocytes(Absolu 0.3 Normal (applies MEDGEN (St te) x10E3/uL to non-numeric [facility] results) Medical, ) Eos (Absolute) 0.4 Normal (applies MEDGEN (S t x10E3/uL to non-numeric [facility] results) Medical, ) Baso (Absolute) 0.1 Normal (applies [facility]GEN ( St x10E3/uL to non-numeric [facility] results) Medical, ) Immature 0 % Normal (applies [facility] (St Granulocytes to non-numeric [facility] results) Medical, ) Immature Grans 0.0 Normal (applies MEDGEN (S t (Abs) x10E3/uL to non-numeric [facility] results) Medical, ) ID Date Data Source [id number] 05/23/2020 12:00:00 AM EDT [facility] (St [facility], ) Name Value Range Interpretation Code Description Data Akilah rce(s) Supporting Document(s ) ID Date Data Source [id number] 05/23/2020 12:00:00 AM EDT [facility] (St [facility], ) Name Value Range Interpretation Code Description Data Akilah rce(s) Supporting Document(s ) PDF . Normal (applies to [facility]GEN (St non-numeric results) [facility], ) ID Date Data Source [id number] 05/23/2020 12:00:00 AM EDT [facility] (St [facility], ) Name Value Range Interpretation Code Description Data Supporting Source(s) Document(s ) PTH, Intact 13 pg/mL Below low normal [facility] ([place] [facility], ) ID Date Data Source [id number] 05/23/2020 12:00:00 AM EDT [facility] (St [facility], ) Name Value Range Interpretation Code Description Data Akilah rce(s) Supporting Document(s ) Ferritin, 35 ng/mL Normal (applies to [facility] (St Serum non-numeric [facility] results) Medical, ) ID Date Data Source [id number] 05/23/2020 12:00:00 AM EDT [facility] (St [facility], ) Name Value Range Interpretation Description Data Sup porting Code Source(s) Document(s ) Deprecated 2.8 mg/dL Below low normal [facility] (St Phosphorus [facility] [Mass/time] in [facility], ) 24 hour Urine ID Date Data Source [id number] 05/23/2020 12:00:00 AM EDT [facility] (St [facility], ) Name Value Range Interpretation Description Data Sup porting Code Source(s) Document(s ) Vitamin D, 32.4 Normal (applies to [facility] (St 25-Hydroxy ng/mL non-numeric [facility] results) [facility], ) ID Date Data Source [id number] 01/11/2020 12:00:00 AM EDT [facility] Name Value Range Interpretation Code Description Data Akilah rce(s) Supporting Document(s ) 2019-nCoV [facility] RNA XXX HOLLIE+probe- Imp This lab was ordered by [facility] and reported by [facility]. ID Date Data Source [id number] 11/03/2019 12:00:00 AM EST [facility] (St [facility], ) Name Value Range Interpretation Description Data Sup porting Code Source(s) Document(s ) Glucose 131 mg/dL Above high normal [facility] (St [Mass/volume] [facility] in Urine [facility], ) collected for unspecified duration Urea nitrogen 26 mg/dL Normal (applies [facility] (St [Mass/volume] to non-numeric [facility] in Serum or results) Medical, ) Plasma Creatinine 1.00 Normal (applies [facility]GEN (St [Interpretation mg/dL to non-numeric [facility] ] in Urine results) Medical, ) eGFR If 54 Below low normal MEDGEN (St NonAfricn Am mL/min/1. [facility] 73 Medical, ) eGFR If Africn 63 Normal (applies MEDGEN (S t Am mL/min/1. to non-numeric [facility] 73 results) Medical, ) BUN/Creatinine 26 Normal (applies [facility]GEN (S t Ratio to non-numeric [facility] results) Medical, ) Sodium 140 Normal (applies [facility]GEN (St [Moles/volume] mmol/L to non-numeric [facility] in Serum or results) Medical, ) Plasma Potassium 4.5 Normal (applies [facility] (St [Mass/volume] mmol/L to non-numeric [facility] in Blood results) Medical, ) Chloride 103 Normal (applies [facility]GEN (St [Moles/volume] mmol/L to non-numeric [facility] in Serum or results) Medical, ) Plasma Carbon dioxide, 21 mmol/L Normal (applies [facility]GEN ( St total to non-numeric [facility] [Moles/volume] results) Medical, ) in Serum or Plasma Calcium 9.6 mg/dL Normal (applies [facility] (St [Moles/volume] to non-numeric [facility] in Urine results) Medical, ) collected for unspecified duration ID Date Data Source [id number] 11/03/2019 12:00:00 AM EST [facility] (St [facility], ) Name Value Range Interpretation Description Data Sup porting Code Source(s) Document(s ) Glucose 131 mg/dL Above high normal [facility] (St [Mass/volume] [facility] in Urine Medical, ) collected for unspecified duration Urea nitrogen 26 mg/dL Normal (applies [facility]GEN (St [Mass/volume] to non-numeric [facility] in Serum or results) Medical, ) Plasma Creatinine 1.00 Normal (applies [facility]GEN (St [Interpretation mg/dL to non-numeric [facility] ] in Urine results) Medical, ) eGFR If Africn 63 Normal (applies MEDGEN (S t Am mL/min/1. to non-numeric [facility] 73 results) Medical, ) eGFR If 54 Below low normal MEDGEN (St NonAfricn Am mL/min/1. [facility] 73 Medical, ) Sodium 140 Normal (applies [facility]GEN (St [Moles/volume] mmol/L to non-numeric [facility] in Serum or results) Medical, ) Plasma BUN/Creatinine 26 Normal (applies MEDGEN (S t Ratio to non-numeric [facility] results) Medical, ) Potassium 4.5 Normal (applies [facility] (St [Mass/volume] mmol/L to non-numeric [facility] in Blood results) Medical, ) Chloride 103 Normal (applies [facility]GEN (St [Moles/volume] mmol/L to non-numeric [facility] in Serum or results) Medical, ) Plasma Carbon dioxide, 21 mmol/L Normal (applies MEDGEN ( St total to non-numeric [facility] [Moles/volume] results) Medical, ) in Serum or Plasma Calcium 9.6 mg/dL Normal (applies [facility] (St [Moles/volume] to non-numeric [facility] in Urine results) Medical, ) collected for unspecified duration ID Date Data Source [id number] 11/03/2019 12:00:00 AM EST [facility] (St [facility], ) Name Value Range Interpretation Description Data Sup porting Code Source(s) Document(s ) Glucose 131 mg/dL Above high normal [facility] (St [Mass/volume] [facility] in Urine Medical, ) collected for unspecified duration Urea nitrogen 26 mg/dL Normal (applies [facility]GEN (St [Mass/volume] to non-numeric [facility] in Serum or results) Medical, ) Plasma Creatinine 1.00 Normal (applies [facility]GEN (St [Interpretation mg/dL to non-numeric [facility] ] in Urine results) Medical, ) eGFR If 54 Below low normal MEDGEN (St NonAfricn Am mL/min/1. [facility] 73 Medical, ) BUN/Creatinine 26 Normal (applies MEDGEN (S t Ratio to non-numeric [facility] results) Medical, ) eGFR If Africn 63 Normal (applies MEDGEN (S t Am mL/min/1. to non-numeric [facility] 73 results) Medical, ) Sodium 140 Normal (applies [facility]GEN (St [Moles/volume] mmol/L to non-numeric [facility] in Serum or results) Medical, PC) Plasma Potassium 4.5 Normal (applies MEDGEN (St [Mass/volume] mmol/L to non-numeric [facility] in Blood results) Medical, ) Chloride 103 Normal (applies MEDGEN (St [Moles/volume] mmol/L to non-numeric [facility] in Serum or results) Medical, ) Plasma Carbon dioxide, 21 mmol/L Normal (applies MEDGEN ( St total to non-numeric [facility] [Moles/volume] results) Medical, ) in Serum or Plasma Calcium 9.6 mg/dL Normal (applies [facility]GEN (St [Moles/volume] to non-numeric [facility] in Urine results) Medical, ) collected for unspecified duration ID Date Data Source [id number] 11/03/2019 12:00:00 AM EST [facility] (St [facility], [facility]) Name Value Range Interpretation Description Data Sup porting Code Source(s) Document(s ) Glucose 131 mg/dL Above high normal [facility] (St [Mass/volume] [facility] in Urine [facility], ) collected for unspecified duration Urea nitrogen 26 mg/dL Normal (applies MEDGEN (St [Mass/volume] to non-numeric [facility] in Serum or results) [facility], ) Plasma Creatinine 1.00 Normal (applies MEDGEN (St [Interpretation mg/dL to non-numeric [facility] ] in Urine results) [facility]) eGFR If 54 Below low normal MEDGEN (St NonAfricn Am mL/min/1. [facility] 73 [facility]) eGFR If Africn 63 Normal (applies MEDGEN (S t Am mL/min/1. to non-numeric [facility] 73 results) [facility]) BUN/Creatinine 26 Normal (applies MEDGEN (S t Ratio to non-numeric [facility] results) [facility]) Sodium 140 Normal (applies MEDGEN (St [Moles/volume] mmol/L to non-numeric [facility] in Serum or results) [facility], ) Plasma Potassium 4.5 Normal (applies MEDGEN (St [Mass/volume] mmol/L to non-numeric [facility] in Blood results) [facility]) Carbon dioxide, 21 mmol/L Normal (applies MEDGEN ( St total to non-numeric [facility] [Moles/volume] results) [facility], ) in Serum or Plasma Chloride 103 Normal (applies MEDGEN (St [Moles/volume] mmol/L to non-numeric [facility] in Serum or results) [facility], ) Plasma Calcium 9.6 mg/dL Normal (applies [facility]GEN (St [Moles/volume] to non-numeric [facility] in Urine results) [facility], ) collected for unspecified duration ID Date Data Source [id number] 08/25/2019 12:00:00 AM EST [facility] (St [employer] [facility]) Name Value Range Interpretation Description Data Sup porting Code Source(s) Document(s ) Glucose 88 mg/dL Normal (applies MEDGEN (St [Mass/volume] to non-numeric [facility]r's in Urine results) [facility], ) collected for unspecified duration Creatinine 1.26 Above high normal [facility] (St [Interpretation mg/dL [place]r's ] in Urine [facility]) Urea nitrogen 31 mg/dL Above high normal [facility] ( St [Mass/volume] [place]r's in Serum or [facility], ) Plasma eGFR If 41 Below low normal [facility] (St NonAfricn Am mL/min/. 73 [facility], ) eGFR If Africn 47 Below low normal [facility] ( St Am mL/min/. 73 [facility], ) BUN/Creatinine 25 Normal (applies [facility] (S t Ratio to non-numeric [facility]r's results) [facility], ) Potassium 4.6 Normal (applies [facility] (St [Mass/volume] mmol/L to non-numeric [place]r's in Blood results) [facility]) Sodium 142 Normal (applies [facility] (St [Moles/volume] mmol/L to non-numeric [place]r's in Serum or results) [facility]) Plasma Chloride 105 Normal (applies [facility] (St [Moles/volume] mmol/L to non-numeric [facility]r's in Serum or results) [facility]) Plasma Carbon dioxide, 25 mmol/L Normal (applies [facility] ( St total to non-numeric [facility]r's [Moles/volume] results) [facility]) in Serum or Plasma Calcium 9.7 mg/dL Normal (applies [facility] (St [Moles/volume] to non-numeric [place]r's in Urine results) [facility]) collected for unspecified duration ID Date Data Source [id number] 08/25/2019 12:00:00 AM EST [facility] (St [facility] hn's [facility], ) Name Value Range Interpretation Description Data Sup porting Code Source(s) Document(s ) Glucose 88 mg/dL Normal (applies [facility] (St [Mass/volume] to non-numeric [place]r's in Urine results) [facility], ) collected for unspecified duration Urea nitrogen 31 mg/dL Above high normal [facility] ( St [Mass/volume] [place]r's in Serum or [facility], ) Plasma eGFR If 41 Below low normal [facility] (St NonAfricn Am mL/min/. [facility]) Creatinine 1.26 Above high normal [facility] (St [Interpretation mg/dL [facility]r's ] in Urine [facility], ) eGFR If Africn 47 Below low normal [facility] ( St Am mL/min/. [place]r 73 [facility]) Sodium 142 Normal (applies [facility] (St [Moles/volume] mmol/L to non-numeric [facility] in Serum or results) Medical, ) Plasma BUN/Creatinine 25 Normal (applies [facility] (S t Ratio to non-numeric [facility]r's results) [facility], ) Chloride 105 Normal (applies [facility] (St [Moles/volume] mmol/L to non-numeric [place]r's in Serum or results) [facility], ) Plasma Potassium 4.6 Normal (applies [facility] (St [Mass/volume] mmol/L to non-numeric [facility]r's in Blood results) [facility], ) Carbon dioxide, 25 mmol/L Normal (applies [facility] ( St total to non-numeric [facility]r's [Moles/volume] results) [facility], ) in Serum or Plasma Calcium 9.7 mg/dL Normal (applies [facility] (St [Moles/volume] to non-numeric [place]r's in Urine results) [facility], ) collected for unspecified duration ID Date Data Source [id number] 08/25/2019 12:00:00 AM EST [facility] (St [facility] hn's [facility], ) Name Value Range Interpretation Description Data Sup porting Code Source(s) Document(s ) Glucose 88 mg/dL Normal (applies [facility] (St [Mass/volume] to non-numeric [facility]r's in Urine results) [facility], ) collected for unspecified duration Urea nitrogen 31 mg/dL Above high normal [facility] ( St [Mass/volume] [place]r's in Serum or [facility], ) Plasma Creatinine 1.26 Above high normal [facility] (St [Interpretation mg/dL [facility]r's ] in Urine [facility], ) eGFR If 41 Below low normal [facility] (St NonAfricn Am mL/min/1. [facility]r's 73 [facility], ) eGFR If Africn 47 Below low normal [facility] ( St Am mL/min/1. [facility]r's 73 [facility], ) BUN/Creatinine 25 Normal (applies [facility] (S t Ratio to non-numeric [facility]r's results) [facility], ) Sodium 142 Normal (applies [facility] (St [Moles/volume] mmol/L to non-numeric [facility]r's in Serum or results) [facility], ) Plasma Potassium 4.6 Normal (applies [facility] (St [Mass/volume] mmol/L to non-numeric [facility]r's in Blood results) [facility], ) Chloride 105 Normal (applies [facility] (St [Moles/volume] mmol/L to non-numeric [facility]r's in Serum or results) Medical, ) Plasma Carbon dioxide, 25 mmol/L Normal (applies [facility] ( St total to non-numeric [facility]r's [Moles/volume] results) [facility], ) in Serum or Plasma Calcium 9.7 mg/dL Normal (applies [facility] (St [Moles/volume] to non-numeric [place]r's in Urine results) [facility], ) collected for unspecified duration ID Date Data Source [id number] 08/25/2019 12:00:00 AM EST [facility] (St Y[facility]ly priyank's [facility], ) Name Value Range Interpretation Description Data Sup porting Code Source(s) Document(s ) Glucose 88 mg/dL Normal (applies [facility] (St [Mass/volume] to non-numeric [facility]r's in Urine results) [facility], ) collected for unspecified duration Urea nitrogen 31 mg/dL Above high normal [facility] ( St [Mass/volume] [facility]r's in Serum or Medical, ) Plasma Creatinine 1.26 Above high normal [facility] (St [Interpretation mg/dL [facility]r's ] in Urine [facility], ) eGFR If 41 Below low normal [facility] (St NonAfricn Am mL/min/1. [facility]r's 73 [facility], ) eGFR If Africn 47 Below low normal [facility] ( St Am mL/min/1. [facility]andr's 73 [facility], ) BUN/Creatinine 25 Normal (applies [facility] (S t Ratio to non-numeric [facility]andr's results) [facility], ) Sodium 142 Normal (applies [facility] (St [Moles/volume] mmol/L to non-numeric [facility]andr's in Serum or results) [facility], ) Plasma Potassium 4.6 Normal (applies [facility] (St [Mass/volume] mmol/L to non-numeric [facility]andr's in Blood results) [facility], ) Chloride 105 Normal (applies [facility] (St [Moles/volume] mmol/L to non-numeric [facility]andr's in Serum or results) [facility], ) Plasma Carbon dioxide, 25 mmol/L Normal (applies [facility] ( St total to non-numeric [facility]andr's [Moles/volume] results) [facility], ) in Serum or Plasma Calcium 9.7 mg/dL Normal (applies [facility] (St [Moles/volume] to non-numeric [place]andr's in Urine results) [facility], ) collected for unspecified duration ID Date Data Source [id number] 07/16/2019 12:00:00 AM EDT [facility] (St [facility], ) Name Value Range Interpretation Code Description Data Supporting Source(s) Document(s ) PTH, Intact 18 pg/mL Normal (applies to [facility] (S t non-numeric [facility]r's results) Medical, ) ID Date Data Source [id number] 07/16/2019 12:00:00 AM EDT [facility] (St Yraely 's [facility], ) Name Value Range Interpretation Code Description Data Supporting Source(s) Document(s ) PTH, Intact 18 pg/mL Normal (applies to [facility] (S t non-numeric [facility]r's results) Medical, ) ID Date Data Source [id number] 07/16/2019 12:00:00 AM EDT [facility] (St [facility] 's [facility], ) Name Value Range Interpretation Code Description Data Akilah rce(s) Supporting Document(s ) Ferritin, 43 ng/mL Normal (applies to [facility] (St Serum non-numeric [facility]r's results) Medical, ) ID Date Data Source [id number] 07/16/2019 12:00:00 AM EDT [facility] (St [facility] 's [facility], ) Name Value Range Interpretation Description Data Sup porting Code Source(s) Document(s ) Vitamin D, 33.8 Normal (applies to [facility] (St 25-Hydroxy ng/mL non-numeric [facility]r's results) Medical, ) ID Date Data Source [id number] 07/16/2019 12:00:00 AM EDT [facility] (St [facility] 's [facility], ) Name Value Range Interpretation Code Description Data Supporting Source(s) Document(s ) Creatinine 39.4 mg/dL Normal (applies to [facility] (S t , Urine non-numeric [facility]andr's results) Medical, ) Protein,To 13.2 mg/dL Normal (applies to [facility] (S t nicolas,Urine non-numeric [facility]andr's results) Medical, ) Protein/Cr 335 mg/g Above high normal [facility] (St eat Ratio creat Oleksandr's [facility], ) ID Date Data Source [id number] 07/16/2019 12:00:00 AM EDT [facility] (St [facility] 's [facility], ) Name Value Range Interpretation Description Data Sup porting Code Source(s) Document(s ) Iron 358 ug/dL Normal (applies to [facility] (St Bind.Cap.(TIBC non-numeric [facility]ksandr's ) results) Medical, ) UIBC 305 ug/dL Normal (applies to [facility] (St non-numeric [facility]r's results) Medical, PC) Iron 53 ug/dL Normal (applies to [facility] (St [Mass/volume] non-numeric [facility]r's in Serum or results) Medical, ) Plasma Iron 15 % Normal (applies to [facility] (St saturation non-numeric [facility]andr's [Mass results) Medical, ) Fraction] in Serum or Plasma ID Date Data Source [id number] 07/16/2019 12:00:00 AM EDT [facility] (St [facility], ) Name Value Range Interpretation Description Data Sup porting Code Source(s) Document(s ) Specific gravity 1.022 Normal (applies [facility] (St of Pericardial to non-numeric [facility]andr's fluid by results) Medical, Refractometry PC) pH of Lower 6.0 Normal (applies [facility] (St respiratory to non-numeric [facility]ksandr's specimen results) Medical, ) Urine-Color Yellow Normal (applies [facility] (St to non-numeric [facility]andr's results) Medical, ) Appearance of Clear Normal (applies [facility] (St Abdomen to non-numeric [facility]andr's results) Medical, ) WBC Esterase Negative Normal (applies [facility] (St to non-numeric [facility]r's results) Medical, ) Protein Negative Normal (applies [facility] (St [Mass/volume] in to non-numeric [facility]andr's Lower results) Medical, respiratory PC) specimen Glucose Abnormal (applies [facility] (St [Mass/volume] in to non-numeric [facility]andr's Urine collected results) Medical, for unspecified PC) duration Occult Blood Negative Normal (applies [facility] (St to non-numeric [facility]andr's results) Medical, ) Ketones Negative Normal (applies [facility] (St [Presence] in to non-numeric Oleksandr's Blood by Tablet results) Medical, ) Bilirubin Negative Normal (applies [facility] (St [Presence] in to non-numeric [facility]andr's Peritoneal fluid results) Medical, ) Urobilinogen,Reyes 0.2 mg/dL Normal (applies [facility] (St i-Qn to non-numeric [facility]r's results) Medical, ) Nitrite, Urine Negative Normal (applies [facility] (S t to non-numeric [facility]andr's results) Medical, ) Microscopic Normal (applies [facility] (St Examination to non-numeric [facility]andr's results) Medical, ) ID Date Data Source [id number] 07/16/2019 12:00:00 AM EDT [facility] (St Y[facility] 's [facility], ) Name Value Range Interpretation Description Data Sup porting Code Source(s) Document(s ) Glucose 155 Above high [facility] (St [Mass/volume] in mg/dL normal [facility]r's Urine collected for Medical, unspecified PC) duration Urea nitrogen 32 mg/dL Above high [facility] (St [Mass/volume] in normal [facility]ksandr's Serum or Plasma [facility], ) Creatinine 1.32 Above high [facility] (St [Interpretation] in mg/dL normal Oleksandr's Urine [facility], ) eGFR If NonAfricn 39 Below low normal [facility]GE N (St Am mL/min/[address], ) eGFR If Africn Am 45 Below low normal [facility] N (St mL/min/1 [facility] 73 [facility], ) BUN/Creatinine 24 Normal (applies [facility] (S t Ratio to non-numeric [facility]andr's results) Medical, ) Sodium 140 Normal (applies [facility] (St [Moles/volume] in mmol/L to non-numeric [facility]ksandr's Serum or Plasma results) Medical, ) Potassium 5.0 Normal (applies [facility] (St [Mass/volume] in mmol/L to non-numeric [facility]ksandr's Blood results) Medical, ) Chloride 107 Above high [facility] (St [Moles/volume] in mmol/L normal Oleksandr's Serum or Plasma [facility], ) Carbon dioxide, 19 Below low normal [facility] (St total mmol/L [facility]r's [Moles/volume] in Medical, Serum or Plasma PC) Calcium 10.0 Normal (applies [facility] (St [Moles/volume] in mg/dL to non-numeric [facility]andr's Urine collected for results) Medical, unspecified PC) duration Protein 7.1 g/dL Normal (applies [facility] (St [Mass/volume] in to non-numeric [facility]ksandr's Serum or Plasma results) Medical, ) Microalbumin 4.5 g/dL Normal (applies [facility] (St [Mass/time] in to non-numeric [facility]andr's Urine collected for results) Medical, unspecified PC) duration Globulin, Total 2.6 g/dL Normal (applies [facility] ( St to non-numeric [facility]andr's results) Medical, PC) A/G Ratio 1.7 Normal (applies [facility] (St to non-numeric [facility]ksandr's results) Medical, ) Bilirubin.total <0.2 Normal (applies [facility] ( St [Mass/volume] in to non-numeric [facility]ksandr's Serum or Plasma results) Medical, PC) Alkaline 106 IU/L Normal (applies [facility] (St phosphatase to non-numeric [facility]andr's [Enzymatic results) Medical, activity/volume] in PC) Serum, Plasma or Blood Aspartate 16 IU/L Normal (applies [facility] (St aminotransferase to non-numeric [facility]andr's [Enzymatic results) Medical, activity/volume] in PC) Serum or Plasma Alanine 7 IU/L Normal (applies [facility] (St aminotransferase to non-numeric [facility]andr's [Enzymatic results) Medical, activity/volume] in PC) Serum or Plasma ID Date Data Source [id number] 07/16/2019 12:00:00 AM EDT [facility] (St [facility], ) Name Value Range Interpretation Code Description Data Akilah rce(s) Supporting Document(s ) ID Date Data Source [id number] 07/16/2019 12:00:00 AM EDT [facility] (St [facility], ) Name Value Range Interpretation Code Description Data Akilah rce(s) Supporting Document(s ) PDF Image . Normal (applies to [facility] (St non-numeric results) [facility], ) ID Date Data Source [id number] 07/16/2019 12:00:00 AM EDT [facility] (St [facility], ) Name Value Range Interpretation Description Data Sup porting Code Source(s) Document(s ) Written Normal (applies to [facility] (St Authorization non-numeric [facility]r's results) Medical, ) ID Date Data Source [id number] 07/16/2019 12:00:00 AM EDT [facility] (St [facility], ) Name Value Range Interpretation Description Data Sup porting Code Source(s) Document(s ) Leukocytes 5.8 Normal (applies [facility] (St [#/volume] in x10E3/uL to non-numeric [facility]r's Blood by results) Medical, ) Automated count Erythrocytes 4.88 Normal (applies [facility] (St [#/volume] in x10E6/uL to non-numeric [facility]andr's Blood by results) [facility], ) Automated count Hemoglobin 11.4 Normal (applies [facility] (St [Mass/volume] in g/dL to non-numeric [facility]ksandr's Blood results) [facility]) Hematocrit 36.6 % Normal (applies [facility] (St [Volume to non-numeric Oleksandr's Fraction] of results) [facility]) Blood by Automated count MCV 75 fL Below low normal [facility] ([place] [facility], ) MCH 23.4 pg Below low normal [facility] ([place] [facility], ) MCHC 31.1 Below low normal [facility] (St g/dL [place]r's [facility], ) RDW 15.0 % Normal (applies [facility] (St to non-numeric [place]ksandr's results) [facility]) Platelets 331 Normal (applies [facility] (St [#/area] in x10E3/uL to non-numeric [facility]r's Blood by results) [facility], ) Microscopy high power field Neutrophils [#] 52 % Normal (applies [facility] ( St in Body fluid by to non-numeric [facility]andr's Manual count results) [facility], ) Lymphs 39 % Normal (applies [facility] (St to non-numeric [place]ksandr's results) [facility]) Monocytes 4 % Normal (applies [facility] (St [#/volume] in to non-numeric [facility]ksandr's Cord blood results) [facility]) Eos 4 % Normal (applies [facility] (St to non-numeric [place]ksandr's results) [facility]) Basos 1 % Normal (applies [facility] (St to non-numeric [place]ksandr's results) [facility]) Neutrophils 3.0 Normal (applies [facility] (St (Absolute) x10E3/uL to non-numeric [facility]andr's results) [facility]) Lymphs 2.2 Normal (applies [facility] (St (Absolute) x10E3/uL to non-numeric [place]andr's results) [facility]) Monocytes(Absolu 0.2 Normal (applies [facility] (St te) x10E3/uL to non-numeric [place]ksandr's results) [facility], ) Eos (Absolute) 0.2 Normal (applies [facility] (S t x10E3/uL to non-numeric [place]andr's results) [facility], ) Baso (Absolute) 0.1 Normal (applies [facility] ( St x10E3/uL to non-numeric [place]andr's results) [facility], ) Immature 0 % Normal (applies [facility] (St Granulocytes to non-numeric [place]ksandr's results) [facility], ) Immature Grans 0.0 Normal (applies [facility] (S t (Abs) x10E3/uL to non-numeric [facility]andr's results) [facility], ) ID Date Data Source [id number] 07/16/2019 12:00:00 AM EDT [facility] (St [facility]ly 's [facility], ) Name Value Range Interpretation Description Data Sup porting Code Source(s) Document(s ) Hemoglobin 9.0 % Above high normal [facility] (St A1c/Hemoglobin. Ole[place]andr's total in Blood [facility], ) ID Date Data Source [id number] 07/16/2019 12:00:00 AM EDT [facility] (St [place]ly 's [facility], ) Name Value Range Interpretation Code Description Data Supporting Source(s) Document(s ) PTH, Intact 18 pg/mL Normal (applies to [facility] (S t non-numeric [place]andr's results) [facility], ) ID Date Data Source [id number] 07/16/2019 12:00:00 AM EDT [facility] (St [place] 's [facility], ) Name Value Range Interpretation Code Description Data Akilah rce(s) Supporting Document(s ) Ferritin, 43 ng/mL Normal (applies to [facility] (St Serum non-numeric [place]andr's results) [facility], ) ID Date Data Source [id number] 07/16/2019 12:00:00 AM EDT [facility] (St [facility] 's [facility], ) Name Value Range Interpretation Description Data Sup porting Code Source(s) Document(s ) Vitamin D, 33.8 Normal (applies to [facility] (St 25-Hydroxy ng/mL non-numeric [facility]r's results) [facility]) ID Date Data Source [id number] 07/16/2019 12:00:00 AM EDT [facility] (St [facility] 's [facility], ) Name Value Range Interpretation Code Description Data Supporting Source(s) Document(s ) Creatinine 39.4 mg/dL Normal (applies to [facility] (S t , Urine non-numeric [facility]r's results) [facility], ) Protein,To 13.2 mg/dL Normal (applies to [facility] (S t nicolas,Urine non-numeric [facility]r's results) Medical, PC) Protein/Cr 335 mg/g Above high normal [facility] (St eat Ratio creat [place]'s [facility], ) ID Date Data Source [id number] 07/16/2019 12:00:00 AM EDT [facility] ( [facility], ) Name Value Range Interpretation Description Data Sup porting Code Source(s) Document(s ) UIBC 305 ug/dL Normal (applies to [facility] (St non-numeric [facility]r's results) Medical, PC) Iron 358 ug/dL Normal (applies to [facility] (St Bind.Cap.(TIBC non-numeric [facility]r's ) results) Medical, PC) Iron 53 ug/dL Normal (applies to [facility] (St [Mass/volume] non-numeric [place]r's in Serum or results) Medical, PC) Plasma Iron 15 % Normal (applies to [facility] (St saturation non-numeric [place]andr's [Mass results) Medical, ) Fraction] in Serum or Plasma ID Date Data Source [id number] 07/16/2019 12:00:00 AM EDT [facility] ([facility], ) Name Value Range Interpretation Description Data Sup porting Code Source(s) Document(s ) Specific gravity 1.022 Normal (applies [facility] (St of Pericardial to non-numeric [place]r's fluid by results) Medical, Refractometry PC) pH of Lower 6.0 Normal (applies [facility] (St respiratory to non-numeric [facility]andr's specimen results) Medical, PC) Urine-Color Yellow Normal (applies [facility] (St to non-numeric [facility]r's results) Medical, PC) WBC Esterase Negative Normal (applies [facility] (St to non-numeric [facility]r's results) Medical, PC) Appearance of Clear Normal (applies [facility] (St Abdomen to non-numeric [facility]r's results) Medical, PC) Protein Negative Normal (applies [facility] (St [Mass/volume] in to non-numeric [facility]r's Lower results) Medical, respiratory PC) specimen Ketones Negative Normal (applies [facility] (St [Presence] in to non-numeric [facility]r's Blood by Tablet results) Medical, PC) Glucose Abnormal (applies [facility] (St [Mass/volume] in to non-numeric [facility]r's Urine collected results) Medical, for unspecified PC) duration Occult Blood Negative Normal (applies [facility] (St to non-numeric [facility]r's results) Medical, PC) Urobilinogen,Reyes 0.2 mg/dL Normal (applies [facility] (St i-Qn to non-numeric [facility]r's results) Medical, ) Bilirubin Negative Normal (applies [facility] (St [Presence] in to non-numeric [facility]r's Peritoneal fluid results) Medical, ) Nitrite, Urine Negative Normal (applies [facility] (S t to non-numeric [facility]r's results) Medical, ) Microscopic Normal (applies [facility] (St Examination to non-numeric [facility]andr's results) [facility], ) ID Date Data Source [id number] 07/16/2019 12:00:00 AM EDT [facility] (St [facility] 's [facility], ) Name Value Range Interpretation Description Data Sup porting Code Source(s) Document(s ) Glucose 155 Above high [facility] (St [Mass/volume] in mg/dL normal [facility] Urine collected for Medical, unspecified PC) duration Urea nitrogen 32 mg/dL Above high [facility] (St [Mass/volume] in normal [facility]r's Serum or Plasma [facility], ) Creatinine 1.32 Above high [facility] (St [Interpretation] in mg/dL normal [facility]r's Urine [facility], ) eGFR If NonAfricn 39 Below low normal [facility]GE N (St Am mL/min/1 [facility]r's .73 [facility], ) eGFR If Africn Am 45 Below low normal [facility] N (St mL/min/1 [facility]r's .73 [facility], ) BUN/Creatinine 24 Normal (applies [facility] (S t Ratio to non-numeric [place]andr's results) [facility], ) Potassium 5.0 Normal (applies [facility] (St [Mass/volume] in mmol/L to non-numeric [facility]r's Blood results) Medical, ) Sodium 140 Normal (applies [facility] (St [Moles/volume] in mmol/L to non-numeric [facility]'s Serum or Plasma results) Medical, ) Chloride 107 Above high [facility] (St [Moles/volume] in mmol/L normal [facility] Serum or Plasma [facility] [facility], ) Carbon dioxide, 19 Below low normal MED[facility] (St total mmol/L [facility] [Moles/volume] in Medical, Serum or Plasma PC) Protein 7.1 g/dL Normal (applies [facility] (St [Mass/volume] in to non-numeric [facility] Serum or Plasma results) Medical, PC) Calcium 10.0 Normal (applies [facility] (St [Moles/volume] in mg/dL to non-numeric [facility] Urine collected for results) Medical, unspecified PC) duration Microalbumin 4.5 g/dL Normal (applies [facility] (St [Mass/time] in to non-numeric [facility] Urine collected for results) Medical, unspecified PC) duration Globulin, Total 2.6 g/dL Normal (applies [facility] ( St to non-numeric [facility] results) Medical, PC) Bilirubin.total <0.2 Normal (applies [facility] ( St [Mass/volume] in to non-numeric [facility] Serum or Plasma results) Medical, PC) A/G Ratio 1.7 Normal (applies [facility] (St to non-numeric [facility] results) Medical, PC) Alkaline 106 IU/L Normal (applies [facility] (St phosphatase to non-numeric [facility] [Enzymatic results) Medical, activity/volume] in PC) Serum, Plasma or Blood Alanine 7 IU/L Normal (applies [facility] (St aminotransferase to non-numeric [facility] [Enzymatic results) Medical, activity/volume] in PC) Serum or Plasma Aspartate 16 IU/L Normal (applies [facility] (St aminotransferase to non-numeric [facility] [Enzymatic results) Medical, activity/volume] in PC) Serum or Plasma ID Date Data Source [id number] 07/16/2019 12:00:00 AM EDT [facility] ([facility]) Name Value Range Interpretation Code Description Data Akilah rce(s) Supporting Document(s ) ID Date Data Source [id number] 07/16/2019 12:00:00 AM EDT [facility] ([facility]) Name Value Range Interpretation Code Description Data Akilah rce(s) Supporting Document(s ) PDF Image . Normal (applies to [facility] (St non-numeric results) [facility], ) ID Date Data Source [id number] 07/16/2019 12:00:00 AM EDT [facility] ([facility]) Name Value Range Interpretation Description Data Sup porting Code Source(s) Document(s ) Written Normal (applies to [facility] (St Authorization non-numeric [facility] results) Medical, ) ID Date Data Source [id number] 07/16/2019 12:00:00 AM EDT [facility] ([facility], ) Name Value Range Interpretation Description Data Sup porting Code Source(s) Document(s ) Leukocytes 5.8 Normal (applies [facility] (St [#/volume] in x10E3/uL to non-numeric [facility] Blood by results) [facility], ) Automated count Hemoglobin 11.4 Normal (applies [facility] (St [Mass/volume] in g/dL to non-numeric [facility] Blood results) [facility]) Erythrocytes 4.88 Normal (applies [facility] (St [#/volume] in x10E6/uL to non-numeric [facility] Blood by results) [facility]) Automated count Hematocrit 36.6 % Normal (applies [facility] (St [Volume to non-numeric [facility] Fraction] of results) [facility]) Blood by Automated count MCH 23.4 pg Below low normal [facility] ([facility], ) MCV 75 fL Below low normal [facility] ([facility]) MCHC 31.1 Below low normal [facility] (St g/dL [facility], ) RDW 15.0 % Normal (applies [facility] (St to non-numeric [facility] results) [facility]) Platelets 331 Normal (applies [facility] (St [#/area] in x10E3/uL to non-numeric [facility] Blood by results) [facility]) Microscopy high power field Neutrophils [#] 52 % Normal (applies [facility] ( St in Body fluid by to non-numeric [facility] Manual count results) [facility]) Lymphs 39 % Normal (applies [facility] (St to non-numeric [facility] results) [facility]) Monocytes 4 % Normal (applies [facility] (St [#/volume] in to non-numeric [facility] Cord blood results) [facility]) Basos 1 % Normal (applies [facility] (St to non-numeric [facility] results) [facility]) Eos 4 % Normal (applies [facility] (St to non-numeric [facility] results) [facility]) Neutrophils 3.0 Normal (applies [facility] (St (Absolute) x10E3/uL to non-numeric [facility] results) [facility]) Lymphs 2.2 Normal (applies [facility] (St (Absolute) x10E3/uL to non-numeric [facility] results) [facility]) Eos (Absolute) 0.2 Normal (applies [facility] (S t x10E3/uL to non-numeric [facility] results) Medical, ) Monocytes(Absolu 0.2 Normal (applies [facility] (St te) x10E3/uL to non-numeric [facility] results) Medical, ) Baso (Absolute) 0.1 Normal (applies [facility] ( St x10E3/uL to non-numeric [facility] results) Medical, ) Immature Grans 0.0 Normal (applies [facility] (S t (Abs) x10E3/uL to non-numeric [facility] results) Medical, ) Immature 0 % Normal (applies [facility] (St Granulocytes to non-numeric [facility] results) Medical, ) ID Date Data Source [id number] 07/16/2019 12:00:00 AM EDT [facility] ([facility], ) Name Value Range Interpretation Description Data Sup porting Code Source(s) Document(s ) Hemoglobin 9.0 % Above high normal [facility] (St A1c/Hemoglobin. [facility] total in Blood [facility], ) ID Date Data Source [id number] 07/16/2019 12:00:00 AM EDT [facility] ([facility], ) Name Value Range Interpretation Code Description Data Supporting Source(s) Document(s ) PTH, Intact 18 pg/mL Normal (applies to [facility] (S t non-numeric [facility] results) [facility], ) ID Date Data Source [id number] 07/16/2019 12:00:00 AM EDT [facility] ([facility], ) Name Value Range Interpretation Code Description Data Akilah rce(s) Supporting Document(s ) Ferritin, 43 ng/mL Normal (applies to [facility] (St Serum non-numeric [facility] results) Medical, ) ID Date Data Source [id number] 07/16/2019 12:00:00 AM EDT [facility] ([facility], ) Name Value Range Interpretation Description Data Sup porting Code Source(s) Document(s ) Vitamin D, 33.8 Normal (applies to [facility] (St 25-Hydroxy ng/mL non-numeric [facility] results) [facility], ) ID Date Data Source [id number] 07/16/2019 12:00:00 AM EDT [facility] ([facility], ) Name Value Range Interpretation Code Description Data Supporting Source(s) Document(s ) Creatinine 39.4 mg/dL Normal (applies to [facility] (S t , Urine non-numeric [facility] results) Medical, ) Protein,To 13.2 mg/dL Normal (applies to [facility] (S t nicolas,Urine non-numeric [facility] results) Medical, ) Protein/Cr 335 mg/g Above high normal [facility] (St eat Ratio creat [facility], ) ID Date Data Source [id number] 07/16/2019 12:00:00 AM EDT [facility] ([facility], ) Name Value Range Interpretation Description Data Sup porting Code Source(s) Document(s ) Iron 358 ug/dL Normal (applies to [facility] (St Bind.Cap.(TIBC non-numeric [facility] ) results) Medical, ) UIBC 305 ug/dL Normal (applies to [facility] (St non-numeric [facility] results) Medical, PC) Iron 53 ug/dL Normal (applies to [facility] (St [Mass/volume] non-numeric [facility] in Serum or results) Medical, ) Plasma Iron 15 % Normal (applies to [facility] (St saturation non-numeric [facility] [Mass results) Medical, ) Fraction] in Serum or Plasma ID Date Data Source [id number] 07/16/2019 12:00:00 AM EDT [facility] ([facility], ) Name Value Range Interpretation Description Data Sup porting Code Source(s) Document(s ) Specific gravity 1.022 Normal (applies [facility] (St of Pericardial to non-numeric [facility] fluid by results) Medical, Refractometry ) pH of Lower 6.0 Normal (applies [facility] (St respiratory to non-numeric [facility] specimen results) Medical, ) Urine-Color Yellow Normal (applies [facility] (St to non-numeric [facility] results) Medical, PC) Appearance of Clear Normal (applies [facility] (St Abdomen to non-numeric [facility] results) Medical, ) WBC Esterase Negative Normal (applies [facility] (St to non-numeric [facility] results) Medical, PC) Protein Negative Normal (applies [facility] (St [Mass/volume] in to non-numeric [facility] Lower results) Medical, respiratory PC) specimen Glucose Abnormal (applies [facility] (St [Mass/volume] in to non-numeric [facility] Urine collected results) [facility], for unspecified PC) duration Ketones Negative Normal (applies [facility] (St [Presence] in to non-numeric [facility] Blood by Tablet results) [facility], ) Occult Blood Negative Normal (applies [facility] (St to non-numeric [facility] results) [facility], ) Bilirubin Negative Normal (applies [facility] (St [Presence] in to non-numeric [facility] Peritoneal fluid results) Medical, ) Urobilinogen,Reyes 0.2 mg/dL Normal (applies [facility] (St i-Qn to non-numeric [facility] results) Medical, ) Nitrite, Urine Negative Normal (applies [facility] (S t to non-numeric [facility] results) [facility], ) Microscopic Normal (applies [facility] (St Examination to non-numeric [facility] results) [facility], ) ID Date Data Source [id number] 07/16/2019 12:00:00 AM EDT [facility] ([facility], ) Name Value Range Interpretation Description Data Sup porting Code Source(s) Document(s ) Glucose 155 Above high [facility] (St [Mass/volume] in mg/dL normal [facility] Urine collected for Medical, unspecified PC) duration Urea nitrogen 32 mg/dL Above high [facility] (St [Mass/volume] in normal [facility] Serum or Plasma [facility], ) Creatinine 1.32 Above high [facility] (St [Interpretation] in mg/dL normal [facility] Urine [facility], ) eGFR If NonAfricn 39 Below low normal MEDGE N (St Am mL/min/1 [facility] [address] [place] [address], ) eGFR If Africn Am 45 Below low normal [facility]GE N (St mL/min/1 [facility] .73 [facility], ) BUN/Creatinine 24 Normal (applies [facility] (S t Ratio to non-numeric [facility] results) Medical, ) Sodium 140 Normal (applies [facility] (St [Moles/volume] in mmol/L to non-numeric [facility] Serum or Plasma results) [facility], ) Potassium 5.0 Normal (applies [facility] (St [Mass/volume] in mmol/L to non-numeric [facility] Blood results) Medical, ) Chloride 107 Above high [facility] (St [Moles/volume] in mmol/L normal [facility] Serum or Plasma Medical, PC) Carbon dioxide, 19 Below low normal [facility] (St total mmol/L [facility] [Moles/volume] in Medical, Serum or Plasma PC) Calcium 10.0 Normal (applies [facility] (St [Moles/volume] in mg/dL to non-numeric [facility] Urine collected for results) Medical, unspecified PC) duration Protein 7.1 g/dL Normal (applies [facility] (St [Mass/volume] in to non-numeric [facility] Serum or Plasma results) Medical, PC) Microalbumin 4.5 g/dL Normal (applies [facility] (St [Mass/time] in to non-numeric [facility] Urine collected for results) Medical, unspecified PC) duration Globulin, Total 2.6 g/dL Normal (applies [facility] ( St to non-numeric [facility] results) Medical, PC) A/G Ratio 1.7 Normal (applies [facility] (St to non-numeric [facility] results) Medical, PC) Bilirubin.total <0.2 Normal (applies [facility] ( St [Mass/volume] in to non-numeric [facility] Serum or Plasma results) Medical, PC) Alkaline 106 IU/L Normal (applies [facility] (St phosphatase to non-numeric [facility] [Enzymatic results) Medical, activity/volume] in PC) Serum, Plasma or Blood Aspartate 16 IU/L Normal (applies [facility] (St aminotransferase to non-numeric [facility] [Enzymatic results) Medical, activity/volume] in PC) Serum or Plasma Alanine 7 IU/L Normal (applies [facility] (St aminotransferase to non-numeric [facility] [Enzymatic results) Medical, activity/volume] in PC) Serum or Plasma ID Date Data Source [id number] 07/16/2019 12:00:00 AM EDT [facility] ([facility], ) Name Value Range Interpretation Code Description Data Akilah rce(s) Supporting Document(s ) ID Date Data Source [id number] 07/16/2019 12:00:00 AM EDT [facility] ([facility]) Name Value Range Interpretation Code Description Data Akilah rce(s) Supporting Document(s ) PDF Image . Normal (applies to [facility] (St non-numeric results) [facility], ) ID Date Data Source [id number] 07/16/2019 12:00:00 AM EDT [facility] ([facility], ) Name Value Range Interpretation Description Data Sup porting Code Source(s) Document(s ) Written Normal (applies to [facility] (St Authorization non-numeric [facility] results) [facility], ) ID Date Data Source [id number] 07/16/2019 12:00:00 AM EDT [facility] ([facility], ) Name Value Range Interpretation Description Data Sup porting Code Source(s) Document(s ) Leukocytes 5.8 Normal (applies [facility] (St [#/volume] in x10E3/uL to non-numeric [facility] Blood by results) [facility], ) Automated count Erythrocytes 4.88 Normal (applies [facility] (St [#/volume] in x10E6/uL to non-numeric [facility] Blood by results) [facility], ) Automated count Hemoglobin 11.4 Normal (applies [facility] (St [Mass/volume] in g/dL to non-numeric [facility] Blood results) [facility], ) Hematocrit 36.6 % Normal (applies [facility] (St [Volume to non-numeric [facility] Fraction] of results) [facility], ) Blood by Automated count MCV 75 fL Below low normal [facility] ([place], ) MCH 23.4 pg Below low normal [facility] ([facility], ) MCHC 31.1 Below low normal [facility] (St g/dL [facility], ) RDW 15.0 % Normal (applies [facility] (St to non-numeric [facility] results) [facility], ) Platelets 331 Normal (applies [facility] (St [#/area] in x10E3/uL to non-numeric [facility] Blood by results) [facility], ) Microscopy high power field Neutrophils [#] 52 % Normal (applies [facility] ( St in Body fluid by to non-numeric [facility] Manual count results) [facility], ) Lymphs 39 % Normal (applies [facility] (St to non-numeric [facility] results) [facility], ) Monocytes 4 % Normal (applies [facility] (St [#/volume] in to non-numeric [facility] Cord blood results) [facility], ) Eos 4 % Normal (applies [facility] (St to non-numeric [facility] results) [facility], ) Basos 1 % Normal (applies [facility] (St to non-numeric [facility] results) Medical, ) Neutrophils 3.0 Normal (applies [facility] (St (Absolute) x10E3/uL to non-numeric [facility] results) Medical, ) Lymphs 2.2 Normal (applies [facility] (St (Absolute) x10E3/uL to non-numeric [facility] results) Medical, ) Monocytes(Absolu 0.2 Normal (applies [facility] (St te) x10E3/uL to non-numeric [facility] results) Medical, ) Eos (Absolute) 0.2 Normal (applies [facility]GEN (S t x10E3/uL to non-numeric [facility] results) Medical, ) Immature 0 % Normal (applies [facility] (St Granulocytes to non-numeric [facility] results) Medical, ) Baso (Absolute) 0.1 Normal (applies [facility] ( St x10E3/uL to non-numeric [facility] results) Medical, ) Immature Grans 0.0 Normal (applies [facility] (S t (Abs) x10E3/uL to non-numeric [facility] results) Medical, ) ID Date Data Source [id number] 07/16/2019 12:00:00 AM EDT [facility] ([facility], ) Name Value Range Interpretation Description Data Sup porting Code Source(s) Document(s ) Hemoglobin 9.0 % Above high normal [facility] (St A1c/Hemoglobin. [facility] total in Blood [facility], ) ID Date Data Source [id number] 07/16/2019 12:00:00 AM EDT [facility] ([facility], ) Name Value Range Interpretation Code Description Data Akilah rce(s) Supporting Document(s ) Ferritin, 43 ng/mL Normal (applies to [facility] (St Serum non-numeric [facility] results) Medical, ) ID Date Data Source [id number] 07/16/2019 12:00:00 AM EDT [facility] ([facility], ) Name Value Range Interpretation Description Data Sup porting Code Source(s) Document(s ) Vitamin D, 33.8 Normal (applies to [facility] (St 25-Hydroxy ng/mL non-numeric [facility] results) [facility], ) ID Date Data Source [id number] 07/16/2019 12:00:00 AM EDT [facility] ([facility], ) Name Value Range Interpretation Code Description Data Supporting Source(s) Document(s ) Creatinine 39.4 mg/dL Normal (applies to [facility] (S t , Urine non-numeric [facility] results) Medical, ) Protein,To 13.2 mg/dL Normal (applies to [facility] (S t nicolas,Urine non-numeric [facility] results) Medical, ) Protein/Cr 335 mg/g Above high normal [facility] (St eat Ratio creat [facility], ) ID Date Data Source [id number] 07/16/2019 12:00:00 AM EDT [facility] ([facility], ) Name Value Range Interpretation Description Data Sup porting Code Source(s) Document(s ) Iron 358 ug/dL Normal (applies to [facility] (St Bind.Cap.(TIBC non-numeric [facility] ) results) Medical, ) UIBC 305 ug/dL Normal (applies to [facility] (St non-numeric [facility] results) Medical, PC) Iron 53 ug/dL Normal (applies to [facility] (St [Mass/volume] non-numeric [facility] in Serum or results) Medical, ) Plasma Iron 15 % Normal (applies to [facility] (St saturation non-numeric [facility] [Mass results) Medical, ) Fraction] in Serum or Plasma ID Date Data Source [id number] 07/16/2019 12:00:00 AM EDT [facility] ([facility], ) Name Value Range Interpretation Description Data Sup porting Code Source(s) Document(s ) Specific gravity 1.022 Normal (applies [facility] (St of Pericardial to non-numeric [facility] fluid by results) Medical, Refractometry ) pH of Lower 6.0 Normal (applies [facility] (St respiratory to non-numeric [facility] specimen results) Medical, ) Urine-Color Yellow Normal (applies [facility] (St to non-numeric [facility] results) Medical, ) Appearance of Clear Normal (applies [facility] (St Abdomen to non-numeric [facility] results) Medical, ) WBC Esterase Negative Normal (applies [facility] (St to non-numeric [facility] results) Medical, PC) Protein Negative Normal (applies [facility] (St [Mass/volume] in to non-numeric [facility] Lower results) Medical, respiratory PC) specimen Glucose Abnormal (applies [facility] (St [Mass/volume] in to non-numeric [facility] Urine collected results) [facility], for unspecified PC) duration Ketones Negative Normal (applies [facility] (St [Presence] in to non-numeric [facility] Blood by Tablet results) Medical, ) Occult Blood Negative Normal (applies [facility] (St to non-numeric [facility] results) Medical, ) Bilirubin Negative Normal (applies [facility] (St [Presence] in to non-numeric [facility] Peritoneal fluid results) Medical, ) Urobilinogen,Reyes 0.2 mg/dL Normal (applies [facility] (St i-Qn to non-numeric [facility] results) Medical, ) Nitrite, Urine Negative Normal (applies [facility]GEN (S t to non-numeric [facility] results) [facility], ) Microscopic Normal (applies [facility] (St Examination to non-numeric [facility] results) [facility], ) ID Date Data Source [id number] 07/16/2019 12:00:00 AM EDT [facility] ([facility], ) Name Value Range Interpretation Description Data Sup porting Code Source(s) Document(s ) Glucose 155 Above high [facility] (St [Mass/volume] in mg/dL normal [facility] Urine collected for Medical, unspecified PC) duration Urea nitrogen 32 mg/dL Above high [facility] (St [Mass/volume] in normal [facility] Serum or Plasma [facility], ) Creatinine 1.32 Above high [facility] (St [Interpretation] in mg/dL normal [facility] Urine [facility], ) eGFR If NonAfricn 39 Below low normal MEDGE N (St Am mL/min/1 [facility] .73 [facility], ) eGFR If Africn Am 45 Below low normal [facility]GE N (St mL/min/1 [facility] .73 [facility], ) BUN/Creatinine 24 Normal (applies [facility]GEN (S t Ratio to non-numeric [facility] results) Medical, ) Sodium 140 Normal (applies [facility] (St [Moles/volume] in mmol/L to non-numeric [facility] Serum or Plasma results) [facility], ) Potassium 5.0 Normal (applies [facility] (St [Mass/volume] in mmol/L to non-numeric [facility] Blood results) Medical, ) Chloride 107 Above high [facility] (St [Moles/volume] in mmol/L normal [facility] Serum or Plasma Medical, PC) Carbon dioxide, 19 Below low normal [facility] (St total mmol/L [facility] [Moles/volume] in Medical, Serum or Plasma PC) Calcium 10.0 Normal (applies [facility] (St [Moles/volume] in mg/dL to non-numeric [facility] Urine collected for results) Medical, unspecified PC) duration Protein 7.1 g/dL Normal (applies [facility] (St [Mass/volume] in to non-numeric [facility] Serum or Plasma results) Medical, PC) Globulin, Total 2.6 g/dL Normal (applies [facility] ( St to non-numeric [facility] results) Medical, PC) Microalbumin 4.5 g/dL Normal (applies [facility] (St [Mass/time] in to non-numeric [facility] Urine collected for results) Medical, unspecified PC) duration A/G Ratio 1.7 Normal (applies [facility] (St to non-numeric [facility] results) Medical, ) Bilirubin.total <0.2 Normal (applies [facility] ( St [Mass/volume] in to non-numeric [facility] Serum or Plasma results) Medical, PC) Alkaline 106 IU/L Normal (applies [facility] (St phosphatase to non-numeric [facility] [Enzymatic results) Medical, activity/volume] in PC) Serum, Plasma or Blood Aspartate 16 IU/L Normal (applies [facility]GEN (St aminotransferase to non-numeric [facility] [Enzymatic results) Medical, activity/volume] in PC) Serum or Plasma Alanine 7 IU/L Normal (applies [facility] (St aminotransferase to non-numeric [facility] [Enzymatic results) Medical, activity/volume] in PC) Serum or Plasma ID Date Data Source [id number] 07/16/2019 12:00:00 AM EDT [facility] ([facility], ) Name Value Range Interpretation Code Description Data Akilah rce(s) Supporting Document(s ) ID Date Data Source [id number] 07/16/2019 12:00:00 AM EDT [facility] ([facility]) Name Value Range Interpretation Code Description Data Akilah rce(s) Supporting Document(s ) PDF Image . Normal (applies to [facility] (St non-numeric results) [facility], ) ID Date Data Source [id number] 07/16/2019 12:00:00 AM EDT [facility] ([facility], ) Name Value Range Interpretation Description Data Sup porting Code Source(s) Document(s ) Written Normal (applies to [facility] (St Authorization non-numeric [facility] results) [facility], ) ID Date Data Source [id number] 07/16/2019 12:00:00 AM EDT [facility] ([facility], ) Name Value Range Interpretation Description Data Sup porting Code Source(s) Document(s ) Leukocytes 5.8 Normal (applies [facility] (St [#/volume] in x10E3/uL to non-numeric [facility] Blood by results) [facility] [facility], ) Automated count Erythrocytes 4.88 Normal (applies MEDGEN (St [#/volume] in x10E6/uL to non-numeric [facility] Blood by results) [facility], ) Automated count Hematocrit 36.6 % Normal (applies MEDGEN (St [Volume to non-numeric [place] Fraction] of results) [facility]) Blood by Automated count Hemoglobin 11.4 Normal (applies MEDGEN (St [Mass/volume] in g/dL to non-numeric [facility] Blood results) [facility], ) MCV 75 fL Below low normal MEDGEN ([place] [facility], ) MCH 23.4 pg Below low normal [facility] ([place] [facility], ) MCHC 31.1 Below low normal MEDGEN (St g/dL [place], ) RDW 15.0 % Normal (applies MEDGEN (St to non-numeric [place] results) [facility], ) Platelets 331 Normal (applies MEDGEN (St [#/area] in x10E3/uL to non-numeric [facility] Blood by results) [facility], ) Microscopy high power field Neutrophils [#] 52 % Normal (applies MEDGEN ( St in Body fluid by to non-numeric [facility] Manual count results) [facility], ) Monocytes 4 % Normal (applies MEDGEN (St [#/volume] in to non-numeric [place] Cord blood results) [facility]) Lymphs 39 % Normal (applies MEDGEN (St to non-numeric [place] results) [facility], ) Eos 4 % Normal (applies MEDGEN (St to non-numeric [place] results) [facility], ) Basos 1 % Normal (applies MEDGEN (St to non-numeric [facility] results) Medical, ) Neutrophils 3.0 Normal (applies MEDGEN (St (Absolute) x10E3/uL to non-numeric [facility] results) Medical, ) Lymphs 2.2 Normal (applies MEDGEN (St (Absolute) x10E3/uL to non-numeric [facility] results) Medical, ) Monocytes(Absolu 0.2 Normal (applies MEDGEN (St te) x10E3/uL to non-numeric [place] results) Medical, ) Eos (Absolute) 0.2 Normal (applies MEDGEN (S t x10E3/uL to non-numeric [facility] results) Medical, ) Baso (Absolute) 0.1 Normal (applies MEDGEN ( St x10E3/uL to non-numeric [facility] results) Medical, ) Immature 0 % Normal (applies MEDGEN (St Granulocytes to non-numeric [facility] results) Medical, ) Immature Grans 0.0 Normal (applies MEDGEN (S t (Abs) x10E3/uL to non-numeric [facility] results) Medical, ) ID Date Data Source [id number] 07/16/2019 12:00:00 AM EDT [facility] ([facility], ) Name Value Range Interpretation Description Data Sup porting Code Source(s) Document(s ) Hemoglobin 9.0 % Above high normal MEDGEN (St A1c/Hemoglobin. [facility] total in Blood Medical, ) ID Date Data Source [id number] 05/14/2019 12:00:00 AM EDT [facility] ([facility], ) Name Value Range Interpretation Code Description Data Akilah rce(s) Supporting Document(s ) Please note Normal (applies to MEDGEN (S t non-numeric [facility] results) Medical, ) ID Date Data Source [id number] 05/14/2019 12:00:00 AM EDT [facility] ([facility]) Name Value Range Interpretation Code Description Data Supporting Source(s) Document(s ) Occult Negative Normal (applies to MEDGEN (St Blood, non-numeric [place] Fecal, [place] results) Medical, ) ID Date Data Source [id number] 05/14/2019 12:00:00 AM EDT [facility] ([facility], ) Name Value Range Interpretation Code Description Data Kailah rce(s) Supporting Document(s ) Please note Normal (applies to MEDGEN (S t non-numeric [facility] results) [facility], [facility]) ID Date Data Source [id number] 05/14/2019 12:00:00 AM EDT [facility] ([facility]) Name Value Range Interpretation Code Description Data Supporting Source(s) Document(s ) Occult Negative Normal (applies to MEDGEN (St Blood, non-numeric [place] Fecal, [place] results) [facility], [facility]) ID Date Data Source [id number] 05/14/2019 12:00:00 AM EDT [facility] ([facility]) Name Value Range Interpretation Code Description Data Akilah rce(s) Supporting Document(s ) Please note Normal (applies to MEDGEN (S t non-numeric [facility] results) [facility], [facility]) ID Date Data Source [id number] 05/14/2019 12:00:00 AM EDT [facility] ([facility]) Name Value Range Interpretation Code Description Data Supporting Source(s) Document(s ) Occult Negative Normal (applies to MEDGEN (St Blood, non-numeric [place] Fecal, [place] results) [facility], [facility]) ID Date Data Source [id number] 05/14/2019 12:00:00 AM EDT [facility] ([facility]) Name Value Range Interpretation Code Description Data Akilah rce(s) Supporting Document(s ) Please note Normal (applies to [facility]GEN (S t non-numeric [facility] results) [facility], [facility]) ID Date Data Source [id number] 05/14/2019 12:00:00 AM EDT [facility] ([facility]) Name Value Range Interpretation Code Description Data Supporting Source(s) Document(s ) Occult Negative Normal (applies to MEDGEN (St Blood, non-numeric [place] Fecal, [place] results) [facility], [facility]) ID Date Data Source [id number] 05/12/2019 12:00:00 AM EDT [facility] ([facility]) Name Value Range Interpretation Code Description Data Akilah rce(s) Supporting Document(s ) ID Date Data Source [id number] 05/12/2019 12:00:00 AM EDT [facility] ([facility]) Name Value Range Interpretation Code Description Data Supporting Source(s) Document(s ) PTH, Intact 22 pg/mL Normal (applies to MEDGEN (S t non-numeric [place] results) [facility], ) ID Date Data Source [id number] 05/12/2019 12:00:00 AM EDT [facility] ([facility], ) Name Value Range Interpretation Code Description Data Akilah rce(s) Supporting Document(s ) Ferritin, 41 ng/mL Normal (applies to MEDGEN (St Serum non-numeric [facility] results) [facility], ) ID Date Data Source [id number] 05/12/2019 12:00:00 AM EDT [facility] ([facility], ) Name Value Range Interpretation Description Data Sup porting Code Source(s) Document(s ) Deprecated 3.3 mg/dL Normal (applies to MEDGEN (St Phosphorus non-numeric [facility] [Mass/time] in results) [facility], ) 24 hour Urine ID Date Data Source [id number] 05/12/2019 12:00:00 AM EDT [facility] ([facility], ) Name Value Range Interpretation Code Description Data Akilah rce(s) Supporting Document(s ) Uric Acid 5.8 mg/dL Normal (applies to MEDGEN (St non-numeric [place] results) [facility], ) ID Date Data Source [id number] 05/12/2019 12:00:00 AM EDT [facility] (St [facility], ) Name Value Range Interpretation Description Data Sup porting Code Source(s) Document(s ) Vitamin D, 20.5 Below low normal MEDGEN (St 25-Hydroxy ng/mL [facility], ) ID Date Data Source [id number] 05/12/2019 12:00:00 AM EDT [facility] ([facility], ) Name Value Range Interpretation Description Data Sup porting Code Source(s) Document(s ) Hemoglobin 10.7 % Above high normal MEDGEN (St A1c/Hemoglobin [facility] .total in [facility], ) Blood ID Date Data Source [id number] 05/12/2019 12:00:00 AM EDT [facility] ([facility], ) Name Value Range Interpretation Code Description Data Akilah rce(s) Supporting Document(s ) PDF Image . Normal (applies to MEDGEN (St non-numeric results) [facility], ) ID Date Data Source [id number] 05/12/2019 12:00:00 AM EDT MEDGEN (St [facility], ) Name Value Range Interpretation Code Description Data Supporting Source(s) Document(s ) Creatinine 80.7 mg/dL Normal (applies to MEDGEN (S t , Urine non-numeric [facility] results) Medical, PC) Protein,To 24.4 mg/dL Normal (applies to MEDGEN (S t nicolas,Urine non-numeric [facility] results) Medical, PC) Protein/Cr 302 mg/g Above high normal MEDGEN (St eat Ratio creat [facility], ) ID Date Data Source [id number] 05/12/2019 12:00:00 AM EDT MEDGEN (St [facility], ) Name Value Range Interpretation Description Data Sup porting Code Source(s) Document(s ) Iron 340 ug/dL Normal (applies to MEDGEN (St Bind.Cap.(TIBC non-numeric [facility] ) results) Medical, PC) UIBC 292 ug/dL Normal (applies to MEDGEN (St non-numeric [place] results) Medical, PC) Iron 48 ug/dL Normal (applies to [facility]GEN (St [Mass/volume] non-numeric [place] in Serum or results) Medical, PC) Plasma Iron 14 % Below low normal MEDGEN (St saturation [facility] [[facility], ) Fraction] in Serum or Plasma ID Date Data Source [id number] 05/12/2019 12:00:00 AM EDT MEDGEN (St [facility], ) Name Value Range Interpretation Description Data Sup porting Code Source(s) Document(s ) Specific gravity 1.018 Normal (applies MEDGEN (St of Pericardial to non-numeric [place] fluid by results) Medical, Refractometry PC) pH of Lower 6.0 Normal (applies MEDGEN (St respiratory to non-numeric [place] specimen results) Medical, PC) Urine-Color Yellow Normal (applies MEDGEN (St to non-numeric [place] results) Medical, PC) Appearance of Clear Normal (applies MEDGEN (St Abdomen to non-numeric [facility] results) Medical, PC) WBC Esterase Abnormal MEDGEN (St (applies to [place] non-numeric Medical, results) PC) Protein Negative Normal (applies MEDGEN (St [Mass/volume] in to non-numeric [facility] Lower results) Medical, respiratory PC) specimen Glucose Negative Normal (applies MEDGEN (St [Mass/volume] in to non-numeric [place] Urine collected results) Medical, for unspecified PC) duration Occult Blood Negative Normal (applies MEDGEN (St to non-numeric [place] results) Medical, ) Ketones Negative Normal (applies MEDGEN (St [Presence] in to non-numeric [place] Blood by Tablet results) Medical, ) Urobilinogen,Reyes 0.2 mg/dL Normal (applies MEDGEN (St i-Qn to non-numeric [place] results) Medical, ) Bilirubin Negative Normal (applies MEDGEN (St [Presence] in to non-numeric [place] Peritoneal fluid results) Medical, ) Nitrite, Urine Negative Normal (applies MEDGEN (S t to non-numeric [place] results) Medical, ) Microscopic See below: Normal (applies MEDGEN (St Examination to non-numeric [place] results) Medical, ) ID Date Data Source [id number] 05/12/2019 12:00:00 AM EDT [facility] (St [facility], ) Name Value Range Interpretation Description Data Sup porting Code Source(s) Document(s ) WBC 6-10 Abnormal (applies MEDGEN (St to non-numeric [place] results) Medical, ) RBC 0-2 Normal (applies to [facility]GEN (St non-numeric [place] results) Medical, ) Epithelial 0-10 Normal (applies to MEDGEN (St Cells (non non-numeric [facility] renal) results) Medical, ) Mucus Threads Present Normal (applies to MEDGEN (St non-numeric [place] results) Medical, ) Bacteria Few Normal (applies to MEDGEN (St [Presence] in non-numeric [place] Prostatic results) Medical, ) fluid by Light microscopy ID Date Data Source [id number] 05/12/2019 12:00:00 AM EDT [facility] ([facility], ) Name Value Range Interpretation Description Data Sup porting Code Source(s) Document(s ) Glucose 197 Above high MEDGEN (St [Mass/volume] in mg/dL normal [facility] Urine collected for Medical, unspecified PC) duration Urea nitrogen 28 mg/dL Above high MEDGEN (St [Mass/volume] in normal [place] Serum or Plasma Medical, ) Creatinine 1.11 Above high MEDGEN (St [Interpretation] in mg/dL normal [place] Urine [facility], ) eGFR If NonAfricn 48 Below low normal MEDGE N (St Am mL/min/1 [facility]'s .73 [facility], ) eGFR If Africn Am 55 Below low normal MEDGE N (St mL/min/1 [facility]'s .73 [facility], ) Sodium 139 Normal (applies MEDGEN (St [Moles/volume] in mmol/L to non-numeric [place] Serum or Plasma results) Medical, ) BUN/Creatinine 25 Normal (applies MEDGEN (S t Ratio to non-numeric [place] results) Medical, ) Potassium 5.1 Normal (applies MEDGEN (St [Mass/volume] in mmol/L to non-numeric [facility] Blood results) [facility], ) Chloride 109 Above high MEDGEN (St [Moles/volume] in mmol/L normal [place] Serum or Plasma [facility], ) Carbon dioxide, 17 Below low normal MEDGEN (St total mmol/L [facility] [Moles/volume] in Medical, Serum or Plasma PC) Calcium 9.6 Normal (applies MEDGEN (St [Moles/volume] in mg/dL to non-numeric [place] Urine collected for results) Medical, unspecified PC) duration Protein 6.5 g/dL Normal (applies MEDGEN (St [Mass/volume] in to non-numeric [place] Serum or Plasma results) Medical, ) Microalbumin 4.4 g/dL Normal (applies MEDGEN (St [Mass/time] in to non-numeric [place] Urine collected for results) Medical, unspecified PC) duration Globulin, Total 2.1 g/dL Normal (applies MEDGEN ( St to non-numeric [place] results) [facility], ) A/G Ratio 2.1 Normal (applies MEDGEN (St to non-numeric [place] results) [facility], ) Bilirubin.total <0.2 Normal (applies MEDGEN ( St [Mass/volume] in to non-numeric [place] Serum or Plasma results) Medical, ) Alkaline 82 IU/L Normal (applies MEDGEN (St phosphatase to non-numeric [place] [Enzymatic results) Medical, activity/volume] in PC) Serum, Plasma or Blood Aspartate 19 IU/L Normal (applies MEDGEN (St aminotransferase to non-numeric [place] [Enzymatic results) Medical, activity/volume] in ) Serum or Plasma Alanine 11 IU/L Normal (applies MEDGEN (St aminotransferase to non-numeric [place] [Enzymatic results) Medical, activity/volume] in ) Serum or Plasma ID Date Data Source [id number] 05/12/2019 12:00:00 AM EDT [facility] (St [facility], ) Name Value Range Interpretation Description Data Sup porting Code Source(s) Document(s ) Leukocytes 6.3 Normal (applies MEDGEN (St [#/volume] in x10E3/uL to non-numeric [place] Blood by results) [facility]) Automated count Erythrocytes 4.67 Normal (applies MEDGEN (St [#/volume] in x10E6/uL to non-numeric [place] Blood by results) [facility]) Automated count Hemoglobin 11.1 Normal (applies MEDGEN (St [Mass/volume] in g/dL to non-numeric [place] Blood results) [facility]) MCV 78 fL Below low normal MEDGEN ([facility], ) Hematocrit 36.3 % Normal (applies MEDGEN (St [Volume to non-numeric [place] Fraction] of results) [facility]) Blood by Automated count MCH 23.8 pg Below low normal [facility]GEN ([facility], ) MCHC 30.6 Below low normal MEDGEN (St g/dL [facility]) RDW 14.9 % Normal (applies MEDGEN (St to non-numeric [place] results) [facility]) Platelets 316 Normal (applies MEDGEN (St [#/area] in x10E3/uL to non-numeric [place] Blood by results) [facility]) Microscopy high power field Neutrophils [#] 56 % Normal (applies MEDGEN ( St in Body fluid by to non-numeric [place] Manual count results) [facility]) Monocytes 2 % Normal (applies MEDGEN (St [#/volume] in to non-numeric [place] Cord blood results) [facility]) Lymphs 36 % Normal (applies MEDGEN (St to non-numeric [place] results) [facility]) Eos 5 % Normal (applies MEDGEN (St to non-numeric [place] results) [facility]) Neutrophils 3.6 Normal (applies MEDGEN (St (Absolute) x10E3/uL to non-numeric [place] results) Medical, ) Basos 1 % Normal (applies MEDGEN (St to non-numeric [place] results) [facility], ) Lymphs 2.3 Normal (applies MEDGEN (St (Absolute) x10E3/uL to non-numeric [facility] results) Medical, ) Monocytes(Absolu 0.1 Normal (applies MEDGEN (St te) x10E3/uL to non-numeric [place] results) [facility], ) Eos (Absolute) 0.3 Normal (applies MEDGEN (S t x10E3/uL to non-numeric [facility] results) Medical, ) Baso (Absolute) 0.0 Normal (applies MEDGEN ( St x10E3/uL to non-numeric [place] results) [facility], ) Immature 0 % Normal (applies MEDGEN (St Granulocytes to non-numeric [facility] results) [facility], ) Immature Grans 0.0 Normal (applies MEDGEN (S t (Abs) x10E3/uL to non-numeric [place] results) [facility], ) ID Date Data Source [id number] 05/12/2019 12:00:00 AM EDT [facility] ([facility], ) Name Value Range Interpretation Code Description Data Akilah rce(s) Supporting Document(s ) ID Date Data Source [id number] 05/12/2019 12:00:00 AM EDT [facility] ([facility], ) Name Value Range Interpretation Code Description Data Supporting Source(s) Document(s ) PTH, Intact 22 pg/mL Normal (applies to MEDGEN (S t non-numeric [place] results) [facility], ) ID Date Data Source [id number] 05/12/2019 12:00:00 AM EDT [facility] ([facility], ) Name Value Range Interpretation Code Description Data Akilah rce(s) Supporting Document(s ) Ferritin, 41 ng/mL Normal (applies to MEDGEN (St Serum non-numeric [place] results) [facility], ) ID Date Data Source [id number] 05/12/2019 12:00:00 AM EDT [facility] ([facility], ) Name Value Range Interpretation Description Data Sup porting Code Source(s) Document(s ) Deprecated 3.3 mg/dL Normal (applies to MEDGEN (St Phosphorus non-numeric [place] [Mass/time] in results) [facility], ) 24 hour Urine ID Date Data Source [id number] 05/12/2019 12:00:00 AM EDT [facility] ([facility], ) Name Value Range Interpretation Code Description Data Akilah rce(s) Supporting Document(s ) Uric Acid 5.8 mg/dL Normal (applies to MEDGEN (St non-numeric [place] results) [facility], ) ID Date Data Source [id number] 05/12/2019 12:00:00 AM EDT [facility] (St [facility], ) Name Value Range Interpretation Description Data Sup porting Code Source(s) Document(s ) Vitamin D, 20.5 Below low normal MEDGEN (St 25-Hydroxy ng/mL [facility], ) ID Date Data Source [id number] 05/12/2019 12:00:00 AM EDT [facility] (St [facility], ) Name Value Range Interpretation Description Data Sup porting Code Source(s) Document(s ) Hemoglobin 10.7 % Above high normal MEDGEN (St A1c/Hemoglobin [facility]'s .total in [facility], ) Blood ID Date Data Source [id number] 05/12/2019 12:00:00 AM EDT [facility] ([facility], ) Name Value Range Interpretation Code Description Data Akilah rce(s) Supporting Document(s ) PDF Image . Normal (applies to MEDGEN (St non-numeric results) [facility], ) ID Date Data Source [id number] 05/12/2019 12:00:00 AM EDT [facility] ([facility], ) Name Value Range Interpretation Code Description Data Supporting Source(s) Document(s ) Creatinine 80.7 mg/dL Normal (applies to MEDGEN (S t , Urine non-numeric [facility] results) [facility], ) Protein,To 24.4 mg/dL Normal (applies to MEDGEN (S t nicolas,Urine non-numeric [facility] results) [facility], ) Protein/Cr 302 mg/g Above high normal MEDGEN (St eat Ratio creat [facility], ) ID Date Data Source [id number] 05/12/2019 12:00:00 AM EDT [facility] ([facility], ) Name Value Range Interpretation Description Data Sup porting Code Source(s) Document(s ) Iron 340 ug/dL Normal (applies to MEDGEN (St Bind.Cap.(TIBC non-numeric [facility] ) results) Medical, ) UIBC 292 ug/dL Normal (applies to MEDGEN (St non-numeric [facility] results) Medical, PC) Iron 14 % Below low normal MEDGEN (St saturation [facility] [[facility], ) Fraction] in Serum or Plasma Iron 48 ug/dL Normal (applies to MEDGEN (St [Mass/volume] non-numeric [place] in Serum or results) Medical, ) Plasma ID Date Data Source [id number] 05/12/2019 12:00:00 AM EDT [facility] ([facility], ) Name Value Range Interpretation Description Data Sup porting Code Source(s) Document(s ) Specific gravity 1.018 Normal (applies MEDGEN (St of Pericardial to non-numeric [place] fluid by results) Medical, Refractometry PC) Urine-Color Yellow Normal (applies MEDGEN (St to non-numeric [place] results) Medical, PC) pH of Lower 6.0 Normal (applies MEDGEN (St respiratory to non-numeric [place] specimen results) Medical, ) Appearance of Clear Normal (applies MEDGEN (St Abdomen to non-numeric [facility] results) Medical, PC) Protein Negative Normal (applies MEDGEN (St [Mass/volume] in to non-numeric [facility] Lower results) Medical, respiratory PC) specimen WBC Esterase Abnormal MEDGEN (St (applies to [place] non-numeric Medical, results) PC) Glucose Negative Normal (applies MEDGEN (St [Mass/volume] in to non-numeric [facility] Urine collected results) Medical, for unspecified PC) duration Ketones Negative Normal (applies MEDGEN (St [Presence] in to non-numeric [facility] Blood by Tablet results) Medical, PC) Occult Blood Negative Normal (applies MEDGEN (St to non-numeric [facility] results) Medical, PC) Bilirubin Negative Normal (applies MEDGEN (St [Presence] in to non-numeric [facility] Peritoneal fluid results) Medical, ) Urobilinogen,Reyes 0.2 mg/dL Normal (applies MEDGEN (St i-Qn to non-numeric [facility] results) Medical, PC) Nitrite, Urine Negative Normal (applies MEDGEN (S t to non-numeric [facility] results) Medical, ) Microscopic See below: Normal (applies MEDGEN (St Examination to non-numeric [facility] results) [facility], ) ID Date Data Source [id number] 05/12/2019 12:00:00 AM EDT [facility] ([facility], ) Name Value Range Interpretation Description Data Sup porting Code Source(s) Document(s ) WBC 6-10 Abnormal (applies MEDGEN (St to non-numeric [facility] results) Medical, ) RBC 0-2 Normal (applies to MEDGEN (St non-numeric [facility] results) Medical, ) Epithelial 0-10 Normal (applies to MEDGEN (St Cells (non non-numeric [facility] renal) results) [facility], ) Bacteria Few Normal (applies to MEDGEN (St [Presence] in non-numeric [facility] Prostatic results) Medical, ) fluid by Light microscopy Mucus Threads Present Normal (applies to MEDGEN (St non-numeric [facility] results) [facility], ) ID Date Data Source [id number] 05/12/2019 12:00:00 AM EDT [facility] ([facility], ) Name Value Range Interpretation Description Data Sup porting Code Source(s) Document(s ) Glucose 197 Above high [facility] (St [Mass/volume] in mg/dL normal [facility] Urine collected for Medical, unspecified PC) duration Urea nitrogen 28 mg/dL Above high [facility] (St [Mass/volume] in normal [place] Serum or Plasma Medical, ) Creatinine 1.11 Above high [facility] (St [Interpretation] in mg/dL normal [place] Urine [facility], ) eGFR If NonAfricn 48 Below low normal MEDGE N (St Am mL/min/1 [facility] .73 Medical, ) eGFR If Africn Am 55 Below low normal [facility] N (St mL/min/1 [place] .73 Medical, ) BUN/Creatinine 25 Normal (applies [facility] (S t Ratio to non-numeric [facility] results) Medical, ) Sodium 139 Normal (applies [facility] (St [Moles/volume] in mmol/L to non-numeric [facility] Serum or Plasma results) Medical, ) Potassium 5.1 Normal (applies [facility] (St [Mass/volume] in mmol/L to non-numeric [facility] Blood results) Medical, ) Chloride 109 Above high [facility] (St [Moles/volume] in mmol/L normal [place] Serum or Plasma Medical, ) Carbon dioxide, 17 Below low normal [facility] (St total mmol/L [place] [Moles/volume] in Medical, Serum or Plasma PC) Calcium 9.6 Normal (applies [facility] (St [Moles/volume] in mg/dL to non-numeric [facility] Urine collected for results) Medical, unspecified PC) duration Protein 6.5 g/dL Normal (applies [facility] (St [Mass/volume] in to non-numeric [place] Serum or Plasma results) Medical, ) Microalbumin 4.4 g/dL Normal (applies [facility] (St [Mass/time] in to non-numeric [facility] Urine collected for results) [facility], unspecified ) duration Globulin, Total 2.1 g/dL Normal (applies [facility] ( St to non-numeric [place] results) Medical, ) Bilirubin.total <0.2 Normal (applies [facility] ( St [Mass/volume] in to non-numeric [place] Serum or Plasma results) Medical, ) A/G Ratio 2.1 Normal (applies [facility] (St to non-numeric [place] results) Medical, ) Alkaline 82 IU/L Normal (applies [facility] (St phosphatase to non-numeric [place] [Enzymatic results) Medical, activity/volume] in PC) Serum, Plasma or Blood Alanine 11 IU/L Normal (applies [facility] (St aminotransferase to non-numeric [place] [Enzymatic results) Medical, activity/volume] in PC) Serum or Plasma Aspartate 19 IU/L Normal (applies [facility] (St aminotransferase to non-numeric [place] [Enzymatic results) Medical, activity/volume] in PC) Serum or Plasma ID Date Data Source [id number] 05/12/2019 12:00:00 AM EDT [facility] (St [facility], ) Name Value Range Interpretation Description Data Sup porting Code Source(s) Document(s ) Leukocytes 6.3 Normal (applies [facility] (St [#/volume] in x10E3/uL to non-numeric [facility] Blood by results) Medical, ) Automated count Erythrocytes 4.67 Normal (applies [facility] (St [#/volume] in x10E6/uL to non-numeric [facility] Blood by results) [facility], ) Automated count Hemoglobin 11.1 Normal (applies [facility] (St [Mass/volume] in g/dL to non-numeric [facility] Blood results) [facility]) Hematocrit 36.3 % Normal (applies [facility] (St [Volume to non-numeric [place] Fraction] of results) [facility], ) Blood by Automated count MCV 78 fL Below low normal [facility] ([place], ) MCH 23.8 pg Below low normal [facility] ([place], ) RDW 14.9 % Normal (applies [facility] (St to non-numeric [place] results) [facility]) MCHC 30.6 Below low normal [facility] (St g/dL [facility], ) Platelets 316 Normal (applies [facility] (St [#/area] in x10E3/uL to non-numeric [facility] Blood by results) [facility], ) Microscopy high power field Neutrophils [#] 56 % Normal (applies [facility] ( St in Body fluid by to non-numeric [facility] Manual count results) [facility], ) Lymphs 36 % Normal (applies [facility] (St to non-numeric [place] results) [facility]) Monocytes 2 % Normal (applies [facility] (St [#/volume] in to non-numeric [facility] Cord blood results) [facility]) Basos 1 % Normal (applies [facility] (St to non-numeric [facility] results) [facility]) Eos 5 % Normal (applies [facility] (St to non-numeric [facility] results) [facility], ) Neutrophils 3.6 Normal (applies [facility] (St (Absolute) x10E3/uL to non-numeric [facility] results) [facility], ) Monocytes(Absolu 0.1 Normal (applies [facility] (St te) x10E3/uL to non-numeric [facility] results) [facility], ) Lymphs 2.3 Normal (applies [facility] (St (Absolute) x10E3/uL to non-numeric [facility] results) [facility], ) Eos (Absolute) 0.3 Normal (applies [facility] (S t x10E3/uL to non-numeric [facility] results) [facility], ) Baso (Absolute) 0.0 Normal (applies [facility] ( St x10E3/uL to non-numeric [facility] results) Medical, ) Immature 0 % Normal (applies [facility] (St Granulocytes to non-numeric [facility] results) Medical, ) Immature Grans 0.0 Normal (applies [facility] (S t (Abs) x10E3/uL to non-numeric [facility] results) Medical, ) ID Date Data Source [id number] 05/12/2019 12:00:00 AM EDT [facility] (St [facility], ) Name Value Range Interpretation Code Description Data Akilah rce(s) Supporting Document(s ) ID Date Data Source [id number] 05/12/2019 12:00:00 AM EDT [facility] (St [facility], ) Name Value Range Interpretation Code Description Data Supporting Source(s) Document(s ) PTH, Intact 22 pg/mL Normal (applies to [facility] (S t non-numeric [facility] results) Medical, ) ID Date Data Source [id number] 05/12/2019 12:00:00 AM EDT [facility] (St [facility], ) Name Value Range Interpretation Code Description Data Akilah rce(s) Supporting Document(s ) Ferritin, 41 ng/mL Normal (applies to [facility] (St Serum non-numeric [place] results) [facility], ) ID Date Data Source [id number] 05/12/2019 12:00:00 AM EDT [facility] (St [facility], ) Name Value Range Interpretation Description Data Sup porting Code Source(s) Document(s ) Deprecated 3.3 mg/dL Normal (applies to [facility] (St Phosphorus non-numeric [facility] [Mass/time] in results) Medical, ) 24 hour Urine ID Date Data Source [id number] 05/12/2019 12:00:00 AM EDT [facility] (St [facility], ) Name Value Range Interpretation Code Description Data Akilah rce(s) Supporting Document(s ) Uric Acid 5.8 mg/dL Normal (applies to [facility] (St non-numeric [place] results) [facility], ) ID Date Data Source [id number] 05/12/2019 12:00:00 AM EDT [facility] (St [facility], ) Name Value Range Interpretation Description Data Sup porting Code Source(s) Document(s ) Vitamin D, 20.5 Below low normal [facility] (St 25-Hydroxy ng/mL [facility], ) ID Date Data Source [id number] 05/12/2019 12:00:00 AM EDT [facility] (St [facility], ) Name Value Range Interpretation Description Data Sup porting Code Source(s) Document(s ) Hemoglobin 10.7 % Above high normal [facility] (St A1c/Hemoglobin [facility] .total in [facility], ) Blood ID Date Data Source [id number] 05/12/2019 12:00:00 AM EDT [facility] (St [facility], ) Name Value Range Interpretation Code Description Data Akilah rce(s) Supporting Document(s ) PDF Image . Normal (applies to [facility] (St non-numeric results) [facility], ) ID Date Data Source [id number] 05/12/2019 12:00:00 AM EDT [facility] (St [facility], ) Name Value Range Interpretation Code Description Data Supporting Source(s) Document(s ) Creatinine 80.7 mg/dL Normal (applies to [facility] (S t , Urine non-numeric [facility] results) [facility], ) Protein,To 24.4 mg/dL Normal (applies to [facility] (S t nicolas,Urine non-numeric [facility] results) [facility], ) Protein/Cr 302 mg/g Above high normal [facility] (St eat Ratio creat [facility], ) ID Date Data Source [id number] 05/12/2019 12:00:00 AM EDT [facility] (St [facility], ) Name Value Range Interpretation Description Data Sup porting Code Source(s) Document(s ) Iron 340 ug/dL Normal (applies to [facility] (St Bind.Cap.(TIBC non-numeric [facility] ) results) [facility], ) UIBC 292 ug/dL Normal (applies to [facility] (St non-numeric [place] results) [facility], ) Iron 48 ug/dL Normal (applies to [facility] (St [Mass/volume] non-numeric [place] in Serum or results) [facility], ) Plasma Iron 14 % Below low normal [facility] (St saturation [facility] [[facility], ) Fraction] in Serum or Plasma ID Date Data Source [id number] 05/12/2019 12:00:00 AM EDT [facility] (St [facility], [facility]) Name Value Range Interpretation Description Data Sup porting Code Source(s) Document(s ) Specific gravity 1.018 Normal (applies [facility] (St of Pericardial to non-numeric [place] fluid by results) Medical, Refractometry PC) pH of Lower 6.0 Normal (applies [facility] (St respiratory to non-numeric [place] specimen results) Medical, PC) Urine-Color Yellow Normal (applies [facility] (St to non-numeric [place] results) Medical, PC) Appearance of Clear Normal (applies [facility] (St Abdomen to non-numeric [place] results) Medical, PC) Protein Negative Normal (applies [facility] (St [Mass/volume] in to non-numeric [place] Lower results) Medical, respiratory PC) specimen WBC Esterase Abnormal [facility] (St (applies to [place] non-numeric Medical, results) PC) Ketones Negative Normal (applies [facility] (St [Presence] in to non-numeric [place] Blood by Tablet results) Medical, PC) Glucose Negative Normal (applies [facility] (St [Mass/volume] in to non-numeric [place] Urine collected results) Medical, for unspecified PC) duration Occult Blood Negative Normal (applies [facility] (St to non-numeric [place] results) Medical, PC) Urobilinogen,Reyes 0.2 mg/dL Normal (applies [facility] (St i-Qn to non-numeric [place] results) Medical, PC) Bilirubin Negative Normal (applies [facility] (St [Presence] in to non-numeric [place] Peritoneal fluid results) Medical, PC) Nitrite, Urine Negative Normal (applies [facility] (S t to non-numeric [place] results) Medical, PC) Microscopic See below: Normal (applies [facility] (St Examination to non-numeric [facility] results) Medical, PC) ID Date Data Source [id number] 05/12/2019 12:00:00 AM EDT [facility] ([facility], [facility]) Name Value Range Interpretation Description Data Sup porting Code Source(s) Document(s ) WBC 6-10 Abnormal (applies [facility] (St to non-numeric [place] results) Medical, PC) RBC 0-2 Normal (applies to [facility] (St non-numeric [place] results) Medical, PC) Epithelial 0-10 Normal (applies to [facility] (St Cells (non non-numeric [facility] renal) results) Medical, ) Mucus Threads Present Normal (applies to [facility] (St non-numeric [facility] results) Medical, ) Bacteria Few Normal (applies to [facility] (St [Presence] in non-numeric [place] Prostatic results) Medical, ) fluid by Light microscopy ID Date Data Source [id number] 05/12/2019 12:00:00 AM EDT [facility] ([facility], ) Name Value Range Interpretation Description Data Sup porting Code Source(s) Document(s ) Glucose 197 Above high [facility] (St [Mass/volume] in mg/dL normal [place] Urine collected for Medical, unspecified PC) duration Urea nitrogen 28 mg/dL Above high [facility] (St [Mass/volume] in normal [place] Serum or Plasma Medical, ) eGFR If NonAfricn 48 Below low normal [facility] N (St Am mL/min/1 [place] .73 [facility], ) Creatinine 1.11 Above high [facility] (St [Interpretation] in mg/dL normal [facility] Urine Medical, ) eGFR If Africn Am 55 Below low normal [facility] N (St mL/min/1 [facility] .73 [facility], ) BUN/Creatinine 25 Normal (applies [facility] (S t Ratio to non-numeric [place] results) Medical, ) Sodium 139 Normal (applies [facility] (St [Moles/volume] in mmol/L to non-numeric [place] Serum or Plasma results) Medical, ) Potassium 5.1 Normal (applies [facility] (St [Mass/volume] in mmol/L to non-numeric [facility] Blood results) Medical, ) Carbon dioxide, 17 Below low normal [facility] (St total mmol/L [facility] [Moles/volume] in Medical, Serum or Plasma PC) Chloride 109 Above high [facility] (St [Moles/volume] in mmol/L normal [place] Serum or Plasma Medical, ) Protein 6.5 g/dL Normal (applies [facility] (St [Mass/volume] in to non-numeric [place] Serum or Plasma results) Medical, ) Calcium 9.6 Normal (applies [facility] (St [Moles/volume] in mg/dL to non-numeric [place] Urine collected for results) Medical, unspecified PC) duration Microalbumin 4.4 g/dL Normal (applies [facility] (St [Mass/time] in to non-numeric [place] Urine collected for results) Medical, unspecified ) duration Globulin, Total 2.1 g/dL Normal (applies [facility] ( St to non-numeric [place] results) Medical, ) A/G Ratio 2.1 Normal (applies [facility] (St to non-numeric [place] results) [facility], ) Bilirubin.total <0.2 Normal (applies [facility] ( St [Mass/volume] in to non-numeric [place] Serum or Plasma results) Medical, ) Alkaline 82 IU/L Normal (applies [facility] (St phosphatase to non-numeric [place] [Enzymatic results) Medical, activity/volume] in ) Serum, Plasma or Blood Aspartate 19 IU/L Normal (applies [facility] (St aminotransferase to non-numeric [place] [Enzymatic results) Medical, activity/volume] in ) Serum or Plasma Alanine 11 IU/L Normal (applies [facility] (St aminotransferase to non-numeric [place] [Enzymatic results) Medical, activity/volume] in ) Serum or Plasma ID Date Data Source [id number] 05/12/2019 12:00:00 AM EDT [facility] (St [facility], ) Name Value Range Interpretation Description Data Sup porting Code Source(s) Document(s ) Leukocytes 6.3 Normal (applies [facility] (St [#/volume] in x10E3/uL to non-numeric [place] Blood by results) Medical, ) Automated count Erythrocytes 4.67 Normal (applies [facility] (St [#/volume] in x10E6/uL to non-numeric [facility] Blood by results) [facility], ) Automated count Hematocrit 36.3 % Normal (applies [facility] (St [Volume to non-numeric [place] Fraction] of results) [facility], ) Blood by Automated count Hemoglobin 11.1 Normal (applies [facility] (St [Mass/volume] in g/dL to non-numeric [facility] Blood results) [facility], ) MCV 78 fL Below low normal [facility] ([facility], ) MCH 23.8 pg Below low normal [facility] ([place] [facility], ) MCHC 30.6 Below low normal [facility] (St g/dL [facility], ) RDW 14.9 % Normal (applies [facility] (St to non-numeric [place] results) Medical, ) Neutrophils [#] 56 % Normal (applies [facility] ( St in Body fluid by to non-numeric [place] Manual count results) Medical, ) Platelets 316 Normal (applies [facility] (St [#/area] in x10E3/uL to non-numeric [place] Blood by results) Medical, ) Microscopy high power field Lymphs 36 % Normal (applies [facility] (St to non-numeric [place] results) Medical, ) Eos 5 % Normal (applies [facility] (St to non-numeric [place] results) Medical, ) Monocytes 2 % Normal (applies [facility] (St [#/volume] in to non-numeric [place] Cord blood results) Medical, ) Basos 1 % Normal (applies [facility] (St to non-numeric [place] results) Medical, ) Neutrophils 3.6 Normal (applies [facility] (St (Absolute) x10E3/uL to non-numeric [facility] results) Medical, ) Lymphs 2.3 Normal (applies [facility] (St (Absolute) x10E3/uL to non-numeric [facility] results) Medical, ) Eos (Absolute) 0.3 Normal (applies [facility] (S t x10E3/uL to non-numeric [place] results) Medical, ) Monocytes(Absolu 0.1 Normal (applies [facility] (St te) x10E3/uL to non-numeric [place] results) Medical, ) Baso (Absolute) 0.0 Normal (applies [facility] ( St x10E3/uL to non-numeric [facility] results) Medical, ) Immature 0 % Normal (applies [facility] (St Granulocytes to non-numeric [facility] results) Medical, ) Immature Grans 0.0 Normal (applies [facility] (S t (Abs) x10E3/uL to non-numeric [place] results) [facility], ) ID Date Data Source [id number] 05/12/2019 12:00:00 AM EDT [facility] ([facility], ) Name Value Range Interpretation Code Description Data Akilah rce(s) Supporting Document(s ) ID Date Data Source [id number] 05/12/2019 12:00:00 AM EDT [facility] ([facility], ) Name Value Range Interpretation Code Description Data Supporting Source(s) Document(s ) PTH, Intact 22 pg/mL Normal (applies to [facility] (S t non-numeric [place] results) [facility], ) ID Date Data Source [id number] 05/12/2019 12:00:00 AM EDT [facility] ([facility], ) Name Value Range Interpretation Code Description Data Akilah rce(s) Supporting Document(s ) Ferritin, 41 ng/mL Normal (applies to [facility] (St Serum non-numeric [place] results) [facility], ) ID Date Data Source [id number] 05/12/2019 12:00:00 AM EDT [facility] (St [facility], ) Name Value Range Interpretation Description Data Sup porting Code Source(s) Document(s ) Deprecated 3.3 mg/dL Normal (applies to [facility] (St Phosphorus non-numeric [place] [Mass/time] in results) [facility], ) 24 hour Urine ID Date Data Source [id number] 05/12/2019 12:00:00 AM EDT [facility] (St [facility], ) Name Value Range Interpretation Code Description Data Akilah rce(s) Supporting Document(s ) Uric Acid 5.8 mg/dL Normal (applies to [facility] (St non-numeric [place] results) [facility], ) ID Date Data Source [id number] 05/12/2019 12:00:00 AM EDT [facility] ([facility], ) Name Value Range Interpretation Description Data Sup porting Code Source(s) Document(s ) Vitamin D, 20.5 Below low normal [facility] (St 25-Hydroxy ng/mL [facility], ) ID Date Data Source [id number] 05/12/2019 12:00:00 AM EDT [facility] (St [facility], ) Name Value Range Interpretation Description Data Sup porting Code Source(s) Document(s ) Hemoglobin 10.7 % Above high normal [facility] (St A1c/Hemoglobin [place] .total in [facility], ) Blood ID Date Data Source [id number] 05/12/2019 12:00:00 AM EDT [facility] (St [facility], ) Name Value Range Interpretation Code Description Data Akilah rce(s) Supporting Document(s ) PDF Image . Normal (applies to [facility] (St non-numeric results) [facility] dical, ) ID Date Data Source [id number] 05/12/2019 12:00:00 AM EDT [facility] ( [facility], ) Name Value Range Interpretation Code Description Data Supporting Source(s) Document(s ) Creatinine 80.7 mg/dL Normal (applies to [facility] (S t , Urine non-numeric [place] results) Medical, PC) Protein,To 24.4 mg/dL Normal (applies to [facility] (S t nicolas,Urine non-numeric [place] results) Medical, PC) Protein/Cr 302 mg/g Above high normal [facility] (St eat Ratio creat [place], ) ID Date Data Source [id number] 05/12/2019 12:00:00 AM EDT [facility] ([facility], ) Name Value Range Interpretation Description Data Sup porting Code Source(s) Document(s ) Iron 340 ug/dL Normal (applies to [facility] (St Bind.Cap.(TIBC non-numeric [place] ) results) Medical, PC) UIBC 292 ug/dL Normal (applies to [facility] (St non-numeric [place] results) Medical, PC) Iron 48 ug/dL Normal (applies to [facility] (St [Mass/volume] non-numeric [place] in Serum or results) Medical, PC) Plasma Iron 14 % Below low normal [facility] (St saturation [facility] [[facility], ) Fraction] in Serum or Plasma ID Date Data Source [id number] 05/12/2019 12:00:00 AM EDT [facility], ) Name Value Range Interpretation Description Data Sup porting Code Source(s) Document(s ) Specific gravity 1.018 Normal (applies [facility] (St of Pericardial to non-numeric [place] fluid by results) Medical, Refractometry PC) pH of Lower 6.0 Normal (applies [facility] (St respiratory to non-numeric [place] specimen results) Medical, PC) Urine-Color Yellow Normal (applies [facility] (St to non-numeric [place] results) Medical, PC) Appearance of Clear Normal (applies [facility] (St Abdomen to non-numeric [place] results) Medical, PC) WBC Esterase Abnormal [facility] (St (applies to [place] non-numeric Medical, results) PC) Protein Negative Normal (applies [facility] (St [Mass/volume] in to non-numeric [place] Lower results) Medical, respiratory PC) specimen Glucose Negative Normal (applies [facility] (St [Mass/volume] in to non-numeric [place] Urine collected results) Medical, for unspecified PC) duration Ketones Negative Normal (applies [facility] (St [Presence] in to non-numeric [place] Blood by Tablet results) Medical, ) Occult Blood Negative Normal (applies [facility] (St to non-numeric [place] results) Medical, ) Bilirubin Negative Normal (applies [facility] (St [Presence] in to non-numeric [place] Peritoneal fluid results) Medical, ) Urobilinogen,Reyes 0.2 mg/dL Normal (applies [facility] (St i-Qn to non-numeric [facility] results) Medical, ) Nitrite, Urine Negative Normal (applies [facility] (S t to non-numeric [place] results) Medical, ) Microscopic See below: Normal (applies [facility] (St Examination to non-numeric [facility] results) Medical, ) ID Date Data Source [id number] 05/12/2019 12:00:00 AM EDT [facility] (St [facility], ) Name Value Range Interpretation Description Data Sup porting Code Source(s) Document(s ) WBC 6-10 Abnormal (applies [facility] (St to non-numeric [place] results) Medical, ) RBC 0-2 Normal (applies to [facility] (St non-numeric [place] results) Medical, ) Epithelial 0-10 Normal (applies to [facility] (St Cells (non non-numeric [facility] renal) results) Medical, ) Mucus Threads Present Normal (applies to [facility] (St non-numeric [place] results) Medical, ) Bacteria Few Normal (applies to [facility] (St [Presence] in non-numeric [facility] Prostatic results) Medical, ) fluid by Light microscopy ID Date Data Source [id number] 05/12/2019 12:00:00 AM EDT [facility] ([facility], ) Name Value Range Interpretation Description Data Sup porting Code Source(s) Document(s ) Glucose 197 Above high [facility] (St [Mass/volume] in mg/dL normal [facility] Urine collected for Medical, unspecified PC) duration Urea nitrogen 28 mg/dL Above high [facility] (St [Mass/volume] in normal [place] Serum or Plasma [facility], ) Creatinine 1.11 Above high [facility] (St [Interpretation] in mg/dL normal [facility] Urine [facility], ) eGFR If NonAfricn 48 Below low normal [facility] N (St Am mL/min/1 [facility] .73 [facility] [facility], ) eGFR If Africn Am 55 Below low normal MEDGE N (St mL/min/1 [facility]'s .73 [facility], ) BUN/Creatinine 25 Normal (applies MEDGEN (S t Ratio to non-numeric [facility] results) Medical, ) Sodium 139 Normal (applies MEDGEN (St [Moles/volume] in mmol/L to non-numeric [facility] Serum or Plasma results) [facility], ) Potassium 5.1 Normal (applies MEDGEN (St [Mass/volume] in mmol/L to non-numeric [facility] Blood results) [facility], ) Chloride 109 Above high MEDGEN (St [Moles/volume] in mmol/L normal [facility] Serum or Plasma [facility], ) Calcium 9.6 Normal (applies MEDGEN (St [Moles/volume] in mg/dL to non-numeric [facility] Urine collected for results) Medical, unspecified PC) duration Carbon dioxide, 17 Below low normal MEDGEN (St total mmol/L [facility] [Moles/volume] in Medical, Serum or Plasma PC) Protein 6.5 g/dL Normal (applies MEDGEN (St [Mass/volume] in to non-numeric [facility] Serum or Plasma results) Medical, ) Microalbumin 4.4 g/dL Normal (applies MEDGEN (St [Mass/time] in to non-numeric [facility] Urine collected for results) Medical, unspecified PC) duration A/G Ratio 2.1 Normal (applies MEDGEN (St to non-numeric [facility] results) Medical, ) Globulin, Total 2.1 g/dL Normal (applies MEDGEN ( St to non-numeric [facility] results) Medical, PC) Alkaline 82 IU/L Normal (applies MEDGEN (St phosphatase to non-numeric [facility] [Enzymatic results) Medical, activity/volume] in PC) Serum, Plasma or Blood Bilirubin.total <0.2 Normal (applies MEDGEN ( St [Mass/volume] in to non-numeric [facility] Serum or Plasma results) [facility], ) Aspartate 19 IU/L Normal (applies MEDGEN (St aminotransferase to non-numeric [facility] [Enzymatic results) Medical, activity/volume] in ) Serum or Plasma Alanine 11 IU/L Normal (applies MEDGEN (St aminotransferase to non-numeric [facility] [Enzymatic results) Medical, activity/volume] in ) Serum or Plasma ID Date Data Source [id number] 05/12/2019 12:00:00 AM EDT MEDGEN (St [facility], ) Name Value Range Interpretation Description Data Sup porting Code Source(s) Document(s ) Leukocytes 6.3 Normal (applies MEDGEN (St [#/volume] in x10E3/uL to non-numeric [facility] Blood by results) [facility], ) Automated count Erythrocytes 4.67 Normal (applies MEDGEN (St [#/volume] in x10E6/uL to non-numeric [facility] Blood by results) [facility]) Automated count Hemoglobin 11.1 Normal (applies MEDGEN (St [Mass/volume] in g/dL to non-numeric [facility] Blood results) [facility]) Hematocrit 36.3 % Normal (applies MEDGEN (St [Volume to non-numeric [facility] Fraction] of results) [facility]) Blood by Automated count MCV 78 fL Below low normal MEDGEN ([facility], ) MCH 23.8 pg Below low normal MEDGEN ([facility]) MCHC 30.6 Below low normal MEDGEN (St g/dL [facility]) RDW 14.9 % Normal (applies MEDGEN (St to non-numeric [facility] results) [facility]) Platelets 316 Normal (applies MEDGEN (St [#/area] in x10E3/uL to non-numeric [facility] Blood by results) [facility]) Microscopy high power field Lymphs 36 % Normal (applies MEDGEN (St to non-numeric [facility] results) [facility]) Neutrophils [#] 56 % Normal (applies MEDGEN ( St in Body fluid by to non-numeric [facility] Manual count results) [facility]) Monocytes 2 % Normal (applies MEDGEN (St [#/volume] in to non-numeric [facility] Cord blood results) [facility]) Eos 5 % Normal (applies MEDGEN (St to non-numeric [facility] results) Medical, ) Basos 1 % Normal (applies MEDGEN (St to non-numeric [facility] results) Medical, ) Neutrophils 3.6 Normal (applies MEDGEN (St (Absolute) x10E3/uL to non-numeric [facility] results) Medical, ) Lymphs 2.3 Normal (applies MEDGEN (St (Absolute) x10E3/uL to non-numeric [facility] results) Medical, ) Monocytes(Absolu 0.1 Normal (applies MEDGEN (St te) x10E3/uL to non-numeric [facility] results) Medical, ) Eos (Absolute) 0.3 Normal (applies MEDGEN (S t x10E3/uL to non-numeric [facility] results) Medical, ) Immature 0 % Normal (applies MEDGEN (St Granulocytes to non-numeric [facility] results) Medical, ) Baso (Absolute) 0.0 Normal (applies MEDGEN ( St x10E3/uL to non-numeric [facility] results) Medical, ) Immature Grans 0.0 Normal (applies MEDGEN (S t (Abs) x10E3/uL to non-numeric [facility] results) [facility], ) ID Date Data Source [id number] 04/07/2019 12:00:00 AM EDT MEDGEN ([facility], ) Name Value Range Interpretation Description Data Sup porting Code Source(s) Document(s ) Glucose 223 Above high MEDGEN (St [Mass/volume] in mg/dL normal [facility] Urine collected for Medical, unspecified PC) duration Urea nitrogen 41 mg/dL Above high MEDGEN (St [Mass/volume] in normal [facility] Serum or Plasma [facility], ) Creatinine 1.56 Above high MEDGEN (St [Interpretation] in mg/dL normal [facility] Urine [facility], ) eGFR If NonAfricn 32 Below low normal MEDGE N (St Am mL/min/[address] [address] [place] [address], ) BUN/Creatinine 26 Normal (applies MEDGEN (S t Ratio to non-numeric [facility] results) [facility], ) eGFR If Africn Am 37 Below low normal MEDGE N (St mL/min/1 [facility]'s 73 [facility], ) Sodium 137 Normal (applies MEDGEN (St [Moles/volume] in mmol/L to non-numeric [facility] Serum or Plasma results) Medical, PC) Potassium 4.9 Normal (applies MEDGEN (St [Mass/volume] in mmol/L to non-numeric [facility] Blood results) Medical, ) Chloride 103 Normal (applies MEDGEN (St [Moles/volume] in mmol/L to non-numeric [facility] Serum or Plasma results) Medical, ) Carbon dioxide, 16 Below low normal MEDGEN (St total mmol/L [facility] [Moles/volume] in Medical, Serum or Plasma PC) Calcium 9.9 Normal (applies MEDGEN (St [Moles/volume] in mg/dL to non-numeric [facility] Urine collected for results) Medical, unspecified PC) duration Microalbumin 4.6 g/dL Normal (applies MEDGEN (St [Mass/time] in to non-numeric [facility] Urine collected for results) Medical, unspecified PC) duration Protein 7.1 g/dL Normal (applies MEDGEN (St [Mass/volume] in to non-numeric [facility] Serum or Plasma results) Medical, ) Globulin, Total 2.5 g/dL Normal (applies MEDGEN ( St to non-numeric [facility] results) Medical, PC) A/G Ratio 1.8 Normal (applies MEDGEN (St to non-numeric [facility] results) Medical, ) Alkaline 95 IU/L Normal (applies MEDGEN (St phosphatase to non-numeric [facility]'s [Enzymatic results) Medical, activity/volume] in PC) Serum, Plasma or Blood Bilirubin.total 0.2 Normal (applies MEDGEN ( St [Mass/volume] in mg/dL to non-numeric [facility] Serum or Plasma results) Medical, ) Aspartate 20 IU/L Normal (applies MEDGEN (St aminotransferase to non-numeric [facility] [Enzymatic results) Medical, activity/volume] in PC) Serum or Plasma Alanine 11 IU/L Normal (applies MEDGEN (St aminotransferase to non-numeric [facility] [Enzymatic results) Medical, activity/volume] in PC) Serum or Plasma ID Date Data Source [id number] 04/07/2019 12:00:00 AM EDT MEDGEN ([facility], ) Name Value Range Interpretation Description Data Sup porting Code Source(s) Document(s ) Leukocytes 8.5 Normal (applies MEDGEN (St [#/volume] in x10E3/uL to non-numeric [facility] Blood by results) [facility], ) Automated count Erythrocytes 4.84 Normal (applies MEDGEN (St [#/volume] in x10E6/uL to non-numeric [facility] Blood by results) [facility]) Automated count Hemoglobin 11.5 Normal (applies MEDGEN (St [Mass/volume] in g/dL to non-numeric [facility] Blood results) [facility]) Hematocrit 36.1 % Normal (applies MEDGEN (St [Volume to non-numeric [facility]'s Fraction] of results) [facility], ) Blood by Automated count MCH 23.8 pg Below low normal [facility]GEN ([facility], ) MCV 75 fL Below low normal MEDGEN ([facility], ) MCHC 31.9 Normal (applies MEDGEN (St g/dL to non-numeric [facility] results) [facility], ) RDW 14.3 % Normal (applies MEDGEN (St to non-numeric [facility] results) [facility]) Neutrophils [#] 52 % Normal (applies MEDGEN ( St in Body fluid by to non-numeric [facility] Manual count results) [facility], ) Platelets 302 Normal (applies MEDGEN (St [#/area] in x10E3/uL to non-numeric [facility] Blood by results) [facility], ) Microscopy high power field Lymphs 41 % Normal (applies MEDGEN (St to non-numeric [facility] results) [facility], ) Monocytes 4 % Normal (applies MEDGEN (St [#/volume] in to non-numeric [facility] Cord blood results) [facility], ) Eos 3 % Normal (applies MEDGEN (St to non-numeric [facility] results) [facility]) Basos 0 % Normal (applies MEDGEN (St to non-numeric [facility] results) [facility], ) Neutrophils 4.3 Normal (applies MEDGEN (St (Absolute) x10E3/uL to non-numeric [facility] results) [facility]) Lymphs 3.5 Above high normal MEDGEN (St (Absolute) x10E3/uL [facility], ) Monocytes(Absolu 0.4 Normal (applies MEDGEN (St te) x10E3/uL to non-numeric [facility] results) [facility], ) Eos (Absolute) 0.2 Normal (applies MEDGEN (S t x10E3/uL to non-numeric [facility] results) Medical, ) Baso (Absolute) 0.0 Normal (applies MEDGEN ( St x10E3/uL to non-numeric [facility] results) Medical, ) Immature 0 % Normal (applies MEDGEN (St Granulocytes to non-numeric [facility] results) Medical, ) Immature Grans 0.0 Normal (applies MEDGEN (S t (Abs) x10E3/uL to non-numeric [facility] results) Medical, ) ID Date Data Source [id number] 04/07/2019 12:00:00 AM EDT MEDGEN ([facility], ) Name Value Range Interpretation Description Data Sup porting Code Source(s) Document(s ) Glucose 223 Above high MEDGEN (St [Mass/volume] in mg/dL normal [facility] Urine collected for Medical, unspecified PC) duration Urea nitrogen 41 mg/dL Above high MEDGEN (St [Mass/volume] in normal [facility] Serum or Plasma Medical, ) eGFR If NonAfricn 32 Below low normal MEDGE N (St Am mL/min/1 [facility] .73 [facility], ) Creatinine 1.56 Above high MEDGEN (St [Interpretation] in mg/dL normal [facility] Urine Medical, ) BUN/Creatinine 26 Normal (applies MEDGEN (S t Ratio to non-numeric [facility] results) [facility], ) eGFR If Africn Am 37 Below low normal MEDGE N (St mL/min/1 [facility] .73 [facility], ) Sodium 137 Normal (applies MEDGEN (St [Moles/volume] in mmol/L to non-numeric [facility] Serum or Plasma results) Medical, ) Potassium 4.9 Normal (applies MEDGEN (St [Mass/volume] in mmol/L to non-numeric [facility] Blood results) Medical, ) Chloride 103 Normal (applies MEDGEN (St [Moles/volume] in mmol/L to non-numeric [facility] Serum or Plasma results) Medical, ) Carbon dioxide, 16 Below low normal MEDGEN (St total mmol/L [facility] [Moles/volume] in Medical, Serum or Plasma PC) Calcium 9.9 Normal (applies MEDGEN (St [Moles/volume] in mg/dL to non-numeric [facility] Urine collected for results) Medical, unspecified PC) duration Microalbumin 4.6 g/dL Normal (applies MEDGEN (St [Mass/time] in to non-numeric [facility] Urine collected for results) Medical, unspecified ) duration Protein 7.1 g/dL Normal (applies MEDGEN (St [Mass/volume] in to non-numeric [facility] Serum or Plasma results) Medical, ) Globulin, Total 2.5 g/dL Normal (applies MEDGEN ( St to non-numeric [facility]'s results) Medical, ) A/G Ratio 1.8 Normal (applies MEDGEN (St to non-numeric [facility]'s results) Medical, ) Bilirubin.total 0.2 Normal (applies MEDGEN ( St [Mass/volume] in mg/dL to non-numeric [facility] Serum or Plasma results) Medical, ) Alkaline 95 IU/L Normal (applies MEDGEN (St phosphatase to non-numeric [facility] [Enzymatic results) Medical, activity/volume] in PC) Serum, Plasma or Blood Alanine 11 IU/L Normal (applies MEDGEN (St aminotransferase to non-numeric [facility]'s [Enzymatic results) Medical, activity/volume] in PC) Serum or Plasma Aspartate 20 IU/L Normal (applies MEDGEN (St aminotransferase to non-numeric [facility]'s [Enzymatic results) Medical, activity/volume] in PC) Serum or Plasma ID Date Data Source [id number] 04/07/2019 12:00:00 AM EDT MEDGEN ([facility], ) Name Value Range Interpretation Description Data Sup porting Code Source(s) Document(s ) Leukocytes 8.5 Normal (applies MEDGEN (St [#/volume] in x10E3/uL to non-numeric [facility] Blood by results) Medical, ) Automated count Erythrocytes 4.84 Normal (applies MEDGEN (St [#/volume] in x10E6/uL to non-numeric [facility] Blood by results) Medical, ) Automated count Hematocrit 36.1 % Normal (applies MEDGEN (St [Volume to non-numeric [facility]'s Fraction] of results) Medical, ) Blood by Automated count Hemoglobin 11.5 Normal (applies MEDGEN (St [Mass/volume] in g/dL to non-numeric [facility] Blood results) Medical, ) MCV 75 fL Below low normal MEDGEN ([place], ) MCHC 31.9 Normal (applies MEDGEN (St g/dL to non-numeric [facility]'s results) [facility]) MCH 23.8 pg Below low normal MEDGEN ([place], ) RDW 14.3 % Normal (applies MEDGEN (St to non-numeric [facility]'s results) [facility]) Platelets 302 Normal (applies MEDGEN (St [#/area] in x10E3/uL to non-numeric [facility] Blood by results) [facility], ) Microscopy high power field Neutrophils [#] 52 % Normal (applies MEDGEN ( St in Body fluid by to non-numeric [facility] Manual count results) [facility], ) Lymphs 41 % Normal (applies MEDGEN (St to non-numeric [facility]'s results) [facility], ) Eos 3 % Normal (applies MEDGEN (St to non-numeric [facility]'s results) [facility], ) Monocytes 4 % Normal (applies MEDGEN (St [#/volume] in to non-numeric [facility] Cord blood results) [facility], ) Basos 0 % Normal (applies MEDGEN (St to non-numeric [facility] results) [facility], ) Neutrophils 4.3 Normal (applies MEDGEN (St (Absolute) x10E3/uL to non-numeric [facility] results) [facility]) Lymphs 3.5 Above high normal MEDGEN (St (Absolute) x10E3/uL [facility], ) Monocytes(Absolu 0.4 Normal (applies MEDGEN (St te) x10E3/uL to non-numeric [facility] results) [facility], ) Baso (Absolute) 0.0 Normal (applies MEDGEN ( St x10E3/uL to non-numeric [facility] results) [facility], ) Eos (Absolute) 0.2 Normal (applies MEDGEN (S t x10E3/uL to non-numeric [facility] results) [facility], ) Immature 0 % Normal (applies MEDGEN (St Granulocytes to non-numeric [facility] results) [facility]) Immature Grans 0.0 Normal (applies MEDGEN (S t (Abs) x10E3/uL to non-numeric [facility] results) [facility]) ID Date Data Source [id number] 04/07/2019 12:00:00 AM EDT MEDGEN ([facility], ) Name Value Range Interpretation Description Data Sup porting Code Source(s) Document(s ) Glucose 223 Above high MEDGEN (St [Mass/volume] in mg/dL normal [facility] Urine collected for Medical, unspecified PC) duration Creatinine 1.56 Above high MEDGEN (St [Interpretation] in mg/dL normal [facility] Urine Medical, ) Urea nitrogen 41 mg/dL Above high MEDGEN (St [Mass/volume] in normal [facility] Serum or Plasma Medical, ) eGFR If NonAfricn 32 Below low normal MEDGE N (St Am mL/min/[address], ) eGFR If Africn Am 37 Below low normal MEDGE N (St mL/min/1 [facility] 73 [facility], ) BUN/Creatinine 26 Normal (applies MEDGEN (S t Ratio to non-numeric [facility] results) Medical, ) Sodium 137 Normal (applies MEDGEN (St [Moles/volume] in mmol/L to non-numeric [facility] Serum or Plasma results) Medical, ) Chloride 103 Normal (applies MEDGEN (St [Moles/volume] in mmol/L to non-numeric [facility] Serum or Plasma results) Medical, ) Potassium 4.9 Normal (applies MEDGEN (St [Mass/volume] in mmol/L to non-numeric [facility] Blood results) [facility], ) Carbon dioxide, 16 Below low normal MEDGEN (St total mmol/L [facility] [Moles/volume] in Medical, Serum or Plasma PC) Calcium 9.9 Normal (applies MEDGEN (St [Moles/volume] in mg/dL to non-numeric [facility] Urine collected for results) Medical, unspecified PC) duration Protein 7.1 g/dL Normal (applies MEDGEN (St [Mass/volume] in to non-numeric [facility] Serum or Plasma results) Medical, ) Microalbumin 4.6 g/dL Normal (applies MEDGEN (St [Mass/time] in to non-numeric [facility] Urine collected for results) Medical, unspecified ) duration Globulin, Total 2.5 g/dL Normal (applies MEDGEN ( St to non-numeric [facility] results) Medical, ) A/G Ratio 1.8 Normal (applies MEDGEN (St to non-numeric [facility] results) Medical, ) Alkaline 95 IU/L Normal (applies MEDGEN (St phosphatase to non-numeric [facility] [Enzymatic results) Medical, activity/volume] in ) Serum, Plasma or Blood Bilirubin.total 0.2 Normal (applies MEDGEN ( St [Mass/volume] in mg/dL to non-numeric [facility] Serum or Plasma results) Medical, ) Aspartate 20 IU/L Normal (applies MEDGEN (St aminotransferase to non-numeric [facility] [Enzymatic results) Medical, activity/volume] in ) Serum or Plasma Alanine 11 IU/L Normal (applies MEDGEN (St aminotransferase to non-numeric [facility] [Enzymatic results) Medical, activity/volume] in ) Serum or Plasma ID Date Data Source [id number] 04/07/2019 12:00:00 AM EDT MEDGEN ([facility], ) Name Value Range Interpretation Description Data Sup porting Code Source(s) Document(s ) Leukocytes 8.5 Normal (applies MEDGEN (St [#/volume] in x10E3/uL to non-numeric [facility] Blood by results) [facility], ) Automated count Hemoglobin 11.5 Normal (applies MEDGEN (St [Mass/volume] in g/dL to non-numeric [facility] Blood results) [facility], ) Erythrocytes 4.84 Normal (applies MEDGEN (St [#/volume] in x10E6/uL to non-numeric [facility] Blood by results) [facility], ) Automated count Hematocrit 36.1 % Normal (applies MEDGEN (St [Volume to non-numeric [facility] Fraction] of results) [facility], ) Blood by Automated count MCV 75 fL Below low normal MEDGEN ([facility], ) MCH 23.8 pg Below low normal MEDGEN ([facility], ) MCHC 31.9 Normal (applies MEDGEN (St g/dL to non-numeric [facility] results) [facility], ) Platelets 302 Normal (applies MEDGEN (St [#/area] in x10E3/uL to non-numeric [facility] Blood by results) [facility], ) Microscopy high power field RDW 14.3 % Normal (applies MEDGEN (St to non-numeric [facility] results) [facility], ) Lymphs 41 % Normal (applies MEDGEN (St to non-numeric [facility] results) Medical, ) Neutrophils [#] 52 % Normal (applies MEDGEN ( St in Body fluid by to non-numeric [facility] Manual count results) [facility], ) Monocytes 4 % Normal (applies MEDGEN (St [#/volume] in to non-numeric [facility] Cord blood results) [facility], ) Basos 0 % Normal (applies MEDGEN (St to non-numeric [facility] results) [facility], ) Eos 3 % Normal (applies MEDGEN (St to non-numeric [facility] results) [facility], ) Neutrophils 4.3 Normal (applies MEDGEN (St (Absolute) x10E3/uL to non-numeric [facility] results) [facility], ) Monocytes(Absolu 0.4 Normal (applies MEDGEN (St te) x10E3/uL to non-numeric [facility] results) [facility], ) Lymphs 3.5 Above high normal MEDGEN (St (Absolute) x10E3/uL [facility], ) Baso (Absolute) 0.0 Normal (applies MEDGEN ( St x10E3/uL to non-numeric [facility] results) [facility], ) Eos (Absolute) 0.2 Normal (applies MEDGEN (S t x10E3/uL to non-numeric [facility] results) [facility], ) Immature 0 % Normal (applies MEDGEN (St Granulocytes to non-numeric [facility] results) [facility], ) Immature Grans 0.0 Normal (applies MEDGEN (S t (Abs) x10E3/uL to non-numeric [facility] results) [facility], ) ID Date Data Source [id number] 04/07/2019 12:00:00 AM EDT MEDGEN ([facility], ) Name Value Range Interpretation Description Data Sup porting Code Source(s) Document(s ) Glucose 223 Above high MEDGEN (St [Mass/volume] in mg/dL normal [facility] Urine collected for Medical, unspecified PC) duration Urea nitrogen 41 mg/dL Above high MEDGEN (St [Mass/volume] in normal [facility] Serum or Plasma [facility], ) Creatinine 1.56 Above high MEDGEN (St [Interpretation] in mg/dL normal [facility] Urine [facility], ) eGFR If NonAfricn 32 Below low normal MEDGE N (St Am mL/min/1 [facility] .73 [facility], ) eGFR If Africn Am 37 Below low normal MEDGE N (St mL/min/1 [facility] .73 Medical, PC) BUN/Creatinine 26 Normal (applies MEDGEN (S t Ratio to non-numeric [facility] results) Medical, PC) Sodium 137 Normal (applies MEDGEN (St [Moles/volume] in mmol/L to non-numeric [facility] Serum or Plasma results) Medical, PC) Potassium 4.9 Normal (applies MEDGEN (St [Mass/volume] in mmol/L to non-numeric [facility] Blood results) Medical, PC) Chloride 103 Normal (applies MEDGEN (St [Moles/volume] in mmol/L to non-numeric [facility] Serum or Plasma results) Medical, PC) Carbon dioxide, 16 Below low normal MEDGEN (St total mmol/L [facility] [Moles/volume] in Medical, Serum or Plasma PC) Calcium 9.9 Normal (applies MEDGEN (St [Moles/volume] in mg/dL to non-numeric [facility] Urine collected for results) Medical, unspecified PC) duration Protein 7.1 g/dL Normal (applies MEDGEN (St [Mass/volume] in to non-numeric [facility] Serum or Plasma results) Medical, PC) Microalbumin 4.6 g/dL Normal (applies MEDGEN (St [Mass/time] in to non-numeric [facility] Urine collected for results) Medical, unspecified PC) duration Globulin, Total 2.5 g/dL Normal (applies MEDGEN ( St to non-numeric [facility] results) Medical, PC) A/G Ratio 1.8 Normal (applies [facility] (St to non-numeric [facility] results) Medical, PC) Bilirubin.total 0.2 Normal (applies [facility] ( St [Mass/volume] in mg/dL to non-numeric [facility] Serum or Plasma results) Medical, PC) Alkaline 95 IU/L Normal (applies [facility] (St phosphatase to non-numeric [facility] [Enzymatic results) Medical, activity/volume] in PC) Serum, Plasma or Blood Aspartate 20 IU/L Normal (applies [facility] (St aminotransferase to non-numeric [facility] [Enzymatic results) Medical, activity/volume] in PC) Serum or Plasma Alanine 11 IU/L Normal (applies [facility] (St aminotransferase to non-numeric [facility] [Enzymatic results) Medical, activity/volume] in PC) Serum or Plasma ID Date Data Source [id number] 04/07/2019 12:00:00 AM EDT [facility] (St [facility], ) Name Value Range Interpretation Description Data Sup porting Code Source(s) Document(s ) Leukocytes 8.5 Normal (applies [facility] (St [#/volume] in x10E3/uL to non-numeric [facility] Blood by results) [facility], ) Automated count Erythrocytes 4.84 Normal (applies [facility] (St [#/volume] in x10E6/uL to non-numeric [facility] Blood by results) [facility], ) Automated count Hematocrit 36.1 % Normal (applies [facility] (St [Volume to non-numeric [facility] Fraction] of results) [facility], ) Blood by Automated count Hemoglobin 11.5 Normal (applies [facility] (St [Mass/volume] in g/dL to non-numeric [facility] Blood results) [facility]) MCV 75 fL Below low normal MED[facility] ([facility], ) MCHC 31.9 Normal (applies [facility]GEN (St g/dL to non-numeric [facility] results) [facility]) MCH 23.8 pg Below low normal [facility] ([facility], ) RDW 14.3 % Normal (applies [facility] (St to non-numeric [facility] results) [facility], ) Platelets 302 Normal (applies [facility] (St [#/area] in x10E3/uL to non-numeric [facility] Blood by results) [facility], ) Microscopy high power field Neutrophils [#] 52 % Normal (applies [facility] ( St in Body fluid by to non-numeric [facility] Manual count results) [facility], ) Monocytes 4 % Normal (applies [facility] (St [#/volume] in to non-numeric [facility] Cord blood results) [facility], ) Lymphs 41 % Normal (applies [facility] (St to non-numeric [facility] results) [facility], ) Eos 3 % Normal (applies [facility] (St to non-numeric [facility] results) [facility], ) Basos 0 % Normal (applies [facility] (St to non-numeric [facility] results) [facility], ) Neutrophils 4.3 Normal (applies [facility] (St (Absolute) x10E3/uL to non-numeric [facility] results) [facility], ) Lymphs 3.5 Above high normal [facility] (St (Absolute) x10E3/uL [facility], ) Monocytes(Absolu 0.4 Normal (applies MEDGEN (St te) x10E3/uL to non-numeric [facility] results) [facility]) Baso (Absolute) 0.0 Normal (applies [facility]GEN ( St x10E3/uL to non-numeric [facility] results) [facility]) Eos (Absolute) 0.2 Normal (applies [facility] (S t x10E3/uL to non-numeric [facility] results) [facility], ) Immature 0 % Normal (applies [facility] (St Granulocytes to non-numeric [facility] results) [facility]) Immature Grans 0.0 Normal (applies [facility]GEN (S t (Abs) x10E3/uL to non-numeric [facility] results) [facility]) ID Date Data Source [id number] 12/30/2018 12:00:00 AM EDT [facility] (St [facility], ) Name Value Range Interpretation Description Data Sup porting Code Source(s) Document(s ) Leukocytes 7.7 Normal (applies [facility]GEN (St [#/volume] in x10E3/uL to non-numeric [facility] Blood by results) [facility], ) Automated count Erythrocytes 4.83 Normal (applies [facility] (St [#/volume] in x10E6/uL to non-numeric [facility] Blood by results) [facility]) Automated count Hemoglobin 11.5 Normal (applies [facility] (St [Mass/volume] in g/dL to non-numeric [facility] Blood results) [facility]) Hematocrit 36.3 % Normal (applies [facility] (St [Volume to non-numeric [facility] Fraction] of results) [facility]) Blood by Automated count MCH 23.8 pg Below low normal [facility] ([facility], ) MCV 75 fL Below low normal MED[facility] ([facility], ) MCHC 31.7 Normal (applies [facility] (St g/dL to non-numeric [facility] results) [facility]) RDW 14.2 % Normal (applies [facility] (St to non-numeric [facility] results) [facility]) Platelets 297 Normal (applies [facility]GEN (St [#/area] in x10E3/uL to non-numeric [facility] Blood by results) [facility]) Microscopy high power field Neutrophils [#] 46 % Normal (applies [facility]GEN ( St in Body fluid by to non-numeric [facility] Manual count results) [facility], ) Lymphs 43 % Normal (applies [facility]GEN (St to non-numeric [facility] results) [facility], ) Eos 5 % Normal (applies [facility] (St to non-numeric [facility] results) [facility], ) Monocytes 5 % Normal (applies [facility] (St [#/volume] in to non-numeric [facility] Cord blood results) [facility], ) Basos 1 % Normal (applies [facility]GEN (St to non-numeric [facility] results) [facility], ) Neutrophils 3.6 Normal (applies [facility] (St (Absolute) x10E3/uL to non-numeric [facility] results) [facility], ) Monocytes(Absolu 0.4 Normal (applies MEDGEN (St te) x10E3/uL to non-numeric [facility] results) [facility], ) Lymphs 3.3 Above high normal [facility] (St (Absolute) x10E3/uL [facility], ) Eos (Absolute) 0.4 Normal (applies [facility]GEN (S t x10E3/uL to non-numeric [facility] results) [facility], ) Baso (Absolute) 0.1 Normal (applies [facility] ( St x10E3/uL to non-numeric [facility] results) [facility], ) Immature Grans 0.0 Normal (applies [facility]GEN (S t (Abs) x10E3/uL to non-numeric [facility] results) [facility], ) Immature 0 % Normal (applies [facility]GEN (St Granulocytes to non-numeric [facility] results) [facility], ) ID Date Data Source [id number] 12/30/2018 12:00:00 AM EDT [facility] ([facility], ) Name Value Range Interpretation Description Data Sup porting Code Source(s) Document(s ) Glucose 126 Above high MEDGEN (St [Mass/volume] in mg/dL normal [facility] Urine collected for Medical, unspecified PC) duration Urea nitrogen 30 mg/dL Above high MEDGEN (St [Mass/volume] in normal [facility] Serum or Plasma [facility], ) Creatinine 1.05 Above high MEDGEN (St [Interpretation] in mg/dL normal [facility] Urine [facility], ) eGFR If Africn Am 59 Below low normal MEDGE N (St mL/min/1 [facility] 73 [facility], ) eGFR If NonAfricn 51 Below low normal MEDGE N (St Am mL/min/1 [facility] 73 [facility], ) BUN/Creatinine 29 Above high MEDGEN (St Ratio normal [facility], ) Sodium 143 Normal (applies [facility]GEN (St [Moles/volume] in mmol/L to non-numeric [facility] Serum or Plasma results) Medical, ) Chloride 105 Normal (applies [facility] (St [Moles/volume] in mmol/L to non-numeric [facility] Serum or Plasma results) Medical, ) Potassium 5.5 Above high MEDGEN (St [Mass/volume] in mmol/L normal [facility]'s Blood [facility], ) Carbon dioxide, 23 Normal (applies [facility]GEN ( St total mmol/L to non-numeric [facility] [Moles/volume] in results) Medical, Serum or Plasma PC) Calcium 8.5 Below low normal [facility] (St [Moles/volume] in mg/dL [facility] Urine collected for Medical, unspecified PC) duration Microalbumin 4.3 g/dL Normal (applies [facility] (St [Mass/time] in to non-numeric [facility] Urine collected for results) Medical, unspecified PC) duration Protein 6.8 g/dL Normal (applies [facility] (St [Mass/volume] in to non-numeric [facility] Serum or Plasma results) Medical, ) Globulin, Total 2.5 g/dL Normal (applies [facility] ( St to non-numeric [facility] results) Medical, ) A/G Ratio 1.7 Normal (applies [facility] (St to non-numeric [facility] results) Medical, ) Bilirubin.total <0.2 Normal (applies [facility] ( St [Mass/volume] in to non-numeric [facility] Serum or Plasma results) Medical, ) Aspartate 20 IU/L Normal (applies [facility] (St aminotransferase to non-numeric [facility] [Enzymatic results) Medical, activity/volume] in PC) Serum or Plasma Alkaline 85 IU/L Normal (applies [facility]GEN (St phosphatase to non-numeric [facility] [Enzymatic results) Medical, activity/volume] in PC) Serum, Plasma or Blood Alanine 12 IU/L Normal (applies [facility] (St aminotransferase to non-numeric [facility] [Enzymatic results) Medical, activity/volume] in PC) Serum or Plasma ID Date Data Source [id number] 12/30/2018 12:00:00 AM EDT [facility] (St [facility], ) Name Value Range Interpretation Description Data Sup porting Code Source(s) Document(s ) Leukocytes 7.7 Normal (applies [facility]GEN (St [#/volume] in x10E3/uL to non-numeric [facility] Blood by results) Medical, ) Automated count Erythrocytes 4.83 Normal (applies [facility]GEN (St [#/volume] in x10E6/uL to non-numeric [facility] Blood by results) [facility], ) Automated count Hemoglobin 11.5 Normal (applies [facility]GEN (St [Mass/volume] in g/dL to non-numeric [facility] Blood results) [facility], ) Hematocrit 36.3 % Normal (applies [facility]GEN (St [Volume to non-numeric [facility] Fraction] of results) [facility], ) Blood by Automated count MCV 75 fL Below low normal [facility] ([facility], ) MCH 23.8 pg Below low normal [facility] ([facility], ) MCHC 31.7 Normal (applies [facility]GEN (St g/dL to non-numeric [facility] results) [facility], ) RDW 14.2 % Normal (applies [facility]GEN (St to non-numeric [facility] results) [facility], ) Platelets 297 Normal (applies MEDGEN (St [#/area] in x10E3/uL to non-numeric [facility] Blood by results) [facility], ) Microscopy high power field Neutrophils [#] 46 % Normal (applies MEDGEN ( St in Body fluid by to non-numeric [facility] Manual count results) [facility], ) Lymphs 43 % Normal (applies [facility]GEN (St to non-numeric [facility] results) [facility], ) Monocytes 5 % Normal (applies [facility]GEN (St [#/volume] in to non-numeric [facility] Cord blood results) [facility], ) Eos 5 % Normal (applies MEDGEN (St to non-numeric [facility] results) [facility], ) Basos 1 % Normal (applies [facility]GEN (St to non-numeric [facility] results) [facility], ) Neutrophils 3.6 Normal (applies [facility]GEN (St (Absolute) x10E3/uL to non-numeric [facility] results) Medical, ) Lymphs 3.3 Above high normal MEDGEN (St (Absolute) x10E3/uL [facility], ) Monocytes(Absolu 0.4 Normal (applies MEDGEN (St te) x10E3/uL to non-numeric [facility] results) [facility], ) Baso (Absolute) 0.1 Normal (applies MEDGEN ( St x10E3/uL to non-numeric [facility] results) [facility], ) Eos (Absolute) 0.4 Normal (applies [facility]GEN (S t x10E3/uL to non-numeric [facility] results) [facility], ) Immature 0 % Normal (applies [facility]GEN (St Granulocytes to non-numeric [facility] results) [facility], ) Immature Grans 0.0 Normal (applies [facility]GEN (S t (Abs) x10E3/uL to non-numeric [facility] results) [facility], ) ID Date Data Source [id number] 12/30/2018 12:00:00 AM EDT [facility] (St [facility], ) Name Value Range Interpretation Description Data Sup porting Code Source(s) Document(s ) Glucose 126 Above high MEDGEN (St [Mass/volume] in mg/dL normal [facility] Urine collected for Medical, unspecified PC) duration Urea nitrogen 30 mg/dL Above high MEDGEN (St [Mass/volume] in normal [facility] Serum or Plasma [facility], ) eGFR If NonAfricn 51 Below low normal MEDGE N (St Am mL/min/[address], ) Creatinine 1.05 Above high MEDGEN (St [Interpretation] in mg/dL normal [facility] Urine [facility], ) eGFR If Africn Am 59 Below low normal MEDGE N (St mL/min/[address], ) BUN/Creatinine 29 Above high MEDGEN (St Ratio normal [facility], ) Sodium 143 Normal (applies [facility]GEN (St [Moles/volume] in mmol/L to non-numeric [facility] Serum or Plasma results) [facility], ) Potassium 5.5 Above high MEDGEN (St [Mass/volume] in mmol/L normal [facility] Blood [facility], ) Chloride 105 Normal (applies [facility]GEN (St [Moles/volume] in mmol/L to non-numeric [facility] Serum or Plasma results) Medical, PC) Carbon dioxide, 23 Normal (applies [facility]GEN ( St total mmol/L to non-numeric [facility] [Moles/volume] in results) Medical, Serum or Plasma PC) Calcium 8.5 Below low normal [facility] (St [Moles/volume] in mg/dL [facility] Urine collected for Medical, unspecified PC) duration Protein 6.8 g/dL Normal (applies [facility]GEN (St [Mass/volume] in to non-numeric [facility] Serum or Plasma results) Medical, PC) Microalbumin 4.3 g/dL Normal (applies [facility] (St [Mass/time] in to non-numeric [facility] Urine collected for results) Medical, unspecified PC) duration Globulin, Total 2.5 g/dL Normal (applies [facility] ( St to non-numeric [facility] results) Medical, PC) A/G Ratio 1.7 Normal (applies [facility]GEN (St to non-numeric [facility] results) Medical, PC) Bilirubin.total <0.2 Normal (applies [facility]GEN ( St [Mass/volume] in to non-numeric [facility] Serum or Plasma results) Medical, PC) Alkaline 85 IU/L Normal (applies [facility]GEN (St phosphatase to non-numeric [facility] [Enzymatic results) Medical, activity/volume] in PC) Serum, Plasma or Blood Aspartate 20 IU/L Normal (applies MEDGEN (St aminotransferase to non-numeric [facility] [Enzymatic results) Medical, activity/volume] in PC) Serum or Plasma Alanine 12 IU/L Normal (applies MEDGEN (St aminotransferase to non-numeric [facility] [Enzymatic results) Medical, activity/volume] in PC) Serum or Plasma ID Date Data Source [id number] 12/30/2018 12:00:00 AM EDT [facility] (St [facility], [facility]) Name Value Range Interpretation Description Data Sup porting Code Source(s) Document(s ) Leukocytes 7.7 Normal (applies MEDGEN (St [#/volume] in x10E3/uL to non-numeric [facility] Blood by results) Medical, ) Automated count Erythrocytes 4.83 Normal (applies MEDGEN (St [#/volume] in x10E6/uL to non-numeric [facility] Blood by results) Medical, ) Automated count Hemoglobin 11.5 Normal (applies MEDGEN (St [Mass/volume] in g/dL to non-numeric [facility] Blood results) [facility], ) MCV 75 fL Below low normal [facility] ([place], ) Hematocrit 36.3 % Normal (applies MEDGEN (St [Volume to non-numeric [facility] Fraction] of results) [facility], ) Blood by Automated count MCHC 31.7 Normal (applies [facility]GEN (St g/dL to non-numeric [facility] results) [facility], ) MCH 23.8 pg Below low normal [facility] ([place], ) RDW 14.2 % Normal (applies MEDGEN (St to non-numeric [facility] results) [facility], ) Platelets 297 Normal (applies MEDGEN (St [#/area] in x10E3/uL to non-numeric [facility] Blood by results) [facility], ) Microscopy high power field Neutrophils [#] 46 % Normal (applies MEDGEN ( St in Body fluid by to non-numeric [facility] Manual count results) [facility], ) Lymphs 43 % Normal (applies MEDGEN (St to non-numeric [facility] results) [facility], ) Eos 5 % Normal (applies MEDGEN (St to non-numeric [facility] results) [facility], ) Monocytes 5 % Normal (applies MEDGEN (St [#/volume] in to non-numeric [facility] Cord blood results) [facility], ) Basos 1 % Normal (applies MEDGEN (St to non-numeric [facility] results) [facility], ) Lymphs 3.3 Above high normal [facility]GEN (St (Absolute) x10E3/uL [facility], ) Neutrophils 3.6 Normal (applies [facility]GEN (St (Absolute) x10E3/uL to non-numeric [facility] results) [facility], ) Eos (Absolute) 0.4 Normal (applies MEDGEN (S t x10E3/uL to non-numeric [facility] results) [facility], ) Monocytes(Absolu 0.4 Normal (applies MEDGEN (St te) x10E3/uL to non-numeric [facility] results) [facility], ) Baso (Absolute) 0.1 Normal (applies MEDGEN ( St x10E3/uL to non-numeric [facility] results) [facility], ) Immature 0 % Normal (applies MEDGEN (St Granulocytes to non-numeric [facility] results) [facility], ) Immature Grans 0.0 Normal (applies MEDGEN (S t (Abs) x10E3/uL to non-numeric [facility] results) Medical, ) ID Date Data Source [id number] 12/30/2018 12:00:00 AM EDT [facility] (St [facility], ) Name Value Range Interpretation Description Data Sup porting Code Source(s) Document(s ) Urea nitrogen 30 mg/dL Above high [facility]GEN (St [Mass/volume] in normal [facility] Serum or Plasma Medical, ) Glucose 126 Above high [facility]GEN (St [Mass/volume] in mg/dL normal [facility] Urine collected for Medical, unspecified PC) duration Creatinine 1.05 Above high MEDGEN (St [Interpretation] in mg/dL normal [facility] Urine [facility], ) eGFR If NonAfricn 51 Below low normal MEDGE N (St Am mL/min/[address], ) eGFR If Africn Am 59 Below low normal MEDGE N (St mL/min/[address], ) Sodium 143 Normal (applies MEDGEN (St [Moles/volume] in mmol/L to non-numeric [facility] Serum or Plasma results) Medical, ) BUN/Creatinine 29 Above high MEDGEN (St Ratio normal [facility], ) Potassium 5.5 Above high MEDGEN (St [Mass/volume] in mmol/L normal [facility]'s Blood [facility], ) Chloride 105 Normal (applies MEDGEN (St [Moles/volume] in mmol/L to non-numeric [facility] Serum or Plasma results) Medical, ) Carbon dioxide, 23 Normal (applies MEDGEN ( St total mmol/L to non-numeric [facility] [Moles/volume] in results) Medical, Serum or Plasma PC) Calcium 8.5 Below low normal [facility]GEN (St [Moles/volume] in mg/dL [facility] Urine collected for Medical, unspecified PC) duration Protein 6.8 g/dL Normal (applies [facility]GEN (St [Mass/volume] in to non-numeric [facility] Serum or Plasma results) Medical, ) Microalbumin 4.3 g/dL Normal (applies MEDGEN (St [Mass/time] in to non-numeric [facility] Urine collected for results) Medical, unspecified PC) duration Globulin, Total 2.5 g/dL Normal (applies MEDGEN ( St to non-numeric [facility] results) [facility], ) Bilirubin.total <0.2 Normal (applies MEDGEN ( St [Mass/volume] in to non-numeric [facility] Serum or Plasma results) [facility], ) A/G Ratio 1.7 Normal (applies MEDGEN (St to non-numeric [facility] results) [facility]) Alkaline 85 IU/L Normal (applies MEDGEN (St phosphatase to non-numeric [facility] [Enzymatic results) Medical, activity/volume] in ) Serum, Plasma or Blood Alanine 12 IU/L Normal (applies MEDGEN (St aminotransferase to non-numeric [facility] [Enzymatic results) Medical, activity/volume] in ) Serum or Plasma Aspartate 20 IU/L Normal (applies MEDGEN (St aminotransferase to non-numeric [facility] [Enzymatic results) Medical, activity/volume] in ) Serum or Plasma ID Date Data Source [id number] 12/30/2018 12:00:00 AM EDT MED[facility] ([facility], ) Name Value Range Interpretation Description Data Sup porting Code Source(s) Document(s ) Leukocytes 7.7 Normal (applies MEDGEN (St [#/volume] in x10E3/uL to non-numeric [facility] Blood by results) [facility], ) Automated count Erythrocytes 4.83 Normal (applies MEDGEN (St [#/volume] in x10E6/uL to non-numeric [facility] Blood by results) [facility]) Automated count Hematocrit 36.3 % Normal (applies MEDGEN (St [Volume to non-numeric [facility] Fraction] of results) [facility]) Blood by Automated count Hemoglobin 11.5 Normal (applies MEDGEN (St [Mass/volume] in g/dL to non-numeric [facility] Blood results) [facility]) MCV 75 fL Below low normal [facility] ([facility], ) MCH 23.8 pg Below low normal MED[facility] ([facility], ) RDW 14.2 % Normal (applies MEDGEN (St to non-numeric [facility] results) [facility]) MCHC 31.7 Normal (applies MEDGEN (St g/dL to non-numeric [facility] results) [facility]) Platelets 297 Normal (applies MEDGEN (St [#/area] in x10E3/uL to non-numeric [facility] Blood by results) [facility], ) Microscopy high power field Lymphs 43 % Normal (applies MEDGEN (St to non-numeric [facility] results) [facility], ) Neutrophils [#] 46 % Normal (applies MEDGEN ( St in Body fluid by to non-numeric [facility] Manual count results) [facility], ) Monocytes 5 % Normal (applies MEDGEN (St [#/volume] in to non-numeric [facility] Cord blood results) [facility], ) Eos 5 % Normal (applies MEDGEN (St to non-numeric [facility] results) [facility], ) Neutrophils 3.6 Normal (applies MEDGEN (St (Absolute) x10E3/uL to non-numeric [facility] results) [facility], ) Basos 1 % Normal (applies MEDGEN (St to non-numeric [facility] results) [facility] [facility] Lymphs 3.3 Above high normal MEDGEN (St (Absolute) x10E3/uL [place] [facility], ) Monocytes(Absolu 0.4 Normal (applies MEDGEN (St te) x10E3/uL to non-numeric [place] results) [facility], ) Eos (Absolute) 0.4 Normal (applies MEDGEN (S t x10E3/uL to non-numeric [place] results) [facility], ) Immature 0 % Normal (applies MEDGEN (St Granulocytes to non-numeric [place] results) [facility], ) Baso (Absolute) 0.1 Normal (applies MEDGEN ( St x10E3/uL to non-numeric [place] results) [facility], ) Immature Grans 0.0 Normal (applies MEDGEN (S t (Abs) x10E3/uL to non-numeric [place] results) [facility], ) ID Date Data Source [id number] 12/30/2018 12:00:00 AM EDT MEDGEN (St [place] [facility], ) Name Value Range Interpretation Description Data Sup porting Code Source(s) Document(s ) Glucose 126 Above high MEDGEN (St [Mass/volume] in mg/dL normal [place] Urine collected for Medical, unspecified PC) duration Urea nitrogen 30 mg/dL Above high MEDGEN (St [Mass/volume] in normal [place] Serum or Plasma [facility], ) Creatinine 1.05 Above high MEDGEN (St [Interpretation] in mg/dL normal [place] Urine Medical, ) eGFR If NonAfricn 51 Below low normal MEDGE N (St Am mL/min/1 [facility] [address], ) BUN/Creatinine 29 Above high MEDGEN (St Ratio normal [place] [facility], ) eGFR If Africn Am 59 Below low normal MEDGE N (St mL/min/1 [facility] 73 [facility], ) Sodium 143 Normal (applies MEDGEN (St [Moles/volume] in mmol/L to non-numeric [place] Serum or Plasma results) Medical, ) Potassium 5.5 Above high MEDGEN (St [Mass/volume] in mmol/L normal [place] Blood [facility], ) Chloride 105 Normal (applies MEDGEN (St [Moles/volume] in mmol/L to non-numeric [place] Serum or Plasma results) Medical, ) Carbon dioxide, 23 Normal (applies MEDGEN ( St total mmol/L to non-numeric [place] [Moles/volume] in results) Medical, Serum or Plasma PC) Calcium 8.5 Below low normal MEDGEN (St [Moles/volume] in mg/dL [place] Urine collected for Medical, unspecified PC) duration Protein 6.8 g/dL Normal (applies MEDGEN (St [Mass/volume] in to non-numeric [place] Serum or Plasma results) Medical, ) Microalbumin 4.3 g/dL Normal (applies MEDGEN (St [Mass/time] in to non-numeric [place] Urine collected for results) Medical, unspecified PC) duration Globulin, Total 2.5 g/dL Normal (applies MEDGEN ( St to non-numeric [place] results) Medical, ) A/G Ratio 1.7 Normal (applies MEDGEN (St to non-numeric [place] results) Medical, ) Bilirubin.total <0.2 Normal (applies MEDGEN ( St [Mass/volume] in to non-numeric [place] Serum or Plasma results) Medical, ) Alkaline 85 IU/L Normal (applies MEDGEN (St phosphatase to non-numeric [place] [Enzymatic results) Medical, activity/volume] in PC) Serum, Plasma or Blood Aspartate 20 IU/L Normal (applies MEDGEN (St aminotransferase to non-numeric [place] [Enzymatic results) Medical, activity/volume] in PC) Serum or Plasma Alanine 12 IU/L Normal (applies MEDGEN (St aminotransferase to non-numeric [place] [Enzymatic results) Medical, activity/volume] in PC) Serum or Plasma ID Date Data Source Finger Stick Glucose with 12/04/2018 08:50:10 AM EST eCW3 ([facility] Glucometer, In House.0 Care) Name Value Range Interpretation Code Description Data Akilah rce(s) Supporting Document(s ) 147 Capillary Glucose eCW3 ([facility] Care) Capillary eCW3 ([facility]) Capillary Glucose eCW3 ([facility]) ID Date Data Source Finger Stick Glucose with 07/02/2018 12:00:00 AM EDT eCW2 ([facility] Glucometer, In House.1 Care) Name Value Range Interpretation Code Description Data Akilah rce(s) Supporting Document(s ) Capillary eCW2 ([facility]) 191 65 mg/dL - Capillary eCW2 ([facility] 110 mg/dL Glucose [facility]) Capillary eCW2 ([facility]ucose Test[facility]) ID Date Data Source MICROALBUMIN, RAND 07/02/2018 12:00:00 AM EDT eCW2 ([facility] URINE/CREAT (BIOREFERENCE).0 Care) Name Value Range Interpretation Description Data Sup porting Code Source(s) Document(s ) Microalbumin 13.1 Not MICROALBUMIN,R eCW2 ([facility] [Mass/volume] Estab. [facility] in Urine Care) Fungus 500.0 <30.0 Album/creat eCW2 ([facility] identified in ratio, urine [facility] Unspecified Care) specimen by Fungus stain Microalbumin 26.2 Not CREAT.URN.TIME eCW2 ([facility] [Mass/volume] Estab. D/RAND [facility] in Urine Care) Procedure Social History Code Duration Value Status Description Data Source(s ) Smoking 06/28/2020 [place] [facility] ([facility] 12:00:00 AM EDT [place], came to [place], came to Medical, PC) [place] 1960 Never 1960 Never smoke , smoke , never never drink etoh drink etoh Denied illicit Denied illicit drugs used No drugs used No alcohol alcohol Smoking 06/28/2020 Unknown if ever completed Unknown if ever MEDG EN ([facility] 12:00:00 AM EDT smoked smoked Medical, PC) Smoking 05/30/2020 Born in [facility] Born in [facility] ([facility] 12:00:00 AM EDT [place], came to [place], came to Medical, PC) [place] 1959 Never 1959 Never smoke , smoke , never never drink etoh drink etoh Denied illicit Denied illicit drugs used No drugs used No alcohol alcohol Smoking 05/30/2020 Unknown if ever completed Unknown if ever MEDG EN ([facility] 12:00:00 AM EDT smoked smoked Medical, PC) Smoking 05/26/2020 Born in [facility] Born in [facility] ([facility] 12:00:00 AM EDT [place], came to [place], came to Medical, PC) [place] 1959 Never 1959 Never smoke , smoke , never never drink etoh drink etoh Denied illicit Denied illicit drugs used No drugs used No alcohol alcohol Smoking 05/26/2020 Unknown if ever completed Unknown if ever MEDG EN ([facility] 12:00:00 AM EDT smoked smoked Medical, PC) Smoking 05/23/2020 Born in [facility] Born in [facility] ([facility] 12:00:00 AM EDT [place], came to [place], came to Medical, PC) [place] 1959 Never 1959 Never smoke , smoke , never never drink etoh drink etoh Denied illicit Denied illicit drugs used No drugs used No alcohol alcohol Smoking 05/23/2020 Unknown if ever completed Unknown if ever MEDG EN ([facility] 12:00:00 AM EDT smoked smoked Medical, PC) Smoking 05/01/2020 Never Smoker completed Never Smoker eCW3 ([place] [facility] 12:00:00 AM EDT [facility] Care) Smoking 03/24/2020 Never Smoker completed Never Smoker eCW3 ([place] 12:00:00 AM EDT [facility] Care) Smoking 01/11/2020 Denies Ever completed Denies Ever Smoked [facility] 12:21:00 PM EDT Smoked Medical C enter Smoking 01/11/2020 Denies Ever completed Denies Ever Smoked [facility] 11:43:00 AM EDT Smoked Medical C enter Smoking 11/11/2019 Never Smoker completed Never Smoker eCW3 ([place] 12:00:00 AM [facility]) Smoking 11/11/2019 Never Smoker completed Never Smoker eCW3 ([facility] 12:00:00 AM [facility]) Smoking 11/11/2019 Never Smoker completed Never Smoker eCW3 ([facility] 12:00:00 AM [facility]) Smoking 11/11/2019 Never Smoker completed Never Smoker eCW3 ([facility] 12:00:00 AM [facility]) Smoking 2018 Never Smoker completed Never Smoker eCW3 ([place] 12:00:00 AM [facility]) Never Smoker completed Never Smoker eCW3 ([facility]) Never Smoker completed Never Smoker eCW3 ([facility]) Never Smoker completed Never Smoker eCW3 ([facility]) Never Smoker completed Never Smoker eCW3 ([facility]) Never Smoker completed Never Smoker eCW3 ([facility]) Never Smoker completed Never Smoker eCW3 ([facility]) Smoking Never Smoker completed Never Smoker eCW2 ([facility]) Never Smoker completed Never Smoker eCW3 ([facility]) Vital Signs ID Date Data Source UNK Name Value Range Interpretation Code Description Data Source(s) Heart rate 88 /min 88 /min MEDGEN ([facility] , ) Inhaled oxygen 97 % 97 % [facility], ) Body mass index 28.1 kg/m2 28.1 kg/m2 MEDGEN (S t (BMI) [Ratio] [facility], ) Diastolic blood 78 mm[Hg] 78 mm[Hg] MEDGEN (S t pressure [facility]) Systolic blood 132 mm[Hg] 132 mm[Hg] MEDGEN ([facility]) Body weight 144 lb 144 lb [facility] Body height 60 in 60 in MEDGEN ([facility]) Heart rate 87 /min 87 /min MEDGEN ([facility]) Inhaled oxygen 97 % 97 % MEDGEN ([facility]) Body mass index 28.1 kg/m2 28.1 kg/m2 MEDGEN (S t (BMI) [Ratio] [facility], ) Diastolic blood 60 mm[Hg] 60 mm[Hg] MEDGEN (S t pressure [facility]) Systolic blood 140 mm[Hg] 140 mm[Hg] MEDGEN ([facility]) Body weight 144 lb 144 lb MEDGEN ([facility]) Body height 60 in 60 in MEDGEN ([facility]) Heart rate 87 /min 87 /min MEDGEN ([facility]) Inhaled oxygen 97 % 97 % MEDGEN ([facility], ) Body mass index 28.1 kg/m2 28.1 kg/m2 MEDGEN (S t (BMI) [Ratio] [facility], ) Diastolic blood 60 mm[Hg] 60 mm[Hg] MEDGEN (S t pressure [facility]) Systolic blood 140 mm[Hg] 140 mm[Hg] MEDGEN ([facility]) Body weight 144 lb 144 lb MEDGEN ([facility]) Body height 60 in 60 in MEDGEN ([facility]) Body mass index 28.1 kg/m2 28.1 kg/m2 MEDGEN (S t (BMI) [Ratio] [facility], ) Diastolic blood 60 mm[Hg] 60 mm[Hg] MEDGEN (S pressure [facility]) Systolic blood 140 mm[Hg] 140 mm[Hg] MEDGEN ([facility]) Body weight 144 lb 144 lb MEDGEN ([facility]) Body height 60 in 60 in MEDGEN ([facility]) Heart rate 87 /min 87 /min MEDGEN ([facility]) Inhaled oxygen 97 % 97 % MEDGEN ([facility], ) Heart rate 87 /min 87 /min MEDGEN ([facility]) Inhaled oxygen 97 % 97 % MEDGEN ([facility], ) Body mass index 28.1 kg/m2 28.1 kg/m2 MEDGEN (S t (BMI) [Ratio] [facility], ) Diastolic blood 60 mm[Hg] 60 mm[Hg] MEDGEN (S t pressure [facility]) Systolic blood 140 mm[Hg] 140 mm[Hg] MEDGEN ([facility]) Body weight 144 lb 144 lb MEDGEN ([facility]) Body height 60 in 60 in MEDGEN ([facility]) Heart rate 91 /min 91 /min MEDGEN ([facility]) Inhaled oxygen 98 % 98 % MEDGEN ([facility]) Body mass index 27.5 kg/m2 27.5 kg/m2 MEDGEN (S t (BMI) [Ratio] [facility] Diastolic blood 68 mm[Hg] 68 mm[Hg] MEDGEN (S t [facility]) Systolic blood 140 mm[Hg] 140 mm[Hg] MEDGEN ([facility]) Body weight 141 lb 141 lb MEDGEN ([facility]) Body height 60 in 60 in MEDGEN ([facility]) Heart rate 91 /min 91 /min MEDGEN ([facility]) Inhaled oxygen 98 % 98 % MEDGEN ([facility]) Body mass index 27.5 kg/m2 27.5 kg/m2 MEDGEN (S t (BMI) [Ratio] [facility] Diastolic blood 68 mm[Hg] 68 mm[Hg] MEDGEN (S t pressure [facility]) Systolic blood 140 mm[Hg] 140 mm[Hg] MEDGEN ([facility]) Body weight 141 lb 141 lb MEDGEN ([facility]) Body height 60 in 60 in MEDGEN ([facility]) Heart rate 91 /min 91 /min MEDGEN ([facility]) Inhaled oxygen 98 % 98 % MEDGEN ([facility]) Body mass index 27.5 kg/m2 27.5 kg/m2 MEDGEN (S t (BMI) [Ratio] [facility] Diastolic blood 68 mm[Hg] 68 mm[Hg] MEDGEN (S t pressure [facility]) Systolic blood 140 mm[Hg] 140 mm[Hg] MEDGEN ([facility]) Body weight 141 lb 141 lb MEDGEN ([facility]) Body height 60 in 60 [facility] Heart rate 91 /min 91 /min MEDGEN ([facility]) Inhaled oxygen 98 % 98 % MEDGEN ([facility]) Body mass index 27.5 kg/m2 27.5 kg/m2 MEDGEN (S t (BMI) [Ratio] [facility] Diastolic blood 68 mm[Hg] 68 mm[Hg] MEDGEN (S [facility]) Systolic blood 140 mm[Hg] 140 mm[Hg] MEDGEN ([facility]) Body weight 141 lb 141 lb MEDGEN ([facility]) Body height 60 in 60 in [facility] ([facility]) Body weight 65.971751 65.914673 kg [facility] Measured kg [facility] Body temperature 36.973415 36.910332 [facility] Respiratory rate 18 /min 18 /min [facility] Oxygen saturation 99 % 99 % [facility] Arterial blood [facility] by Pulse oximetry Heart rate 106 /min 106 /min [facility] Body height 152.905595 152.981159 cm [facility] Diastolic blood 75 mm[Hg] 75 mm[Hg] [facility] Systolic blood 189 mm[Hg] 189 mm[Hg] [facility] Body mass index 28.1 kg/m2 28.1 kg/m2 [facility] (BMI) [Ratio] Medical [facility] ter Heart rate 94 /min 94 /min MEDGEN ([facility]) Inhaled oxygen 97 % 97 % MEDGEN ([facility]) Body mass index 26.8 kg/m2 26.8 kg/m2 MEDGEN (S t (BMI) [Ratio] [facility] Diastolic blood 80 mm[Hg] 80 mm[Hg] MEDGEN (S [facility]) Systolic blood 130 mm[Hg] 130 mm[Hg] MEDGEN ([facility]) Body weight 137 lb 137 lb MEDGEN ([facility]) Body height 60 in 60 in MEDGEN ([facility]) Body height 60 in 60 in MEDGEN ([facility]) Heart rate 94 /min 94 /min MEDGEN ([facility]) Inhaled oxygen 97 % 97 % MEDGEN ([facility]) Body mass index 26.8 kg/m2 26.8 kg/m2 MEDGEN (S t (BMI) [Ratio] [facility] Diastolic blood 80 mm[Hg] 80 mm[Hg] MEDGEN (S [facility]) Systolic blood 130 mm[Hg] 130 mm[Hg] MEDGEN ([facility]) Body weight 137 lb 137 lb MEDGEN ([facility]) Heart rate 94 /min 94 /min MEDGEN ([facility]) Inhaled oxygen 97 % 97 % MEDGEN ([facility]) Body mass index 26.8 kg/m2 26.8 kg/m2 MEDGEN (S t (BMI) [Ratio] [facility], ) Diastolic blood 80 mm[Hg] 80 mm[Hg] MEDGEN (S [facility]) Systolic blood 130 mm[Hg] 130 mm[Hg] MEDGEN ([facility]) Body weight 137 lb 137 lb MEDGEN ([facility]) Body height 60 in 60 in MEDGEN ([facility]) Heart rate 94 /min 94 /min MEDGEN ([facility]) Inhaled oxygen 97 % 97 % MEDGEN ([facility]) Body mass index 26.8 kg/m2 26.8 kg/m2 MEDGEN (S t (BMI) [Ratio] [facility] Diastolic blood 80 mm[Hg] 80 mm[Hg] MEDGEN ([facility]) Systolic blood 130 mm[Hg] 130 mm[Hg] MEDGEN ([facility]) Body weight 137 lb 137 lb MEDGEN ([facility]) Body height 60 in 60 in MEDGEN ([facility]) Heart rate 82 /min 82 /min MEDGEN ([facility]) Inhaled oxygen 99 % 99 % MEDGEN ([facility]) Body mass index 28.1 kg/m2 28.1 kg/m2 MEDGEN (S t (BMI) [Ratio] [facility] Diastolic blood 78 mm[Hg] 78 mm[Hg] MEDGEN (S t pressure [facility]) Systolic blood 132 mm[Hg] 132 mm[Hg] MEDGEN ([facility]) Body weight 144 lb 144 lb MEDGEN ([facility]) Body height 60 in 60 in MEDGEN ([facility]) Heart rate 82 /min 82 /min MEDGEN ([facility]) Inhaled oxygen 99 % 99 % MEDGEN ([facility]) Body mass index 28.1 kg/m2 28.1 kg/m2 MEDGEN (S t (BMI) [Ratio] [facility], ) Diastolic blood 78 mm[Hg] 78 mm[Hg] MEDGEN (S t pressure [facility]) Systolic blood 132 mm[Hg] 132 mm[Hg] MEDGEN ([facility]) Body weight 144 lb 144 lb MEDGEN ([facility]) Body height 60 in 60 in MEDGEN ([facility]) Heart rate 82 /min 82 /min MEDGEN ([facility]) Inhaled oxygen 99 % 99 % MEDGEN ([facility]) Body mass index 28.1 kg/m2 28.1 kg/m2 MEDGEN (S t (BMI) [Ratio] [facility], ) Diastolic blood 78 mm[Hg] 78 mm[Hg] MEDGEN (S t pressure [facility]) Systolic blood 132 mm[Hg] 132 mm[Hg] MEDGEN ([facility]) Body weight 144 lb 144 lb MEDGEN ([facility]) Body height 60 in 60 in MEDGEN ([facility]) Heart rate 82 /min 82 /min MEDGEN ([facility]) Inhaled oxygen 99 % 99 % MEDGEN ([facility]) Body mass index 28.1 kg/m2 28.1 kg/m2 MEDGEN (S t (BMI) [Ratio] [facility], ) Diastolic blood 78 mm[Hg] 78 mm[Hg] MEDGEN (S t pressure [facility]) Systolic blood 132 mm[Hg] 132 mm[Hg] MEDGEN ([facility]) Body weight 144 lb 144 lb MEDGEN ([facility]) Body height 60 in 60 in MEDGEN ([facility]) Diastolic blood 63 mm[Hg] 63 mm[Hg] eCW3 ([facility]) Systolic blood 108 mm[Hg] 108 mm[Hg] eCW3 ([facility]) Body temperature 98.0 [degF] 98.0 [degF] eCW3 ( [facility]) Heart rate 20 /min 20 /min eCW3 ([facility]) Body mass index 23.46 kg/m2 23.46 kg/m2 eCW3 (H [facility] (BMI) [Ratio] [facility]) Body weight 141 [lb_av] 141 [lb_av] eCW3 ([facility]) Body height 65 [in_i] 65 [in_i] eCW3 ([facility]) Heart rate 72 /min 72 /min MEDGEN ([facility]) Inhaled oxygen 99 % 99 % MEDGEN ([facility], ) Body mass index 26.9 kg/m2 26.9 kg/m2 MEDGEN (S t (BMI) [Ratio] [facility], ) Diastolic blood 78 mm[Hg] 78 mm[Hg] MEDGEN (S t [facility]) Systolic blood 132 mm[Hg] 132 mm[Hg] MEDGEN ([facility]) Body weight 138 lb 138 lb MEDGEN ([facility]) Body height 60 in 60 in MEDGEN ([facility]) Heart rate 72 /min 72 /min MEDGEN ([facility]) Inhaled oxygen 99 % 99 % MEDGEN ([facility], ) Body mass index 26.9 kg/m2 26.9 kg/m2 MEDGEN (S t (BMI) [Ratio] [facility], ) Diastolic blood 78 mm[Hg] 78 mm[Hg] MEDGEN (S t pressure [facility]) Systolic blood 132 mm[Hg] 132 mm[Hg] MEDGEN ([facility]) Body weight 138 lb 138 lb MEDGEN ([facility]) Body height 60 in 60 in MEDGEN ([facility]) Heart rate 72 /min 72 /min MEDGEN ([facility]) Inhaled oxygen 99 % 99 % MEDGEN ([facility], ) Body mass index 26.9 kg/m2 26.9 kg/m2 MEDGEN (S t (BMI) [Ratio] [facility] Diastolic blood 78 mm[Hg] 78 mm[Hg] MEDGEN (S t pressure [facility]) Systolic blood 132 mm[Hg] 132 mm[Hg] MEDGEN ([facility]) Body weight 138 lb 138 lb MEDGEN ([facility]) Body height 60 in 60 in MEDGEN ([facility]) Heart rate 72 /min 72 /min MEDGEN ([facility]) Inhaled oxygen 99 % 99 % MEDGEN ([facility]) Body mass index 26.9 kg/m2 26.9 kg/m2 MEDGEN (S t (BMI) [Ratio] [facility] Diastolic blood 78 mm[Hg] 78 mm[Hg] MEDGEN (S t pressure [facility]) Systolic blood 132 mm[Hg] 132 mm[Hg] MEDGEN ([facility]) Body weight 138 lb 138 lb MEDGEN ([facility]) Body height 60 in 60 in MEDGEN ([facility]) Heart rate 83 /min 83 /min MEDGEN ([facility]) Inhaled oxygen 97 % 97 % MEDGEN ([facility]) Body mass index 26.9 kg/m2 26.9 kg/m2 MEDGEN (S t (BMI) [Ratio] [facility] Diastolic blood 60 mm[Hg] 60 mm[Hg] MEDGEN (S t pressure [facility]) Systolic blood 136 mm[Hg] 136 mm[Hg] MEDGEN ([facility]) Body weight 138 lb 138 lb MEDGEN ([facility]) Body height 60 in 60 in MEDGEN ([facility]) Heart rate 83 /min 83 /min MEDGEN ([facility]) Inhaled oxygen 97 % 97 % MEDGEN ([facility]) Body mass index 26.9 kg/m2 26.9 kg/m2 MEDGEN (S t (BMI) [Ratio] [facility] Diastolic blood 60 mm[Hg] 60 mm[Hg] MEDGEN (S [facility]) Systolic blood 136 mm[Hg] 136 mm[Hg] MEDGEN ([facility]) Body weight 138 lb 138 lb MEDGEN ([facility]) Body height 60 in 60 in MEDGEN ([facility]) Heart rate 83 /min 83 /min MEDGEN ([facility]) Inhaled oxygen 97 % 97 % MEDGEN ([facility]) Body mass index 26.9 kg/m2 26.9 kg/m2 MEDGEN (S t (BMI) [Ratio] [facility] Diastolic blood 60 mm[Hg] 60 mm[Hg] MEDGEN (S [facility]) Systolic blood 136 mm[Hg] 136 mm[Hg] MEDGEN ([facility]) Body weight 138 lb 138 lb MEDGEN ([facility]) Body height 60 in 60 in MEDGEN ([facility]) Heart rate 83 /min 83 /min MEDGEN ([facility]) Inhaled oxygen 97 % 97 % MEDGEN ([facility]) Body mass index 26.9 kg/m2 26.9 kg/m2 MEDGEN (S t (BMI) [Ratio] [facility] Diastolic blood 60 mm[Hg] 60 mm[Hg] MEDGEN (S [facility]) Systolic blood 136 mm[Hg] 136 mm[Hg] MEDGEN ([facility]) Body weight 138 lb 138 lb MEDGEN ([facility]) Body height 60 in 60 in MEDGEN ([facility]) Heart rate 89 /min 89 /min MEDGEN ([facility]) Inhaled oxygen 97 % 97 % MEDGEN ([facility]) Body mass index 26.9 kg/m2 26.9 kg/m2 MEDGEN (S t (BMI) [Ratio] [facility] Diastolic blood 60 mm[Hg] 60 mm[Hg] MEDGEN (S t [facility]) Systolic blood 130 mm[Hg] 130 mm[Hg] MEDGEN ([facility]) Body weight 138 lb 138 lb MEDGEN ([facility]) Heart rate 89 /min 89 /min MEDGEN ([facility]) Inhaled oxygen 97 % 97 % MEDGEN ([facility]) Body mass index 26.9 kg/m2 26.9 kg/m2 MEDGEN (S t (BMI) [Ratio] [facility] Diastolic blood 60 mm[Hg] 60 mm[Hg] MEDGEN (S [facility]) Systolic blood 130 mm[Hg] 130 mm[Hg] MEDGEN ([facility]) Body weight 138 lb 138 lb MEDGEN ([facility]) Body height 60 in 60 in MEDGEN ([facility]) Body height 60 in 60 in MEDGEN ([facility]) Heart rate 89 /min 89 /min MEDGEN ([facility]) Inhaled oxygen 97 % 97 % MEDGEN ([facility]) Body mass index 26.9 kg/m2 26.9 kg/m2 MEDGEN ([place] [facility] Diastolic blood 60 mm[Hg] 60 mm[Hg] MEDGEN (S [facility]) Systolic blood 130 mm[Hg] 130 mm[Hg] MEDGEN ([facility]) Body weight 138 lb 138 lb MEDGEN ([facility]) Body height 60 in 60 in MEDGEN ([facility]) Heart rate 89 /min 89 /min MEDGEN ([facility]) Inhaled oxygen 97 % 97 % MEDGEN ([facility]) Body mass index 26.9 kg/m2 26.9 kg/m2 MEDGEN (S t (BMI) [Ratio] [facility], ) Diastolic blood 60 mm[Hg] 60 mm[Hg] MEDGEN (S [facility]) Systolic blood 130 mm[Hg] 130 mm[Hg] MEDGEN ([facility]) Body weight 138 lb 138 lb MEDGEN ([facility]) Body height 60 in 60 in MEDGEN ([facility]) Diastolic blood 62 mm[Hg] 62 mm[Hg] eCW3 ([facility]) Systolic blood 110 mm[Hg] 110 mm[Hg] eCW3 ([facility]) Body temperature 98.3 [degF] 98.3 [degF] eCW3 ( [facility]) Heart rate 20 /min 20 /min eCW3 ([facility]) Body mass index 22.96 kg/m2 22.96 kg/m2 eCW3 ([facility] ud[facility] (BMI) [Ratio] [facility]) Body weight 138 [lb_av] 138 [lb_av] eCW3 ([facility]) Body height 65 [in_i] 65 [in_i] eCW3 ([facility]) Heart rate 97 /min 97 /min MEDGEN ([facility]) Inhaled oxygen 98 % 98 % MEDGEN ([facility]) Diastolic blood 82 mm[Hg] 82 mm[Hg] MEDGEN (S t [facility]) Systolic blood 144 mm[Hg] 144 mm[Hg] MEDGEN ([facility]) Body weight 137 lb 137 lb MEDGEN ([facility]) Heart rate 97 /min 97 /min MEDGEN ([facility]) Inhaled oxygen 98 % 98 % MEDGEN ([facility]) Diastolic blood 82 mm[Hg] 82 mm[Hg] MEDGEN (S t [facility]) Systolic blood 144 mm[Hg] 144 mm[Hg] MEDGEN ([facility]) Body weight 137 lb 137 lb MEDGEN ([facility] , ) Heart rate 97 /min 97 /min MEDGEN ([facility] , ) Inhaled oxygen 98 % 98 % MEDGEN (St concentration [facility], ) Diastolic blood 82 mm[Hg] 82 mm[Hg] MEDGEN (S t pressure [facility] , ) Systolic blood 144 mm[Hg] 144 mm[Hg] MEDGEN ([facility] , ) Body weight 137 lb 137 lb MEDGEN ([facility] , ) Heart rate 97 /min 97 /min MEDGEN ([facility] , ) Inhaled oxygen 98 % 98 % MEDGEN ([facility] [place] Diastolic blood 82 mm[Hg] 82 mm[Hg] MEDGEN (S t pressure [facility] , ) Systolic blood 144 mm[Hg] 144 mm[Hg] MEDGEN ([facility] , ) Body weight 137 lb 137 lb MEDGEN ([facility] , ) Heart rate 83 /min 83 /min MEDGEN ([facility] , ) Inhaled oxygen 97 % 97 % MEDGEN ([facility] ) Diastolic blood 78 mm[Hg] 78 mm[Hg] MEDGEN (S t pressure [facility] , ) Systolic blood 132 mm[Hg] 132 mm[Hg] MEDGEN ([facility] , ) Body weight 138 lb 138 lb MEDGEN ([facility] , ) Heart rate 83 /min 83 /min MEDGEN ([facility] , ) Inhaled oxygen 97 % 97 % MEDGEN ([facility] [place] ) Diastolic blood 78 mm[Hg] 78 mm[Hg] MEDGEN (S t pressure [facility] , ) Systolic blood 132 mm[Hg] 132 mm[Hg] MEDGEN ([facility] , ) Body weight 138 lb 138 lb MEDGEN ([facility] , ) Heart rate 83 /min 83 /min MEDGEN ([facility] , ) Inhaled oxygen 97 % 97 % MEDGEN ([facility] [place] ) Diastolic blood 78 mm[Hg] 78 mm[Hg] MEDGEN (S t pressure [facility] , ) Systolic blood 132 mm[Hg] 132 mm[Hg] MEDGEN (St pressure [facility] , ) Body weight 138 lb 138 lb MEDGEN ([facility] , ) Heart rate 83 /min 83 /min MEDGEN ([facility] , ) Inhaled oxygen 97 % 97 % MEDGEN ([facility], ) Diastolic blood 78 mm[Hg] 78 mm[Hg] MEDGEN (S t pressure [facility] , ) Systolic blood 132 mm[Hg] 132 mm[Hg] MEDGEN ([facility] , ) Body weight 138 lb 138 lb MEDGEN ([facility] , ) Diastolic blood 69 mm[Hg] 69 mm[Hg] eCW3 ([facility]) Systolic blood 128 mm[Hg] 128 mm[Hg] eCW3 ([facility]) Body temperature 97.7 [degF] 97.7 [degF] eCW3 ( [facility]) Heart rate 20 /min 20 /min eCW3 ([facility]) Body mass index 22.96 kg/m2 22.96 kg/m2 eCW3 ([facility] (BMI) [Ratio] [facility]) Body weight 138 [lb_av] 138 [lb_av] eCW3 ([facility]) Body height 65 [in_i] 65 [in_i] eCW3 ([facility]) Heart rate 84 /min 84 /min MEDGEN ([facility] , ) Inhaled oxygen 98 % 98 % MEDGEN ([facility], ) Diastolic blood 72 mm[Hg] 72 mm[Hg] MEDGEN (S t pressure [facility] , ) Systolic blood 134 mm[Hg] 134 mm[Hg] MEDGEN ([facility] ) Body weight 140 lb 140 lb MEDGEN ([facility] , ) Heart rate 84 /min 84 /min MEDGEN ([facility] , ) Inhaled oxygen 98 % 98 % MEDGEN ([facility], ) Diastolic blood 72 mm[Hg] 72 mm[Hg] MEDGEN (S t pressure [facility] , ) Systolic blood 134 mm[Hg] 134 mm[Hg] MEDGEN (St pressure [facility]) Body weight 140 lb 140 lb MEDGEN ([facility] , ) Heart rate 84 /min 84 /min MEDGEN ([facility] , ) Inhaled oxygen 98 % 98 % MEDGEN (St concentration [facility], ) Diastolic blood 72 mm[Hg] 72 mm[Hg] MEDGEN (S t pressure [facility]) Systolic blood 134 mm[Hg] 134 mm[Hg] MEDGEN ([facility] , ) Body weight 140 lb 140 lb MEDGEN ([facility] , ) Heart rate 84 /min 84 /min MEDGEN ([facility] , ) Inhaled oxygen 98 % 98 % MEDGEN ([facility] [place] ) Diastolic blood 72 mm[Hg] 72 mm[Hg] MEDGEN (S t pressure [facility]) Systolic blood 134 mm[Hg] 134 mm[Hg] MEDGEN ([facility] , ) Body weight 140 lb 140 lb MEDGEN ([facility] , ) Diastolic blood 71 mm[Hg] 71 mm[Hg] eCW3 ([facility]) Systolic blood 113 mm[Hg] 113 mm[Hg] eCW3 ([facility]) Body temperature 97.6 [degF] 97.6 [degF] eCW3 ( [facility]) Heart rate 20 /min 20 /min eCW3 ([facility]) Body mass index 23.46 kg/m2 23.46 kg/m2 eCW3 ([facility] (BMI) [Ratio] [facility]) Body weight 141 [lb_av] 141 [lb_av] eCW3 ([facility]) Body height 65 [in_i] 65 [in_i] eCW3 ([facility]) Diastolic blood 71 mm[Hg] 71 mm[Hg] eCW3 ([facility]) Systolic blood 135 mm[Hg] 135 mm[Hg] eCW3 ([facility]) Body temperature 98.11 98.11 [degF] eCW3 ( [place] [degF] [facility]) Heart rate 20 /min 20 /min eCW3 ([facility]) Body mass index 23.29 kg/m2 23.29 kg/m2 eCW3 ([facility] (BMI) [Ratio] [facility]) Body weight 140 [lb_av] 140 [lb_av] eCW3 ([facility]) Body height 65 [in_i] 65 [in_i] eCW3 ([facility]) Heart rate 88 /min 88 /min MEDGEN ([facility] , ) Inhaled oxygen 97 % 97 % MEDGEN ([facility], ) Body mass index 28.5 kg/m2 28.5 kg/m2 MEDGEN (S t (BMI) [Ratio] [facility], ) Diastolic blood 80 mm[Hg] 80 mm[Hg] MEDGEN (S t pressure [facility] , ) Systolic blood 160 mm[Hg] 160 mm[Hg] MEDGEN ([facility] , ) Body weight 146 lb 146 lb MEDGEN ([facility] , ) Body height 60 in 60 in MEDGEN ([facility] , ) Heart rate 88 /min 88 /min MEDGEN ([facility] , ) Inhaled oxygen 97 % 97 % MEDGEN ([facility], ) Body mass index 28.5 kg/m2 28.5 kg/m2 MEDGEN (S t (BMI) [Ratio] [facility], ) Diastolic blood 80 mm[Hg] 80 mm[Hg] MEDGEN (S t pressure [facility] , ) Systolic blood 160 mm[Hg] 160 mm[Hg] MEDGEN ([facility] , ) Body weight 146 lb 146 lb MEDGEN ([facility] , ) Body height 60 in 60 in MEDGEN ([facility] , ) Heart rate 88 /min 88 /min MEDGEN ([facility] , ) Inhaled oxygen 97 % 97 % MEDGEN ([facility], ) Body mass index 28.5 kg/m2 28.5 kg/m2 MEDGEN (S t (BMI) [Ratio] [facility], ) Diastolic blood 80 mm[Hg] 80 mm[Hg] MEDGEN (S t pressure [facility] , ) Systolic blood 160 mm[Hg] 160 mm[Hg] MEDGEN ([facility]) Body [facility] 146 lb [facility] Body height 60 in 60 in [facility] ([facility]) Heart rate 88 /min 88 /min MEDGEN ([facility]) Inhaled oxygen 97 % 97 % MEDGEN ([facility], ) Body mass index 28.5 kg/m2 28.5 kg/m2 MEDGEN (S t (BMI) [Ratio] [facility], ) Diastolic blood 80 mm[Hg] 80 [facility] Systolic blood 160 mm[Hg] 160 mm[Hg] [facility] Body weight 146 lb 146 lb [facility] ([facility]) Body height 60 in 60 in [facility] ([facility]) Diastolic blood 70 mm[Hg] 70 mm[Hg] eCW3 ([facility]) Systolic blood 138 mm[Hg] 138 mm[Hg] eCW3 ([facility]) Body temperature 98.5 [degF] 98.5 [degF] eCW3 ( [facility]) Heart rate 20 /min 20 /min eCW3 ([facility]) Body mass index 24.13 kg/m2 24.13 kg/m2 eCW3 ([facility] (BMI) [Ratio] [facility]) Body weight 145 [lb_av] 145 [lb_av] eCW3 ([facility]) Body height 65 [in_i] 65 [in_i] eCW3 ([facility]) Diastolic blood 62 mm[Hg] 62 mm[Hg] eCW3 ([facility]) Systolic blood 98 mm[Hg] 98 mm[Hg] eCW3 ([facility]) Body temperature 97.8 [degF] 97.8 [degF] eCW3 ( [facility]) Heart rate 20 /min 20 /min eCW3 ([facility]) Body mass index 24.29 kg/m2 24.29 kg/m2 eCW3 ([facility] (BMI) [Ratio] [facility]) Body weight 146 [lb_av] 146 [lb_av] eCW3 ([facility]) Body height 65 [in_i] 65 [in_i] eCW3 ([facility]) Diastolic blood 77 mm[Hg] 77 mm[Hg] eCW2 ([facility]) Systolic blood 163 mm[Hg] 163 mm[Hg] eCW2 ([facility]) Body temperature 97.8 [degF] 97.8 [degF] eCW2 ( [facility]) Heart rate 20 /min 20 /min eCW2 ([facility]) Body mass index 24.29 kg/m2 24.29 kg/m2 eCW2 ([facility] (BMI) [Ratio] [facility]) Body weight 146 [lb_av] 146 [lb_av] eCW2 ([facility]) Body height 65 [in_us] 65 [in_us] eCW2 ([facility]) Patient Treatment Plan of Care Planned Activity Planned Date Details Description Data Source (s) Diazepam 2 MG Oral Tablet 02/01/2019 12:00:00 eCW3 ([facility]) Clotrimazole 10 MG/ML 2018 12:00:00 eCW3 ([facility] Topical Cream [facility]) Ranitidine 150 MG Oral 08/14/2018 12:00:00 eCW3 ([facility] Tablet [facility]) Diclofenac Sodium 0.01 08/14/2018 12:00:00 eCW3 ([facility] MG/MG Topical Gel [facility] e) 24 HR metoprolol 04/30/2018 12:00:00 eCW3 ([facility] succinate 50 MG Extended [facility]) Release Oral Tablet 24 HR metoprolol 04/30/2018 12:00:00 eCW3 ([facility] succinate 50 MG Extended [facility]) Release Oral Tablet Pen [place] 3/16" 31G X 5 12/23/2017 12:00:00 eCW3 ([facility] MM [facility]) BASAGLAR KWIKPEN 100 12/23/2017 12:00:00 eCW3 ([facility] unit/ml [facility]) Gemfibrozil 600 MG Oral 04/21/2017 12:00:00 eCW3 (CARGOBR [place] Tablet [facility]) atorvastatin 40 MG Oral 12/21/2013 12:00:00 eCW3 (Metanautix Tablet [Lipitor] [facility] ) atorvastatin 40 MG Oral 12/21/2013 12:00:00 eCW3 (Oates Garwin Tablet [Lipitor] [facility] ) empagliflozin 25 MG Oral eCW 3 (Oates Garwin Tablet [[facility]] [facility] re) Enalapril Maleate 10 MG eCW3 ([facility]) Vitamin B 12 1 MG Oral eCW3 ([facility]) Enalapril Maleate 10 MG eCW3 ([facility]) D3-1000 1000 UNIT eCW3 ([facility]) empagliflozin 25 MG Oral eCW 3 ([facility] Garwin Tablet [facility] re) Metformin hydrochloride eCW3 (Oates Garwin 1000 MG Oral Tablet Health are) Docusate Sodium 100 MG eCW3 ([facility] Oral Capsule [facility]) clopidogrel 75 MG Oral eCW3 ([facility]) 3 ML insulin detemir 100 eCW 3 (Oates Garwin UNT/ML Pen Injector [facility] are) [Levemir] Enalapril Maleate 10 MG eCW3 ([facility])
--- NOTE | 2020-07-07 21:11 | PDOC ---
History of Present Illness - General Chief Complaint: Revisit, Lab Variance Stated Complaint: SENT BY PCP/HIGH POTASSIUM Time Seen by Provider: 07/07/20 21:08 - History of Present Illness Initial Comments: 07/07/20 21:10 78yo F with PMH of HTN, DM, HLD, CKD 3, CAD S/P stent 2008 and PA in 2019 with 2 stents, h.o pancreatitis , GERD, sent by PCP for elevated potassium to 5.6 two days prior. Last time her potassium was elevated she had an PA and got two stents, hence the concern. Patient has no acute complaints. PMH: as above PSH: cholecystectomy Home Medications Medication Instructions Recorded Enalapril Maleate [Vasotec -] 10 mg PO DAILY 03/26/12 Aspirin [Aspirin EC] 81 mg PO DAILY 07/29/18 Docusate Sodium 100 mg PO TID PRN 07/29/18 Gemfibrozil 600 mg PO BID 07/29/18 Glipizide 5 mg PO BID 07/29/18 Metformin HCl [Glucophage] 1,000 mg PO BID 07/29/18 Metoprolol Succinate 50 mg PO DAILY 07/29/18 Insulin (Levemir) [Levemir Vial] 20 units SQ DAILY@0700 30 Days #6 08/05/18 vial Acetaminophen [8Hr Arthritis Pain 650 mg PO QID PRN 01/04/19 Relief] Atorvastatin Ca [Lipitor] 40 mg PO HS 01/04/19 Cholecalciferol (Vitamin D3) 1,000 unit PO DAILY 01/04/19 [Vitamin D3] Cyanocobalamin (Vitamin B-12) 1,000 mcg PO DAILY 01/04/19 [Vitamin B-12] Diclofenac Sodium [Diclo Gel] 1 each TP TID 01/04/19 Ranitidine [Zantac -] 150 mg PO DAILY 01/04/19 Allergies Allergy/AdvReac Type Severity Reaction Status Date / Time No Known Allergies Allergy Verified 07/07/20 20:45 ROS GENERAL/CONSTITUTIONAL: No fever or chills. No weakness. HEAD, EYES, EARS, NOSE AND THROAT: No change in vision. No ear pain or discharge. No sore throat. CARDIOVASCULAR: No chest pain or shortness of breath RESPIRATORY: No cough, wheezing, or hemoptysis. GASTROINTESTINAL: No nausea, vomiting, diarrhea. chronic constipation. GENITOURINARY: No dysuria, frequency, or change in urination. MUSCULOSKELETAL: No joint or muscle swelling or pain. No neck or back pain. SKIN: No rash NEUROLOGIC: No headache, vertigo, loss of consciousness, or change in strength/sensation. ENDOCRINE: No increased thirst. No abnormal weight change HEMATOLOGIC/LYMPHATIC: No anemia, easy bleeding, or history of blood clots. ALLERGIC/IMMUNOLOGIC: No hives or skin allergy. PE GENERAL: Awake, alert, and fully oriented, in no acute distress HEAD: No signs of trauma, normocephalic, atraumatic EYES: PERRLA, EOMI, sclera anicteric, conjunctiva clear ENT: Auricles normal inspection, hearing grossly normal, nares patent, oropharynx clear without exudates. Moist mucosa NECK: Normal ROM, supple, no lymphadenopathy, JVD, or masses LUNGS: No distress, speaks full sentences, clear to auscultation bilaterally HEART: Regular rate and rhythm, normal S1 and S2, no murmurs, rubs or gallops, peripheral pulses normal and equal bilaterally. ABDOMEN: Soft, nontender, normoactive bowel sounds. No guarding, no rebound. No masses EXTREMITIES : Normal inspection, Normal range of motion. trace b/l LE edema. No clubbing or cyanosis. NEUROLOGICAL:Normal speech, no focal sensorimotor deficits SKIN: Warm, Dry, normal turgor, no rashes or lesions noted Vital Signs Temp Pulse Resp BP Pulse Ox 97.9 F 94 H 18 177/79 H 98 07/07/20 20:43 07/07/20 20:43 07/07/20 20:43 07/07/20 20:43 07/07/20 20:43 MDM: 78yo F with PMH of HTN, DM, HLD, CKD 3, CAD S/P stent 2008 and PA in 2019 with 2 stents, h.o pancreatitis , GERD, sent by PCP for elevated potassium to 5.6 two days prior. Last time her potassium was elevated she had an PA and got two stents, hence the concern. Patient has no acute complaints. DDx includes hyperkalemia, progressive kidney disease, ACS. -EKG -CBC, CMP, cardiac enzymes, Mg, Phos 07/07/20 22:39 EKG: NSR, rate 88, normal axis and intervals, no ischemic changes Labs: no emergent values. Potassium 5.1 DC home with PCP f/u and instructions on low potassium diet Past History - Medical History Allergies/Adverse Reactions: Allergies Allergy/AdvReac Type Severity Reaction Status Date / Time No Known Allergies Allergy Verified 07/07/20 20:45 Home Medications: Ambulatory Orders Enalapril Maleate [Vasotec -] 10 mg PO DAILY 03/26/12 Aspirin [Aspirin EC] 81 mg PO DAILY 07/29/18 Docusate Sodium 100 mg PO TID PRN 07/29/18 Gemfibrozil 600 mg PO BID 07/29/18 Glipizide 5 mg PO BID 07/29/18 Metformin HCl [Glucophage] 1,000 mg PO BID 07/29/18 Metoprolol Succinate 50 mg PO DAILY 07/29/18 Insulin (Levemir) [Levemir Vial] 20 units SQ DAILY@0700 30 Days #6 vial 08/05/18 Acetaminophen [8Hr Arthritis Pain Relief] 650 mg PO QID PRN 01/04/19 Atorvastatin Ca [Lipitor] 40 mg PO HS 01/04/19 Cholecalciferol (Vitamin D3) [Vitamin D3] 1,000 unit PO DAILY 01/04/19 Cyanocobalamin (Vitamin B-12) [Vitamin B-12] 1,000 mcg PO DAILY 01/04/19 Diclofenac Sodium [Diclo Gel] 1 each TP TID 01/04/19 Ranitidine [Zantac -] 150 mg PO DAILY 01/04/19 Anemia: No Asthma: No Cancer: No Cardiac Disorders: Yes CVA: No COPD: No CHF: No Dementia: No Diabetes: Yes (NIDDM) GI Disorders: Yes (GASTRITIS, PANCREATITIS) Disorders: Yes (CKD stg 3) HTN: Yes Hypercholesterolemia: Yes Liver Disease: No Seizures: No Thyroid Disease: No - Surgical History Abdominal Surgery: No Appendectomy: No Cardiac Surgery: No Cholecystectomy: Yes Lung Surgery: No Neurologic Surgery: No Orthopedic Surgery: No - Immunization History Immunization Up to Date: No - Psycho-Social/Smoking History Smoking History: Never smoked Have you smoked in the past 12 months: No *Physical Exam - Vital Signs Last Vital Signs Temp Pulse Resp BP Pulse Ox 97.9 F 94 H 18 177/79 H 98 07/07/20 20:43 07/07/20 20:43 07/07/20 20:43 07/07/20 20:43 07/07/20 20:43 ED Treatment Course - LABORATORY CBC & Chemistry Diagram: 07/07/20 20:00 07/07/20 20:00 Discharge - Discharge Information Problems reviewed: Yes Clinical Impression/Diagnosis: Hyperkalemia Condition: Good Disposition: HOME - Admission No - Follow up/Referral Referrals: Eliceo Day MD [Primary Care Provider] - - Patient Discharge Instructions Patient Printed Discharge Instructions: Limiting Potassium in Your Diet Additional Instructions: Lo vieron en la mac de emergencias porque steward mdico de cabecera lo llam para informarle que steward nivel de potasio estaba alto. Hicimos un examen fsico, electrocardiograma y anlisis de laboratorio, que no mostraron ningn problema emergente. Tu potasio hoy es 5.1, lo cual no es preocupante. Shonna un seguimiento con steward mdico de atencin primaria dentro de juan semana. Regrese a la mac de emergencias si tiene dolor en el pecho, dificultad para respirar, vmitos o cualquier otro sntoma preocupante. You were seen in the ER because your primary doctor called you to let you know your potassium was high. We did a physical exam, EKG, and labs, which did not show any emergent problems. You potassium today is 5.1, which is not concerning. Please follow up with your primary doctor within one week. Please return to the ER if you have chest pain, difficulty breathing, vomiting, or any other concerning symptoms. Print Language: MACANESE - Post Discharge Activity
--- NOTE | 2020-07-07 22:03 | PDOC ---
Attending Attestation - Resident Resident Name: Pawan Funes - ED Attending Attestation I have performed the following: I have examined & evaluated the patient, The case was reviewed & discussed with the resident, I agree w/resident's findings & plan - HPI HPI: 07/07/20 22:05 Pt comes with high potassium at her doctor's office. He sent her for further evaluation. 07/07/20 22:06 Pt has a hx of DM, HTN, GERD, NSTEMI, CKD. Compliant with all her meds. - Physicial Exam PE: 07/07/20 22:05 Agree with resident exam - Medical Decision Making 07/07/20 22:05 Pt has a normal EKG; labs are pending BP is slightly elevated in the ER. We will repeat it. 07/07/20 23:20 Repeat BP normal Pt is stable to go home. Pt's K+ and Mag are slightly elevated. Discharge - Discharge Information Problems reviewed: Yes Clinical Impression/Diagnosis: Hyperkalemia Condition: Good Disposition: HOME - Follow up/Referral Referrals: Eliceo Day MD [Primary Care Provider] - - Patient Discharge Instructions Patient Printed Discharge Instructions: Limiting Potassium in Your Diet Additional Instructions: Lo vieron en la mac de emergencias porque steward mdico de cabecera lo llam para informarle que steward nivel de potasio estaba alto. Hicimos un examen fsico, electrocardiograma y anlisis de laboratorio, que no mostraron ningn problema emergente. Tu potasio hoy es 5.1, lo cual no es preocupante. Shonna un seguimiento con steward mdico de atencin primaria dentro de juan semana. Regrese a la mac de emergencias si tiene dolor en el pecho, dificultad para respirar, vmitos o cualquier otro sntoma preocupante. You were seen in the ER because your primary doctor called you to let you know your potassium was high. We did a physical exam, EKG, and labs, which did not show any emergent problems. You potassium today is 5.1, which is not concerning. Please follow up with your primary doctor within one week. Please return to the ER if you have chest pain, difficulty breathing, vomiting, or any other concerning symptoms. Print Language: TURKISH - Post Discharge Activity
[2020-07-07 22:31] LABS: EOS % 6.8 % (0-4.5); HEMATOCRIT 38.7 % (32.4-45.2); HEMOGLOBIN 12.5 GM/dL (10.7-15.3); LYMPH % 31.1 % (8-40); MCH 24.6 pg (25.7-33.7); MCHC 32.3 g/dl (32.0-36.0); MEAN CELL VOLUME 76.1 fl (80-96); MEAN PLT VOLUME 9.4 fl (7.5-11.1); MONO % 5.3 % (3.8-10.2); NEUT % 55.8 % (42.8-82.8); PLATELET COUNT 264 K/MM3 (134-434); RBC 5.08 M/mm3 (3.60-5.2); RDW 14.4 % (11.6-15.6); WHITE BLOOD COUNT 7.1 K/mm3 (4.0-10.0)
[2020-07-07 23:03] LABS: ALK PHOS 109 U/L (45-117); ANION GAP 5 MMOL/L (8-16); BILIRUBIN,TOTAL 0.2 mg/dL (0.2-1); BLOOD UREA NITROGEN 37.3 mg/dL (7-18); CALCIUM 10.2 mg/dL (8.5-10.1); CHLORIDE 107 mmol/L (98-107); CO2 28 mmol/L (21-32); CREATININE 1.3 mg/dL (0.55-1.3); GLUCOSE,RANDOM 82 mg/dL (74-106); MAGNESIUM 2.5 mg/dL (1.8-2.4); PHOSPHOROUS 2.8 mg/dL (2.5-4.9); POTASSIUM 5.1 mmol/L (3.5-5.1); SGOT/AST 24 U/L (15-37); SGPT/ALT 19 U/L (13-61); SODIUM 140 mmol/L (136-145); TOT PROT 7.7 g/dl (6.4-8.2)
[2020-07-07 23:27] VITALS: BP 155/55; PULSE 83
--- NOTE | 2020-07-08 16:11 | EKG ---
Test Reason : Blood Pressure : / mmHG Vent. Rate : 088 BPM Atrial Rate : 088 BPM P-R Int : 130 ms QRS Dur : 084 ms QT Int : 348 ms P-R-T Axes : 048 013 035 degrees QTc Int : 421 ms NORMAL SINUS RHYTHM NORMAL ECG WHEN COMPARED WITH ECG OF 05-JAN-2019 06:22, NONSPECIFIC T WAVE ABNORMALITY NO LONGER EVIDENT IN LATERAL LEADS Confirmed by MD Zamudio Daniel ([id number]) on 07/08/2020 4:10:38 PM Referred By: Confirmed By:Eliceo Zamudio MD
== END 2020-07-07 23:26 | disposition home or self-care (01) ==
LOC: JER 20:36
DX: E87.5 Hyperkalemia (principal)
CPT/HCPCS: 36415; 80053; 82550; 83735; 84100; 84484; 85025; 93005; 93010; 99284-25

== ENCOUNTER 2021-12-06 04:40 | Day surgery (SDC) | payer MEDICARE, OTHER ==
[2021-11-30 16:45] VITALS: BMI 25.9
[2021-12-06 09:26] VITALS: TEMP 97.3
[2021-12-06 10:13] VITALS: BP 157/61; PULSE 80
== END 2021-12-06 10:14 | disposition home or self-care (01) ==
LOC: JASU-ENDO 04:40
PROVIDERS: ATTEND Internal Medicine Gastroenterology
PROC: 0DBL8ZX Excision of Transverse Colon, Via Natural or Artificial Opening Endoscopic, Diagnostic (ICD-10-PCS; 2021-12-06)
PROC: 0DBM8ZX Excision of Descending Colon, Via Natural or Artificial Opening Endoscopic, Diagnostic (ICD-10-PCS; principal; 2021-12-06 08:48)
DX: Z12.11 Encounter for screening for malignant neoplasm of colon (principal); Z86.010 Personal history of colon polyps; Z80.0 Family history of malignant neoplasm of digestive organs; K57.30 Diverticulosis of large intestine without perforation or abscess without bleeding; D12.3 Benign neoplasm of transverse colon; K64.8 Other hemorrhoids; D17.79 Benign lipomatous neoplasm of other sites
CPT/HCPCS: 88305-TC

== ENCOUNTER 2022-09-09 04:54 | Day surgery (SDC) | payer MEDICARE, OTHER ==
[2022-09-03 16:13] VITALS: BMI 25.0
[2022-09-09 10:50] VITALS: BP 157/67; PULSE 73; RESP 20
[2022-09-09 13:30] VITALS: TEMP 98
== END 2022-09-09 10:57 | disposition home or self-care (01) ==
LOC: JASU-ENDO 04:54
PROVIDERS: ATTEND Internal Medicine Gastroenterology
PROC: 0DB78ZX Excision of Stomach, Pylorus, Via Natural or Artificial Opening Endoscopic, Diagnostic (ICD-10-PCS; principal; 2022-09-09 09:15)
DX: K29.50 Unspecified chronic gastritis without bleeding (principal); R93.3 Abnormal findings on diagnostic imaging of other parts of digestive tract; I10 Essential (primary) hypertension; E11.9 Type 2 diabetes mellitus without complications; Z79.84 Long term (current) use of oral hypoglycemic drugs
CPT/HCPCS: 82962; 88305-TC; 88342-TC

== ENCOUNTER 2023-10-31 14:04 | Observation (INO) | payer MEDICARE, OTHER ==
[2023-10-31 14:47] VITALS: BMI 27.3
[2023-10-31 16:20] LABS: BASO % 0.2 % (0-2.0); HEMATOCRIT 31.5 % (32.4-45.2); HEMOGLOBIN 9.6 GM/dL (10.7-15.3); LYMPH % 14.7 % (8-40); MCHC 30.7 g/dl (32.0-36.0); MEAN CELL VOLUME 71.7 fl (80-96); MEAN PLT VOLUME 7.4 fl (7.5-11.1); MONO % 3.5 % (3.8-10.2); NEUT % 81.6 % (42.8-82.8); PLATELET COUNT 653 10^3/uL (134-434); RBC 4.38 M/mm3 (3.60-5.2); RDW 15.3 % (11.6-15.6); WHITE BLOOD COUNT 12.2 K/mm3 (4.0-10.0)
[2023-10-31 16:23] LABS: INR 1.16 (0.83-1.09); PROTHROMBIN TIME (PATIENT) 13.4 SEC (9.7-13.0)
[2023-10-31 16:45] LABS: POTASSIUM 5.8 mmol/L (3.5-5.1)
[2023-10-31 16:47] LABS: CALCIUM 9.3 mg/dL (8.5-10.1)
[2023-10-31 16:48] LABS: ALBUMIN 2.4 g/dl (3.4-5.0); MAGNESIUM 2.7 mg/dL (1.8-2.4)
[2023-10-31 16:51] LABS: CREATININE 0.9 mg/dL (0.55-1.3)
[2023-10-31 16:52] LABS: BILIRUBIN,TOTAL 0.2 mg/dL (0.2-1); TOT PROT 6.2 g/dl (6.4-8.2)
[2023-10-31] MEDS ORDERED: SODIUM CHLORIDE 1,000 ML IV STA (17:07)
[2023-10-31 18:14] LABS: ANISOCYTOSIS 1+; MACROCYTOSIS 0; PLATELET ESTIMATE INCREASED; TARGET CELLS 1+
[2023-10-31 18:35] LABS: OVALOCYTE 1+
[2023-10-31] MEDS ORDERED: SODIUM PHOSPHATE/NA BIPHOS 133 ML ENEMA PR ONE (20:31)
[2023-10-31 20:56] LABS: URINE APPEARANCE CLEAR; URINE BILIRUBIN NEGATIVE (NEGATIVE); URINE COLOR YELLOW; URINE GLUCOSE (UA) 3+ (NEGATIVE); URINE KETONE NEGATIVE (NEGATIVE); URINE LEUK ESTERASE NEGATIVE (NEGATIVE); URINE NITRITE NEGATIVE (NEGATIVE); URINE PROTEIN NEGATIVE (NEGATIVE); URINE UROBILINOGEN 0.2 mg/dL (0.2-1.0)
[2023-10-31 21:07] LABS: POTASSIUM 4.9 mmol/L (3.5-5.1)
[2023-10-31 21:08] LABS: CALCIUM 8.5 mg/dL (8.5-10.1)
[2023-10-31 21:09] LABS: BLOOD UREA NITROGEN 24.4 mg/dL (7-18)
[2023-10-31 21:12] LABS: CREATININE 0.8 mg/dL (0.55-1.3)
[2023-11-01] MEDS ORDERED: LIDOCAINE HCL 5% TOP OINTMENT 50 GM TUBE TP ONE ×3 (00:38→09:00)
[2023-11-01] MEDS ORDERED: MINERAL OIL ENEMA 133 ML ENEMA RC ONE ×6 (00:42→09:00)
[2023-11-01] MEDS ORDERED: MAGNESIUM CITRATE 300 ML BOTTLE PO ONE (00:43)
[2023-11-01] MEDS ORDERED: SENNOSIDES/DOCUSATE COMBO (SENNA PLUS) TABLET (UD) PO ONE (00:46)
[2023-11-01] MEDS ORDERED: SENNOSIDES 8.6MG TABLET (FP) PO SCH (01:05)
[2023-11-01] MEDS ORDERED: LIDOCAINE HCL/PF 1% SDV 5ML VIAL ONE (01:23)
[2023-11-01] MEDS ORDERED: MAGNESIUM CITRATE 300 ML BOTTLE ONE (01:23)
[2023-11-01] MEDS ORDERED: SENNOSIDES 8.6MG TABLET (FP) PO ONE (01:23)
[2023-11-01] MEDS ORDERED: MAGNESIUM CITRATE 300 ML BOTTLE PO PRN (01:34)
[2023-11-01] MEDS ORDERED: MELATONIN 5 MG TABLETS PO ONE (01:46)
[2023-11-01 08:51] LABS: BASO % 0.4 % (0-2.0); EOS % 0.2 % (0-4.5); HEMATOCRIT 33.2 % (32.4-45.2); HEMOGLOBIN 9.9 GM/dL (10.7-15.3); LYMPH % 15.3 % (8-40); MCH 21.6 pg (25.7-33.7); MCHC 29.7 g/dl (32.0-36.0); MEAN CELL VOLUME 72.8 fl (80-96); MEAN PLT VOLUME 7.6 fl (7.5-11.1); MONO % 4.5 % (3.8-10.2); NEUT % 79.6 % (42.8-82.8); PLATELET COUNT 707 10^3/uL (134-434); RBC 4.56 M/mm3 (3.60-5.2); RDW 15.4 % (11.6-15.6); WHITE BLOOD COUNT 16.1 K/mm3 (4.0-10.0)
[2023-11-01] MEDS: ASPIRIN COATED 81 MG TABLET.EC PO SCH (09:42)
[2023-11-01] MEDS: SODIUM CHLORIDE 1,000 ML IV SCH (09:42)
[2023-11-01] MEDS: POLYETHYLENE GLYCOL (HEALTHYLAX) 3350 17 GM PACKET PO SCH ×2 (09:42→23:15)
[2023-11-01] MEDS ORDERED: LIDOCAINE 2.5%/PRILOCAINE 2.5% (5 Gram/TUBE) TP ONE (09:45)
[2023-11-01] MEDS ORDERED: ENOXAPARIN NA (PORCINE) 40 MG/0.4 ML DISP.SYRIN SQ SCH (10:00)
[2023-11-01] MEDS ORDERED: amLODIPine BESYLATE 10 MG TABLET (FP) PO SCH (11:00)
[2023-11-01] MEDS ORDERED: POLYETHYLENE GLYCOL (HEALTHYLAX) 3350 17 GM PACKET ONE (11:25)
[2023-11-01] MEDS ORDERED: HEPARIN NA (PORCINE) 5,000 UNITS/ML 1ML VIAL ONE (11:26)
[2023-11-01] MEDS ORDERED: MULTIVITAMINS (DAILY MVI) TABLET (FP) ONE (11:26)
[2023-11-01] MEDS ORDERED: LEVOTHYROXINE NA 75 MCG TABLET (FP) ONE (11:26)
[2023-11-01] MEDS ORDERED: PIPERACILLIN/TAZOB 3.375 GM 3.375 GM/50 ML BAG IVPB ONE (11:27)
[2023-11-01] MEDS: ENALAPRIL MALEATE 10 MG TABLET PO SCH (13:14)
[2023-11-01] MEDS: EMPAGLIFLOZIN (JARDIANCE) 10 MG TABLET PO SCH (13:14)
[2023-11-01] MEDS ORDERED: predniSONE 10 MG TABLET (UD) ONE (13:15)
[2023-11-01] MEDS ORDERED: amLODIPine BESYLATE 10 MG TABLET (FP) ONE (13:16)
[2023-11-01] MEDS: predniSONE 5 MG TABLET (UD) PO SCH (13:16)
[2023-11-01] MEDS: HEPARIN NA (PORCINE) 5,000 UNITS/ML 1ML VIAL SQ SCH (23:13)
[2023-11-01] MEDS: ATORVASTATIN CA 40 MG TABLET (FP) PO SCH (23:14)
[2023-11-01] MEDS: SENNOSIDES/DOCUSATE COMBO (SENNA PLUS) TABLET (UD) PO SCH (23:15)
[2023-11-02] MEDS: SODIUM CHLORIDE 1,000 ML IV SCH (03:24)
[2023-11-02 09:27] LABS: BASO % 0.4 % (0-2.0); EOS % 0.3 % (0-4.5); HEMATOCRIT 30.9 % (32.4-45.2); HEMOGLOBIN 9.5 GM/dL (10.7-15.3); LYMPH % 16.7 % (8-40); MCH 22.5 pg (25.7-33.7); MCHC 30.7 g/dl (32.0-36.0); MEAN CELL VOLUME 73.2 fl (80-96); MEAN PLT VOLUME 7.7 fl (7.5-11.1); MONO % 6.7 % (3.8-10.2); NEUT % 75.9 % (42.8-82.8); PLATELET COUNT 598 10^3/uL (134-434); RBC 4.22 M/mm3 (3.60-5.2); RDW 15.3 % (11.6-15.6); WHITE BLOOD COUNT 9.6 K/mm3 (4.0-10.0)
[2023-11-02 09:39] LABS: POTASSIUM 4.7 mmol/L (3.5-5.1)
[2023-11-02 09:47] LABS: BLOOD UREA NITROGEN 23.4 mg/dL (7-18); CALCIUM 8.4 mg/dL (8.5-10.1); MAGNESIUM 2.5 mg/dL (1.8-2.4)
[2023-11-02 09:51] LABS: CREATININE 0.8 mg/dL (0.55-1.3)
[2023-11-02] MEDS: predniSONE 5 MG TABLET (UD) PO SCH (09:53)
[2023-11-02] MEDS: ENALAPRIL MALEATE 10 MG TABLET PO SCH (09:53)
[2023-11-02] MEDS: HEPARIN NA (PORCINE) 5,000 UNITS/ML 1ML VIAL SQ SCH ×2 (09:53→21:29)
[2023-11-02] MEDS: ASPIRIN COATED 81 MG TABLET.EC PO SCH (09:54)
[2023-11-02] MEDS: POLYETHYLENE GLYCOL (HEALTHYLAX) 3350 17 GM PACKET PO SCH ×2 (09:54→21:29)
[2023-11-02] MEDS: EMPAGLIFLOZIN (JARDIANCE) 10 MG TABLET PO SCH (09:56)
[2023-11-02] MEDS ORDERED: POLYETHYLENE GLYCOL (HEALTHYLAX) 3350 17 GM PACKET PO ONE (10:45)
[2023-11-02] MEDS ORDERED: SENNOSIDES 8.8 MG/5 ML SYRUP PO SCH ×3 (10:45→22:00)
[2023-11-02] MEDS ORDERED: POLYETHYLENE GLYCOL (HEALTHYLAX) 3350 17 GM PACKET PO SCH (10:45)
[2023-11-02] MEDS ORDERED: DOCUSATE SODIUM 100 MG CAPSULE (FP) PO ONE (11:00)
[2023-11-02] MEDS ORDERED: MINERAL OIL ENEMA 133 ML ENEMA RC ONE ×3 (11:00→14:55)
[2023-11-02] MEDS: INSULIN ASPART SLIDING SCALE (NOVOLOG) 1 VIAL SQ SCH ×2 (12:13→16:59)
[2023-11-02] MEDS ORDERED: SODIUM PHOSPHATE/NA BIPHOS 133 ML ENEMA RC ONE (12:15)
[2023-11-02 12:34] VITALS: RESP 18
[2023-11-02] MEDS: ATORVASTATIN CA 40 MG TABLET (FP) PO SCH (21:30)
[2023-11-02] MEDS: SENNOSIDES/DOCUSATE COMBO (SENNA PLUS) TABLET (UD) PO SCH (21:30)
[2023-11-03] MEDS: INSULIN ASPART SLIDING SCALE (NOVOLOG) 1 VIAL SQ SCH ×5 (07:00→16:34)
[2023-11-03 08:34] LABS: BASO % 0.6 % (0-2.0); EOS % 0.5 % (0-4.5); HEMATOCRIT 28.6 % (32.4-45.2); HEMOGLOBIN 8.8 GM/dL (10.7-15.3); LYMPH % 23.2 % (8-40); MCH 22.4 pg (25.7-33.7); MCHC 30.8 g/dl (32.0-36.0); MEAN CELL VOLUME 72.8 fl (80-96); MEAN PLT VOLUME 7.7 fl (7.5-11.1); MONO % 5.9 % (3.8-10.2); NEUT % 69.8 % (42.8-82.8); PLATELET COUNT 537 10^3/uL (134-434); RBC 3.92 M/mm3 (3.60-5.2); RDW 15.3 % (11.6-15.6); WHITE BLOOD COUNT 7.5 K/mm3 (4.0-10.0)
[2023-11-03 09:06] LABS: POTASSIUM 4.5 mmol/L (3.5-5.1)
[2023-11-03 09:12] LABS: CALCIUM 8.9 mg/dL (8.5-10.1)
[2023-11-03 09:13] LABS: BLOOD UREA NITROGEN 26.5 mg/dL (7-18); MAGNESIUM 2.3 mg/dL (1.8-2.4)
[2023-11-03 09:16] LABS: PHOSPHOROUS 2.5 mg/dL (2.5-4.9)
[2023-11-03 09:17] LABS: TOT PROT 5.3 g/dl (6.4-8.2)
[2023-11-03 09:18] LABS: BILIRUBIN,TOTAL 0.2 mg/dL (0.2-1)
[2023-11-03] MEDS: EMPAGLIFLOZIN (JARDIANCE) 10 MG TABLET PO SCH (09:22)
[2023-11-03] MEDS: predniSONE 5 MG TABLET (UD) PO SCH (09:22)
[2023-11-03] MEDS: ENALAPRIL MALEATE 10 MG TABLET PO SCH (09:22)
[2023-11-03] MEDS: HEPARIN NA (PORCINE) 5,000 UNITS/ML 1ML VIAL SQ SCH (09:23)
[2023-11-03] MEDS: ASPIRIN COATED 81 MG TABLET.EC PO SCH (09:23)
[2023-11-03] MEDS: POLYETHYLENE GLYCOL (HEALTHYLAX) 3350 17 GM PACKET PO SCH (09:23)
[2023-11-03] MEDS ORDERED: PEG 3350/NA SULF BICARB CL/KCL 4000 ML SOLN.RECON PO ONE (12:45)
[2023-11-03] MEDS ORDERED: POLYETHYLENE GLYCOL (HEALTHYLAX) 3350 17 GM PACKET PO SCH (14:00)
[2023-11-03 14:39] VITALS: BP 104/49; PULSE 84; TEMP 98.2
[2023-11-03] MEDS ORDERED: INSULIN ASPART SLIDING SCALE (NOVOLOG) 1 VIAL SQ ONE (17:47)
== END 2023-11-03 19:45 | disposition home health service (06) ==
LOC: JER 14:04 → JERBED 23:35 → J6S 11-01 22:26
PROVIDERS: ADMIT Internal Medicine; ATTEND Internal Medicine
PROC: 3E023GC Introduction of Other Therapeutic Substance into Muscle, Percutaneous Approach (ICD-10-PCS; principal; 2023-10-31)
PROC: 3E0337Z Introduction of Electrolytic and Water Balance Substance into Peripheral Vein, Percutaneous Approach (ICD-10-PCS; 2023-10-31)
DX: K56.41 Fecal impaction (principal); E11.22 Type 2 diabetes mellitus with diabetic chronic kidney disease; I12.9 Hypertensive chronic kidney disease with stage 1 through stage 4 chronic kidney disease, or unspecified chronic kidney disease; N18.30 Chronic kidney disease, stage 3 unspecified; R00.0 Tachycardia, unspecified; E11.9 Type 2 diabetes mellitus without complications; K21.9 Gastro-esophageal reflux disease without esophagitis; I25.10 Atherosclerotic heart disease of native coronary artery without angina pectoris; D64.9 Anemia, unspecified; E27.8 Other specified disorders of adrenal gland; K85.90 Acute pancreatitis without necrosis or infection, unspecified; K59.09 Other constipation; I11.0 Hypertensive heart disease with heart failure; Z95.5 Presence of coronary angioplasty implant and graft; I25.2 Old myocardial infarction; Z90.49 Acquired absence of other specified parts of digestive tract
CPT/HCPCS: 36415; 71045-TC-FY; 74177-TC; 80048; 80053; 81003; 82272; 82962; 83036; 83540; 83550; 83735; 84100; 84443; 85025; 85027; 85610; 86850; 86870; 86880; 86900; 86901; 86902; 87077; 87086; 93005; 93010; 96360; 96361; 96372; 97116-GP; 97161-GP; 99285-25; G0378; J1644; Q9967

== ENCOUNTER 2024-01-26 04:44 | Day surgery (SDC) | payer MEDICARE, OTHER ==
[2024-01-21 11:18] VITALS: BMI 20.2
[2024-01-26 08:51] VITALS: TEMP 97
[2024-01-26 09:04] VITALS: PULSE 80
[2024-01-26 09:28] VITALS: BP 122/48; RESP 15
== END 2024-01-26 09:43 | disposition home or self-care (01) ==
LOC: JASU-ENDO 04:44
PROVIDERS: ATTEND Internal Medicine Gastroenterology
PROC: 0DB28ZX Excision of Middle Esophagus, Via Natural or Artificial Opening Endoscopic, Diagnostic (ICD-10-PCS; 2024-01-26)
PROC: 0DB78ZX Excision of Stomach, Pylorus, Via Natural or Artificial Opening Endoscopic, Diagnostic (ICD-10-PCS; 2024-01-26)
PROC: 0DB68ZX Excision of Stomach, Via Natural or Artificial Opening Endoscopic, Diagnostic (ICD-10-PCS; 2024-01-26)
PROC: 0DJD8ZZ Inspection of Lower Intestinal Tract, Via Natural or Artificial Opening Endoscopic (ICD-10-PCS; principal; 2024-01-26 08:00)
DX: D50.9 Iron deficiency anemia, unspecified (principal); K29.50 Unspecified chronic gastritis without bleeding; K31.A19 Gastric intestinal metaplasia without dysplasia, unspecified site; K64.8 Other hemorrhoids; E11.9 Type 2 diabetes mellitus without complications; I10 Essential (primary) hypertension; Z79.84 Long term (current) use of oral hypoglycemic drugs
CPT/HCPCS: 82962; 88305-TC; 88312-TC; 88342-TC

== ENCOUNTER 2024-09-07 16:39 | Emergency (ER) | payer OTHER ==
[2024-09-07 16:59] VITALS: RESP 18; TEMP 98.1; BMI 19.0
[2024-09-07 17:52] LABS: HEMATOCRIT 34.8 % (32.4-45.2); MCH 22.7 pg (25.7-33.7); MCHC 31.6 g/dl (32.0-36.0); MEAN CELL VOLUME 71.7 fl (80-96); PLATELET COUNT 400.8 10^3/uL (134-434); RBC 4.85 10^6/uL (3.60-5.2); RDW 17.5 % (11.6-15.6); WHITE BLOOD COUNT 8.3 10^3/uL (4.0-10.8)
[2024-09-07 17:54] LABS: INR 0.97 (0.83-1.09); PROTHROMBIN TIME (PATIENT) 11.1 SEC (9.7-13.0)
[2024-09-07 17:57] LABS: ACTIVATED PTT 32.7 SECONDS (25.2-36.5)
[2024-09-07 18:30] LABS: ALBUMIN 3.9 g/dl (3.4-5.0); BILIRUBIN,TOTAL 0.5 mg/dl (0.2-1); CALCIUM 9.7 mg/dl (8.5-10.1); CREATININE 0.9 mg/dl (0.6-1.3); MAGNESIUM 1.9 mg/dL (1.8-2.4); POTASSIUM 4.9 mmol/L (3.5-5.1); TOT PROT 6.8 g/dl (6.4-8.2)
[2024-09-07 18:32] LABS: PLATELET ESTIMATE ADEQUATE
[2024-09-07] MEDS: SODIUM CHLORIDE 1,000 ML IV STA (18:40)
[2024-09-07 18:51] VITALS: BP 149/70; PULSE 103
== END 2024-09-07 19:56 | disposition home or self-care (01) ==
LOC: FER 16:39
PROC: 3E0337Z Introduction of Electrolytic and Water Balance Substance into Peripheral Vein, Percutaneous Approach (ICD-10-PCS; principal; 2024-09-07)
DX: E11.65 Type 2 diabetes mellitus with hyperglycemia (principal); E04.1 Nontoxic single thyroid nodule; R42 Dizziness and giddiness; M25.512 Pain in left shoulder; W01.198A Fall on same level from slipping, tripping and stumbling with subsequent striking against other object, initial encounter; Z20.822 Contact with and (suspected) exposure to COVID-19
CPT/HCPCS: 0241U-QW; 36415; 70450-TC; 72125-TC; 73030-TC-LT-FY; 80053; 81003; 82962; 83735; 84100; 84484; 85027; 85610; 85730; 87086; 87186; 93005; 96360; 99285-25

== ENCOUNTER 2025-05-15 10:55 | Emergency (ER) | payer OTHER ==
[2025-05-15 11:03] VITALS: TEMP 98.4; BMI 20.2
[2025-05-15] MEDS ORDERED: ACETAMINOPHEN 325 MG TABLET (FP) ONE (11:44)
[2025-05-15] MEDS: ACETAMINOPHEN 500 MG TABLET (FP) PO ONE (11:48)
[2025-05-15 13:25] VITALS: BP 151/69; PULSE 82; RESP 16
== END 2025-05-15 13:25 | disposition home or self-care (01) ==
LOC: JER 10:55
DX: M79.89 Other specified soft tissue disorders (principal)
CPT/HCPCS: 73130-TC-LT-FY; 99283-25